=== PATIENT | female | born 1950 | race Caucasian/White ===

== ENCOUNTER 2017-02-13 08:44 | Day surgery (SDC) | payer MEDICARE, SELFPAY ==
[2017-02-13 09:03] VITALS: BP 173/92; PULSE 74; RESP 18; TEMP 36.6; O2SAT 93
[2017-02-13 09:30] VITALS: BP 148/87; PULSE 72; RESP 18
[2017-02-13 09:37] VITALS: BP 175/67; PULSE 67; RESP 18; TEMP 36.6; O2SAT 97
--- NOTE | 2017-02-13 09:37 | P.PCN_ITS ---
- Procedure Date: 02/13/17 Time: 09:32 Anesthesiologist:: Fito Vuong CRNA Complications:: None Pre-procedure Diagnosis:: Degenerative disc disease lumbar spine multilevel lumbar radiculopathy symptoms. Post-procedure Diagnosis:: Same Indications for Procedure:: This patient is a very pleasant 66-year-old white female we have been treated for quite some time for chronic low back pain secondary to degenerative disc disease lumbar spine multiple levels. Lumbar radicular symptoms. She has responded very well to lumbar epidural steroid injections at the L4-5 level. She presents to our procedure clinic today for a therapeutic lumbar epidural steroid injection Procedure Details:: Procedure: Lumbar epidural steroid injection under fluoroscopy Informed consent was obtained and the risks and benefits of the procedure were explained to the patient. The patient was taken to the procedure room and noninvasive monitors placed, including noninvasive blood pressure cuff and pulse oximeter. The back was viewed using C-arm Fluoroscopy and prepped using Betadine as a cleansing solution and the L4-L5 interspace was palpated. Skin and subcutaneous tissues were anesthetized using lidocaine 1.5% and a 25-gauge needle. After this, an 18-gauge Touhy epidural needle was placed into the L4-L5 interspace and advanced using fluoroscopic guidance and loss of resistance to air until the epidural space was encountered. After confirmation of needle placement in the epidural space, with dye, a solution containing lidocaine 1.5% , 4 mL and Depo-Medrol 80 mg were incrementally injected into the lumbar epidural space. The patient tolerated the procedure well with no complications. The patient was observed in the Pain Clinic and then discharged home neurologically intact. Plan and Disposition:: Patient was reevaluated 10 minutes post procedure. She is doing very well. She will return to see us on an as-needed basis.
== END 2017-02-13 09:40 | disposition home or self-care (01) ==
LOC: SC.PAINP 08:47
PROVIDERS: Family Provider Family Medicine Geriatric Medicine; PCP Family Medicine Geriatric Medicine; Visit Provider Nurse Anesthetist, Certified Registered
DX: M51.16 Intervertebral disc disorders with radiculopathy, lumbar region (principal)
CPT/HCPCS: 62323; 62327; J1030; Q9966

== ENCOUNTER → 2017-04-02 08:46 | Outpatient (POV) | payer MEDICARE, SELFPAY ==
[2017-04-02 09:03] VITALS: BP 149/47; PULSE 63; RESP 18; BMI 33.8
--- NOTE | 2017-04-02 09:43 | HMH.PAINSOAP ---
[facility] Pain Management SOAP Note Subjective:: Patient is a pleasant 66-year-old white female who presents today for follow-up after her lumbar epidural steroid injection last month. Patient states she had 80% relief of her pain for 6 weeks post lumbar epidural steroid injection. She states that after the injection she becomes much more functional. Patient is on anti-inflammatories and is also completed physical therapy. Patient states injection therapy is the most helpful in her functionality. Patient rates her pain a 6 out of 10 today. Patient states that in the last week her pain has begun to return after her last lumbar epidural steroid injection. ROS General: no recent weight change, no fever, no sleep disturbances Respiratory: no cough, no shortness of air, no recurring pulmonary infections Cardiovascular/Peripheral Vascular: No chest pain, No palpitations, no edema, no shortness of breath. Gastrointestinal: no incontinence, normal bowel movements reported Genitourinary: no incontinence Musculoskeletal: Lumbar back pain Psychiatric: normal mood/ affect Neurological: [denies weakness in extremities], [denies balance issues] Objective:: Physical Exam General: Alert and oriented x3, no acute distress, pleasant and cooperative, [on room air] Lungs: Resps E/U, Symmetrical chest expansion, Eyes: PERRL Musculoskeletal: Flexion and extension of lumbar spine somewhat guarded secondary to pain, deep tendon reflexes normal, strength in upper and lower extremities [5/5], normal gait noted Neurological: speech clear, hotel maintenance worker equal, no gross sensory deficits Assessment:: Degenerative disc disease of the lumbar spine with lumbar radiculopathy Plan:: We will plan on another lumbar epidural steroid injection at L4-L5. Given the efficacy of the most recent injections I believe that this will be helpful for the patient's functionality. Patient has tried and failed anti-inflammatories, medications, physical therapy. This note was dictated using voice-recognition software may contain errors or omissions
--- NOTE | 2017-04-02 09:46 | P.CONS_ITS ---
[facility] Pain Management SOAP Note Subjective:: Patient is a pleasant 66-year-old white female who presents today for follow-up after her lumbar epidural steroid injection last month. Patient states she had 80% relief of her pain for 6 weeks post lumbar epidural steroid injection. She states that after the injection she becomes much more functional. Patient is on anti-inflammatories and is also completed physical therapy. Patient states injection therapy is the most helpful in her functionality. Patient rates her pain a 6 out of 10 today. Patient states that in the last week her pain has begun to return after her last lumbar epidural steroid injection. ROS General: no recent weight change, no fever, no sleep disturbances Respiratory: no cough, no shortness of air, no recurring pulmonary infections Cardiovascular/Peripheral Vascular: No chest pain, No palpitations, no edema, no shortness of breath. Gastrointestinal: no incontinence, normal bowel movements reported Genitourinary: no incontinence Musculoskeletal: Lumbar back pain Psychiatric: normal mood/ affect Neurological: [denies weakness in extremities], [denies balance issues] Objective:: Physical Exam General: Alert and oriented x3, no acute distress, pleasant and cooperative, [ on room air] Lungs: Resps E/U, Symmetrical chest expansion, Eyes: PERRL Musculoskeletal: Flexion and extension of lumbar spine somewhat guarded secondary to pain, deep tendon reflexes normal, strength in upper and lower extremities [5/5], normal gait noted Neurological: speech clear, friend of the court equal, no gross sensory deficits Assessment:: Degenerative disc disease of the lumbar spine with lumbar radiculopathy Plan:: We will plan on another lumbar epidural steroid injection at L4-L5. Given the efficacy of the most recent injections I believe that this will be helpful for the patient's functionality. Patient has tried and failed anti-inflammatories, medications, physical therapy. This note was dictated using voice-recognition software may contain errors or omissions
== END ==
PROVIDERS: Family Provider Family Medicine Geriatric Medicine; PCP Family Medicine Geriatric Medicine; Visit Provider Clinical Nurse Specialist Family Health
DX: M54.16 Radiculopathy, lumbar region (principal)
CPT/HCPCS: 99212

== ENCOUNTER 2017-04-13 11:25 | Day surgery (SDC) | payer MEDICARE, SELFPAY ==
[2017-04-13 12:18] VITALS: BP 171/78; PULSE 64; TEMP 36.4; O2SAT 99; BMI 33.8
[2017-04-13 13:08] VITALS: BP 181/95; PULSE 84; RESP 20
--- NOTE | 2017-04-13 13:08 | HMH.PMPROC ---
- Procedure Date: 04/13/17 Time: 13:08 Anesthesiologist:: Satish Gibson MD Complications:: None Pre-procedure Diagnosis:: Degenerative disc disease of lumbar spine with lumbar radiculopathy symptoms Post-procedure Diagnosis:: Same Indications for Procedure:: This patient is a pleasant 66-year-old white female who we are treating for low back pain with lumbar radiculopathy symptoms. She got 80% relief in her pain symptoms from her last lumbar epidural steroid injections for approximately 6-8 weeks. She is currently on anti-inflammatories and also completed physical therapy. We will do a repeat lumbar epidural steroid injection for her low back pain that has returned. Procedure Details:: Lumbar epidural steroid injection under fluoroscopy Informed consent was obtained and the risk and benefits of the procedure was explained to the patient. The patient was taken to the procedure room. The patient was placed prone on the procedure table. The patient was prepped and draped in sterile fashion. C-arm fluoroscopy was used to view the lumbar spine. Skin and subcutaneous tissues were anesthetized using lidocaine. I placed an 18-gauge epidural needle and advanced into the L4-L5 interspace using fluoroscopic guidance and [id number] to air. After confirmation of needle placement in the epidural space with dye I injected 2 mL of lidocaine 1.5% with Depo-Medrol 80 mg. Patient tolerated the procedure well with no complications. Plan and Disposition:: We will follow-up with this patient in 2 weeks. We will reevaluate her symptoms at that time.
[2017-04-13 13:09] VITALS: BP 175/85; PULSE 74; RESP 18
--- NOTE | 2017-04-13 13:11 | P.PCN_ITS ---
- Procedure Date: 04/13/17 Time: 13:08 Anesthesiologist:: Satish Gibson MD Complications:: None Pre-procedure Diagnosis:: Degenerative disc disease of lumbar spine with lumbar radiculopathy symptoms Post-procedure Diagnosis:: Same Indications for Procedure:: This patient is a pleasant 66-year-old white female who we are treating for low back pain with lumbar radiculopathy symptoms. She got 80% relief in her pain symptoms from her last lumbar epidural steroid injections for approximately 6-8 weeks. She is currently on anti-inflammatories and also completed physical therapy. We will do a repeat lumbar epidural steroid injection for her low back pain that has returned. Procedure Details:: Lumbar epidural steroid injection under fluoroscopy Informed consent was obtained and the risk and benefits of the procedure was explained to the patient. The patient was taken to the procedure room. The patient was placed prone on the procedure table. The patient was prepped and draped in sterile fashion. C-arm fluoroscopy was used to view the lumbar spine. Skin and subcutaneous tissues were anesthetized using lidocaine. I placed an 18-gauge epidural needle and advanced into the L4-L5 interspace using fluoroscopic guidance and [id number] to air. After confirmation of needle placement in the epidural space with dye I injected 2 mL of lidocaine 1.5 % with Depo-Medrol 80 mg. Patient tolerated the procedure well with no complications. Plan and Disposition:: We will follow-up with this patient in 2 weeks. We will reevaluate her symptoms at that time.
[2017-04-13 14:03] VITALS: BP 149/52; PULSE 67; RESP 18; TEMP 36.4; O2SAT 96
[2017-04-13 14:28] LABS: POC Glucose,Bedside 101 mg/dL (70-110)
== END 2017-04-13 14:05 | disposition home or self-care (01) ==
LOC: SC.PAINP 11:27
PROVIDERS: Family Provider Family Medicine Geriatric Medicine; PCP Family Medicine Geriatric Medicine; Visit Provider Anesthesiology
DX: M51.16 Intervertebral disc disorders with radiculopathy, lumbar region (principal); Z79.1 Long term (current) use of non-steroidal anti-inflammatories (NSAID)
CPT/HCPCS: 62323; 82962; J1040; Q9966

== ENCOUNTER → 2017-04-30 09:08 | Outpatient (POV) | payer MEDICARE, SELFPAY ==
[2017-04-30 09:16] VITALS: BP 197/83; PULSE 71; RESP 20; TEMP 36.6; O2SAT 98; BMI 32.9
--- NOTE | 2017-04-30 09:34 | HMH.PAINSOAP ---
[facility] Pain Management SOAP Note Subjective:: This patient is a pleasant 66-year-old white female who presents today for follow-up after her most recent lumbar epidural steroid injection. Patient is doing extremely well she states she has 100% pain relief. She rates her pain a 0 out of 10 today. Patient is very happy with her injective therapies. Patient and I discussed returning to us her pain begins to increase or on an as-needed basis. ROS General: no recent weight change, no fever, no sleep disturbances Respiratory: no cough, no shortness of air, no recurring pulmonary infections Cardiovascular/Peripheral Vascular: No chest pain, No palpitations, no edema, no shortness of breath. Gastrointestinal: no incontinence, normal bowel movements reported Genitourinary: no incontinence Musculoskeletal: History of back pain Psychiatric: normal mood/ affect, [denies depression], [denies anxiety] Neurological: [denies weakness in extremities], [denies balance issues] Objective:: Physical Exam General: Alert and oriented x3, no acute distress, pleasant and cooperative, [on room air] Lungs: Resps E/U, Symmetrical chest expansion, Eyes: PERRL Musculoskeletal: Flexion and extension of lumbar spine somewhat guarded secondary to pain, deep tendon reflexes normal, strength in upper and lower extremities [5/5], normal gait noted Neurological: speech clear, dehydration unit operator equal, no gross sensory deficits Assessment:: Degenerative disc disease of the lumbar spine, lumbar radiculopathy Plan:: We will follow-up with this patient on an as-needed basis.
--- NOTE | 2017-04-30 09:38 | P.CONS_ITS ---
[facility] Pain Management SOAP Note Subjective:: This patient is a pleasant 66-year-old white female who presents today for follow-up after her most recent lumbar epidural steroid injection. Patient is doing extremely well she states she has 100% pain relief. She rates her pain a 0 out of 10 today. Patient is very happy with her injective therapies. Patient and I discussed returning to us her pain begins to increase or on an as- needed basis. ROS General: no recent weight change, no fever, no sleep disturbances Respiratory: no cough, no shortness of air, no recurring pulmonary infections Cardiovascular/Peripheral Vascular: No chest pain, No palpitations, no edema, no shortness of breath. Gastrointestinal: no incontinence, normal bowel movements reported Genitourinary: no incontinence Musculoskeletal: History of back pain Psychiatric: normal mood/ affect, [denies depression], [denies anxiety] Neurological: [denies weakness in extremities], [denies balance issues] Objective:: Physical Exam General: Alert and oriented x3, no acute distress, pleasant and cooperative, [ on room air] Lungs: Resps E/U, Symmetrical chest expansion, Eyes: PERRL Musculoskeletal: Flexion and extension of lumbar spine somewhat guarded secondary to pain, deep tendon reflexes normal, strength in upper and lower extremities [5/5], normal gait noted Neurological: speech clear, woods rider equal, no gross sensory deficits Assessment:: Degenerative disc disease of the lumbar spine, lumbar radiculopathy Plan:: We will follow-up with this patient on an as-needed basis.
== END ==
PROVIDERS: Family Provider Family Medicine Geriatric Medicine; PCP Family Medicine Geriatric Medicine; Visit Provider Clinical Nurse Specialist Family Health
DX: M54.16 Radiculopathy, lumbar region (principal)
CPT/HCPCS: 99212

== ENCOUNTER → 2017-06-11 10:55 | Outpatient (POV) | payer MEDICARE, SELFPAY ==
[2017-06-11 10:58] VITALS: BP 157/49; PULSE 59; RESP 20; TEMP 36.7; O2SAT 99; BMI 32.9
--- NOTE | 2017-06-11 11:13 | HMH.PAINSOAP ---
[facility] Pain Management SOAP Note Subjective:: Patient is a pleasant 66-year-old white female who presents today for follow-up after her most recent lumbar epidural steroid injection. Patient typically does quite well with them getting 90-100% relief however she states she did not get much relief with this injection. Patient states she has a new pain in her low back. Patient states her pain is an 8 out of 10 today. Patient states that it is in her low back around her coccyx area. Patient states that she has had sacroiliitis in the past and and this is the same kind of pain that she has had. Patient has had bilateral SI joint injections with good relief 80% up to 8 weeks. Patient is interested in bilateral SI joint injections. ROS General: no recent weight change, no fever, no sleep disturbances Respiratory: no cough, no shortness of air, no recurring pulmonary infections Cardiovascular/Peripheral Vascular: No chest pain, No palpitations, no edema, no shortness of breath. Gastrointestinal: no incontinence, normal bowel movements reported Genitourinary: no incontinence Musculoskeletal: Back pain, bilateral SI joint pain Psychiatric: normal mood/ affect Neurological: [denies weakness in extremities], [denies balance issues] Objective:: Physical Exam General: Alert and oriented x3, no acute distress, pleasant and cooperative, [on room air] Lungs: Resps E/U, Symmetrical chest expansion, Eyes: PERRL Musculoskeletal: Flexion and extension of lumbar spine somewhat guarded secondary to pain, deep tendon reflexes normal, strength in upper and lower extremities [5/5], [abnormal gait noted] a positive Chiquita's test bilaterally, extreme point tenderness over bilateral SI joints Neurological: speech clear, member of congress equal, no gross sensory deficits Assessment:: Sacroiliitis, degenerative disc disease lumbar spine with lumbar radiculopathy Plan:: Schedule bilateral SI joint injections for the patient. Patient has had these injections in the past with significant relief. Patient and I did discuss talking about more permanent options if her epidural injections are not giving her the relief that they used to in the bilateral SI joint injection does not help. Patient is not on any blood thinners. Patient has tried and failed medications, anti-inflammatories, physical therapy. I will follow-up with the patient after her SI joint injections. This note was dictated using voice recognition software and may contain errors or omissions
--- NOTE | 2017-06-11 11:16 | P.CONS_ITS ---
[facility] Pain Management SOAP Note Subjective:: Patient is a pleasant 66-year-old white female who presents today for follow-up after her most recent lumbar epidural steroid injection. Patient typically does quite well with them getting 90-100% relief however she states she did not get much relief with this injection. Patient states she has a new pain in her low back. Patient states her pain is an 8 out of 10 today. Patient states that it is in her low back around her coccyx area. Patient states that she has had sacroiliitis in the past and and this is the same kind of pain that she has had. Patient has had bilateral SI joint injections with good relief 80% up to 8 weeks. Patient is interested in bilateral SI joint injections. ROS General: no recent weight change, no fever, no sleep disturbances Respiratory: no cough, no shortness of air, no recurring pulmonary infections Cardiovascular/Peripheral Vascular: No chest pain, No palpitations, no edema, no shortness of breath. Gastrointestinal: no incontinence, normal bowel movements reported Genitourinary: no incontinence Musculoskeletal: Back pain, bilateral SI joint pain Psychiatric: normal mood/ affect Neurological: [denies weakness in extremities], [denies balance issues] Objective:: Physical Exam General: Alert and oriented x3, no acute distress, pleasant and cooperative, [ on room air] Lungs: Resps E/U, Symmetrical chest expansion, Eyes: PERRL Musculoskeletal: Flexion and extension of lumbar spine somewhat guarded secondary to pain, deep tendon reflexes normal, strength in upper and lower extremities [5/5], [abnormal gait noted] a positive Chiquita's test bilaterally, extreme point tenderness over bilateral SI joints Neurological: speech clear, fire control officer equal, no gross sensory deficits Assessment:: Sacroiliitis, degenerative disc disease lumbar spine with lumbar radiculopathy Plan:: Schedule bilateral SI joint injections for the patient. Patient has had these injections in the past with significant relief. Patient and I did discuss talking about more permanent options if her epidural injections are not giving her the relief that they used to in the bilateral SI joint injection does not help. Patient is not on any blood thinners. Patient has tried and failed medications, anti-inflammatories, physical therapy. I will follow-up with the patient after her SI joint injections. This note was dictated using voice recognition software and may contain errors or omissions
== END ==
PROVIDERS: Family Provider Family Medicine Geriatric Medicine; PCP Family Medicine Geriatric Medicine; Visit Provider Clinical Nurse Specialist Family Health
DX: M54.16 Radiculopathy, lumbar region (principal); M46.1 Sacroiliitis, not elsewhere classified
CPT/HCPCS: 99212

== ENCOUNTER → 2017-07-09 09:50 | Outpatient (POV) | payer MEDICARE, SELFPAY ==
[2017-07-09 10:00] VITALS: BP 134/54; PULSE 70; RESP 18; O2SAT 99; BMI 32.9
--- NOTE | 2017-07-09 11:12 | P.CONS_ITS ---
[facility] Pain Management SOAP Note Subjective:: Patient is a pleasant 66-year-old white female who presents today after bilateral SI joint injections. Patient states she has 0 pain today she states that she is 100% relief after these injections. Patient is doing well. Patient states she is more functional with this relief. Patient has not had epidural injections in the past and did well with these as well. ROS General: no recent weight change, no fever, no sleep disturbances Respiratory: no cough, no shortness of air, no recurring pulmonary infections Cardiovascular/Peripheral Vascular: No chest pain, No palpitations, no edema, no shortness of breath. Gastrointestinal: no incontinence, normal bowel movements reported Genitourinary: no incontinence Musculoskeletal: Intermittent back and bilateral SI joint pain Psychiatric: normal mood/ affect Neurological: [denies weakness in extremities], [denies balance issues] Objective:: Physical Exam General: Alert and oriented x3, no acute distress, pleasant and cooperative, [ on room air] Lungs: Resps E/U, Symmetrical chest expansion, Eyes: PERRL Musculoskeletal: Flexion and extension of lumbar spine somewhat guarded secondary to pain, deep tendon reflexes normal, strength in upper and lower extremities [5/5], normal gait noted Neurological: speech clear, director of strategic initiatives equal, no gross sensory deficits Assessment:: Degenerative disc disease of lumbar spine with lumbar radiculopathy, sacroiliitis Plan:: We will follow-up with this patient on an as-needed basis. Patient is done extremely well with injective therapy in the past. This note was dictated using voice recognition software and may contain errors or omissions
== END ==
PROVIDERS: Family Provider Family Medicine Geriatric Medicine; PCP Family Medicine Geriatric Medicine; Visit Provider Clinical Nurse Specialist Family Health
DX: M54.16 Radiculopathy, lumbar region (principal); M46.1 Sacroiliitis, not elsewhere classified
CPT/HCPCS: 99212

== ENCOUNTER 2017-07-31 12:45 | Day surgery (SDC) | payer MEDICARE, SELFPAY ==
[2017-07-31 13:00] VITALS: BP 187/81; PULSE 69; RESP 18; O2SAT 98; BMI 32.9
[2017-07-31 13:08] VITALS: BP 189/84; PULSE 88; RESP 20; O2SAT 98
[2017-07-31 13:09] VITALS: BP 158/101; PULSE 92; RESP 18; O2SAT 97
--- NOTE | 2017-07-31 13:16 | HMH.PMPROC ---
- Procedure Date: 07/31/17 Time: 13:10 Anesthesiologist:: Traci Nicole APRN Complications:: None Pre-procedure Diagnosis:: Sacroiliitis Post-procedure Diagnosis:: Same Indications for Procedure:: Patient is a pleasant 58-year-old white female who presents today for bilateral SI joint injections. Patient has had good relief with these injections in the past. Patient states she gets about 6-8 weeks of relief after these injections. Patient and I did briefly discuss potentially doing an RFA on her bilateral excise at some point. Patient is slightly interested in this but would like to see how this injection works at this time. Patient states she is more functional after injection she rates her pain a 6 out of 10 today. Physical Exam General: Alert and oriented x3, no acute distress, pleasant and cooperative, [on room air] Lungs: Resps E/U, Symmetrical chest expansion, Eyes: PERRL Musculoskeletal: Flexion and extension of lumbar spine somewhat guarded secondary to pain, deep tendon reflexes normal, strength in upper and lower extremities [5/5], antalgic gait noted, positive Chiquita's test bilaterally, extreme point tenderness over bilateral SI joints Neurological: speech clear, tool design checker equal, no gross sensory deficits Procedure Details:: Informed consent was obtained and the risks and benefits of the procedure were explained to the patient. Patient was taken to the procedure room. Patient was placed prone on the procedure table. The bilateral hips were prepped using ChloraPrep as a cleansing solution. The skin and subcutaneous tissues were anesthetized using lidocaine. Using fluoroscopic guidance I placed a 22-gauge spinal needle into the inferior aspect of the [right] SI joint. After this I injected 5 mL bupivacaine 0.25% and Depo-Medrol 40 mg into the right SI joint. We then moved to the left SI joint. The skin and saphenous tissue were anesthetized using lidocaine. Using fluoroscopy topic guidance I placed a 22-gauge spinal needle into the inferior aspect of the left SI joint after this I injected 5 mL's of bupivacaine 0.25% and Depo-Medrol 40 mg into the left SI joint. the patient tolerated the procedure well with no complication. Plan and Disposition:: Patient did well after the procedure. Patient was monitored for some time in the clinic. Patient's been instructed to call the office if she has any issues prior to her next appointment. I will follow-up with her in 2 weeks we will reassess her symptoms at that time. We may readdress potential RFA of the bilateral SI joints. This note was dictated using voice recognition software and may contain errors or omissions
[2017-07-31 13:19] VITALS: BP 189/71; PULSE 69; RESP 18; O2SAT 98
--- NOTE | 2017-07-31 13:19 | P.PCN_ITS ---
- Procedure Date: 07/31/17 Time: 13:10 Anesthesiologist:: Traci Nicole APRN Complications:: None Pre-procedure Diagnosis:: Sacroiliitis Post-procedure Diagnosis:: Same Indications for Procedure:: Patient is a pleasant 58-year-old white female who presents today for bilateral SI joint injections. Patient has had good relief with these injections in the past. Patient states she gets about 6-8 weeks of relief after these injections. Patient and I did briefly discuss potentially doing an RFA on her bilateral excise at some point. Patient is slightly interested in this but would like to see how this injection works at this time. Patient states she is more functional after injection she rates her pain a 6 out of 10 today. Physical Exam General: Alert and oriented x3, no acute distress, pleasant and cooperative, [ on room air] Lungs: Resps E/U, Symmetrical chest expansion, Eyes: PERRL Musculoskeletal: Flexion and extension of lumbar spine somewhat guarded secondary to pain, deep tendon reflexes normal, strength in upper and lower extremities [5/5], antalgic gait noted, positive Chiquita's test bilaterally, extreme point tenderness over bilateral SI joints Neurological: speech clear, typewriters functional tester equal, no gross sensory deficits Procedure Details:: Informed consent was obtained and the risks and benefits of the procedure were explained to the patient. Patient was taken to the procedure room. Patient was placed prone on the procedure table. The bilateral hips were prepped using ChloraPrep as a cleansing solution. The skin and subcutaneous tissues were anesthetized using lidocaine. Using fluoroscopic guidance I placed a 22-gauge spinal needle into the inferior aspect of the [right] SI joint. After this I injected 5 mL bupivacaine 0.25% and Depo-Medrol 40 mg into the right SI joint. We then moved to the left SI joint. The skin and saphenous tissue were anesthetized using lidocaine. Using fluoroscopy topic guidance I placed a 22- gauge spinal needle into the inferior aspect of the left SI joint after this I injected 5 mL's of bupivacaine 0.25% and Depo-Medrol 40 mg into the left SI joint. the patient tolerated the procedure well with no complication. Plan and Disposition:: Patient did well after the procedure. Patient was monitored for some time in the clinic. Patient's been instructed to call the office if she has any issues prior to her next appointment. I will follow-up with her in 2 weeks we will reassess her symptoms at that time. We may readdress potential RFA of the bilateral SI joints. This note was dictated using voice recognition software and may contain errors or omissions
== END 2017-07-31 13:21 | disposition home or self-care (01) ==
LOC: SC.PAINP 12:45
PROVIDERS: Family Provider Family Medicine Geriatric Medicine; PCP Family Medicine Geriatric Medicine; Visit Provider Clinical Nurse Specialist Family Health
DX: M46.1 Sacroiliitis, not elsewhere classified (principal)
CPT/HCPCS: 27096; G0260; J1030

== ENCOUNTER → 2017-08-13 12:42 | Outpatient (POV) | payer MEDICARE, SELFPAY ==
[2017-08-13 13:12] VITALS: BP 145/70; PULSE 69; RESP 18; O2SAT 98; BMI 32.9
--- NOTE | 2017-08-14 09:11 | HMH.PAINSOAP ---
[facility] Pain Management SOAP Note Subjective:: Patient is a pleasant 66-year-old white female who presents today after bilateral SI joint injections. Patient states that she has had a flare in her pain. Patient rates her pain a 9 out of 10 today. Patient states most of her pain is in her low back and across her back. ROS General: no recent weight change, no fever, no sleep disturbances Respiratory: no cough, no shortness of air, no recurring pulmonary infections Cardiovascular/Peripheral Vascular: No chest pain, No palpitations, no edema, no shortness of breath. Gastrointestinal: no incontinence, normal bowel movements reported Genitourinary: no incontinence Musculoskeletal: Bilateral SI joint pain Psychiatric: normal mood/ affect Neurological: [denies weakness in extremities], [denies balance issues] Objective:: Physical Exam General: Alert and oriented x3, no acute distress, pleasant and cooperative, [on room air] Lungs: Resps E/U, Symmetrical chest expansion, Eyes: PERRL Musculoskeletal: Flexion and extension of lumbar spine somewhat guarded secondary to pain, deep tendon reflexes normal, strength in upper and lower extremities [5/5], [abnormal gait noted] Neurological: speech clear, deputy county counsel equal, no gross sensory deficits Assessment:: Sacroiliitis, degenerative disc disease of the lumbar spine Plan:: We will call in a LBE Security Master Dosepak for the patient. I will see the patient back in 1 week. Patient's been instructed to call the office if she has any issues prior to this. This note was dictated using voice recognition software and may contain errors or omissions
--- NOTE | 2017-08-14 09:21 | P.CONS_ITS ---
[facility] Pain Management SOAP Note Subjective:: Patient is a pleasant 66-year-old white female who presents today after bilateral SI joint injections. Patient states that she has had a flare in her pain. Patient rates her pain a 9 out of 10 today. Patient states most of her pain is in her low back and across her back. ROS General: no recent weight change, no fever, no sleep disturbances Respiratory: no cough, no shortness of air, no recurring pulmonary infections Cardiovascular/Peripheral Vascular: No chest pain, No palpitations, no edema, no shortness of breath. Gastrointestinal: no incontinence, normal bowel movements reported Genitourinary: no incontinence Musculoskeletal: Bilateral SI joint pain Psychiatric: normal mood/ affect Neurological: [denies weakness in extremities], [denies balance issues] Objective:: Physical Exam General: Alert and oriented x3, no acute distress, pleasant and cooperative, [ on room air] Lungs: Resps E/U, Symmetrical chest expansion, Eyes: PERRL Musculoskeletal: Flexion and extension of lumbar spine somewhat guarded secondary to pain, deep tendon reflexes normal, strength in upper and lower extremities [5/5], [abnormal gait noted] Neurological: speech clear, cruller maker machine equal, no gross sensory deficits Assessment:: Sacroiliitis, degenerative disc disease of the lumbar spine Plan:: We will call in a pushd Dosepak for the patient. I will see the patient back in 1 week. Patient's been instructed to call the office if she has any issues prior to this. This note was dictated using voice recognition software and may contain errors or omissions
== END ==
PROVIDERS: Family Provider Family Medicine Geriatric Medicine; PCP Family Medicine Geriatric Medicine; Visit Provider Clinical Nurse Specialist Family Health
DX: M46.1 Sacroiliitis, not elsewhere classified (principal)
CPT/HCPCS: 99212

== ENCOUNTER → 2017-08-21 10:05 | Outpatient (POV) | payer MEDICARE, SELFPAY ==
[2017-08-21 10:24] VITALS: BP 149/70; PULSE 62; RESP 18; O2SAT 98; BMI 32.9
--- NOTE | 2017-08-21 11:12 | HMH.PAINSOAP ---
[facility] Pain Management SOAP Note Subjective:: She is a pleasant 67-year-old white female presents today with an exacerbation of her pain. Patient was seen last week and given a steroid Dosepak however her pain has not been relieved. She states that most of her pain is in her low back midline. She pain a 9 out of 10. Patient has not had any recent MRI imaging. Patient is having weakness in her legs at times. I believe that we need to get a new MRI to discern pathology. ROS General: no recent weight change, no fever, no sleep disturbances Respiratory: no cough, no shortness of air, no recurring pulmonary infections Cardiovascular/Peripheral Vascular: No chest pain, No palpitations, no edema, no shortness of breath. Gastrointestinal: no incontinence, normal bowel movements reported Genitourinary: no incontinence Musculoskeletal: Back pain Psychiatric: normal mood/ affect Neurological: Weakness in bilateral lower extremities at times, [denies balance issues] Objective:: Physical Exam General: Alert and oriented x3, no acute distress, pleasant and cooperative, [on room air] Lungs: Resps E/U, Symmetrical chest expansion, Eyes: PERRL Musculoskeletal: Flexion and extension of lumbar spine somewhat guarded secondary to pain, deep tendon reflexes normal, strength in upper and lower extremities [5/5], [abnormal gait noted] Neurological: speech clear, sewer line photo inspector equal, no gross sensory deficits Assessment:: Degenerative disc disease of the lumbar spine with lumbar radiculopathy Plan:: We will schedule an MRI for this patient I believe given the new symptomology would be beneficial. Patient has had injections in the past but has not had any long-term relief with it. Patient and I did briefly discuss neuromodulation however I believe we need to have a new MRI to help create a plan of care. Follow-up patient after her this. This note was dictated using voice recognition software and may contain errors or omissions
== END ==
PROVIDERS: Family Provider Family Medicine Geriatric Medicine; PCP Family Medicine Geriatric Medicine; Visit Provider Clinical Nurse Specialist Family Health
DX: M54.16 Radiculopathy, lumbar region (principal)
CPT/HCPCS: 99212

== ENCOUNTER → 2017-08-28 08:30 | Outpatient (CLI) | payer MEDICARE, SELFPAY ==
--- NOTE | 2017-08-28 08:33 | MR_ITS ---
MR lumbar spine wo con HISTORY: ITS.REASON: BACK PAIN ORDERING PHYSICIAN: Traci Nicole PATIENT AGE: 67 years Comparison: None TECHNIQUE: Standard multiplanar multiecho sequences are performed without contrast. 3-D MIP and myelographic images are also rendered and reviewed FINDINGS: There is normal curvature and alignment. All lumbar vertebrae appear intact. The marrow signal is normal in all lumbar vertebrae. There is a normal healthy high signal in the L1-2 disc, remaining disks skull show decreased signal suggesting desiccation. The spinal canal is normal in size throughout. There is mild diffuse bulging of the annulus fibrosis at the L2-3 level. There are mild hypertrophic facet changes bilaterally at the L2-3 level as well. There are moderate hypertrophic facet changes at the L3-4 level, the L4-5 and L5-S1 levels appear normal regarding the facet joints. The conus is normal. The myelogram sequence is unremarkable. IMPRESSION: Mild generalized desiccation of lumbar discs L2-L5 S1 along with minor diffuse bulging annulus fibrosis L2-3 and mild hypertrophic facet changes mid lumbar spine as described above.
== END ==
PROVIDERS: Family Provider Family Medicine Geriatric Medicine; PCP Family Medicine Geriatric Medicine; Visit Provider Clinical Nurse Specialist Family Health
DX: M54.5 Low back pain (principal)
CPT/HCPCS: 72148; 76376

== ENCOUNTER → 2017-09-03 09:34 | Outpatient (POV) | payer MEDICARE, SELFPAY ==
[2017-09-03 09:40] VITALS: BP 175/73; PULSE 69; RESP 18; O2SAT 98; BMI 32.9
--- NOTE | 2017-09-03 09:58 | HMH.PAINSOAP ---
[facility] Pain Management SOAP Note Subjective:: Patient is a pleasant 67-year-old white female who presents today for follow-up after her most recent MRI. Patient's been having increased lumbar back pain. Patient was doing well with her injection therapy however she states that they are no longer lasting for her. Patient rates the pain an 8 out of 10 mostly in her low back. Patient's MRI does show degenerative disc disease along with some facet changes. Patient and I had a long discussion about neuro stimulation and intrathecal pain pump. I believe she will be a good intrathecal pain pump candidate. I discussed the trialing and implantation process. Patient is going to take some information home and think about this. Patient is on [place] 5 mg daily from her PCP. I discussed with her that she would have to be with medication for 48 hours prior to her intrathecal trial and she understands this. Patient's tried and failed physical therapy, stretching therapy, chiropractic therapy, injective therapy, medications, anti-inflammatories. ROS General: no recent weight change, no fever, no sleep disturbances Respiratory: no cough, no shortness of air, no recurring pulmonary infections Cardiovascular/Peripheral Vascular: No chest pain, No palpitations, no edema, no shortness of breath. Gastrointestinal: no incontinence, normal bowel movements reported Genitourinary: no incontinence Musculoskeletal: Back pain Psychiatric: normal mood/ affect, [denies depression], [denies anxiety] Neurological: [denies weakness in extremities], [denies balance issues] Objective:: Physical Exam General: Alert and oriented x3, no acute distress, pleasant and cooperative, [on room air] Lungs: Resps E/U, Symmetrical chest expansion, Eyes: PERRL Musculoskeletal: Flexion and extension of lumbar spine somewhat guarded secondary to pain, deep tendon reflexes normal, strength in upper and lower extremities [5/5], [abnormal gait noted] Neurological: speech clear, international account manager equal, no gross sensory deficits Assessment:: Degenerative disc disease of the lumbar spine Plan:: Patient was given information on both intrathecal pain therapy along with neuro stimulation. Patient is going to review this and call us if she would like to move forward with these therapies. This note was dictated using voice recognition software and may contain errors or omissions
--- NOTE | 2017-09-03 10:01 | P.CONS_ITS ---
[facility] Pain Management SOAP Note Subjective:: Patient is a pleasant 67-year-old white female who presents today for follow-up after her most recent MRI. Patient's been having increased lumbar back pain. Patient was doing well with her injection therapy however she states that they are no longer lasting for her. Patient rates the pain an 8 out of 10 mostly in her low back. Patient's MRI does show degenerative disc disease along with some facet changes. Patient and I had a long discussion about neuro stimulation and intrathecal pain pump. I believe she will be a good intrathecal pain pump candidate. I discussed the trialing and implantation process. Patient is going to take some information home and think about this. Patient is on [place] 5 mg daily from her PCP. I discussed with her that she would have to be with medication for 48 hours prior to her intrathecal trial and she understands this. Patient's tried and failed physical therapy, stretching therapy, chiropractic therapy, injective therapy, medications, anti- inflammatories. ROS General: no recent weight change, no fever, no sleep disturbances Respiratory: no cough, no shortness of air, no recurring pulmonary infections Cardiovascular/Peripheral Vascular: No chest pain, No palpitations, no edema, no shortness of breath. Gastrointestinal: no incontinence, normal bowel movements reported Genitourinary: no incontinence Musculoskeletal: Back pain Psychiatric: normal mood/ affect, [denies depression], [denies anxiety] Neurological: [denies weakness in extremities], [denies balance issues] Objective:: Physical Exam General: Alert and oriented x3, no acute distress, pleasant and cooperative, [ on room air] Lungs: Resps E/U, Symmetrical chest expansion, Eyes: PERRL Musculoskeletal: Flexion and extension of lumbar spine somewhat guarded secondary to pain, deep tendon reflexes normal, strength in upper and lower extremities [5/5], [abnormal gait noted] Neurological: speech clear, modeling agent equal, no gross sensory deficits Assessment:: Degenerative disc disease of the lumbar spine Plan:: Patient was given information on both intrathecal pain therapy along with neuro stimulation. Patient is going to review this and call us if she would like to move forward with these therapies. This note was dictated using voice recognition software and may contain errors or omissions
== END ==
PROVIDERS: Family Provider Family Medicine Geriatric Medicine; PCP Family Medicine Geriatric Medicine; Visit Provider Clinical Nurse Specialist Family Health
DX: M51.36 Other intervertebral disc degeneration, lumbar region (principal)
CPT/HCPCS: 99212

== ENCOUNTER → 2017-09-18 09:57 | Outpatient (POV) | payer MEDICARE, SELFPAY ==
[2017-09-18 10:24] VITALS: BP 184/67; PULSE 61; RESP 18; O2SAT 98; BMI 32.9
--- NOTE | 2017-09-18 11:37 | HMH.PAINSOAP ---
[facility] Pain Management SOAP Note Subjective:: Patient is a pleasant 67-year-old white female who presents today to follow-up after she was provided information on intrathecal therapies. Patient has some questions that she would like to address. Patient and I had a long discussion in regards to the therapy and realistic expectations and goal setting. Patient is interested in moving forward with a psychological evaluation and a trial. Most the patient's pain is in her low back and down her legs. Patient has tried and failed physical therapy, stretching therapy, chiropractic therapy, injective therapy, medications and anti-inflammatories. Patient is not on any anticoagulation therapy. Patient understands that she has to be off of her narcotic medications 48 hours prior to her intrathecal trial. She rates her pain a 7 out of 10. ROS General: no recent weight change, no fever, no sleep disturbances Respiratory: no cough, no shortness of air, no recurring pulmonary infections Cardiovascular/Peripheral Vascular: No chest pain, No palpitations, no edema, no shortness of breath. Gastrointestinal: no incontinence, normal bowel movements reported Genitourinary: no incontinence Musculoskeletal: Back pain, leg pain Psychiatric: normal mood/ affect Neurological: [denies weakness in extremities], [denies balance issues] Objective:: Physical Exam General: Alert and oriented x3, no acute distress, pleasant and cooperative, [on room air] Lungs: Resps E/U, Symmetrical chest expansion, Eyes: PERRL Musculoskeletal: Flexion and extension of lumbar spine somewhat guarded secondary to pain, deep tendon reflexes normal, strength in upper and lower extremities [5/5], [abnormal gait noted] Neurological: speech clear, peer health promoter equal, no gross sensory deficits Assessment:: Degenerative disc disease of lumbar spine with lumbar radiculopathy Plan:: We will schedule the patient for psychological evaluation we will start the process of moving forward with an intrathecal pain pump trial. Patient's tried and failed other conservative measures. I will follow-up the patient after her trial. This note was dictated using voice recognition software and may contain errors or omissions
== END ==
PROVIDERS: Family Provider Family Medicine Geriatric Medicine; PCP Family Medicine Geriatric Medicine; Visit Provider Clinical Nurse Specialist Family Health
DX: M51.16 Intervertebral disc disorders with radiculopathy, lumbar region (principal); Z79.891 Long term (current) use of opiate analgesic
CPT/HCPCS: 99213

== ENCOUNTER → 2017-11-06 10:48 | Outpatient (POV) | payer MEDICARE, SELFPAY ==
[2017-11-06 11:14] VITALS: BP 147/53; PULSE 64; RESP 18; O2SAT 97; BMI 33.8
--- NOTE | 2017-11-06 11:19 | HMH.PMPROC ---
- Procedure Date: 11/06/17 Time: 11:15 Anesthesiologist:: Traci Nicole APRN Complications:: None Pre-procedure Diagnosis:: Degenerative disc disease lumbar spine with lumbar radiculopathy symptoms Post-procedure Diagnosis:: Same Indications for Procedure:: Patient is a pleasant 67-year-old white female who presents today for postop visit after her intrathecal pain pump was placed. Patient is currently on a morphine dose of 0.25 mg/day. Patient rates her pain a 0 out of 10. Patient states she is much more functional. Patient stitches have been removed and the site is healing well with no sign symptoms of infection. Patient denies side effects to her interthecal infusion. ROS General: no recent weight change, no fever, no sleep disturbances Respiratory: no cough, no shortness of air, no recurring pulmonary infections Cardiovascular/Peripheral Vascular: No chest pain, No palpitations, no edema, no shortness of breath. Gastrointestinal: no incontinence, normal bowel movements reported Genitourinary: no incontinence Musculoskeletal: Back pain Psychiatric: normal mood/ affect, Neurological: [denies weakness in extremities], [denies balance issues] Physical Exam General: Alert and oriented x3, no acute distress, pleasant and cooperative, [on room air] Lungs: Resps E/U, Symmetrical chest expansion, Eyes: PERRL Musculoskeletal: Flexion and extension of lumbar spine somewhat guarded secondary to pain, deep tendon reflexes normal, strength in upper and lower extremities [5/5], slightly antalgic gait noted Neurological: speech clear, organizational consultant equal, no gross sensory deficits Procedure Details:: Informed consent was obtained and the risk and benefits of the procedure were explained to the patient. The patient was taken to the procedure room where noninvasive monitoring was placed including noninvasive blood pressure cuff and pulse oximeter. Patient's pump was interrogated. The infusion rate was left at 0.25 mg of morphine and her PTC was set up at 0.025 mg every activation every 6 hours as needed. The patient tolerated the procedure well. Plan and Disposition:: We will follow-up with the patient in 3 weeks and reassess her symptoms at that time. Patient's been instructed to call the office if she has any issues prior to her next appointment. This note was dictated using voice recognition software and may contain errors or omissions
== END ==
PROVIDERS: Family Provider Family Medicine Geriatric Medicine; PCP Family Medicine; Visit Provider Clinical Nurse Specialist Family Health
DX: M51.16 Intervertebral disc disorders with radiculopathy, lumbar region (principal)
CPT/HCPCS: 62368

== ENCOUNTER → 2017-11-19 14:08 | Outpatient (POV) | payer MEDICARE, SELFPAY ==
[2017-11-19 14:37] VITALS: BP 154/71; PULSE 62; RESP 18; O2SAT 98; BMI 33.8
--- NOTE | 2017-11-19 14:48 | HMH.PMPROC ---
- Procedure Date: 11/19/17 Time: 14:40 Anesthesiologist:: Traci Nicole APRN Complications:: None Pre-procedure Diagnosis:: Degenerative disc disease lumbar spine with lumbar radiculopathy Post-procedure Diagnosis:: Same Indications for Procedure:: Patient is a pleasant 67-year-old white female who presents today for discussion in regards to her intrathecal pain pump. Patient has a morphine pump going at 0.25 mg a day. Patient states in the last 2 weeks she has had some side effects including nausea, itching, loss of appetite, mind fogginess, swelling, bloated, mood changes. Patient and I had a long discussion about this. She is also been having some increases in pain. Patient and I discussed changing her medication and her pump and she is interested in pursuing this. We will decrease her pain pump today by 20% to help alleviate some of her side effects and then we will refill her with Dilaudid 1 mg/mL and start her at 0.05 mg/day at her next visit. Physical Exam General: Alert and oriented x3, no acute distress, pleasant and cooperative, [on room air] Lungs: Resps E/U, Symmetrical chest expansion, Eyes: PERRL Musculoskeletal: Flexion and extension of lumbar spine somewhat guarded secondary to pain, deep tendon reflexes normal, strength in upper and lower extremities [5/5], [abnormal gait noted] Neurological: speech clear, public health informatician equal, no gross sensory deficits Procedure Details:: Informed consent was obtained and the risk and benefits of the procedure were explained to the patient. The patient was taken to the procedure room where noninvasive monitoring was placed including noninvasive blood pressure cuff and pulse oximeter. Patient's pump was interrogated. The infusion rate was decreased to 0.2 mg a day of morphine. The patient tolerated the procedure well. Plan and Disposition:: I will follow-up with the patient next week and we will refill her pain pump with Dilaudid instead of morphine. Patient's been instructed to call the office if she has any issues prior to her next appointment. This note was dictated using voice recognition software and may contain errors or omissions
== END ==
PROVIDERS: Family Provider Family Medicine Geriatric Medicine; PCP Family Medicine; Visit Provider Clinical Nurse Specialist Family Health
DX: M51.16 Intervertebral disc disorders with radiculopathy, lumbar region (principal)
CPT/HCPCS: 62368

== ENCOUNTER → 2017-12-10 15:39 | Outpatient (POV) | payer MEDICARE, SELFPAY ==
[2017-12-10 15:55] VITALS: BP 197/82; PULSE 66; RESP 18; O2SAT 98; BMI 33.8
--- NOTE | 2017-12-11 07:45 | HMH.PMPROC ---
- Procedure Date: 12/10/17 Time: 16:00 Anesthesiologist:: Traci Nicole APRN Complications:: None Pre-procedure Diagnosis:: Degenerative disc disease lumbar spine with lumbar radiculopathy Post-procedure Diagnosis:: Same Indications for Procedure:: Patient is a pleasant 67-year-old white female who presents today for follow-up after changed from morphine to Dilaudid in her intrathecal pump. Patient was having side effects to the morphine. We started her intrathecal infusion of Dilaudid at 0.04mg/day. Patient states the only side effect she has at this time is sleepiness. She rates her pain a 0 out of 10 however she states it does spike a little bit. Patient will be switched to periodic flow today to determine if this is beneficial for her. Physical Exam General: Alert and oriented x3, no acute distress, pleasant and cooperative, [on room air] Lungs: Resps E/U, Symmetrical chest expansion, Eyes: PERRL Musculoskeletal: Flexion and extension of lumbar spine somewhat guarded secondary to pain, deep tendon reflexes normal, strength in upper and lower extremities [5/5], [abnormal gait noted] Neurological: speech clear, food mobile driver equal, no gross sensory deficits Procedure Details:: Informed consent was obtained and the risk and benefits of the procedure were explained to the patient. The patient was taken to the procedure room where noninvasive monitoring was placed including noninvasive blood pressure cuff and pulse oximeter. Patient's pump was interrogated. The infusion rate was changed to 0.005 mg every 2 hours for total daily dose of 0.06 mg of Dilaudid. The patient tolerated the procedure well. Plan and Disposition:: We will follow-up with the patient and her next intrathecal pain pump refill and reprogram. Patient's been instructed to call the office if she has any issues prior to her next appointment. This note was dictated using voice recognition software and may contain errors or omissions
== END ==
PROVIDERS: PCP Family Medicine; Visit Provider Clinical Nurse Specialist Family Health
DX: M51.16 Intervertebral disc disorders with radiculopathy, lumbar region (principal)
CPT/HCPCS: 62368

== ENCOUNTER → 2017-12-24 12:51 | Outpatient (POV) | payer MEDICARE, SELFPAY ==
--- NOTE | 2017-12-24 13:42 | HMH.PMPROC ---
- Procedure Date: 12/24/17 Time: 13:40 Anesthesiologist:: Traci Nicole APRN Complications:: None Pre-procedure Diagnosis:: Degenerative disc disease lumbar spine with lumbar radiculopathy Post-procedure Diagnosis:: Same Indications for Procedure:: Patient is a pleasant 67-year-old white female who presents today for adjustment to her intrathecal pain pump. Patient states that she has been having some side effects including sleepiness along with mental fogginess with her Dilaudid running at 0.005 mg every 2 hours for total daily dose of 0.06. Patient does not have any pain however. We will turn her pump off today to see if these are related to her interthecal infusion. Physical Exam General: Alert and oriented x3, no acute distress, pleasant and cooperative, [on room air] Lungs: Resps E/U, Symmetrical chest expansion, Eyes: PERRL Musculoskeletal: Flexion and extension of lumbar spine somewhat guarded secondary to pain, deep tendon reflexes normal, strength in upper and lower extremities [5/5], slightly antalgic gait noted Neurological: speech clear, embossing tool setter equal, no gross sensory deficits Procedure Details:: Informed consent was obtained and the risk and benefits of the procedure were explained to the patient. The patient was taken to the procedure room where noninvasive monitoring was placed including noninvasive blood pressure cuff and pulse oximeter. Patient's pump was interrogated. The infusion rate was turned to 0 mg/day. The patient tolerated the procedure well. Plan and Disposition:: We will follow-up with her in 2 weeks and reassess her symptoms at that time. Patient has been instructed to call the office if she has any issues prior to her next appointment. This note was dictated using voice recognition software and may contain errors or omissions
[2017-12-24 14:42] VITALS: BP 158/58; PULSE 58; RESP 18; O2SAT 97; BMI 33.8
[2017-12-24 15:05] LABS: Amphetamine/Metha Screen,Urine Negative ng/mL (<1000); Barbiturates Screen,Urine Negative ng/mL (<200); Benzodiazepines Screen,Urine Negative ng/mL (<200); Cannabinoid Screen,Urine Negative ng/mL (<50); Cocaine Screen,Urine Negative ng/mL (<300); Methadone Screen,Urine Negative ng/mL (<300); Opiate Screen,Urine Negative ng/mL (<300); Phencyclidine Screen,Urine Negative ng/mL (<25)
[2018-01-01 06:08] LABS: Opiates Negative (Cutoff=100)
== END ==
PROVIDERS: PCP Family Medicine; Visit Provider Clinical Nurse Specialist Family Health
DX: M51.16 Intervertebral disc disorders with radiculopathy, lumbar region (principal); Z79.899 Other long term (current) drug therapy
CPT/HCPCS: 62368; 80305; 80361; 80365; G0480

== ENCOUNTER → 2017-12-31 15:35 | Outpatient (POV) | payer MEDICARE, SELFPAY ==
[2017-12-31 15:47] VITALS: BP 145/79; PULSE 120; RESP 18; O2SAT 98; BMI 33.3
--- NOTE | 2017-12-31 15:54 | HMH.PMPROC ---
- Procedure Date: 12/31/17 Time: 15:50 Anesthesiologist:: Traci Nicole APRN Complications:: None Pre-procedure Diagnosis:: Degenerative disc disease lumbar spine with lumbar radiculopathy Post-procedure Diagnosis:: Same Indications for Procedure:: Patient is a pleasant 67-year-old white female presents today for intrathecal pain pump adjustment. Patient stated she was having some side effects including sleepiness along with mental fogginess. Patient had her intrathecal pain pump turned off however she states that she was unaware of how much it was helping her. Patient states that the side effects did not resolve for the week that her pain pump was off. Patient would like to be restarted today. Patient rates her pain an 8 out of 10. Physical Exam General: Alert and oriented x3, no acute distress, pleasant and cooperative, [on room air] Lungs: Resps E/U, Symmetrical chest expansion, Eyes: PERRL Musculoskeletal: Flexion and extension of lumbar spine somewhat guarded secondary to pain, deep tendon reflexes normal, strength in upper and lower extremities [5/5], slightly antalgic gait noted Neurological: speech clear, sprinkler repair technician equal, no gross sensory deficits Procedure Details:: Informed consent was obtained and the risk and benefits of the procedure were explained to the patient. The patient was taken to the procedure room where noninvasive monitoring was placed including noninvasive blood pressure cuff and pulse oximeter. Patient's pump was interrogated. The infusion rate was started back at 0.005 mg every 2 hours for total daily dose of 0.06 Dilaudid. The patient tolerated the procedure well. Plan and Disposition:: We will follow-up with her at her next intrathecal pain pump refill and reprogram. Patient's been instructed to call the office if she has any issues prior to her next appointment. This note was dictated using voice recognition software and may contain errors or omissions
--- NOTE | 2017-12-31 15:57 | P.PCN_ITS ---
- Procedure Date: 12/31/17 Time: 15:50 Anesthesiologist:: Traci Nicole APRN Complications:: None Pre-procedure Diagnosis:: Degenerative disc disease lumbar spine with lumbar radiculopathy Post-procedure Diagnosis:: Same Indications for Procedure:: Patient is a pleasant 67-year-old white female presents today for intrathecal pain pump adjustment. Patient stated she was having some side effects including sleepiness along with mental fogginess. Patient had her intrathecal pain pump turned off however she states that she was unaware of how much it was helping her. Patient states that the side effects did not resolve for the week that her pain pump was off. Patient would like to be restarted today. Patient rates her pain an 8 out of 10. Physical Exam General: Alert and oriented x3, no acute distress, pleasant and cooperative, [on room air] Lungs: Resps E/U, Symmetrical chest expansion, Eyes: PERRL Musculoskeletal: Flexion and extension of lumbar spine somewhat guarded secondary to pain, deep tendon reflexes normal, strength in upper and lower extremities [5/5], slightly antalgic gait noted Neurological: speech clear, general teller equal, no gross sensory deficits Procedure Details:: Informed consent was obtained and the risk and benefits of the procedure were explained to the patient. The patient was taken to the procedure room where noninvasive monitoring was placed including noninvasive blood pressure cuff and pulse oximeter. Patient's pump was interrogated. The infusion rate was started back at 0.005 mg every 2 hours for total daily dose of 0.06 Dilaudid. The patient tolerated the procedure well. Plan and Disposition:: We will follow-up with her at her next intrathecal pain pump refill and rep rogram. Patient's been instructed to call the office if she has any issues prior to her next appointment. This note was dictated using voice recognition software and may contain errors or omissions
== END ==
PROVIDERS: PCP Family Medicine; Visit Provider Clinical Nurse Specialist Family Health
DX: M51.16 Intervertebral disc disorders with radiculopathy, lumbar region (principal)
CPT/HCPCS: 62368

== ENCOUNTER → 2018-01-07 13:32 | Outpatient (POV) | payer MEDICARE, SELFPAY ==
[2018-01-07 13:44] VITALS: BP 138/50; PULSE 69; RESP 18; O2SAT 98; BMI 43.5
--- NOTE | 2018-01-07 14:25 | P.PCN_ITS ---
- Procedure Date: 01/07/18 Time: 14:00 Anesthesiologist:: Traci Nicole APRN Complications:: None Pre-procedure Diagnosis:: Degenerative disc disease lumbar spine with lumbar radiculopathy Post-procedure Diagnosis:: Same Indications for Procedure:: Patient is a pleasant 67-year-old white female who presents today for intrathecal pain pump reprogram. Patient had her pain pump turned off however she realized her side effects were not related to her pain pump. Patient is currently on a Dilaudid dose of 0.005 mg every 2 hours. Patient is doing well with this. Patient does have issues with her pump flipping continue to monitor this. Physical Exam General: Alert and oriented x3, no acute distress, pleasant and cooperative, [on room air] Lungs: Resps E/U, Symmetrical chest expansion, Eyes: PERRL Musculoskeletal: Flexion and extension of lumbar spine somewhat guarded secondary to pain, deep tendon reflexes normal, strength in upper and lower extremities [5/5], slightly antalgic gait noted Neurological: speech clear, commercial real estate paralegal equal, no gross sensory deficits Procedure Details:: Informed consent was obtained and the risk and benefits of the procedure were explained to the patient. The patient was taken to the procedure room where noninvasive monitoring was placed including noninvasive blood pressure cuff and pulse oximeter. Patient's pump was interrogated. The infusion rate was increased to 0.0052 mg every 2 hours. The patient tolerated the procedure well. Plan and Disposition:: We will follow-up with the patient and her next intrathecal pain pump refill. Patient's been instructed to call the office if he has any issues prior to her next appointment. This note was dictated using voice recognition software and may contain errors or omissions
== END ==
PROVIDERS: PCP Family Medicine; Visit Provider Clinical Nurse Specialist Family Health
DX: M51.16 Intervertebral disc disorders with radiculopathy, lumbar region (principal)
CPT/HCPCS: 62368

== ENCOUNTER → 2018-03-06 12:43 | Outpatient (POV) | payer MEDICARE, SELFPAY ==
--- NOTE | 2018-03-06 13:06 | HMH.PMCON ---
Assessment and Plan - Assessment and plan all Dx Assessment and Plan for all problems:: Impression-intermittent flipping of her pain pump generator Plan-patient will continue cardiac workup. If this persists then flipping or increases in frequency of lifting and arrangements be made for this to be repositioned to the flank musculature and fascia HPI - Data of Consult Patient: known to practice within the last 3 years Consult date: 03/06/18 Requesting Physician: Traci Nicole APRN Primary Care Provider: Luca Ramirez - Consult Narrative Reason for consult: Flipping of pain pump generator History of present illness: Ms. Walls is a 67 year old female who had placement of a pain pump system 10/24/2017. She was unable to wear a binder. She complained of the generator flipping requiring repositioning on several occasions. It has been more stable lately. She is currently undergoing a cardiac workup CC: Traci Nicole APRN [facility] History I have reviewed the patient's past medical history: Yes Medical History: Reports:: Diabetes Mellitus Type 2, Hyperlipidemia, Hypertension Denies:: Cancer, Diabetes Mellitus Type 1, Internal Pacemaker, MRSA, Seizures Have you ever received a pneumonia vaccine?: No Have you received a flu vaccine this season?: No Other Medical History: Reports: Arthritis, Chemotherapy, Fibromyalgia. Denies: Blood Transfusion Reaction Comment:: Illnesses-left breast cancer, hypertension, hyperlipidemia, diabetes mellitus, GERD, chronic back pain Laterality Cases: Bilateral: Arthroscopy Knee, Mastectomy Other Surgeries: No: Pacemaker. Comment Only: Other (mastectomy) Amputation: No Fractures: No Comment: Operations-left mastectomy, knee arthroscopy, knee replacement, - *Social History Smoking Status: Never smoker Alcohol Intake: never Occupational Status: retired Housing: house Household Members: spouse *Family Hx:: Diabetes Review of Systems - Review of Systems Review of systems:: pertinent systems reviewed and negative unless documented below Meds Home Medications Medication Instructions Recorded Confirmed Type Duloxetine HCl [Cymbalta] 60 mg PO DAILY 04/13/17 10/24/17 History Escitalopram Oxalate [Lexapro] 10 mg PO DAILY 04/13/17 10/24/17 History Lisinopril [Lisinopril 20mg Tab] 20 mg PO DAILY 04/13/17 10/24/17 History Meloxicam 15 mg PO DAILY 04/13/17 10/24/17 History Metformin HCl [Glucophage] 500 mg PO BID 04/13/17 10/24/17 History Metoprolol Succinate 50 mg PO DAILY 04/13/17 10/24/17 History Omeprazole Magnesium [Prilosec Otc 20 mg PO DAILY 04/13/17 10/24/17 History 20mg Tab] Simvastatin [Zocor] 40 mg PO DAILY 04/13/17 10/24/17 History Tramadol HCl [Ultram] 50 mg PO DIRECTED 04/13/17 10/24/17 History Trazodone HCl 150 mg PO DAILY 04/13/17 10/24/17 History Aspirin [Aspir 81] 81 mg PO DAILY 10/24/17 10/24/17 History Allergies Allergy/AdvReac Type Severity Reaction Status Date / Time No Known Allergies Allergy Verified 10/23/17 14:16 Objective - *Routine Respiratory Exam Comments: Clear breath sounds - *Routine Cardiovascular Exam Present: RRR - *Routine Abdominal Exam Present: soft - Routine Back/Spine/Pelvis Exam Comments: Patient's right flank pump easily movable but not flipped today and not easily flipped with manual manipulation
== END ==
PROVIDERS: PCP Family Medicine; Visit Provider Clinical Nurse Specialist Family Health
DX: Z96.89 Presence of other specified functional implants; T85.898A Other specified complication of other internal prosthetic devices, implants and grafts, initial encounter
CPT/HCPCS: 99212

== ENCOUNTER → 2018-05-06 13:06 | Outpatient (POV) | payer MEDICARE, SELFPAY ==
[2018-05-06 13:22] VITALS: BP 170/54; PULSE 64; RESP 18; O2SAT 98; BMI 34.7
--- NOTE | 2018-05-06 13:39 | HMH.PMPROC ---
- Procedure Date: 05/06/18 Time: 13:39 Anesthesiologist:: Traci Nicole APRN Complications:: None Pre-procedure Diagnosis:: Degenerative disc disease lumbar spine with lumbar radiculopathy Post-procedure Diagnosis:: Same Indications for Procedure:: Patient is a pleasant 67-year-old white female who presents today to discuss her pain pump. Patient would like it removed. She states that she has constant constipation. She states that the pump is uncomfortable and moves all the time. She is frustrated with this. I discussed potentially just turning it off for some time but she is very adamant she wants it removed she rates her pain a 0 out of 10 today. She is currently at a dose of 0.072 mg. We will turn her to 0 today. Patient's not on any anticoagulation therapy. Patient states that she has had some mental fogginess with the medication. Physical Exam General: Alert and oriented x3, no acute distress, pleasant and cooperative, [on room air] Lungs: Resps E/U, Symmetrical chest expansion, Eyes: PERRL Musculoskeletal: Flexion and extension of lumbar spine somewhat guarded secondary to pain, deep tendon reflexes normal, strength in upper and lower extremities [5/5], slightly antalgic gait noted Neurological: speech clear, organ pipe finisher equal, no gross sensory deficits Procedure Details:: Informed consent was obtained and the risk and benefits of the procedure were explained to the patient. The patient was taken to the procedure room where noninvasive monitoring was placed including noninvasive blood pressure cuff and pulse oximeter. Patient's pump was interrogated and reprogrammed. The infusion rate was turned to 0 mg/day. The patient tolerated the procedure well. Plan and Disposition:: Patient is asking me today about pain medication. I discussed with her that we will explant her pump but we will not start her on any narcotic medications. Dr. Gibson has reviewed this note and agrees with this plan of care. This note was dictated using voice recognition software and may contain errors or omissions
== END ==
PROVIDERS: PCP Family Medicine; Visit Provider Clinical Nurse Specialist Family Health
DX: M51.16 Intervertebral disc disorders with radiculopathy, lumbar region (principal)
CPT/HCPCS: 99212

== ENCOUNTER → 2018-05-28 10:50 | Outpatient (POV) | payer MEDICARE, SELFPAY ==
[2018-05-28 11:05] VITALS: BP 192/73; PULSE 61; RESP 18; O2SAT 98; BMI 33.8
[2018-05-28 11:11] VITALS: BP 192/73; PULSE 61; RESP 18; O2SAT 98; BMI 33.8
--- NOTE | 2018-05-28 11:17 | HMH.PAINSOAP ---
[facility] Pain Management SOAP Note Subjective:: Patient is a pleasant 67-year-old white female who presents today for follow-up after intrathecal pain pump explant. Patient states she is doing well rating her pain a 4 out of 10. Patient site looks good with no sign symptoms of infection. Patient currently taking CBD oil. ROS General: no recent weight change, no fever, no sleep disturbances Respiratory: no cough, no shortness of air, no recurring pulmonary infections Cardiovascular/Peripheral Vascular: No chest pain, No palpitations, no edema, no shortness of breath. Gastrointestinal: no incontinence, normal bowel movements reported Genitourinary: no incontinence Musculoskeletal: Back pain Psychiatric: normal mood/ affect Neurological: [denies weakness in extremities], [denies balance issues] Objective:: Physical Exam General: Alert and oriented x3, no acute distress, pleasant and cooperative, [on room air] Lungs: Resps E/U, Symmetrical chest expansion, Eyes: PERRL Musculoskeletal: Flexion and extension of lumbar spine somewhat guarded secondary to pain, deep tendon reflexes normal, strength in upper and lower extremities [5/5], antalgic gait noted Neurological: speech clear, invertebrate paleontologist equal, no gross sensory deficits Assessment:: Degenerative disc disease lumbar spine with lumbar radiculopathy status post explant of intrathecal pain pump Plan:: We will follow-up with the patient in 2 weeks we will reassess her symptoms at that time she is been instructed to call our office if she has any issues prior to her next appointment. Dr. Gibson has reviewed this note and agrees with this plan of care. This note was dictated using voice recognition software and may contain errors or omissions
== END ==
PROVIDERS: PCP Family Medicine; Visit Provider Clinical Nurse Specialist Family Health
DX: M51.16 Intervertebral disc disorders with radiculopathy, lumbar region (principal)
CPT/HCPCS: 99212

== ENCOUNTER → 2021-08-25 14:55 | Outpatient (POV) | payer MEDICARE, SELFPAY ==
[2021-08-25 15:07] VITALS: BP 145/69; PULSE 74; RESP 20; O2SAT 95; BMI 46.6
--- NOTE | 2021-08-25 15:25 | HMH.PMCON ---
Assessment and Plan (1) Degenerative disc disease, lumbar Status: Acute Category: Medical Code(s): M51.36 - Other intervertebral disc degeneration, lumbar region (2) Lumbar radiculopathy Status: Acute Category: Medical Code(s): M54.16 - Radiculopathy, lumbar region (3) Bilateral hip pain Status: Acute Category: Medical Code(s): M25.551 - Pain in right hip; M25.552 - Pain in left hip - Assessment and plan all Dx Assessment and Plan for all problems:: Patient has significant pain in her low back and bilateral hips. She has had multiple injections in the past. Patient did have a positive point tenderness along her low back and bilateral hips in today's exam. The last lumbar MRI images I have are from 2018. I will order updated imaging at today's visit. I have discussed with the patient regarding lumbar epidural steroid injections and greater trochanteric bursa injections. Risk and benefits have been discussed with the patient. The patient would like to proceed forward with these injections. Patient does state that she remembers having significant relief from previous bursa injections. I have explained to the patient that I would like to have that updated imaging before doing the epidural. At this time we will schedule her for a bilateral greater trochanteric bursa injections. When the patient returns for follow-up we will discuss her MRI findings. Patient has been instructed to contact the clinic with any concerns before the next appointment. Dr. Gibson has reviewed this note and agrees with this plan of care. This note was dictated using voice recognition software and make contain errors or omissions. HPI - Data of Consult Patient: known to practice within the last 3 years Consult date: 08/25/21 Requesting Physician: HAIDER Padron Primary Care Provider: Bruno Rendon - Consult Narrative Reason for consult: Low back pain, bilateral hip pain History of present illness: Ms. Walls is a 71 year old female who presents today as a new patient. She is a referral from Dr. Bruno Rendon. We have seen this patient in the past with her last visit around 2019. That time we were treating the patient for degenerative disc disease of lumbar spine with lumbar radiculopathy symptoms. Today the patient rates her pain a 8 out of 10. She states her pain is in her low back and her hips. She states that sitting she has no pain but as she walks or increases her activity she has significant pain. She states this is a sharp intermittent sensation. She denies any trauma or injury to the site. She has tried [id number] medications such as Tylenol and ibuprofen with minimal relief. She is also tried topicals and physical therapy with minimal to no relief. She does currently take gabapentin 300 mg 3 times a day, this is prescribed by Dr. Reyes. She states she takes this medication for her neuropathy. She has also been prescribed tramadol 50 mg twice a day in the past by Dr. Bruno Rendon. She states these medications do help with the pain. Patient denies any side effects with these medications. States that she had previously been scheduled for a mild procedure with a physician out of [facility]. She says that on the day of the procedure, she was on the table and they had began numbing her when she actually started to fall off the operating room table. She says the physician stated they were no longer going to proceed forward with the procedure and that they would contact her in 2 to 3 weeks for an office visit but they never called. Patient is interested in injective therapy in more long-term therapy at this time. Her Palomo is [phone]. It has been reviewed and is appropriate. CC: HAIDER Padron [facility] History I have reviewed the patient's past medical history: Yes Medical History: Reports:: Depression, Gastroesophageal Reflux Disease(GERD), Hyperlipidemia, Hypertension, Lung Disease (magalys-bipap hs) Denies:: Cancer, Diabet
== END ==
PROVIDERS: Visit Provider Student in an Organized Health Care Education/Training Program
DX: M51.16 Intervertebral disc disorders with radiculopathy, lumbar region (principal); M25.551 Pain in right hip; M25.552 Pain in left hip
CPT/HCPCS: 99202; G0463

== ENCOUNTER → 2021-08-30 10:29 | Outpatient (CLI) | payer MEDICARE, SELFPAY ==
--- NOTE | 2021-08-30 10:33 | MR_ITS ---
FINAL REPORT TECHNIQUE: Multiplanar and multisequence imaging of the lumbar spine was obtained without contrast. CLINICAL HISTORY: LOW BACK PAIN. HISTORY OF BREAST CANCER IN 2013. LOW BACK PAIN FOR YEARS. NO RECENT INJURY OR TRAUMA. COMPARISON: 08/28/2017 FINDINGS: There is normal alignment of the lumbar vertebral bodies. Vertebral body height is preserved. The spinal cord ends at the level of L1. There is normal signal intensity within the substance of the distal spinal cord. Bone marrow signal intensity is normal. No acute paraspinal abnormality is identified. L1-2: There is no focal disc herniation, central canal stenosis or neuroforaminal narrowing. L2-3: A mild disc osteophyte complex is present. No central canal stenosis or neural foraminal narrowing is seen. L3-4: A mild disc osteophyte complex is present. No central canal stenosis or neural foraminal narrowing is seen. L4-5: A mild disc osteophyte complex is present. No central canal stenosis is seen. There is mild left neural foraminal narrowing which has progressed from the prior exam. L5-S1: A mild disc osteophyte complex is present. No central canal stenosis is seen. There is mild bilateral neural foraminal narrowing which is similar to the prior exam. IMPRESSION: Mild degenerative disc disease which is slightly progressed from the prior exam at L4-5. Reviewed, Interpreted and Dictated by Gita Mason MD Transcribed by Rosa Ordonez Authenticated and [facility]
== END ==
PROVIDERS: PCP Family Medicine; Visit Provider Student in an Organized Health Care Education/Training Program
DX: M54.50 Low back pain, unspecified (principal)
CPT/HCPCS: 72148; 76376; 99213; G0463

== ENCOUNTER 2021-08-30 11:31 | Emergency (ER) | payer MEDICARE, SELFPAY ==
[2021-08-30 11:46] VITALS: BP 155/59; PULSE 73; RESP 16; TEMP 36.6; O2SAT 97; BMI 46.6
--- NOTE | 2021-08-30 11:55 | HMH.EDUTC ---
[facility] [place] Clinical Impression: Sinusitis Qualifiers: Sinusitis location: unspecified location Chronicity: acute Recurrence: non-recurrent Qualified Code(s): J01.90 - Acute sinusitis, unspecified Disposition: Home, Self-Care Condition on Discharge: Good Instructions: DI for Sinusitis Additional Instructions: Drink plenty of fluids. Take tylenol or ibuprofen for pain or fever. Take the medications as directed. Follow up with your regular doctor. GO TO THE ER FOR ANY WORSENING SYMPTOMS Prescriptions: Benzonatate [Benzonatate 100mg cap] 100 mg PO TIDP PRN #30 cap PRN Reason: Cough Transmission Status: Sent to [facility] Cefdinir [Omnicef 300mg Capsule] 300 mg PO BID #20 cap Transmission Status: Sent to [facility] Referrals: Bruno Rendon [Primary Care Provider] - Time of Disposition: 12:37 Medical Decision Making - Medical Records Medical records reviewed: No: I reviewed the patient's medical records. - Palomo Inquiry Pt receiving controlled substance: No Vital Signs: 08/30/21 11:46 08/30/21 12:45 Temperature 97.9 F 97.9 F Temperature Source Oral Pulse Rate 73 Pulse Rate [Left] 73 Respiratory Rate 16 16 Blood Pressure 155/59 H Blood Pressure [Right Arm] 155/59 H Blood Pressure Mean [Right Arm] 91 02 Sat by Pulse Oximetry 97 [facility] [place] HPI - General Stated complaint: head congestion, drainage, sore throat Time Seen by Provider: 08/30/21 12:15 Description of Symptoms (Recalled from Triage Doc. by RN): patient comes in with symptoms of sinus infection. symptoms began 2 weeks ago and she states it is getting worse. HEENT Symptoms (Recalled from RN notes): Yes Resp Symptoms (Recalled from RN notes): No Skin Symptoms (Recalled from RN notes): No MS Symptoms (Recalled from RN notes): No Functional Status (Recalled from RN notes): n/a - History of Present Illness Provider Complaint: She states that for the pastj 2 weeks she has sinus congestion, sinus drainage, and sinus pressure. She believes she has a sinus infection. She denies chest tightness, chest congestion, and significant cough. - Related Data Home Medications Medication Instructions Recorded Confirmed Duloxetine HCl [Cymbalta] 90 mg PO DAILY 04/13/17 08/25/21 Meloxicam 15 mg PO DAILY 04/13/17 08/25/21 Metoprolol Succinate 50 mg PO BID 04/13/17 08/25/21 Trazodone HCl 150 mg PO DAILY 04/13/17 08/25/21 lisinopriL [Lisinopril 20mg Tab] 40 mg PO DAILY 04/13/17 08/25/21 Aspirin [Aspir 81] 81 mg PO DAILY 10/24/17 08/25/21 ARIPiprazole [Aripiprazole 5mg 5 mg PO DAILY 08/25/21 08/25/21 Tablet] Atorvastatin Calcium [Lipitor 80mg 80 mg PO HS 08/25/21 08/25/21 Tab] Atorvastatin Calcium [Lipitor 80mg 80 mg PO HS 08/25/21 08/25/21 Tablet*] Furosemide [Lasix 20mg tab] 20 mg PO DAILY 08/25/21 08/25/21 Gabapentin 300 mg PO TID 08/25/21 08/25/21 Magnesium Oxide [Mag-Ox 400mg Tab] 400 mg PO BID 08/25/21 08/25/21 Methenamine Hippurate 1 gm PO DAILY 08/25/21 08/25/21 Pantoprazole Sodium 40 mg PO DAILY 08/25/21 08/25/21 Pioglitazone HCl [Actos] 30 mg PO DAILY 08/25/21 08/25/21 Potassium Chloride 20 meq PO DAILY 08/25/21 08/25/21 glipiZIDE [Glipizide] 10 mg PO BID 08/25/21 08/25/21 hydroCHLOROthiazide 12.5 mg PO DAILY 08/25/21 08/25/21 [Hydrochlorothiazide 12.5mg Tab] Previous Rx's Medication Instructions Recorded Benzonatate [Benzonatate 100mg 100 mg PO TIDP PRN #30 cap 08/30/21 cap] Cefdinir [Omnicef 300mg Capsule] 300 mg PO BID #20 cap 08/30/21 Allergies Allergy/AdvReac Type Severity Reaction Status Date / Time No Known Allergies Allergy Verified 08/30/21 11:50 - Worker's Comp Is this a Worker's Comp case?: No H History - Hepatitis A Screen Attestation statement:: This patient has been screened for Hepatitis A risk factors. I have reviewed the patient's past medical history: Yes Medical History: Reports:: Depression, Gastroesophageal Reflux Disea
[2021-08-30 12:45] VITALS: BP 155/59; PULSE 73; RESP 16; TEMP 36.6
== END 2021-08-30 12:46 | disposition home or self-care (01) ==
PROVIDERS: Emergency Provider Nurse Practitioner Family; PCP Family Medicine
DX: J01.90 Acute sinusitis, unspecified (principal); J02.9 Acute pharyngitis, unspecified; I10 Essential (primary) hypertension; K21.9 Gastro-esophageal reflux disease without esophagitis; E78.5 Hyperlipidemia, unspecified; M54.9 Dorsalgia, unspecified; G89.29 Other chronic pain; M79.7 Fibromyalgia; J98.4 Other disorders of lung; M19.90 Unspecified osteoarthritis, unspecified site; F32.A Depression, unspecified; Z79.82 Long term (current) use of aspirin; Z79.899 Other long term (current) drug therapy; Z85.3 Personal history of malignant neoplasm of breast; Z83.3 Family history of diabetes mellitus
CPT/HCPCS: 99213; G0463

== ENCOUNTER → 2021-09-08 13:49 | Outpatient (POV) | payer MEDICARE, SELFPAY ==
[2021-09-08 13:59] VITALS: BP 136/56; PULSE 61; RESP 20; O2SAT 96; BMI 47.5
--- NOTE | 2021-09-08 14:42 | HMH.PAINSOAP ---
[facility] Pain Management SOAP Note Subjective:: Patient is a pleasant 71-year-old female that presents today for follow-up of lumbar MRI results. We are currently treating the patient for degenerative disc disease of lumbar spine with lumbar radiculopathy symptoms and bilateral hip pain. Today she rates her pain a 5 out of 10. She states is all in her low back that radiates into her hips and down her legs. She describes this as a aching, sharp sensation that is worse with activity. Patient states that she has minimal pain when sitting however with increased activity or walking she has significant pain. She has tried dcjk-tjn-bhkhsko medications such as Tylenol and ibuprofen with minimal relief. She has also tried topicals and physical therapy with minimal relief. She currently takes gabapentin 300 mg 3 times a day that is prescribed by Dr. Reyes. She states this does give significant relief with her neuropathy. Patient has used in the past tramadol 50 mg twice a day by Dr. Rendon that helped with the pain. She was previously scheduled for mild procedure with the pain doctor there at [facility]. This procedure was canceled due to her falling off the operating room table at the beginning of the procedure. Patient states she had no injuries from this, that they were able to catch her before she had completely fallen off. Patient states she is still never heard back from that office. Patient also has a history of breast cancer from 2012. Her Palomo is [id number]. It has been reviewed and appropriate. Review of Systems: General: No recent weight changes, no fever, no sleep disturbances Respiratory: No cough, no shortness of air, no recurring pulmonary infections Cardiovascular/peripheral vascular: No chest pain, no palpitations, no edema, no shortness of breath Gastrointestinal: No new onset incontinence, normal bowel movements reported Genitourinary: No new onset incontinence Musculoskeletal: Low back pain, bilateral hip pain, leg pain Psychiatric: [Normal mood/affect] Neurological: [Denies weakness in extremities], [denies balance issues] Objective:: Physical Exam: General: Alert and oriented x3, no acute distress, pleasant and cooperative Lungs: Respirations even and unlabored, symmetrical chest expansion Eyes: PERRL Musculoskeletal: Flexion and extension of lumbar [spine] somewhat guarded secondary to pain, [antalgic gait noted]. Point tenderness along lumbar spine and bilateral hips. Positive bilateral Chiquita's, Maine's, Gaenslen's, compression, distraction exam Neurological: Speech clear, no gross sensory deficit MRI LUMBAR: FINAL REPORT TECHNIQUE: Multiplanar and multisequence imaging of the lumbar spine was obtained without contrast. CLINICAL HISTORY: LOW BACK PAIN. HISTORY OF BREAST CANCER IN 2012. LOW BACK PAIN FOR YEARS. NO RECENT INJURY OR TRAUMA. COMPARISON: 08/28/2017 FINDINGS: There is normal alignment of the lumbar vertebral bodies. Vertebral body height is preserved. The spinal cord ends at the level of L1. There is normal signal intensity within the substance of the distal spinal cord. Bone marrow signal intensity is normal. No acute paraspinal abnormality is identified. L1-2: There is no focal disc herniation, central canal stenosis or neuroforaminal narrowing. L2-3: A mild disc osteophyte complex is present. No central canal stenosis or neural foraminal narrowing is seen. L3-4: A mild disc osteophyte complex is present. No central canal stenosis or neural foraminal narrowing is seen. L4-5: A mild disc osteophyte complex is present. No central canal stenosis is seen. There is mild left neural foraminal narrowing which has progressed from the prior exam. L5-S1: A mild disc osteophyte complex is present. No central canal stenosis is seen. There is mild bilateral neural foraminal narrowing which is similar to the prior exam. IMPRESSION: Mild degenerative disc disease which is slightly progressed f
== END ==
PROVIDERS: PCP Family Medicine; Visit Provider Nurse Practitioner Family
DX: M51.16 Intervertebral disc disorders with radiculopathy, lumbar region (principal); M25.551 Pain in right hip; M25.552 Pain in left hip; M46.1 Sacroiliitis, not elsewhere classified
CPT/HCPCS: 99212; G0463

== ENCOUNTER → 2021-09-16 11:13 | Day surgery (SDC) | payer MEDICARE, SELFPAY ==
[2021-09-16 11:21] VITALS: BP 146/54; PULSE 61; TEMP 36.2; O2SAT 98; BMI 47.5
--- NOTE | 2021-09-16 11:46 | P.PCN_ITS ---
- Procedure Date: 09/16/21 Time: 11:46 Anesthesiologist:: Fito Vuong CRNA Complications:: None Pre-procedure Diagnosis:: Bilateral sacroiliitis Post-procedure Diagnosis:: Same Indications for Procedure:: Patient is a very pleasant 71-year-old female who comes our clinic today for bilateral SI joint injections. However, patient is very immobile. She is in a wheelchair today. She is morbidly obese. She is unable to get onto the fluoroscopy table. I discussed in detail with the regarding the injections given without fluoroscopy. She wishes to proceed. She rates her pain 8/10 today. She has extreme point tenderness over the bilateral SI joints. Procedure Details:: Procedure: Bilateral sacroiliac joint injections under fluoroscopy Informed consent was obtained and the risks and benefits of the procedure were explained to the patient.~ The patient was taken to the procedure room and noninvasive monitors were placed including a noninvasive blood pressure cuff and pulse oximeter.~ The patient was placed prone on the procedure table. Both hips were cleansed using Betadine as a cleansing solution. C-arm fluoroscopy was used to view the right sacroiliac joint.~ The skin and subcutaneous tissues were anesthetized using lidocaine 1.5% and a 25-gauge needle.~ After this, a 22-gauge spinal needle was inserted under fluoroscopic guidance into the inferior aspect of the right sacroiliac joint.~ Omnipaque dye was injected and good spread was seen throughout the joint.~ After this, approximately 5 mL of bupivacaine, 0.25% and Depo-Medrol, 40 mg was incrementally injected into the right sacroiliac joint. We then moved to the left sacroiliac joint.~ The skin and subcutaneous tissues were anesthetized using lidocaine 1.5% and a 25-gauge needle.~ After this, a 22- gauge spinal needle was inserted under fluoroscopic guidance into the inferior aspect of the left sacroiliac joint.~ Omnipaque dye was injected and good spread was seen throughout the joint. After this, approximately 5 mL of bupivacaine, 0.25% and Depo-Medrol, 40 mg was incrementally injected into the left sacroiliac joint.~ The patient tolerated the procedure well with no complications. The patient was observed in the Pain Clinic and then was discharged home neurologically intact. Plan and Disposition:: Patient was discharged without incident.
[2021-09-16 11:47] VITALS: BP 134/44; PULSE 54; RESP 18; O2SAT 99
== END ==
PROVIDERS: PCP Family Medicine; Visit Provider Nurse Anesthetist, Certified Registered
DX: M46.1 Sacroiliitis, not elsewhere classified (principal)
CPT/HCPCS: 27096; G0260; J1040

== ENCOUNTER → 2021-10-03 13:58 | Outpatient (POV) | payer MEDICARE, SELFPAY ==
[2021-10-03 14:18] VITALS: BP 143/58; PULSE 67; RESP 20; TEMP 36.4; O2SAT 97; BMI 47.5
--- NOTE | 2021-10-03 15:34 | A.OFFVIS_ITS ---
[facility] Pain Management SOAP Note Subjective:: Patient is a pleasant 71-year-old female that presents today for follow-up of bilateral SI injection on 09/16/2021. We are currently treating the patient for degenerative disc disease of lumbar spine with lumbar radiculopathy symptoms, bilateral hip pain, bilateral sacroiliitis. Patient states that she had little to no relief from these last injections. Today she rates her pain a 7 out of 10 and states the pain is all in her low back. Patient states that at rest she has no pain however with increasing activity and standing or walking she has worsening pain. Patient has tried gagp-msg-lerqrti oral medications with minimal relief of her symptoms. We have also prescribed her a compounding cream however patient states she did not really notice significant improvement of her symptoms. She is currently managed with gabapentin 300 mg 3 times a day by Dr. Precious Reyes. Patient denies any side effects from this medication. She states this medication does work significantly for her neuropathy. Patient was previously scheduled for a mild procedure with a pain doctor in [facility] however she is started falling off the table at the beginning of the procedure and therefore canceled. Patient has never heard back from their office following this incident. Her Aplomo is [id number]. Its been reviewed and appropriate. Review of Systems: General: No recent weight changes, no fever, no sleep disturbances Respiratory: No cough, no shortness of air, no recurring pulmonary infections Cardiovascular/peripheral vascular: No chest pain, no palpitations, no edema, no shortness of breath Gastrointestinal: No new onset incontinence, normal bowel movements reported Genitourinary: No new onset incontinence Musculoskeletal: Low back pain Psychiatric: [Normal mood/affect] Neurological: [Denies weakness in extremities], [denies balance issues] Objective:: Physical Exam: General: Alert and oriented x3, no acute distress, pleasant and cooperative Lungs: Respirations even and unlabored, symmetrical chest expansion Eyes: PERRL Musculoskeletal: Flexion and extension of lumbar [spine] somewhat guarded secondary to pain, [antalgic gait noted] Neurological: Speech clear, no gross sensory deficit Assessment:: Degenerative disc disease of lumbar spine with lumbar radiculopathy symptoms, bilateral hip, bilateral sacroiliitis Plan:: Patient continues to have significant pain in her low back that is worse with increased activity. At rest patient has 0 pain. Previous MRI imaging of her lumbar spine mild degenerative disc disease. No mention was made regarding her ligamentum flavum in this report however imaging shows what appears to be hypertrophy. I have discussed with the patient regarding doing a lumbar epidural with epidurogram in the attempt to proceed forward with the MILD procedure. Educational handouts were given to the patient during today's visit. The patient would like to proceed forward with this plan of care. Patient is not currently on any blood thinners. We will schedule the patient for a lumbar epidural steroid injection at L4-L5 with epidurogram. Patient has been instructed to contact the clinic with any concerns before the next appointment. Dr. Gibson has reviewed this note and agrees with this plan of care. This note was dictated using voice recognition software and make contain errors or omissions. PFSH PFSH Social History Smoking Status: Never smoker second hand exposure: No alcohol intake: never current occupational status: other household members: spouse housing: house current occupational exposures/hazards: No caffeine: Yes
== END ==
PROVIDERS: PCP Family Medicine; Visit Provider Nurse Practitioner Family
DX: M51.16 Intervertebral disc disorders with radiculopathy, lumbar region (principal); M46.1 Sacroiliitis, not elsewhere classified
CPT/HCPCS: 99212; G0463

== ENCOUNTER 2021-10-28 12:55 | Day surgery (SDC) | payer MEDICARE, SELFPAY ==
[2021-10-28 13:03] VITALS: BP 156/70; PULSE 61; RESP 18; TEMP 36.4; O2SAT 98; BMI 47.5
[2021-10-28 13:26] VITALS: BP 138/76; PULSE 69; RESP 19; O2SAT 98
[2021-10-28 13:28] VITALS: RESP 19; O2SAT 98
[2021-10-28 13:34] VITALS: BP 148/50; PULSE 59; RESP 20; O2SAT 98
--- NOTE | 2021-10-28 13:35 | EXP.PAIN.PRO ---
Procedure Date: 10/28/21 Time: 13:35 Anesthesiologist:: Satish Gibson MD Complications:: None Pre-procedure Diagnosis:: Degenerative disc disease of lumbar spine with lumbar radiculopathy symptoms with lumbar spinal stenosis and neurogenic claudication symptoms Post-procedure Diagnosis:: Same Indications for Procedure:: The patient is a pleasant 71-year-old white female who has degenerative disease of lumbar spine with lumbar radiculopathy symptoms. She does have a intrathecal pain pump. We are currently managing this pump. She has neurogenic claudication symptoms. We will do a lumbar epidural steroid injection today with epidurogram to assess levels of stenosis and candidacy for mill invasive lumbar decompression. Procedure Details:: Informed consent was obtained and the risk and benefits of the procedure was explained to the patient. The patient was taken to the procedure room. The patient was placed prone on the procedure table. The patient was prepped and draped in sterile fashion. C-arm fluoroscopy was used to view the lumbar spine. Skin and subcutaneous tissues were anesthetized using lidocaine. I placed an 18-gauge epidural needle and advanced into the L4-L5 interspace using fluoroscopic guidance and birp-ea-trgdysjggk to air. After confirmation of needle placement in the epidural space with dye I injected 2 mL of lidocaine 1.5% with Depo-Medrol 80 mg. Patient tolerated the procedure well with no complications. Plan and Disposition:: Based on epidurogram this patient does have significant stenosis at L4-L5. We will set her up for bilateral L4-L5 minimally invasive lumbar decompression. She does have intrathecal pain pump catheter in this area so we will be very cognizant and careful not to disrupt the catheter.
== END 2021-10-28 13:35 | disposition home or self-care (01) ==
PROVIDERS: PCP Family Medicine; Visit Provider Anesthesiology
DX: M51.16 Intervertebral disc disorders with radiculopathy, lumbar region (principal); M48.062 Spinal stenosis, lumbar region with neurogenic claudication
CPT/HCPCS: 62323; J1040; Q9966

== ENCOUNTER → 2021-11-21 10:10 | Outpatient (POV) | payer MEDICARE, SELFPAY ==
--- NOTE | 2021-11-21 10:31 | EXP.PAIN.SOA ---
[facility] Pain Management SOAP Note Subjective:: Patient is a pleasant 71-year-old female who presents today for follow-up of lumbar epidural steroid injection and epidurogram at L4-L5 on 10/28/2021. We are currently treating the patient for degenerative disc disease of lumbar spine with lumbar radiculopathy symptoms, lumbar spinal stenosis with neurogenic claudication symptoms. Patient states that she had 0 relief following this injection. She states she did not notice any difference in her pain symptoms. Today she rates her pain a 10 out of 10. And states the pain is still in her low back with radicular symptoms into her lower extremities. Patient denies any new trauma or injury. Patient denies any change in location or type of pain she experiences. Patient's LESI did show significant stenosis at L4-L5. She was submitted for a bilateral L4-L5 M ILD. Patient states that she did get a phone call that it was approved by insurance and she is officially scheduled for the procedure December 02. Patient is currently prescribed gabapentin 300 mg 3 times a day by Dr. Palm's office. She is also prescribed a compounding cream from our office however she states that she did not notice significant improvement with this. Her Palomo is [id number]. It is been reviewed and appropriate. Review of Systems: General: No recent weight changes, no fever, no sleep disturbances Respiratory: No cough, no shortness of air, no recurring pulmonary infections Cardiovascular/peripheral vascular: No chest pain, no palpitations, no edema, no shortness of breath Gastrointestinal: No new onset incontinence, normal bowel movements reported Genitourinary: No new onset incontinence Musculoskeletal: Low back pain, bilateral leg pain Psychiatric: [Normal mood/affect] Neurological: [Denies weakness in extremities], [denies balance issues] Objective:: Physical Exam: General: Alert and oriented x3, no acute distress, pleasant and cooperative Lungs: Respirations even and unlabored, symmetrical chest expansion Eyes: PERRL Musculoskeletal: Flexion and extension of lumbar [spine] somewhat guarded secondary to pain, [antalgic gait noted] Neurological: Speech clear, no gross sensory deficit Assessment:: Degenerative disc disease of lumbar spine with lumbar radiculopathy symptoms, lumbar spinal stenosis with neurogenic claudication Plan:: Patient continues to have significant pain in her low back that radiates into her lower extremities. Patient had limited range of motion of her lumbar spine during today's visit. Patient has tried and failed conservative measures such as oral medications, injective therapy, topical medications, heat and ice with no significant improvement of her symptoms. Patient is already scheduled for a minimally invasive lumbar decompression of her bilateral L4 and L5 later this month. Patient will follow-up in office following this procedure for reevaluation of her symptoms. Patient has been instructed to contact the clinic with any concerns before the next appointment. Dr. Gibson has reviewed this note and agrees with this plan of care. This note was dictated using voice recognition software and make contain errors or omissions. [facility] Medical History (Updated 10/28/21 @ 13:08 by Dayan Chavez RN) Diabetes mellitus, type 2 Hyperlipidemia Hypertension Family History (Updated 10/28/21 @ 13:09 by Dayan Chavez RN) Other No significant family history Social History (Updated 10/28/21 @ 13:09 by Dayan Chavez RN) Smoking Status: Never smoker second hand exposure: No alcohol intake: never current occupational status: other Travel in the last 8 weeks: Inside the [place] household members: spouse housing: house current occupational exposures/hazards: No caffeine: Yes
[2021-11-21 10:40] VITALS: BP 129/33; PULSE 70; RESP 18; TEMP 36.3; O2SAT 98; BMI 47.5
== END ==
PROVIDERS: PCP Family Medicine; Visit Provider Nurse Practitioner Family
DX: M51.16 Intervertebral disc disorders with radiculopathy, lumbar region (principal); M48.062 Spinal stenosis, lumbar region with neurogenic claudication
CPT/HCPCS: 99212; G0463

== ENCOUNTER 2021-12-02 06:25 | Day surgery (SDC) | payer MEDICARE, SELFPAY ==
[2021-11-29 17:17] VITALS: BMI 47.5
[2021-12-02] VITALS (11 sets, daily range): BP systolic 113–168; BP diastolic 57–91; PULSE 73–96; RESP 16–18; TEMP 36.3–36.8; O2SAT 91–99
--- NOTE | 2021-12-02 08:48 | P.PN_ITS ---
PFSH PFS Medical History Diabetes mellitus, type 2 Hyperlipidemia Hypertension Surgical History History of laparoscopic cholecystectomy History of mastectomy, total History of total knee replacement Family History Other No significant family history Social History Smoking Status: Never smoker second hand exposure: No alcohol intake: never substance use type: denies use current occupational status: retired Travel in the last 8 weeks: None household members: spouse housing: house current occupational exposures/hazards: No caffeine: Yes [facility] Anesthesia Checklist Patient Identification Patient Identification: Arm Band and Verbal (Name & ) Structural Data Admitted From: Home Planned Operative Procedure/s: Lumbar decompression Consent for Planned Operative Procedure(s) Verified: Yes NPO Status Verified Time NPO: 00:00 Chart Verification Results Verified: CBC and BMP Additional verifications Anesthesia Reactions: No Hx Blood Transfusions: No Blood Transfusion Reaction: No Airway Assessment C-Spine Mobility Assessed: Yes TMJ Mobility Assessed: Yes Dentition: Good Dentition Neurological Assessment Level of Consciousness: Awake Hx Seizures: No Numbness or tingling in extremities: No Anesthesia Plan Anesthesia Risk discussed: Yes Anesthesia Plan: Verified ASA Class: III Anesthesia Type: MAC
--- NOTE | 2021-12-02 08:52 | SUR.PREOP ---
Pt was a very difficult stick. It was attempted by multiple staff members and was stuck 9+ times, pt was agreeable to each stick, only stating that she has been waiting a year for this procedure to be done and she did not want not having an IV be a reason to not have the procedure today. Multiple of the sticks were attempted w/ US guidance, w/ issue of inability to thread. Access gained w/ #22 in left foot w/ approval from Dr. Gibson. Pt is diabetic and aware of risks of being poked in her foot, but gave consent for IV to be started there. Pt currently sitting on stretcher, has been repositioned w/ pillows for comfort. at bedside, updated on plan of care
[2021-12-02 09:02] LABS: Basophils # 0.1 K/mm3 (0-0.2); Basophils % 0.8 % (0.1-2.0); Eosinophils # 0.2 K/mm3 (0.0-0.4); Eosinophils % 2.7 % (0.1-12.0); Hematocrit 32.4 % (37.0-47.0); Hemoglobin 10.5 g/dL (12.2-16.2); Lymphocytes # 1.1 K/mm3 (0.7-4.5); Lymphocytes % 16.3 % (10-50); Mean Corpuscular HGB Conc 32.3 g/dL (31.8-35.4); Mean Corpuscular Hemoglobin 30.8 pg (27.0-31.2); Mean Corpuscular Volume 95.2 fl (81-99); Mean Platelet Volume 8.1 fl (7.4-10.4); Monocytes # 0.4 K/mm3 (0.1-1.0); Monocytes % 6.5 % (1.7-9.3); Neutrophils % 73.7 % (37.0-80.0); Platelet Count 293 K/mm3 (142-424); Red Cell Distribution Width 14.2 % (11.5-17.5); White Blood Count 6.8 K/mm3 (4.8-10.8)
[2021-12-02 09:30] LABS: Chloride 102 mmol/L (98-107); Potassium 4.9 mmoL/L (3.5-5.1); Sodium 137 mmol/L (136-145)
[2021-12-02 09:33] LABS: Anion Gap 13.9 mEq/L (5-15); Blood Urea Nitrogen 16 mg/dl (7-17); Carbon Dioxide 26 mmol/L (22.0-30.0); Creatinine Clearance Estimated 40 mL/min (50-200); Estimated Glomerular Filt Rate 98 ml/min (>60); GFR (African American) 119 ML/MIN (>60)
[2021-12-02 09:34] LABS: Calcium 8.8 mg/dl (8.4-10.2); Glucose 202 mg/dl (74-100)
--- NOTE | 2021-12-02 11:01 | EXP.ANES.I ---
[facility] Anesthesia Record Part I Anesthesia Record I Intake, IV Amount: 800 Estimated blood loss (mL): 5 Urine output (mL): 0 Blood Products used (#): none Blood Pressure: 158/79 SaO2: 93 Pulse Rate: 96 Respiratory Rate: 16 Temperature: 97.4 F Patient is:: Drowsy, Nasal O2 and Stable Stable to PACU at:: 11:00
[2021-12-02 11:13] LABS: POC Glucose,Bedside 201 (70-110)
--- NOTE | 2021-12-02 13:08 | EXP.OP.NOTE ---
Date of procedure: 12/02/21 Pre-op Diagnosis:: Degenerative disc disease of lumbar spine with lumbar spinal stenosis and neurogenic claudication symptoms Post-op Diagnosis:: Same Procedure performed:: Minimally invasive lumbar decompression bilateral L4-L5 Surgeon:: Satish Gibson MD TRENCHING MACHINE OPERATOR:: Toño Bowens Anesthesia: GETA Estimated blood loss (mL): 1 Clinical Note:: This patient is a pleasant 71-year-old white female who we are treating for low back pain with lumbar radiculopathy symptoms and lumbar spinal stenosis with neurogenic claudication symptoms. She does have an intrathecal pain pump in place. She is doing well with her pump. She has had significant neurogenic claudication symptoms recently. Based on MRI and epidurogram she does have significant stenosis at L4-L5. We will plan on minimally invasive lumbar decompression bilateral L4-L5 today. Operative findings:: None Operative note:: Informed consent was obtained and the risk and benefits of the procedure was explained to the patient. The patient was taken to the operating room and placed prone on the procedure table. The patient was prepped and draped in sterile fashion. C-arm fluoroscopy was used to view the lumbar spine. The skin and subcutaneous tissues were anesthetized using lidocaine. A epidural needle was inserted and advanced into the L3-L4 interspace. After confirmation of needle placement in the epidural space, dye was injected in a contralateral oblique view. There was an epidurogram seen at L3-L4 and L4-L5. Significant stenosis was seen at L4-L5. The skin and subcutaneous tissues again were anesthetized using lidocaine. An incision was made and a access trocar was inserted and advanced to contact at the superior aspect of the L5 lamina on the left side. And a contralateral oblique view the side was viewed. Using a bone rongeur and tissue sculptor we debulked bone from the L4-L5 interspace on the left side. We then used the tissue sculptor to debulk ligament at the L4-L5 interspace on the left side. We then moved over to the right side and debulked bone and ligament from L4-L5 on the right side. There is opening of the stenosis at L4-L5 bilaterally. The access trocar was removed. A total of 3 mL's of dye was used. There is good spread of dye above and below this level as well. We injected 80 mg Depo-Medrol through the epidural needle. The epidural needle was removed and dressings were placed. This encounter for exam is for normal comparison and control in a clinical research program Patient was taken to recovery in stable condition. Patient was discharged home neurologically intact and with good relief of pain symptoms. Plan and disposition: We will follow-up with this patient in 2 weeks. Will reevaluate symptoms at that time. Condition: stable Disposition: PACU Complications:: None
--- NOTE | 2021-12-02 13:16 | EXP.ANES.II ---
[facility] Anesthesia Record Part II Anesthesia Record Part II Discharge Time: 11:30 Destination: Surgical Day Care (OP Surgery) PACU nurse assessment reviewed?: Yes Patient Condition:: Good Anesthesia Complications:: None Swallowing reflex intact?: Yes Cyanosis?: No Blood Pressure: 147/85 Pulse Rate: 93 Temperature: 97.9 F Mental Status: Alert & Oriented Pain level:: 0 Nausea and/or vomitting:: None Intake, IV Amount: 0
[2021-12-02 16:27] LABS: POC Glucose,Bedside 190 (70-110)
== END 2021-12-02 12:10 | disposition home or self-care (01) ==
PROVIDERS: PCP Family Medicine; Visit Provider Anesthesiology
DX: M48.062 Spinal stenosis, lumbar region with neurogenic claudication (principal); Z00.6 Encounter for examination for normal comparison and control in clinical research program; E11.9 Type 2 diabetes mellitus without complications; Z96.82 Presence of neurostimulator; Z79.899 Other long term (current) drug therapy; M51.36 Other intervertebral disc degeneration, lumbar region
CPT/HCPCS: 0275T; 36415; 80048; 82962; 85025; 96374; C1889; J1040; J2405

== ENCOUNTER → 2021-12-15 13:12 | Outpatient (POV) | payer MEDICARE, SELFPAY ==
[2021-12-15 13:20] VITALS: BP 139/49; PULSE 67; RESP 18; O2SAT 97; BMI 47.5
--- NOTE | 2021-12-15 16:04 | EXP.PAIN.SOA ---
[facility] Pain Management SOAP Note Subjective:: Patient is a pleasant 71-year-old female who presents today for follow-up of minimally invasive lumbar decompression at bilateral L4-L5 on 12/02/2021. We are currently treating the patient for degenerative disc disease of lumbar spine with lumbar radiculopathy symptoms, lumbar spinal stenosis with neurogenic claudication symptoms. Patient states that she has not noticed significant improvement of her pain symptoms however she did state that she can walk further and longer than she had prior to this procedure. Today she rates her pain a 8 out of 10. Patient denies any new trauma or injury. She denies any change to location or type of pain she experiences. Patient states her pain is primarily in her low back with occasional radicular symptoms into her lower extremities. Patient is currently prescribed gabapentin 300 mg 3 times a day from an outside provider. Patient denies any side effects from this medication. She states this medication does help with some of her symptoms. She is also prescribed a compounding cream from our office that she states does provide some improvement however short-term. Her Palomo is [phone]. It is been reviewed and appropriate. Review of Systems: General: No recent weight changes, no fever, no sleep disturbances Respiratory: No cough, no shortness of air, no recurring pulmonary infections Cardiovascular/peripheral vascular: No chest pain, no palpitations, no edema, no shortness of breath Gastrointestinal: No new onset incontinence, normal bowel movements reported Genitourinary: No new onset incontinence Musculoskeletal: Low back pain Psychiatric: [Normal mood/affect] Neurological: [Denies weakness in extremities], [denies balance issues] Objective:: Physical Exam: General: Alert and oriented x3, no acute distress, pleasant and cooperative Lungs: Respirations even and unlabored, symmetrical chest expansion Eyes: PERRL Musculoskeletal: Flexion and extension of lumbar [spine] somewhat guarded secondary to pain, [antalgic gait noted] Neurological: Speech clear, no gross sensory deficit Skin: Incision site clean, dry, well approximated with minimal erythema noted Assessment:: Degenerative disc disease of lumbar spine with lumbar radiculopathy symptoms, lumbar spinal stenosis with neurogenic claudication symptoms Plan:: Patient continues to experience significant pain in her low back. Patient did have limited range of motion of her lumbar spine during today's visit. I will prescribe the patient tizanidine 4 mg 3 times daily and provide a 2-week supply of this medication. I have counseled the patient that she should continue to get improvement of her symptoms over the next several months and to continue her restrictions of minimal bending, lifting, twisting and no submerging in water such as tub bathing. Patient will return to clinic in 2 weeks for reevaluation of symptoms, medication refill if indicated and follow-up. Patient has been instructed to contact the clinic with any concerns before the next appointment. Dr. Gibson has reviewed this note and agrees with this plan of care. This note was dictated using voice recognition software and make contain errors or omissions. [facility] Medical History Diabetes mellitus, type 2 Hyperlipidemia Hypertension Surgical History History of laparoscopic cholecystectomy History of mastectomy, total History of total knee replacement Family History Other No significant family history Social History (Updated 12/02/21 @ 08:49 by Jose R Frye CRNA) Smoking Status: Never smoker second hand exposure: No alcohol intake: never substance use type: denies use current occupational status: retired Travel in the last 8 weeks: None household members: spouse housing:
== END | disposition home or self-care (01) ==
PROVIDERS: PCP Family Medicine; Visit Provider Nurse Practitioner Family
DX: M51.16 Intervertebral disc disorders with radiculopathy, lumbar region (principal); M48.062 Spinal stenosis, lumbar region with neurogenic claudication; Z79.899 Other long term (current) drug therapy
CPT/HCPCS: 99212; G0463

== ENCOUNTER → 2022-02-09 13:54 | Outpatient (POV) | payer MEDICARE, SELFPAY ==
[2022-02-09 14:31] VITALS: BP 136/50; PULSE 67; RESP 18; O2SAT 98; BMI 47.0
--- NOTE | 2022-02-09 14:45 | EXP.PAIN.SOA ---
[facility] Pain Management SOAP Note Subjective:: Patient is a pleasant 71-year-old female who presents today for follow-up. We are currently treating the patient for degenerative disc disease of lumbar spine with lumbar radiculopathy symptoms, lumbar spinal stenosis with neurogenic claudication symptoms. Patient denies any additional issues following her NM LD procedure on L4-L5 from December 02, 2021. Patient does state that she has not noticed any additional improvement following this procedure. She rates her pain today an 8 out of 10. Patient states about 6 weeks ago she did have a fall when she was getting out of bed and landed on her knees. Patient denies any residual problems from this fall and states she has not had any other instances. Patient is prescribed compounding cream however she states she did not notice significant improvement. Patient also was tried on tizanidine however she did not notice any additional relief. Patient is prescribed gabapentin 300 mg 3 times a day from an outside provider. Patient denies any side effects from this medication. Patient states she did have a previous intrathecal pump approximately 4 years ago. She states this did well with her pain symptoms however due to her increased anxiety of possibly overdosing she had this removed. Her Palomo is [id number]. Its been reviewed and appropriate. Review of Systems: General: No recent weight changes, no fever, no sleep disturbances Respiratory: No cough, no shortness of air, no recurring pulmonary infections Cardiovascular/peripheral vascular: No chest pain, no palpitations, no edema, no shortness of breath Gastrointestinal: No new onset incontinence, normal bowel movements reported Genitourinary: No new onset incontinence Musculoskeletal: Low back pain Psychiatric: [Normal mood/affect] Neurological: [Denies weakness in extremities], [denies balance issues] Objective:: Physical Exam: General: Alert and oriented x3, no acute distress, pleasant and cooperative Lungs: Respirations even and unlabored, symmetrical chest expansion Eyes: PERRL Musculoskeletal: Flexion and extension of lumbar [spine] somewhat guarded secondary to pain, [antalgic gait noted] Neurological: Speech clear, no gross sensory deficit ORT score updated with minimal risk of 0 Assessment:: Degenerative disc disease of lumbar spine with lumbar radiculopathy symptoms, lumbar spinal stenosis with neurogenic claudication symptoms Plan:: Patient continues to experience significant pain in her low back with some radiating symptoms into her hips. Patient did have limited range of motion of her lumbar spine during today's visit. I have discussed with the patient that she may benefit from a intrathecal pump trial. Risk and benefits were discussed with the patient and educational handouts given during today's visit. Patient would like to proceed forward with this plan of care. I will send the patient for a psychiatric evaluation with the plan to proceed forward with the intrathecal pump trial. I have counseled the patient to stop taking the tizanidine and I will prescribe her baclofen 10 mg at bedtime with a 14-day supply. Patient did have [address] from her previous NM LD procedure that were removed with no complications. Patient has been instructed to contact the clinic with any concerns before the next appointment. Dr. Gibson has reviewed this note and agrees with this plan of care. This note was dictated using voice recognition software and make contain errors or omissions. [facility] Disclaimer: The information contained in this section may have been updated after the patient was seen, as this information can be updated by other users. Medical History Diabetes mellitus, type 2 Hyperlipidemia Hypertension Surgical History History of laparoscopic cholecystectomy History of kristina
== END | disposition home or self-care (01) ==
PROVIDERS: PCP Family Medicine; Visit Provider Nurse Practitioner Family
DX: M51.16 Intervertebral disc disorders with radiculopathy, lumbar region (principal); M48.062 Spinal stenosis, lumbar region with neurogenic claudication
CPT/HCPCS: 99212; 99213; G0463

== ENCOUNTER 2022-06-16 09:45 | Day surgery (SDC) | payer MEDICARE, SELFPAY ==
[2022-06-16] VITALS (9 sets, daily range): BP systolic 101–190; BP diastolic 44–86; PULSE 51–73; RESP 18–20; TEMP 36.6; O2SAT 95–100; BMI 44.0
--- NOTE | 2022-06-16 12:17 | EXP.PAIN.PRO ---
Procedure Date: 06/16/22 Time: 12:17 Anesthesiologist:: Satish Gibson MD Complications:: None Pre-procedure Diagnosis:: Degenerative disc disease of lumbar spine with lumbar radiculopathy symptoms and lumbar spinal stenosis Post-procedure Diagnosis:: Same Indications for Procedure:: This patient is a pleasant 71-year-old white female who we are treating for low back pain with lumbar radicular symptoms. She did have previous mild procedure done she did not get much benefit from this procedure. She is also had previously had an intrathecal pain pump which was removed approximately 4 years ago. Her pain has worsened in her back. She did get benefit previously when her pain pump was in place. She had a taken out because she was having some issues with medication. However her pain has worsened she has failed all previous conservative treatments including injections, oral medications, physical therapy and she is not a candidate for surgery. She presents for repeat intrathecal pump trial today. Procedure Details:: Pain pump trial Informed consent was obtained and the risk and benefits of the procedure was explained to the patient. The patient was taken to the procedure room and placed prone on the procedure table. Patient was prepped and draped in sterile fashion. C-arm fluoroscopy was used to view the lumbar spine. The skin and subcutaneous tissues were anesthetized using lidocaine. I placed a 18-gauge spinal needle into the L4-5 interspace and advanced until clear CSF was obtained. After this intrathecal catheter was inserted and advanced very easily to the L1 vertebral body. The needle was withdrawn. We were able to freely withdraw clear CSF through the catheter. We then injected intrathecal opioid single shot bolus of 25 mcg followed by saline and followed by the previous CSF that was withdrawn. The needle and catheter were then removed and a Band-Aid was placed. Patient tolerated the procedure well with no complications. We reevaluated the patient after 30 minutes to 1 hour. She was also reassessed by physical therapy. She had complete resolution of her pain. She was 90% better. She was much more functional. She was proceed with permanent placement. She was discharged home neurologic intact with good relief of pain symptoms. We will plan on permanent placement with intrathecal morphine 1 mg per ml to start at 0.1 mg/day. Catheter tip will be at the T8 vertebral body. Plan and Disposition:: We will follow-up with this patient to assess efficacy of this trial. We will plan on permanent placement if it is successful with intrathecal morphine 1 mg per mill. Catheter tip will be at the T8 vertebral body. We will start at 0.1 mg/day.
--- NOTE | 2022-06-16 12:36 | PC.NURSE ---
1110-pt returned to bay, accompanied by nursing staff. VSS, no c/o pain. lumbar dressing c/d/i. pt reports itching but denies need for PRN medication. no needs or concerns at this time. 1125-pt resting in chair. VSS, no c/o pain. lumbar dressing c/d/i. no needs or concerns at this time. 1140-pt resting in chair, looking at her phone. VSS, no c/o pain. lumbar dressing c/d/i. no needs or concerns at this time, 1155-pt resting in chair. VSS, no c/o pain. lumbar dressing c/d/i. no needs or concerns at this time. 1205-pt ambulated to nursing station, accompanied by nursing staff. Gait steady with use of rolling walker. no c/o pain. 1210-pt resting in chair. VSS, no c/o pain. lumbar dressing c/d/i. no needs or concerns at this time. reports feeling a little dizzy after ambulation. feet elevated and chair reclined. 1230-pt reports feeling better. pt resting in chair. VSS, no c/o pain. lumbar dressing c/d/i. no needs or concerns at this time. IV discontinued.
== END 2022-06-16 12:30 | disposition home or self-care (01) ==
PROVIDERS: PCP Family Medicine; Visit Provider Anesthesiology
DX: M51.16 Intervertebral disc disorders with radiculopathy, lumbar region (principal); M48.061 Spinal stenosis, lumbar region without neurogenic claudication
CPT/HCPCS: 62323; 96365

== ENCOUNTER → 2022-06-20 12:48 | Outpatient (POV) | payer MEDICARE, SELFPAY ==
[2022-06-20 13:01] VITALS: BP 159/84; PULSE 73; RESP 18; TEMP 36.3; O2SAT 97; BMI 44.0
--- NOTE | 2022-06-20 13:10 | EXP.PAIN.SOA ---
[facility] Pain Management SOAP Note Subjective:: This patient is a very pleasant 71-year-old female that comes our clinic today for follow-up visit after receiving intrathecal pain pump trial on 06/16/2022. Patient reports significant improvement terms of her overall low back as well as bilateral hip and leg radicular symptoms. I discussed in detail with the patient regarding pump implant. Answered her questions. She wishes to proceed. Objective:: Patient is awake alert [place] x3. In no acute distress. Flexion-extension lumbar spine very guarded secondary to pain. Deep tendon reflexes upper and lower extremities normal. Motor strength upper and lower extremities normal. There is no gross sensory deficit. Gait is antalgic due to stability issues. Patient is using a rollator for stability. Assessment:: Degenerative disc disease lumbar spine multilevels. Lumbar radiculopathy. Lumbar spinal stenosis Plan:: We will plan July 14, 2022 for intrathecal pain pump placement. [facility] Disclaimer: The information contained in this section may have been updated after the patient was seen, as this information can be updated by other users. Medical History Diabetes mellitus, type 2 Fibromyalgia GERD (gastroesophageal reflux disease) History of breast cancer Hyperlipidemia Hypertension YONNY (obstructive sleep apnea) Rheumatoid arthritis Surgical History H/O left mastectomy History of laparoscopic cholecystectomy History of mastectomy, total History of total knee replacement Family History Other No significant family history Social History Smoking Status: Never smoker second hand exposure: No alcohol intake: never substance use type: denies use current occupational status: other Travel in the last 8 weeks: None household members: spouse housing: house current occupational exposures/hazards: No caffeine: Yes
== END ==
LOC: SC.PAIN 12:49
PROVIDERS: PCP Family Medicine; Visit Provider Nurse Anesthetist, Certified Registered
DX: M51.16 Intervertebral disc disorders with radiculopathy, lumbar region (principal); M48.061 Spinal stenosis, lumbar region without neurogenic claudication
CPT/HCPCS: 99212; G0463

== ENCOUNTER → 2022-07-10 15:21 | Outpatient (CLI) | payer MEDICARE, SELFPAY ==
[2022-07-10 16:54] LABS: Hemoglobin A1C 6.7 % (4.0-6.0)
[2022-07-10 17:04] LABS: Basophils % 0.4 % (0.1-2.0); Eosinophils # 0.3 K/mm3 (0.0-0.4); Eosinophils % 3.5 % (0.1-12.0); Hematocrit 33.4 % (37.0-47.0); Hemoglobin 10.3 g/dL (12.2-16.2); Lymphocytes # 1.6 K/mm3 (0.7-4.5); Lymphocytes % 20.1 % (10-50); Mean Corpuscular Hemoglobin 27.9 pg (27.0-31.2); Mean Corpuscular Volume 90.2 fl (81-99); Mean Platelet Volume 7.6 fl (7.4-10.4); Monocytes # 0.6 K/mm3 (0.1-1.0); Monocytes % 7.3 % (1.7-9.3); Neutrophils # 5.3 K/mm3 (1.8-7.8); Neutrophils % 68.8 % (37.0-80.0); Platelet Count 330 K/mm3 (142-424); Red Cell Distribution Width 16.2 % (11.5-17.5); White Blood Count 7.7 K/mm3 (4.8-10.8)
[2022-07-10 17:10] LABS: Chloride 92 mmol/L (98-107); Potassium 4.7 mmoL/L (3.5-5.1); Sodium 130 mmol/L (136-145)
[2022-07-10 17:13] LABS: Anion Gap 18.7 mEq/L (5-15); Blood Urea Nitrogen 37 mg/dl (7-17); Calcium 9.3 mg/dl (8.4-10.2); Carbon Dioxide 24 mmol/L (22.0-30.0); Estimated Glomerular Filt Rate 34 ml/min (>60); GFR (African American) 41 ML/MIN (>60); Glucose 119 mg/dl (74-100)
[2022-07-10 17:16] LABS: Benzodiazepines Screen,Urine Negative ng/ml (<200)
[2022-07-10 17:17] LABS: Amphetamine/Metha Screen,Urine Negative ng/ml (<1000); Barbiturates Screen,Urine Negative ng/ml (<200)
[2022-07-10 17:18] LABS: Cannabinoid Screen,Urine Negative ng/ml (<50)
[2022-07-10 17:19] LABS: Cocaine Screen,Urine Negative ng/ml (<300); Methadone Screen,Urine Negative ng/ml (<300)
[2022-07-10 17:20] LABS: Opiate Screen,Urine Negative ng/ml (<300); Phencyclidine Screen,Urine Negative ng/ml (<25)
== END ==
PROVIDERS: PCP Family Medicine; Visit Provider Anesthesiology
DX: Z01.818 Encounter for other preprocedural examination (principal); E11.9 Type 2 diabetes mellitus without complications; Z79.891 Long term (current) use of opiate analgesic; M51.36 Other intervertebral disc degeneration, lumbar region
CPT/HCPCS: 36415; 80048; 80305; 83036; 85025

== ENCOUNTER 2022-07-14 06:45 | Day surgery (SDC) | payer MEDICARE, SELFPAY ==
[2022-07-11 14:29] VITALS: BMI 43.9
[2022-07-14 07:19] VITALS: BP 115/53; PULSE 50; RESP 18; TEMP 36.1; O2SAT 100
--- NOTE | 2022-07-14 07:32 | P.PN_ITS ---
[facility] Disclaimer: The information contained in this section may have been updated after the patient was seen, as this information can be updated by other users. Medical History Diabetes mellitus, type 2 Fibromyalgia GERD (gastroesophageal reflux disease) History of breast cancer Hyperlipidemia Hypertension YONNY (obstructive sleep apnea) Rheumatoid arthritis Surgical History H/O left mastectomy History of laparoscopic cholecystectomy History of mastectomy, total History of total knee replacement Family History Other Family history of diabetes mellitus type II Social History Smoking Status: Never smoker second hand exposure: No alcohol intake: never substance use type: denies use current occupational status: other Travel in the last 8 weeks: None household members: spouse housing: house marital status: education level: high school service: No current occupational exposures/hazards: No caffeine: Yes do you feel safe at home: Yes victim of physical abuse: No victim of emotional abuse: No victim of sexual abuse: No would you like helpful sources: No [facility] Anesthesia Checklist Patient Identification Patient Identification: Arm Band and Verbal (Name & ) Structural Data Admitted From: Home Planned Operative Procedure/s: IPPP Consent for Planned Operative Procedure(s) Verified: Yes NPO Status Verified Time NPO: 00:00 Additional verifications Anesthesia Reactions: No Hx Blood Transfusions: No Blood Transfusion Reaction: No Airway Assessment C-Spine Mobility Assessed: Yes TMJ Mobility Assessed: Yes Dentition: Good Dentition Neurological Assessment Level of Consciousness: Awake Hx Seizures: No Numbness or tingling in extremities: No Anesthesia Plan Anesthesia Risk discussed: Yes Anesthesia Plan: Verified ASA Class: III Anesthesia Type: MAC
--- NOTE | 2022-07-14 09:55 | XR_ITS ---
FINAL REPORT CLINICAL HISTORY: pain pump placement FINDINGS: FLUOROSCOPY IN THE OR HISTORY: pain pump placement FINDINGS: Fluoroscopy was provided by the radiology department for the clinical service. IMPRESSION: Intraoperative fluoroscopy Reviewed, Interpreted and Dictated by Ochoa Doran III, MD Transcribed by HAIDER Yanes Authenticated and [facility]
[2022-07-14 10:28] LABS: POC Glucose,Bedside 115 (70-110)
[2022-07-14 10:35] VITALS: BP 147/71; PULSE 72; RESP 15; TEMP 36.3; O2SAT 93
[2022-07-14 10:45] VITALS: BP 148/64; PULSE 70; RESP 16; O2SAT 92
[2022-07-14 10:55] VITALS: BP 148/77; PULSE 65; RESP 17; O2SAT 93
[2022-07-14 11:05] VITALS: BP 153/65; PULSE 62; RESP 16; O2SAT 95
[2022-07-14 11:35] VITALS: BP 154/70; PULSE 60; RESP 17; O2SAT 95
--- NOTE | 2022-07-14 13:52 | EXP.OP.NOTE ---
Date of procedure: 07/14/22 Pre-op Diagnosis:: Degenerative disc disease of lumbar spine with lumbar radiculopathy symptoms Post-op Diagnosis:: Same Procedure performed:: Permanent placement intrathecal pain pump with tunneled intrathecal catheter and pain pump generator Surgeon:: Satish Gibson MD INSURANCE CLAIM REPRESENTATIVE:: Jose R Frye Anesthesia: MAC Estimated blood loss (mL): 5 Clinical Note:: This patient is a pleasant 71-year-old white female who we are treating for low back pain with lumbar radicular symptoms. She has failed all previous conservative treatments including injections, oral medications, physical therapy and she is not a candidate for surgery. She has had a successful psychological evaluation. She is also had a successful intrathecal pump trial. She presents for permanent placement of her intrathecal pain pump today. Operative findings:: None Operative note:: Informed consent was obtained risk and benefits of the procedure were explained to the patient. Patient was taken the operating room placed prone on the procedure table. She was prepped and draped in sterile fashion. C-arm fluoroscopy was used to view the lumbar spine. The skin and subcutaneous tissues on the left flank correction between the 12th rib and iliac crest were anesthetized using lidocaine. I made incision and dissected out the reservoir pocket. C-arm fluoroscopy was then used to view the lumbar spine. The skin and subcutaneous tissues were anesthetized using lidocaine. I made an incision and dissected down to the lumbar paraspinous fascia. A 17-gauge spinal needle was inserted and advanced into the L4-L5 interspace until clear CSF was obtained. After this intrathecal catheter was inserted and advanced very easily to the T8 vertebral body. The stylette of the catheter and the needle withdrawn. The catheter was secured to the fascia with anchoring bias and 2-0 Prolene. I tunneled the catheter from the back to the generator pocket. I attached the catheter to the generator. Prior to this I filled the pump with 20 mils of intrathecal morphine 1 mg/mL. Placed the pump in the pocket. We were able to freely withdraw clear CSF from the sideport. Both incisions were irrigated with antibiotic solution. Both incisions were then closed with 2-0 Vicryl followed by 4-0 nylon and charlette. A wound VAC was placed over both incisions. The patient was placed in an abdominal binder taken recovery in stable condition. The pump was interrogated and started at 0.1 mg/day of intrathecal morphine. Patient was discharged home neurologic intact with good relief of pain symptoms. Plan and disposition: We will send the patient home with Bactrim DS twice a day for 5 days for postop antibiotics. We will follow-up with this patient in 1 week for wound check and then in 2 to 3 weeks for suture and staple removal. Condition: stable Disposition: PACU Complications:: None
== END 2022-07-14 11:40 | disposition home or self-care (01) ==
PROVIDERS: PCP Family Medicine; Visit Provider Anesthesiology
DX: M51.16 Intervertebral disc disorders with radiculopathy, lumbar region (principal); Z79.899 Other long term (current) drug therapy; E11.9 Type 2 diabetes mellitus without complications
CPT/HCPCS: 62350; 62362; 82962; 96374; C1755; C1772; J2704

== ENCOUNTER → 2022-07-18 13:49 | Outpatient (POV) | payer MEDICARE, SELFPAY ==
--- NOTE | 2022-07-18 14:05 | EXP.PAIN.SOA ---
[facility] Pain Management SOAP Note Subjective:: This patient is a pleasant 71-year-old female that comes our clinic today for follow-up visit after receiving intrathecal pain pump implant 07/14/2022. Patient have some increased pain in the back. It appears the abdominal binder is too tight. She is beginning to have skin breakdown in a fold of her stomach due to the binder tension. Wound VAC was removed. Incisions look clean and dry. Patient having some sleepiness since having the pump implanted. We discussed in detail it would take some time for her to get used to the intrathecal pain pump medication. Patient will return to see us on Sunday for follow-up visit. Objective:: Patient is awake alert [place] x3. In no acute distress. Flexion-extension lumbar spine somewhat guarded secondary to incisional pain. Deep tendon reflexes upper and lower extremities normal. Motor strength upper lower extremities normal. There is no gross sensory deficit. Gait is normal. Assessment:: Degenerative disc lumbar spine multilevels. Lumbar radiculopathy. Lumbar spinal stenosis. Plan:: Discussed in detail with the patient regarding the need to care for the incision sites. Keep them clean and dry. Patient will return to see us on 07/24/2022 for follow-up. [facility] Disclaimer: The information contained in this section may have been updated after the patient was seen, as this information can be updated by other users. Medical History Diabetes mellitus, type 2 Fibromyalgia GERD (gastroesophageal reflux disease) History of breast cancer Hyperlipidemia Hypertension YONNY (obstructive sleep apnea) Rheumatoid arthritis Surgical History H/O left mastectomy History of laparoscopic cholecystectomy History of mastectomy, total History of total knee replacement Family History Other Family history of diabetes mellitus type II Social History Smoking Status: Never smoker second hand exposure: No alcohol intake: never substance use type: denies use current occupational status: other Travel in the last 8 weeks: None household members: spouse housing: house marital status: education level: high school service: No current occupational exposures/hazards: No caffeine: Yes do you feel safe at home: Yes victim of physical abuse: No victim of emotional abuse: No victim of sexual abuse: No would you like helpful sources: No
[2022-07-18 14:14] VITALS: BP 103/45; PULSE 57; RESP 18; TEMP 36.6; O2SAT 98; BMI 43.9
== END ==
LOC: SC.PAIN 13:50
PROVIDERS: PCP Family Medicine; Visit Provider Nurse Anesthetist, Certified Registered
DX: Z48.89 Encounter for other specified surgical aftercare (principal); M51.16 Intervertebral disc disorders with radiculopathy, lumbar region; M48.061 Spinal stenosis, lumbar region without neurogenic claudication
CPT/HCPCS: 99212; G0463

== ENCOUNTER → 2022-07-20 14:29 | Outpatient (POV) | payer MEDICARE, SELFPAY ==
--- NOTE | 2022-07-20 15:20 | EXP.PAIN.PRO ---
Procedure Date: 07/20/22 Time: 15:03 Anesthesiologist:: Any Morris APRN Complications:: None Pre-procedure Diagnosis:: Degenerative disc disease of lumbar spine with lumbar radiculopathy symptoms, lumbar spinal stenosis with neurogenic claudication symptoms Post-procedure Diagnosis:: Same Indications for Procedure:: Patient is a pleasant 71-year-old female who presents today for follow-up from intrathecal pain pump placement on 07/14/2022. We are currently treating the patient for degenerative disc disease of lumbar spine with lumbar radiculopathy symptoms, lumbar spinal stenosis with neurogenic claudication symptoms.? Today she rates her pain a 0 out of 10. Patient did come in on Sunday this week due to her abdominal binder being too tight and having skin breakdown on the front stomach fold as well as on the back upper left incision site. Patient did have the wound VAC removed during this visit. Patient also was experiencing increased sleepiness and was unsure whether or not it was related to the intrathecal medication. She is currently managed with morphine 1 mg/mL with a daily dose of 0.0999 mg/day. Patient states she has also noticed some mild itching however she states its only seem to be at night. She does present today with family members present who do have concerns that she has had moments of confusion as well as significant drowsiness. She does state that she takes gabapentin 300 mg once a day as well as trazodone and Benadryl for allergies of 50 mg. She does deny any previous issues of confusion or drowsiness. Family member did state that they did not give her the gabapentin last night and that she did seem more with it today during our visit. She also states she has had some leg weakness. Her Palomo has been reviewed and appropriate. Physical Exam: General: Alert and oriented x3, no acute distress, pleasant and cooperative Lungs: Respirations even and unlabored, symmetrical chest expansion Eyes: PERRL Musculoskeletal: Flexion and extension of lumbar [spine] somewhat guarded secondary to pain, [antalgic gait noted] Neurological: Speech clear, no gross sensory deficit Skin: Incision sites clean, dry, well approximated, moderate edema noted at the upper left incision sites Procedure Details:: Informed consent was obtained and the risk and benefits of the procedure were explained to the patient. Patient was taken to the procedure room where noninvasive monitoring was placed including noninvasive blood pressure cuff and pulse oximeter. Patient's pump was interrogated and was reprogrammed to morphine 0.0899 mg/day. The patient tolerated the procedure well with no complications. Plan and Disposition:: I have counseled the patient to discontinue her Benadryl medication and to try a less sedating antihistamine for her allergy related needs. I have counseled the patient to add additional dressing around her areas of irritation and that she can use Neosporin or bacitracin as needed. We have discontinued her abdominal binder due to the worsening skin irritation. I have also counseled the patient to keep me posted regarding her skin itching and then if it continues to be a problem or worsens in severity we may need to change her intrathecal medication. Patient's pump was decreased by 10% during today's visit. Patient's family states they are going to discontinue her gabapentin at this time and cut her trazodone in half tonight and continue this until our visit next week. I have also counseled the patient and her family that if she starts experiencing any worsening symptoms of confusion or drowsiness to come to the ER for evaluation. Patient will return to clinic in 1 week for reevaluation of symptoms and plan of care. Patient has been instructed to contact the clinic with any concerns before the next appointment. Dr. Gibson has reviewed this note and agrees with this plan of care. This note was dictated using voice recognition software and salvador
[2022-07-20 15:23] VITALS: BP 118/33; PULSE 58; RESP 17; TEMP 37.1; O2SAT 97; BMI 44.0
== END | disposition home or self-care (01) ==
PROVIDERS: PCP Family Medicine; Visit Provider Nurse Practitioner Family
DX: M51.16 Intervertebral disc disorders with radiculopathy, lumbar region (principal); M48.062 Spinal stenosis, lumbar region with neurogenic claudication
CPT/HCPCS: 62368; 99213; G0463

== ENCOUNTER → 2022-07-27 12:55 | Outpatient (POV) | payer MEDICARE, SELFPAY ==
--- NOTE | 2022-07-27 13:11 | EXP.PAIN.SOA ---
[facility] Pain Management SOAP Note Subjective:: Patient is a pleasant 71-year-old female who presents today for 1 week follow-up.? We are currently treating the patient for degenerative disc disease of lumbar spine with lumbar radiculopathy symptoms, lumbar spinal stenosis with neurogenic claudication symptoms.? Today she rates her pain a 0 out of 10.? At our last visit she did have some areas of skin breakdown on her lower abdomen and above her intrathecal incision site. Patient states these have continued to improve. Patient does state that she has not had any additional episodes of confusion or increased drowsiness. Patient is back to getting up and moving around with decreased pain symptoms. They do state today that they have continue to cut her trazodone in half and has not given any additional gabapentin or Benadryl. Patient was started on Claritin for an antihistamine. She does state that she has been having some upset stomach and had an episode of diarrhea but thinks that she may have came into contact with a bug.?She is currently managed with morphine 1 mg/mL with a daily dose of 0. 0.0899 mg/day.? P she denies any side effects from this medication. Her Palomo is [id number]. Its been reviewed and appropriate. Review of Systems: General: No recent weight changes, no fever, no sleep disturbances Respiratory: No cough, no shortness of air, no recurring pulmonary infections Cardiovascular/peripheral vascular: No chest pain, no palpitations, no edema, no shortness of breath Gastrointestinal: No new onset incontinence, normal bowel movements reported Genitourinary: No new onset incontinence Musculoskeletal: Low back pain Psychiatric: [Normal mood/affect] Neurological: [Denies weakness in extremities], [denies balance issues] Objective:: Physical Exam: General: Alert and oriented x3, no acute distress, pleasant and cooperative Lungs: Respirations even and unlabored, symmetrical chest expansion Eyes: PERRL Musculoskeletal: Flexion and extension of lumbar [spine] somewhat guarded secondary to pain, [antalgic gait noted] Neurological: Speech clear, no gross sensory deficit Skin: Incision sites are clean, dry, well approximated with minimal erythema charlette and sutures intact; anterior abdomen skin breakdown areas do show improvement and healing; posterior back skin breakdown area has improved color and minimal drainage Assessment:: Degenerative disc disease of lumbar spine with lumbar radiculopathy symptoms, lumbar spinal stenosis with neurogenic claudication symptoms Plan:: Patient continues to do well with her intrathecal pain pump and has had significant improvement of her confusion and drowsiness with the discontinuation of gabapentin and Benadryl. We will follow-up with the patient in 1 week for reevaluation of symptoms and plan of care. I have counseled the patient that if her incision sites continue to look well that we will remove her charlette and sutures at her next visit and applied Steri-Strips and skin glue. Patient has been instructed to contact the clinic with any concerns before the next appointment. Dr. Gibson has reviewed this note and agrees with this plan of care. This note was dictated using voice recognition software and make contain errors or omissions. -- It Is medically necessary for this patient to continue to have their intrathecal pump refilled at regular intervals. This patient had an intrathecal pain pump implanted after meeting criteria of chronic intractable pain for greater than 3 months and failing conservative treatments. Patient has committed and been compliant to the treatment plan and all planned follow up care. Since implantation of the intrathecal pain pump, the patient has had decreased pain and been more functional. Oral medications have been reduced including intake of oral opioids. Patient continues to do well with intrathecal therapy with decrease in pain symptoms and increase in functional status. Stopping intrathecal medicati
[2022-07-27 13:16] VITALS: BP 110/57; PULSE 60; RESP 18; O2SAT 97; BMI 42.2
== END ==
LOC: SC.PAIN 12:57
PROVIDERS: PCP Family Medicine; Visit Provider Nurse Practitioner Family
DX: M51.16 Intervertebral disc disorders with radiculopathy, lumbar region (principal); M48.062 Spinal stenosis, lumbar region with neurogenic claudication
CPT/HCPCS: 99212; G0463

== ENCOUNTER → 2022-08-03 14:15 | Outpatient (POV) | payer MEDICARE, SELFPAY ==
[2022-08-03 15:04] VITALS: BP 109/29; PULSE 50; RESP 18; O2SAT 97; BMI 42.2
--- NOTE | 2022-08-03 15:21 | EXP.PAIN.PRO ---
Procedure Date: 08/03/22 Time: 14:40 Anesthesiologist:: Any Morris APRN Complications:: None Pre-procedure Diagnosis:: Degenerative disc disease of lumbar spine with lumbar radiculopathy symptoms, lumbar spinal stenosis with neurogenic claudication symptoms Post-procedure Diagnosis:: Same Indications for Procedure:: Patient is a pleasant 71-year-old female who presents today for intrathecal pain pump reprogramming adjustment. The patient is being treated for degenerative disc disease of lumbar spine with lumbar radiculopathy symptoms, spinal stenosis with neurogenic claudication symptoms. Patient is currently being managed with morphine 1 mg/mL with a daily dose of 0.0899 mg/day. She does state since our last visit she did start experiencing increased itching along with nausea and some drowsiness. Patient is unsure if this has anything to do with her intrathecal pump medication. She was previously on Benadryl, trazodone, gabapentin along with the morphine medication and was experiencing significant drowsiness a few weeks ago. Over the last couple of visits the patient did have significant improvement with the discontinuation of the gabapentin and Benadryl and cutting the trazodone in half. She does state that she is scheduled to go see her primary care provider tomorrow. She also states that she is scheduled to go to the beach [place] 19 and is hoping that she has some improvement before it now and then. Patient rates pain a 3 out of 10. Drug screen is appropriate. Palomo has been reviewed and is appropriate. Physical exam General: Alert and oriented x3, no acute distress, pleasant and cooperative Lungs: Respirations even and unlabored, symmetrical chest expansion Eyes: PERRL Musculoskeletal: Flexion and extension of lumbar [spine] somewhat guarded secondary to pain, [antalgic gait noted] Neurological: Speech clear, no gross sensory deficit Skin: Incision sites clean, dry, well approximated with minimal erythema noted, sutures and charlette intact; anterior and posterior skin breakdown from previous visits is clean, dry with scabbing noted Procedure Details:: Informed consent was obtained and the risk and benefits of the procedure were explained to the patient. Patient was taken to the procedure room where noninvasive monitoring was placed including noninvasive blood pressure cuff and pulse oximeter. Patient's pump was interrogated and was reprogrammed to morphine 0.0811 mg/day. The patient tolerated the procedure well with no complications. Plan and Disposition:: I have discussed with the patient that if she continues to have itching along with nausea we may have to change out her intrathecal medication. Patient's incision sites are doing well and continue to be doing well and do not show any signs of infection. [place] and sutures were all removed during today's visit. I have counseled the patient to continue her postop restrictions. I will send in a prescription of Zofran 4 mg 3 times daily as needed with 30 tablets. Patient did tolerate her intrathecal decrease with no complications. Patient will return to clinic in 1 week for reevaluation of symptoms. Patient has been instructed to contact the clinic with any concerns before the next appointment. Dr. Gibson has reviewed this note and agrees with this plan of care. This note was dictated using voice recognition software and make contain errors or omissions. -- It Is medically necessary for this patient to continue to have their intrathecal pump refilled at regular intervals. This patient had an intrathecal pain pump implanted after meeting criteria of chronic intractable pain for greater than 3 months and failing conservative treatments. Patient has committed and been compliant to the treatment plan and all planned follow up care. Since implantation of the intrathecal pain pump, the patient has had decreased pain and been more functional. Oral medications have been reduced includi
== END ==
LOC: SC.PAIN 14:17
PROVIDERS: PCP Family Medicine; Visit Provider Nurse Practitioner Family
DX: M51.16 Intervertebral disc disorders with radiculopathy, lumbar region (principal); M48.062 Spinal stenosis, lumbar region with neurogenic claudication
CPT/HCPCS: 62368; 99213; G0463

== ENCOUNTER → 2022-08-10 15:01 | Outpatient (POV) | payer MEDICARE, SELFPAY ==
--- NOTE | 2022-08-10 15:54 | EXP.PAIN.SOA ---
[facility] Pain Management SOAP Note Subjective:: Patient is a pleasant 71-year-old female who presents today for follow-up. We are currently treating the patient for degenerative disc disease of lumbar spine with lumbar radiculopathy symptoms, lumbar spinal stenosis with neurogenic claudication symptoms. Today she rates her pain a 4 out of 10. Patient denies any new trauma or injury. Patient denies any change to location or type of pain she experiences. At our last visit we did decrease her intrathecal medication to morphine 1 mg/mL with a daily dose of 0.0811 mg/day related to increased drowsiness. She does state today that the decrease made no additional change in her fatigue. She does state that she has been able to increase her activity and does present today walking with a rolling walker. Patient states that the current medication is working well with her pain symptoms and that she has been able to move around better with decreased pain. She states she will still have the fatigue and has completely discontinued the trazodone over the last week however still has not noticed any additional improvement. She does state that she is scheduled to leave for vacation on the . Her Palomo is [phone]. Its been reviewed and appropriate. Review of Systems: General: No recent weight changes, no fever, no sleep disturbances Respiratory: No cough, no shortness of air, no recurring pulmonary infections Cardiovascular/peripheral vascular: No chest pain, no palpitations, no edema, no shortness of breath Gastrointestinal: No new onset incontinence, normal bowel movements reported Genitourinary: No new onset incontinence Musculoskeletal: Low back pain Psychiatric: [Normal mood/affect] Neurological: [Denies weakness in extremities], [denies balance issues] Objective:: Physical Exam: General: Alert and oriented x3, no acute distress, pleasant and cooperative Lungs: Respirations even and unlabored, symmetrical chest expansion Eyes: PERRL Musculoskeletal: Flexion and extension of lumbar [spine] somewhat guarded secondary to pain, [antalgic gait noted] Neurological: Speech clear, no gross sensory deficit Assessment:: Degenerative disc disease of lumbar spine with lumbar radiculopathy symptoms, lumbar spinal stenosis with neurogenic claudication symptoms Plan:: Patient is currently doing well with her intrathecal dosage however I have counseled the patient that we may need to decrease it again if she continues to have worsening fatigue to rule out that the intrathecal pump medication is related to it. I have also counseled the patient that it may be beneficial to draw yearly labs such as her CBC, CMP, thyroid panel, etc to rule out any abnormalities that could be causing her additional fatigue. She does state that her primary care doctor typically orders labs every 3 to 6 months and it has just been recently that these were checked. Patient will return to clinic in 1 month for reevaluation of symptoms and plan of care. Patient has been instructed to contact the clinic with any concerns before the next appointment. Dr. Gibson has reviewed this note and agrees with this plan of care. This note was dictated using voice recognition software and make contain errors or omissions. -- It Is medically necessary for this patient to continue to have their intrathecal pump refilled at regular intervals. This patient had an intrathecal pain pump implanted after meeting criteria of chronic intractable pain for greater than 3 months and failing conservative treatments. Patient has committed and been compliant to the treatment plan and all planned follow up care. Since implantation of the intrathecal pain pump, the patient has had decreased pain and been more functional. Oral medications have been reduced including intake of oral opioids. Patient continues to do well with intrathecal therapy with decrease in pain symptoms and increase in functional status. Stopping intrathecal medications can
[2022-08-10 16:14] VITALS: BP 109/60; PULSE 60; RESP 19; O2SAT 97; BMI 42.2
== END ==
LOC: SC.PAIN 15:02
PROVIDERS: Visit Provider Nurse Practitioner Family
DX: M51.16 Intervertebral disc disorders with radiculopathy, lumbar region (principal); M48.062 Spinal stenosis, lumbar region with neurogenic claudication
CPT/HCPCS: 99212; G0463

== ENCOUNTER → 2022-09-07 14:04 | Outpatient (POV) | payer MEDICARE, SELFPAY ==
[2022-09-07 14:24] VITALS: BP 100/54; PULSE 59; RESP 20; O2SAT 95; BMI 42.6
--- NOTE | 2022-09-07 14:54 | EXP.PAIN.PRO ---
Procedure Date: 09/07/22 Time: 14:14 Anesthesiologist:: Any Morris APRN Complications:: None Pre-procedure Diagnosis:: Degenerative disc disease of lumbar spine with lumbar radiculopathy symptoms, lumbar spinal stenosis with neurogenic claudication symptoms, chronic pain Post-procedure Diagnosis:: Same Indications for Procedure:: Patient is a pleasant 72-year-old female who presents today for follow-up. We are currently treating the patient for degenerative disc disease of lumbar spine with lumbar radiculopathy symptoms, lumbar spinal stenosis with neurogenic claudication symptoms, chronic pain syndrome. Today she rates her pain a 7 out of 10. Patient denies any new trauma or injury. She states she continues to have low back pain that is worse with increased activity. She also states that she still has some fatigue that she has been experiencing. Patient is currently managed with morphine 1 mg/mL with a daily dose of 0.0811 mg/day. Patient denies any side effects from this medication. She does state that she has noticed some constipation issues and that she does take a stool softener on a regular basis. Patient did recently go to vacation and states that she did have a very nice time and was able to walk around a little bit more. She does state that the pain medication is working better than what she had been on previously and that she can walk around more at home without using her walker however she does not feel like she is able to go out and do things at this point. She is requesting an increase at today's visit. Her Palomo is [id number]. Its been reviewed and appropriate. Physical Exam: General: Alert and oriented x3, no acute distress, pleasant and cooperative Lungs: Respirations even and unlabored, symmetrical chest expansion Eyes: PERRL Musculoskeletal: Flexion and extension of lumbar [spine] somewhat guarded secondary to pain, [antalgic gait noted] Neurological: Speech clear, no gross sensory deficit Procedure Details:: Informed consent was obtained and the risk and benefits of the procedure were explained to the patient. Patient was taken to the procedure room where noninvasive monitoring was placed including noninvasive blood pressure cuff and pulse oximeter. Patient's pump was interrogated and was reprogrammed to morphine 0.0851 mg/day. The patient tolerated the procedure well with no complications. Plan and Disposition:: I have discussed with the patient that her previous lab work did show that she was anemic and I have discussed with the patient that I would recommend talking to her primary care doctor about whether or not she needs to be on iron. Patient did tolerate her intrathecal increase with no complications and was discharged neurologically intact. I have also counseled the patient to get MiraLAX and take this once a day as needed to help with any constipation issues. Patient will return to clinic in 2 weeks for reevaluation of symptoms and possible additional intrathecal adjustment. Patient has been instructed to contact the clinic with any concerns before the next appointment. Dr. iGbson has reviewed this note and agrees with this plan of care. This note was dictated using voice recognition software and make contain errors or omissions. -- It Is medically necessary for this patient to continue to have their intrathecal pump refilled at regular intervals. This patient had an intrathecal pain pump implanted after meeting criteria of chronic intractable pain for greater than 3 months and failing conservative treatments. Patient has committed and been compliant to the treatment plan and all planned follow up care. Since implantation of the intrathecal pain pump, the patient has had decreased pain and been more functional. Oral medications have been reduced including intake of oral opioids. Patient continues to do well with intrathecal therapy with decrease in pain symptoms and increase in functional status. Stopping int
== END | disposition home or self-care (01) ==
PROVIDERS: Visit Provider Nurse Practitioner Family
DX: M51.16 Intervertebral disc disorders with radiculopathy, lumbar region (principal); M48.062 Spinal stenosis, lumbar region with neurogenic claudication; G89.29 Other chronic pain
CPT/HCPCS: 62368

== ENCOUNTER → 2022-09-21 12:49 | Outpatient (POV) | payer MEDICARE, SELFPAY ==
[2022-09-21 13:15] VITALS: BP 101/46; PULSE 56; RESP 18; O2SAT 98; BMI 42.0
--- NOTE | 2022-09-21 13:34 | EXP.PAIN.PRO ---
Procedure Date: 09/21/22 Time: 13:35 Anesthesiologist:: Any Morris APRN Complications:: None Pre-procedure Diagnosis:: Degenerative disc disease of lumbar spine with lumbar radiculopathy symptoms lumbar spinal stenosis with neurogenic claudication symptoms, chronic pain, status post minimally invasive lumbar decompression Post-procedure Diagnosis:: Same Indications for Procedure:: Patient is a pleasant 72-year-old female who presents today for intrathecal pain pump reprogramming adjustment. The patient is being treated for degenerative disc disease of lumbar spine with lumbar radiculopathy symptoms, lumbar spinal stenosis with neurogenic claudication symptoms, chronic pain syndrome, status post minimally invasive lumbar decompression. Patient is currently being managed with morphine 1 mg/mL with a daily dose of 0.0851 mg/day. Patient denies any side effects from this medication. Patient rates pain a 2 out of 10. Patient does state this morning she lost her balance and fell landing on her left knee and scraped her left side of her abdomen up against a curb. Patient does not believe she did any significant damage and was not checked out following this fall. She does state from our last visit her fatigue has been much better however she states she has been experiencing worse trouble with sleeping. Patient was previously on trazodone but was taken off this medication due to significant fatigue/drowsiness/confusion. Patient does state that she frequently gets up in the middle of the night multiple times to go to the restroom. Drug screen is appropriate. [facility]anner [id number] has been reviewed and is appropriate. Physical exam General: Alert and oriented x3, no acute distress, pleasant and cooperative Lungs: Respirations even and unlabored, symmetrical chest expansion Eyes: PERRL Musculoskeletal: Flexion and extension of lumbar [spine] somewhat guarded secondary to pain, [antalgic gait noted] Neurological: Speech clear, no gross sensory deficit Procedure Details:: Informed consent was obtained and the risk and benefits of the procedure were explained to the patient. Patient was taken to the procedure room where noninvasive monitoring was placed including noninvasive blood pressure cuff and pulse oximeter. Patient's pump was interrogated and was reprogrammed to 0.0893 mg/day. The patient tolerated the procedure well with no complications. Plan and Disposition:: Patient tolerated her intrathecal increase with no complications and was discharged neurologically intact. I have discussed with the patient that if she has any increased side effects such as swelling in her lower extremities, increasing pain, itching, nausea, etc. to contact our office immediately. I have counseled the patient to continue to take her MiraLAX as needed for any constipation issues she may have. I have also discussed with the patient that it is safe to use her melatonin at night to help with sleeping. Patient does not think she had any significant injuries from her fall this morning however I have explained to the patient if at a later date she decides she wants additional imaging she can call over the phone and we can order a knee x-ray or abdominal imaging. Patient has been instructed to contact the clinic with any concerns before the next appointment. Dr. Gibson has reviewed this note and agrees with this plan of care. This note was dictated using voice recognition software and make contain errors or omissions. -- It Is medically necessary for this patient to continue to have their intrathecal pump refilled at regular intervals. This patient had an intrathecal pain pump implanted after meeting criteria of chronic intractable pain for greater than 3 months and failing conservative treatments. Patient has committed and been compliant to the treatment plan and all planned follow up care. Since implantation of the intrathecal pain pump, the patient has had decreased pain and b
== END ==
PROVIDERS: PCP Family Medicine; Visit Provider Nurse Practitioner Family
DX: M51.16 Intervertebral disc disorders with radiculopathy, lumbar region (principal); M48.062 Spinal stenosis, lumbar region with neurogenic claudication; G89.29 Other chronic pain; M96.1 Postlaminectomy syndrome, not elsewhere classified; Z97.8 Presence of other specified devices
CPT/HCPCS: 62368; 99213; G0463

== ENCOUNTER → 2022-10-05 15:05 | Outpatient (POV) | payer MEDICARE, SELFPAY ==
--- NOTE | 2022-10-05 15:24 | EXP.PAIN.PRO ---
Procedure Date: 10/05/22 Time: 15:24 Anesthesiologist:: Any Morris APRN Complications:: None Pre-procedure Diagnosis:: Degenerative disc disease of lumbar spine with lumbar radiculopathy symptoms, lumbar spinal stenosis with neurogenic claudication symptoms, chronic pain, status post minimally invasive lumbar decompression procedure. Post-procedure Diagnosis:: Same Indications for Procedure:: Patient is a pleasant 72-year-old female who presents today for intrathecal adjustment and reprogram. We are currently treating the patient for degenerative disc disease of lumbar spine with lumbar radiculopathy symptoms, lumbar spinal stenosis with neurogenic claudication symptoms, chronic pain syndrome, status post minimally invasive lumbar decompression procedure. Today she rates her pain a 8 out of 10. Patient denies any new trauma or injury. Patient does state that she cannot increase her activity without having increased pain. Patient states that even making the bed she can only do 1 side and then has to stop and take a break. Patient is requesting an intrathecal increase today. She is currently managed with morphine 1 mg/mL with a daily dose of 0.0893 mg/day. Patient denies any side effects from this medication. Patient states she has not had any additional episodes of worsening fatigue or confusion. Her Palomo is [id number]. Its been reviewed and appropriate. Physical Exam: General: Alert and oriented x3, no acute distress, pleasant and cooperative Lungs: Respirations even and unlabored, symmetrical chest expansion Eyes: PERRL Musculoskeletal: Flexion and extension of lumbar [spine] somewhat guarded secondary to pain, [antalgic gait noted] Neurological: Speech clear, no gross sensory deficit Procedure Details:: Informed consent was obtained and the risk and benefits of the procedure were explained to the patient. Patient was taken to the procedure room where noninvasive monitoring was placed including noninvasive blood pressure cuff and pulse oximeter. Patient's pump was interrogated and was reprogrammed to morphine 0.1071 mg/day. The patient tolerated the procedure well with no complications. Plan and Disposition:: Patient tolerated her intrathecal increase with no complications and was discharged neurologically intact. Patient will return to clinic in 2 weeks for reevaluation of symptoms and possible intrathecal adjustment and reprogram. Patient has been instructed to contact the clinic with any concerns before the next appointment. Dr. Gibson has reviewed this note and agrees with this plan of care. This note was dictated using voice recognition software and make contain errors or omissions. -- It Is medically necessary for this patient to continue to have their intrathecal pump refilled at regular intervals. This patient had an intrathecal pain pump implanted after meeting criteria of chronic intractable pain for greater than 3 months and failing conservative treatments. Patient has committed and been compliant to the treatment plan and all planned follow up care. Since implantation of the intrathecal pain pump, the patient has had decreased pain and been more functional. Oral medications have been reduced including intake of oral opioids. Patient continues to do well with intrathecal therapy with decrease in pain symptoms and increase in functional status. Stopping intrathecal medications can lead to life threatening withdrawal, seizures, cardiac arrest, severe pain, and possible . Pumps that are not refilled at regular intervals can be damages and cause and need for replacement. We continually titrate dose and concentration to optimize pain relief and function. We are limited in concentration for certain drugs to safely deliver medications through the pump and stay within the recommendations from the Polyanalgesic Consensus Committee Guidelines. Depending on dose and concentration these pumps may need to be refilled sooner than 3
[2022-10-06 08:18] VITALS: BP 117/71; PULSE 55; RESP 18; O2SAT 98; BMI 42.6
== END ==
PROVIDERS: PCP Family Medicine; Visit Provider Nurse Practitioner Family
DX: M51.16 Intervertebral disc disorders with radiculopathy, lumbar region (principal); M48.062 Spinal stenosis, lumbar region with neurogenic claudication; G89.29 Other chronic pain; Z98.890 Other specified postprocedural states
CPT/HCPCS: 62368

== ENCOUNTER → 2022-10-20 14:35 | Outpatient (POV) | payer MEDICARE, SELFPAY ==
--- NOTE | 2022-10-20 15:04 | EXP.PAIN.PRO ---
Procedure Date: 10/20/22 Time: 15:00 Anesthesiologist:: Fito Vuong CRNA Complications:: None Pre-procedure Diagnosis:: Degenerative disc lumbar spine multilevels. Lumbar radiculopathy. Lumbar postlaminectomy syndrome. Spinal stenosis. Chronic pain syndrome. Post-procedure Diagnosis:: Same. Indications for Procedure:: Is a very pleasant 72-year-old female that comes to our clinic today for intrathecal pain pump interrogation refill. Patient currently being managed with morphine sulfate 1 mg/mL at a rate of 0.1071 mg/day. Patient continued to have lumbar back pain she describes as constant, dull, aching. She rates the pain /10. Patient was increased by 20% on 10/05/2022. Patient states the increase only helped minimally. I recommend 20% increase today. Procedure Details:: Details of the procedure explained to the patient. Patient's pump was increased by 20%. New rate will be 0.18832 mg/day. Patient tolerated procedure without difficulty. There are no complications. Plan and Disposition:: Patient was discharged without incident.
[2022-10-20 15:45] VITALS: BP 121/53; PULSE 58; RESP 18; O2SAT 97; BMI 42.7
== END | disposition home or self-care (01) ==
PROVIDERS: PCP Family Medicine; Visit Provider Nurse Anesthetist, Certified Registered
DX: M51.16 Intervertebral disc disorders with radiculopathy, lumbar region (principal); M96.1 Postlaminectomy syndrome, not elsewhere classified; M48.061 Spinal stenosis, lumbar region without neurogenic claudication; G89.4 Chronic pain syndrome; Z97.8 Presence of other specified devices
CPT/HCPCS: 62368; 99213; G0463

== ENCOUNTER → 2022-10-30 12:55 | Outpatient (POV) | payer MEDICARE, SELFPAY ==
[2022-10-30 15:11] VITALS: BP 124/76; PULSE 57; RESP 18; O2SAT 100; BMI 43.0
--- NOTE | 2022-10-30 15:29 | EXP.PAIN.SOA ---
[facility] Pain Management SOAP Note Subjective:: Patient is a pleasant 72-year-old female who presents today for worsening pain. We are currently treating the patient for degenerative disc disease of lumbar spine with lumbar radiculopathy symptoms, lumbar spinal stenosis with neurogenic claudication symptoms, chronic pain. Today she rates her pain a 8 out of 10. Patient states from our last visit that she has had worsening pain in her low back along her bilateral hips and buttocks area. Patient does describe this is an aching, throbbing sensation with numbness and tingling that is worse with increased activity. Patient cannot tolerate prolonged sitting or standing due to the pain. Patient does use a rolling walker to help with ambulation. Patient does also state that she continues to have some fatigue and is unsure if it is related to her pump medication. Patient does state that she feels like her pump medication is not working effectively and that the last 20% increase did not make any additional difference in her pain or her fatigue level. Patient does state that she did have a fall approximately 3 weeks ago that she did not go to the ER for evaluation for. Patient states that she felt like she fell on her left hand side and that may have broke some ribs however she knew that they typically do not do anything for this type of fracture so she did not proceed forward with going to the ER. Patient does also state that she continues to have leg weakness that has been going on for approximately 2 years. She states that she will occasionally have twitching into her legs and that she does not really get up and move around a whole lot due to the fatigue and the weakness. Patient denies any recent physical therapy over the last year. Patient does also states that over the last month she has had some either very vivid dreams or hallucinations. She states that these are just random and only occur from time to time. She states that probably over the last minute she is only had 4 episodes. Patient denies any recent change of medications or any new events that could be related to this change. She is currently managed with morphine 1 mg/mL with a daily dose of 0.1285 mg/day. Patient denies any specific side effects to this medication. Her Palomo is [id number]. Its been reviewed and appropriate. Review of Systems: General: No recent weight changes, no fever, no sleep disturbances Respiratory: No cough, no shortness of air, no recurring pulmonary infections Cardiovascular/peripheral vascular: No chest pain, no palpitations, no edema, no shortness of breath Gastrointestinal: No new onset incontinence, normal bowel movements reported Genitourinary: No new onset incontinence Musculoskeletal: Low back pain, bilateral hip/buttocks pain Psychiatric: [Normal mood/affect] Neurological: [Denies weakness in extremities], [denies balance issues] Objective:: Physical Exam: General: Alert and oriented x3, no acute distress, pleasant and cooperative Lungs: Respirations even and unlabored, symmetrical chest expansion Eyes: PERRL Musculoskeletal: Flexion and extension of lumbar [spine] somewhat guarded secondary to pain, [antalgic gait noted] extreme point tenderness along bilateral SIs with positive bilateral Chiquita's, Maine's, Gaenslen's, compression and distraction exam Neurological: Speech clear, no gross sensory deficit Assessment:: Degenerative disc disease of lumbar spine with lumbar radiculopathy symptoms, lumbar spinal stenosis with neurogenic claudication symptoms, chronic pain Plan:: Patient is experiencing significant pain in her low back and bilateral hips with limited range of motion. Patient did have extreme point tenderness along her bilateral SIs with positive bilateral Chiquita's, Maine's, Gaenslen's, compression and distraction exam. I have counseled the patient that due to her new pain which seems to be related to sacroiliitis that it may be masking how well her pump medica
== END ==
PROVIDERS: PCP Family Medicine; Visit Provider Nurse Practitioner Family
DX: M51.16 Intervertebral disc disorders with radiculopathy, lumbar region (principal); M48.062 Spinal stenosis, lumbar region with neurogenic claudication; G89.29 Other chronic pain; Z97.8 Presence of other specified devices; M46.1 Sacroiliitis, not elsewhere classified
CPT/HCPCS: 99212; G0463

== ENCOUNTER → 2022-10-30 13:49 | Outpatient (CLI) | payer MEDICARE, SELFPAY ==
--- NOTE | 2022-10-30 13:55 | XR_ITS ---
FINAL REPORT CLINICAL HISTORY: .mid to low back pain FINDINGS: AP and lateral views of the thoracic spine were obtained. There is no prior exam for comparison. There is no acute fracture or malalignment. There is multilevel degenerative disc disease. Vertebral body height is preserved. Paraspinal soft tissues are within normal limits. IMPRESSION: No acute osseous abnormality of the thoracic spine. Reviewed, Interpreted and Dictated by Gita Mason MD Transcribed by Angela Licea Authenticated and [facility]
--- NOTE | 2022-10-30 13:55 | XR_ITS ---
FINAL REPORT CLINICAL HISTORY: MID BACK PAIN FINDINGS: AP, lateral, and oblique views of the lumbar spine were obtained. There is no acute fracture or acute malalignment. Vertebral body height is preserved. There is multilevel degenerative disc disease, most pronounced at L4-5 and L5-S1. A presumed medicine reservoir is seen projecting over the left lower abdomen. No acute paraspinal abnormality is identified. IMPRESSION: No acute osseous abnormalities lumbar spine. Degenerative change as above. Reviewed, Interpreted and Dictated by Gita Mason MD Transcribed by Angela Licea Authenticated and [facility]
== END ==
LOC: RAD 13:51
PROVIDERS: PCP Family Medicine; Visit Provider Anesthesiology
DX: M54.6 Pain in thoracic spine (principal); M54.50 Low back pain, unspecified
CPT/HCPCS: 72072; 72110; 99212; G0463

== ENCOUNTER 2022-11-07 10:52 | Day surgery (SDC) | payer MEDICARE, SELFPAY ==
[2022-11-07 11:07] VITALS: BP 147/53; PULSE 56; RESP 16; TEMP 36.3; O2SAT 100; BMI 43.0
[2022-11-07 11:21] VITALS: BP 119/68; PULSE 52; RESP 18; O2SAT 100
--- NOTE | 2022-11-07 12:32 | P.PCN_ITS ---
Procedure Date: 11/07/22 Time: 11:50 Anesthesiologist:: Fito Vuong CRNA Complications:: None Pre-procedure Diagnosis:: Bilateral sacroiliitis. Degenerative disc lumbar spine multilevels. Lumbar radiculopathy. Lumbar postlaminectomy syndrome. Lumbar spinal stenosis. Post-procedure Diagnosis:: Same. Indications for Procedure:: Patient is a very pleasant 72-year-old female comes our clinic today for bilateral sacroiliac joint injections. Patient has extreme point tenderness over the bilateral sacroiliac joints. She has difficulty transitioning from sitting to standing secondary to low lumbar back pain as well as bilateral posterior hip pain. Patient complaining of increased pain in the low lumbar area. More than usual. Patient had a recent intrathecal pain pump rate increase with minimal effect. She is requesting an increase today. I think this is reasonable. We will increase her by 20%. Procedure Details:: Informed consent was obtained and the risks and benefits of the procedure were explained to the patient.~ The patient was taken to the procedure room and noninvasive monitors were placed including a noninvasive blood pressure cuff and pulse oximeter.~ The patient was placed prone on the procedure table. Both hips were cleansed using Betadine as a cleansing solution. C-arm fluoroscopy was used to view the right sacroiliac joint.~ The skin and subcutaneous tissues were anesthetized using lidocaine 1.5% and a 25-gauge needle.~ After this, a 22-gauge spinal needle was inserted under fluoroscopic guidance into the inferior aspect of the right sacroiliac joint.~ Omnipaque dye was injected and good spread was seen throughout the joint.~ After this, approximately 5 mL of bupivacaine, 0.25% and Depo-Medrol, 40 mg was incrementally injected into the right sacroiliac joint. We then moved to the left sacroiliac joint.~ The skin and subcutaneous tissues were anesthetized using lidocaine 1.5% and a 25-gauge needle.~ After this, a 22- gauge spinal needle was inserted under fluoroscopic guidance into the inferior aspect of the left sacroiliac joint.~ Omnipaque dye was injected and good spread was seen throughout the joint. After this, approximately 5 mL of bupivacaine, 0.25% and Depo-Medrol, 40 mg was incrementally injected into the left sacroiliac joint.~ The patient tolerated the procedure well with no complications. Details of the procedure explained to the patient. Patient's pump was interrogated. Pump rate was increased by 20%. The patient's pump rate will now be 0.1543 mg/day. Plan and Disposition:: Patient was discharged without incident.
== END 2022-11-07 11:21 | disposition home or self-care (01) ==
LOC: SC.PAINP 10:53
PROVIDERS: PCP Family Medicine; Visit Provider Nurse Anesthetist, Certified Registered
DX: M46.1 Sacroiliitis, not elsewhere classified (principal); M51.16 Intervertebral disc disorders with radiculopathy, lumbar region; M96.1 Postlaminectomy syndrome, not elsewhere classified; M48.061 Spinal stenosis, lumbar region without neurogenic claudication
CPT/HCPCS: 27096; 62368; G0260; J1040

== ENCOUNTER 2022-12-05 12:52 | Day surgery (SDC) | payer MEDICARE, SELFPAY ==
[2022-12-05 13:07] VITALS: BP 150/53; PULSE 67; RESP 18; TEMP 36.4; O2SAT 99; BMI 43.0
[2022-12-05 13:19] VITALS: BP 101/34; PULSE 62; RESP 18; O2SAT 97
--- NOTE | 2022-12-05 13:19 | EXP.PAIN.PRO ---
Procedure Date: 12/05/22 Time: 13:20 Anesthesiologist:: Fito Vuong CRNA Complications:: None Pre-procedure Diagnosis:: Degenerative disc lumbar spine multilevels. Lumbar radiculopathy. Lumbar postlaminectomy syndrome. Lumbar spinal stenosis Post-procedure Diagnosis:: Same. Indications for Procedure:: Patient is a very pleasant 72-year-old female comes our clinic today for intrathecal pain pump interrogation refill. Currently the patient is managed with morphine sulfate 1 mg/mL with the current rate of 0.1543 mg/day. Patient requesting additional increase today due to overall low back pain as well as bilateral hip and leg radicular symptoms. Patient was turned up to 20% on 11/07/2022. She reports having some slight improvement with the previous increase. She does not report any complications or side effects. Procedure Details:: Details of procedure explained to the patient. The patient taken to procedure room placed in sitting position. The area of the pump was cleaned using chlorhexidine as a cleansing solution. The pump was interrogated. The pump was accessed with ease using a 22-gauge 2 and half inch needle. 4.5 mL of solution was withdrawn and discarded appropriate. The pump was then filled with 20 cc of solution containing morphine sulfate 1 mg/mL patient tolerated procedure without difficulty. There are no complications. Patient's pump rate will be increased by 20% today. Her new rate will be 0.1855 mg/day. Plan and Disposition:: Patient tolerated procedure without difficulty. There are no complications.
[2022-12-05 13:20] VITALS: BP 101/34; PULSE 64; RESP 18; O2SAT 97
[2022-12-05 13:32] VITALS: BP 133/49; PULSE 58; RESP 18; O2SAT 99
== END 2022-12-05 13:32 | disposition home or self-care (01) ==
PROVIDERS: PCP Family Medicine; Visit Provider Nurse Anesthetist, Certified Registered
DX: M51.16 Intervertebral disc disorders with radiculopathy, lumbar region (principal); M96.1 Postlaminectomy syndrome, not elsewhere classified; M48.061 Spinal stenosis, lumbar region without neurogenic claudication; Z97.8 Presence of other specified devices
CPT/HCPCS: 95991

== ENCOUNTER → 2023-01-01 14:43 | Outpatient (POV) | payer MEDICARE, SELFPAY ==
--- NOTE | 2023-01-01 15:22 | EXP.PAIN.PRO ---
Procedure Date: 01/01/23 Time: 15:22 Anesthesiologist:: Any Morris APRN Complications:: None Pre-procedure Diagnosis:: Degenerative disc disease of lumbar spine with lumbar radiculopathy symptoms, lumbar spinal stenosis with neurogenic claudication symptoms, chronic pain syndrome Post-procedure Diagnosis:: Same Indications for Procedure:: Patient is a pleasant 72-year-old female who presents today for intrathecal adjustment and reprogram. We are currently treating the patient for degenerative disc disease of lumbar spine with lumbar radiculopathy symptoms, lumbar spinal stenosis with neurogenic claudication symptoms, chronic pain syndrome. Today she rates her pain a 10 out of 10. Patient states she continues to have pain in and around her low back and denies any radiating symptoms into her legs. Patient does state that her pain has felt a little different since October but denies any new trauma or injury. Patient states she has not had any recent falls. Patient is currently managed with morphine 1 mg/mL with a daily dose of 0.1855 mg/day. Patient denies any side effects from this medication. Patient is requesting an increase. Her Palomo has been reviewed and is appropriate. Physical Exam: General: Alert and oriented x3, no acute distress, pleasant and cooperative Lungs: Respirations even and unlabored, symmetrical chest expansion Eyes: PERRL Musculoskeletal: Flexion and extension of lumbar [spine] somewhat guarded secondary to pain, [antalgic gait noted] Neurological: Speech clear, no gross sensory deficit Procedure Details:: Informed consent was obtained and the risk and benefits of the procedure were explained to the patient. Patient was taken to the procedure room where noninvasive monitoring was placed including noninvasive blood pressure cuff and pulse oximeter. Patient's pump was interrogated and was reprogrammed to morphine 0.2-2 8 mg/day. The patient tolerated the procedure well with no complications. Plan and Disposition:: Patient tolerated her intrathecal increase with no complications and was discharged neurologically intact. I have discussed with the patient regarding her PTM device and she is unsure if she still has this. I have recommended that she look around her house and see if she can find it so we can make adjustments to her bolus doses. Patient will return to clinic in 2 weeks for possible readjustment and reprogram. Patient has been instructed to contact the clinic with any concerns before the next appointment. Dr. Gibson has reviewed this note and agrees with this plan of care. This note was dictated using voice recognition software and make contain errors or omissions. -- It Is medically necessary for this patient to continue to have their intrathecal pump refilled at regular intervals. This patient had an intrathecal pain pump implanted after meeting criteria of chronic intractable pain for greater than 3 months and failing conservative treatments. Patient has committed and been compliant to the treatment plan and all planned follow up care. Since implantation of the intrathecal pain pump, the patient has had decreased pain and been more functional. Oral medications have been reduced including intake of oral opioids. Patient continues to do well with intrathecal therapy with decrease in pain symptoms and increase in functional status. Stopping intrathecal medications can lead to life threatening withdrawal, seizures, cardiac arrest, severe pain, and possible . Pumps that are not refilled at regular intervals can be damages and cause and need for replacement. We continually titrate dose and concentration to optimize pain relief and function. We are limited in concentration for certain drugs to safely deliver medications through the pump and stay within the recommendations from the Polyanalgesic Consensus Committee Guidelines. Depending on dose and concentration these pumps may need to be refilled sooner than 3 mo
[2023-01-01 16:34] VITALS: BP 105/35; PULSE 64; RESP 18; O2SAT 99; BMI 43.0
== END | disposition home or self-care (01) ==
PROVIDERS: PCP Family Medicine; Visit Provider Nurse Practitioner Family
DX: M51.16 Intervertebral disc disorders with radiculopathy, lumbar region (principal); M48.062 Spinal stenosis, lumbar region with neurogenic claudication; G89.4 Chronic pain syndrome; Z97.8 Presence of other specified devices
CPT/HCPCS: 62368; 99213; G0463

== ENCOUNTER → 2023-01-15 14:58 | Outpatient (POV) | payer MEDICARE, SELFPAY ==
[2023-01-15 15:20] VITALS: BP 126/59; PULSE 63; RESP 18; O2SAT 98; BMI 43.0
--- NOTE | 2023-01-15 16:09 | EXP.PAIN.PRO ---
Procedure Date: 01/15/23 Time: 16:09 Anesthesiologist:: Any Morris APRN Complications:: None Pre-procedure Diagnosis:: Degenerative disc disease of lumbar spine with lumbar radiculopathy symptoms, lumbar spinal stenosis with neurogenic claudication symptoms, chronic pain syndrome Post-procedure Diagnosis:: Same Indications for Procedure:: Patient is a pleasant 72-year-old female who presents today for intrathecal adjustment and reprogram. We are currently treating the patient for degenerative disc disease of lumbar spine with lumbar radiculopathy symptoms, lumbar spinal stenosis with neurogenic claudication symptoms, chronic pain syndrome. Today she rates her pain a 10 out of 10. Patient denies any new trauma or injury. Patient denies any change to location or type of pain she experiences. Patient states she continues to have debilitating pain in her low back that is worse with increased activity or ambulation. She states that she can only get up and walk around for approximately 10 minutes before having to sit down and take a break due to the severe pain. Patient is currently managed with morphine 1 mg/mL with a daily dose of 0.22 to 8 mg/day. Patient denies any side effects from this medication. Her Palomo has been reviewed and is appropriate. Patient is requesting a refill of Zofran. Patient states it is unrelated to her pump medication and that she will only randomly gets upset stomach and that the Zofran does help. Physical Exam: General: Alert and oriented x3, no acute distress, pleasant and cooperative Lungs: Respirations even and unlabored, symmetrical chest expansion Eyes: PERRL Musculoskeletal: Flexion and extension of lumbar [spine] somewhat guarded secondary to pain, [antalgic gait noted] Neurological: Speech clear, no gross sensory deficit Procedure Details:: Informed consent was obtained and the risk and benefits of the procedure were explained to the patient. Patient was taken to the procedure room where noninvasive monitoring was placed including noninvasive blood pressure cuff and pulse oximeter. Patient's pump was interrogated and was reprogrammed to morphine 0.2671 mg/day. The patient tolerated the procedure well with no complications. Plan and Disposition:: Patient tolerated her intrathecal increase with no complications. Patient was set up with her bolus device to allow for 4 boluses in a 24-hour. With the starting dose of 0.01 mg. Patient was discharged neurologically intact. Patient will return to clinic in 2 weeks for reevaluation of symptoms and possible intrathecal adjustment and reprogram. Patient has been instructed to contact the clinic with any concerns before the next appointment. Dr. Gibson has reviewed this note and agrees with this plan of care. This note was dictated using voice recognition software and make contain errors or omissions. -- It Is medically necessary for this patient to continue to have their intrathecal pump refilled at regular intervals. This patient had an intrathecal pain pump implanted after meeting criteria of chronic intractable pain for greater than 3 months and failing conservative treatments. Patient has committed and been compliant to the treatment plan and all planned follow up care. Since implantation of the intrathecal pain pump, the patient has had decreased pain and been more functional. Oral medications have been reduced including intake of oral opioids. Patient continues to do well with intrathecal therapy with decrease in pain symptoms and increase in functional status. Stopping intrathecal medications can lead to life threatening withdrawal, seizures, cardiac arrest, severe pain, and possible . Pumps that are not refilled at regular intervals can be damages and cause and need for replacement. We continually titrate dose and concentration to optimize pain relief and function. We are limited in concentration for certain drugs to safely deliver medications through the
== END | disposition home or self-care (01) ==
PROVIDERS: PCP Family Medicine; Visit Provider Nurse Practitioner Family
DX: M51.16 Intervertebral disc disorders with radiculopathy, lumbar region (principal); M48.062 Spinal stenosis, lumbar region with neurogenic claudication; G89.4 Chronic pain syndrome; Z97.8 Presence of other specified devices
CPT/HCPCS: 62368; 99213; G0463

== ENCOUNTER → 2023-01-30 09:50 | Outpatient (POV) | payer MEDICARE, SELFPAY ==
[2023-01-30 10:15] VITALS: BP 141/46; PULSE 68; RESP 18; O2SAT 95; BMI 43.9
--- NOTE | 2023-01-30 10:15 | EXP.PAIN.PRO ---
Procedure Date: 01/30/23 Time: 10:10 Anesthesiologist:: Fito Vuong CRNA Complications:: None Pre-procedure Diagnosis:: Degenerative disc lumbar spine multilevels. Lumbar radiculopathy. Lumbar postlaminectomy syndrome. Chronic pain syndrome. Neurogenic claudication symptoms. Post-procedure Diagnosis:: Same. Indications for Procedure:: Patient is a very pleasant 72-year-old female comes our clinic today for thecal pain pump interrogation and reprogramming. She is currently being managed with morphine sulfate 1 mg/mL at a rate of 0.2671 mg/day. Patient is requesting an increase in her overall rate secondary to some increased low back pain as well as bilateral hip and leg radicular symptoms. She does not report any side effects or complications from the intrathecal pain pump management. I think this is a reasonable request. Will increase her by 20%. Procedure Details:: Details of procedure explained to the patient. The patient taken procedure and placed in sitting position. The pump was interrogated. The pump rate was increased by 20%. The new rate will be 0.3199 mg/day. Patient tolerated procedure without difficulty. There are no complications. Plan and Disposition:: Patient was discharged without incident.
== END | disposition home or self-care (01) ==
PROVIDERS: PCP Family Medicine; Visit Provider Nurse Anesthetist, Certified Registered
DX: M51.16 Intervertebral disc disorders with radiculopathy, lumbar region (principal); M96.1 Postlaminectomy syndrome, not elsewhere classified; G89.4 Chronic pain syndrome; M48.062 Spinal stenosis, lumbar region with neurogenic claudication; Z97.8 Presence of other specified devices; Z45.1 Encounter for adjustment and management of infusion pump
CPT/HCPCS: 62368; 99213; G0463

== ENCOUNTER 2023-02-13 10:41 | Day surgery (SDC) | payer MEDICARE, SELFPAY ==
[2023-02-13 10:50] VITALS: BP 146/71; PULSE 58; RESP 18; O2SAT 94; BMI 43.9
[2023-02-13 11:05] VITALS: BP 173/62; PULSE 50; RESP 16; O2SAT 94
--- NOTE | 2023-02-13 11:08 | EXP.PAIN.PRO ---
Procedure Date: 02/13/23 Time: 10:20 Anesthesiologist:: Fito Vuong CRNA Complications:: None Pre-procedure Diagnosis:: Degenerative disc lumbar spine multilevels for lumbar radiculopathy. Lumbar postlaminectomy syndrome. Chronic pain syndrome. Neurogenic claudication syndrome. Post-procedure Diagnosis:: Same. Indications for Procedure:: Patient is a pleasant 72-year-old female comes our clinic today for intrathecal pain pump interrogation and refill. She is currently being managed with morphine sulfate 1 mg/mL at a rate of 0.3199 mg/day. Patient requesting increase in the intrathecal pain pump rate. I think this is reasonable. She reports low back pain as well as bilateral hip and leg radicular symptoms. She rates her pain 6/10. Procedure Details:: Details of the procedure explained to the patient. The patient taken to procedure room placed in the sitting position. The area over the pump is cleansed using chlorhexidine's cleansing solution. The pump was interrogated. The pump was accessed with ease using a 22-gauge inch and half needle. 3.3 mL of solution was withdrawn discarded appropriate. The pump was then filled with 20 cc of a solution containing morphine sulfate 1 mg/mL. The rate will be increased to 0.3518 mg/day. Patient tolerated procedure without difficulty. There are no complications. Plan and Disposition:: Patient was discharged without incident.
== END 2023-02-13 11:07 | disposition home or self-care (01) ==
PROVIDERS: PCP Family Medicine; Visit Provider Nurse Anesthetist, Certified Registered
DX: M51.16 Intervertebral disc disorders with radiculopathy, lumbar region (principal); M96.1 Postlaminectomy syndrome, not elsewhere classified; G89.4 Chronic pain syndrome; M48.062 Spinal stenosis, lumbar region with neurogenic claudication; Z97.8 Presence of other specified devices; Z45.1 Encounter for adjustment and management of infusion pump
CPT/HCPCS: 95991

== ENCOUNTER 2023-03-13 11:21 | Day surgery (SDC) | payer MEDICARE, SELFPAY ==
[2023-03-13 11:40] VITALS: BP 150/106; PULSE 78; RESP 16; TEMP 36.4; O2SAT 98; BMI 43.9
[2023-03-13 12:05] VITALS: BP 138/53; PULSE 52; RESP 18; O2SAT 98
--- NOTE | 2023-03-13 12:11 | EXP.PAIN.PRO ---
Procedure Date: 03/13/23 Time: 11:40 Anesthesiologist:: Fito Vuong CRNA Complications:: None Pre-procedure Diagnosis:: Degenerative disc lumbar spine multilevels. Lumbar radiculopathy. Post-procedure Diagnosis:: Same. Indications for Procedure:: Is a pleasant 72-year-old female comes our clinic today for intrathecal pain pump interrogation refill and reprogram. She is currently being managed with morphine sulfate 1 mg/mL. We will change her concentration today to 2 mg/mL. Patient also requesting increase due to low back pain as well as bilateral hip and leg radicular symptoms. Patient states prior to intrathecal pain pump she was not able to stand longer than 60 seconds. She reports today she is able to be up and around for 10 to 12 minutes. I will increase her pump 10% today. I urged the patient to return to the office in 2 weeks for additional increase if needed. Procedure Details:: Details of the procedure explained to the patient. The patient taken procedure and placed into position. The area of the pumps cleansed using chlorhexidine as a cleansing solution. The pump was interrogated. The pump was accessed with ease using a 22-gauge 2-1/2 inch needle. 9 mL of solution was withdrawn discarded appropriately. The pump was then filled with 20 cc of solution containing morphine sulfate 2 mg/mL. The rate will be increased to 0.3868 mg/day. Patient tolerated procedure without difficulty. No complications. Plan and Disposition:: Patient was discharged without incident.
== END 2023-03-13 12:05 | disposition home or self-care (01) ==
PROVIDERS: PCP Family Medicine; Visit Provider Nurse Anesthetist, Certified Registered
DX: M51.16 Intervertebral disc disorders with radiculopathy, lumbar region (principal); Z97.8 Presence of other specified devices; Z45.1 Encounter for adjustment and management of infusion pump
CPT/HCPCS: 62370

== ENCOUNTER → 2023-03-30 10:53 | Outpatient (POV) | payer MEDICARE, SELFPAY ==
[2023-03-30 11:32] VITALS: BP 114/48; PULSE 58; RESP 20; O2SAT 100; BMI 43.9
--- NOTE | 2023-03-30 11:35 | EXP.PAIN.PRO ---
Procedure Date: 03/30/23 Time: 11:36 Anesthesiologist:: Any Morris APRN Complications:: None Pre-procedure Diagnosis:: Degenerative disc disease of lumbar spine with lumbar radiculopathy symptoms, lumbar spinal stenosis with neurogenic claudication symptoms, status post minimally invasive lumbar decompression Post-procedure Diagnosis:: Same Indications for Procedure:: ProceedPatient is a pleasant 72-year-old female who presents today for intrathecal adjustment and reprogram. We are currently treating the patient for degenerative disc disease of lumbar spine with lumbar radiculopathy symptoms, lumbar spinal stenosis with neurogenic claudication symptoms, status post lumbar decompression. Today she rates her pain a 0 out of 10. Patient does state that she did have a fall yesterday unrelated to the pump medication. She states that day before she was feeling really well and was up walking and went to her hairdresser without having to use her walker. She states then when she was at home she felt like she could not get around without the walker however then she ended up losing her balance and falling hitting her head. Patient does state that she was checked out at the hospital and did have additional scans with no acute findings. Patient does also states she feels like her shoes may have been getting hung up and might have causing the stumbling. Patient is currently managed with morphine 2 mg/mL with a daily dose of 0.3868 mg/day. Patient denies any side effects from this medication. Her Palomo has been reviewed and is appropriate. Physical Exam: General: Alert and oriented x3, no acute distress, pleasant and cooperative Lungs: Respirations even and unlabored, symmetrical chest expansion Eyes: PERRL Musculoskeletal: Flexion and extension of lumbar [spine] somewhat guarded secondary to pain, [antalgic gait noted] Neurological: Speech clear, no gross sensory deficit Procedure Details:: Informed consent was obtained and the risk and benefits of the procedure were explained to the patient. Patient was taken to the procedure room where noninvasive monitoring was placed including noninvasive blood pressure cuff and pulse oximeter. Patient's pump was interrogated and was reprogrammed to morphine 0.463 Milligrams per day. The patient tolerated the procedure well with no complications. Plan and Disposition:: Patient tolerated her intrathecal increase with no complications and was discharged neurologically intact. I have discussed with the patient that I would recommend possibly trying a different type shoe with a different type tread to help minimize additional falls. I have also recommended that she still make sure to have her walker with her even on days that she feels really good as a precaution to minimize additional injury. Patient will return to clinic in 2 weeks for reevaluation of symptoms and plan of care. We will see the patient back in the clinic at the next intrathecal refill. Patient has been instructed to contact the clinic with any concerns before the next appointment. Dr. Gibson has reviewed this note and agrees with this plan of care. This note was dictated using voice recognition software and make contain errors or omissions. -- It Is medically necessary for this patient to continue to have their intrathecal pump refilled at regular intervals. This patient had an intrathecal pain pump implanted after meeting criteria of chronic intractable pain for greater than 3 months and failing conservative treatments. Patient has committed and been compliant to the treatment plan and all planned follow up care. Since implantation of the intrathecal pain pump, the patient has had decreased pain and been more functional. Oral medications have been reduced including intake of oral opioids. Patient continues to do well with intrathecal therapy with decrease in pain symptoms and increase in functional status. Stopping intrathecal medications can lead to life threatening withdrawal, seizures, cardiac arrest, severe pain, and possible . Pumps that are not refilled at regular intervals can be damages and cause and need for replacement. We continually titrate dose and concentration to optimize pain relief and function. We are limited in concentration for certain drugs to safely deliver medications through the pump and stay within the recommendations from the Polyanalges[employer] Consensus [employer] Guidelines. Depending on dose and concentration these pumps may need to be refilled sooner than 3 months as we titrate.
== END | disposition home or self-care (01) ==
PROVIDERS: PCP Family Medicine; Visit Provider Nurse Practitioner Family
DX: M51.16 Intervertebral disc disorders with radiculopathy, lumbar region (principal); M48.062 Spinal stenosis, lumbar region with neurogenic claudication; Z97.8 Presence of other specified devices; Z45.1 Encounter for adjustment and management of infusion pump
CPT/HCPCS: 62368; 99213; G0463

== ENCOUNTER 2023-04-19 09:13 | Outpatient (CLI) | payer MEDICARE, SELFPAY ==
[2023-04-19 11:18] LABS: Basophils % 0.4 % (0.1-2.0); Eosinophils # 0.2 K/mm3 (0.0-0.4); Eosinophils % 3.1 % (0.1-12.0); Hematocrit 34.6 % (37.0-47.0); Hemoglobin 10.7 g/dL (12.2-16.2); Lymphocytes # 1.2 K/mm3 (0.7-4.5); Lymphocytes % 18.9 % (10-50); Mean Corpuscular HGB Conc 31.1 g/dL (31.8-35.4); Mean Corpuscular Hemoglobin 29.5 pg (27.0-31.2); Mean Platelet Volume 6.6 fl (7.4-10.4); Monocytes # 0.3 K/mm3 (0.1-1.0); Monocytes % 4.5 % (1.7-9.3); Neutrophils # 4.7 K/mm3 (1.8-7.8); Neutrophils % 73.1 % (37.0-80.0); Platelet Count 292 K/mm3 (142-424); Red Blood Count 3.64 M/mm3 (4.20-5.40); Red Cell Distribution Width 16.1 % (11.5-17.5); White Blood Count 6.5 K/mm3 (4.8-10.8)
[2023-04-19 11:29] LABS: Chloride 105 mmol/L (98-107); Potassium 4.7 mmoL/L (3.5-5.1); Sodium 138 mmol/L (136-145)
[2023-04-19 11:31] LABS: Alanine Aminotransferase 18 U/L (12-78); Aspartate Amino Transferase 30 U/L (14-36); Blood Urea Nitrogen 32 mg/dl (7-17); Estimated Glomerular Filt Rate 44 ml/min (>60); GFR (African American) 53 ML/MIN (>60)
[2023-04-19 11:32] LABS: Albumin Level 3.7 g/dl (3.5-5.0); Albumin/Globulin Ratio 1.2 (1.1-1.8); Alkaline Phosphatase 147 U/L (38-126); Anion Gap 8.7 mEq/L (5-15); Bilirubin,Total 0.4 mg/dl (0.2-1.3); Calcium 9.4 mg/dl (8.4-10.2); Carbon Dioxide 29 mmol/L (22.0-30.0); Globulin 3.1 g/dL (1.3-3.2); Glucose 171 mg/dl (74-100); Total Protein,Serum 6.8 g/dl (6.3-8.2)
[2023-04-19 12:00] LABS: Erythrocyte Sedimentation Rate 110 mm/hr (0-30)
[2023-04-19 12:21] LABS: C-Reactive Protein 7.6 mg/L (0-4)
[2023-04-19 12:43] LABS: Thyroid Stimulating Hormone 4.22 uIU/mL (0.465-4.68)
[2023-04-19 13:19] LABS: Folate > 20.00 ng/mL; Vitamin B12 > 1000 pg/mL (239-931)
[2023-04-20 15:27] LABS: Rapid Plasma Reagin Ab Titer Non Reactive titer (NonRea<1:1)
[2023-04-23 10:14] LABS: Antinuclear Antibodies (ANA) Negative
== END 2023-04-19 23:59 ==
PROVIDERS: PCP Family Medicine; Visit Provider Nurse Practitioner Family
DX: R41.3 Other amnesia (principal); H91.8X3 Other specified hearing loss, bilateral; G47.39 Other sleep apnea; E11.69 Type 2 diabetes mellitus with other specified complication; E78.49 Other hyperlipidemia; I10 Essential (primary) hypertension; Z79.84 Long term (current) use of oral hypoglycemic drugs; Z68.41 Body mass index [BMI] 40.0-44.9, adult; Z85.3 Personal history of malignant neoplasm of breast; W19.XXXS Unspecified fall, sequela
CPT/HCPCS: 36415; 80053; 82607; 82746; 84443; 85025; 85651; 86038; 86140; 86225; 86235; 86593; 95819

== ENCOUNTER 2023-05-07 08:13 | Outpatient (CLI) | payer MEDICARE, SELFPAY ==
--- NOTE | 2023-05-07 08:13 | MR_ITS ---
FINAL REPORT CLINICAL HISTORY: Memory loss, falls, history of breast cancer. CONFUSION AND LIGHTHEADEDNESS COMPARISON: None FINDINGS: Multiplanar MR imaging of the brain was performed without and with contrast. There is moderate age-appropriate atrophy. Scattered foci of increased T2 signal are seen in the cerebral white matter that have a nonspecific appearance but likely represent moderate chronic ischemic/gliotic changes. There is a small chronic right periventricular lacunar infarct. There is no evidence of intracranial hemorrhage or mass. No abnormal ventricular dilatation is identified. There is no evidence of shift of the midline structures. No abnormal extra-axial fluid collection is seen. No area of abnormal restricted diffusion is identified. The posterior fossa and brainstem have an unremarkable appearance. No abnormal contrast enhancement is seen. Normal major vessel vascular flow voids are seen. There is opacification of the maxillary sinuses bilaterally as well as the right sphenoid sinus consistent with chronic sinusitis. IMPRESSION: Moderate atrophy and chronic ischemic/gliotic changes. No acute intracranial abnormality. Reviewed, Interpreted and Dictated by Ochoa Doran III, MD Transcribed by Marina Tian Authenticated and [facility]
--- NOTE | 2023-05-07 08:13 | XR_ITS ---
FINAL REPORT CLINICAL HISTORY: position OF pump prior to MRI COMPARISON: None FINDINGS: AP and oblique views of the abdomen were obtained. The pain pump is not 90 degrees to the Z axis. IMPRESSION: Pain pump not 90 degrees to the Z axis. Reviewed, Interpreted and Dictated by Ochoa Doran III, MD Transcribed by Geraldine Fraser Authenticated and . [facility]
[2023-05-07] MEDS: GADOTERIDOL INJ 17ML SYRINGE 22 ML IV (10:00)
[2023-05-07] MEDS: SODIUM CHLORIDE 0.9% 10ML SYR (RAD ONLY) 10 ML IV (10:00)
== END 2023-05-07 23:59 ==
LOC: RAD 08:13
PROVIDERS: PCP Family Medicine; Visit Provider Nurse Practitioner Family
DX: R41.3 Other amnesia; I10 Essential (primary) hypertension; E78.49 Other hyperlipidemia; G47.39 Other sleep apnea; E11.69 Type 2 diabetes mellitus with other specified complication; E66.9 Obesity, unspecified; Z68.44 Body mass index [BMI] 60.0-69.9, adult; Z79.84 Long term (current) use of oral hypoglycemic drugs; Z85.3 Personal history of malignant neoplasm of breast; W19.XXXS Unspecified fall, sequela
CPT/HCPCS: 70553; 74019; A9576

== ENCOUNTER 2023-05-15 12:50 | Day surgery (SDC) | payer MEDICARE, SELFPAY ==
[2023-05-15 13:04] VITALS: BP 150/70; PULSE 70; RESP 18; TEMP 36.4; O2SAT 100; BMI 44.0
--- NOTE | 2023-05-15 13:22 | EXP.PAIN.PRO ---
Procedure Date: 05/15/23 Time: 13:10 Anesthesiologist:: Fito Vuong CRNA Complications:: None Pre-procedure Diagnosis:: Degenerative disc lumbar spine multilevels. Lumbar radiculopathy. Lumbar spinal stenosis. Lumbar postlaminectomy syndrome. Post-procedure Diagnosis:: Same. Indications for Procedure:: Patient is a pleasant 72-year-old female comes our clinic today for intrathecal pain pump interrogation refill. She is currently being managed with morphine sulfate 2 mg/mL at a rate of 0.463 mg/day. Patient requesting increase due to overall low back pain. I think this is reasonable. Will increase her by 10% today. Procedure Details:: Details of the procedure explained to the patient. The patient taken procedure and placed in the sitting position. The area of the pump was cleansed using chlorhexidine's cleansing solution. The pump was interrogated. The pump was accessed with ease using a 22-gauge inch and half needle. 5 mL of solution was withdrawn discarded appropriate. The pump was then filled with 20 cc of solution containing morphine sulfate 2 mg/mL. The rate was increased by 10%. Her new rate is 0.5098 mg today. Patient tolerated procedure without difficulty. No complications. Plan and Disposition:: Patient was discharged without incident.
[2023-05-15 13:27] VITALS: BP 113/51; PULSE 59; RESP 18; O2SAT 100
== END 2023-05-15 13:27 | disposition home or self-care (01) ==
PROVIDERS: PCP Family Medicine; Visit Provider Nurse Anesthetist, Certified Registered
DX: M51.16 Intervertebral disc disorders with radiculopathy, lumbar region (principal); M48.061 Spinal stenosis, lumbar region without neurogenic claudication; M96.1 Postlaminectomy syndrome, not elsewhere classified; Z97.8 Presence of other specified devices; Z45.1 Encounter for adjustment and management of infusion pump
CPT/HCPCS: 62370; 94762

== ENCOUNTER 2023-05-30 12:57 | Outpatient (POV) | payer MEDICARE, SELFPAY ==
[2023-05-30 13:17] VITALS: BP 148/42; PULSE 65; RESP 18; O2SAT 97; BMI 44.0
--- NOTE | 2023-05-30 13:32 | P.PCN_ITS ---
Procedure Date: 05/30/23 Time: 13:32 Anesthesiologist:: Any Morris APRN Complications:: None Pre-procedure Diagnosis:: Degenerative disc disease of lumbar spine with lumbar radiculopathy symptoms, lumbar spinal stenosis with neurogenic claudication symptoms, status post minimally invasive lumbar decompression, chronic pain syndrome Post-procedure Diagnosis:: Same Indications for Procedure:: Patient is a pleasant 72-year-old female who presents today for intrathecal adjustment and reprogram. We are currently treating the patient for degenerative disc disease of lumbar spine with lumbar radiculopathy symptoms, lumbar spinal stenosis with neurogenic claudication symptoms, status post lumbar decompression. Today she rates her pain a 0 out of 10 while sitting but will go up to an 8 out of 10 with walking more than 5 minutes. Denies any new trauma or injury or recent fall. She does state since our last visit that she has been seeing a neurologist related to burning in her left hand and right foot. Patient states they have done a lot of testing and that she is scheduled for a follow-up coming up soon. Patient states the burning is only at night and then going on around 3 months. Patient does also states she has 1 small nonhealing area around her right ankle. She states that she did end up going to the ER for this and was given an antibiotic for possible cellulitis. She stated the redness did get better however it is very sensitive to touch. Patient is unsure what initially started this wound. She thinks that it has been going on for about 6 months. Patient is currently managed with morphine 2 mg/mL with a daily dose of 0.5098 mg/day. Patient denies any side effects from this medication. Her Palomo has been reviewed and is appropriate. Physical Exam: General: Alert and oriented x3, no acute distress, pleasant and cooperative Lungs: Respirations even and unlabored, symmetrical chest expansion Eyes: PERRL Musculoskeletal: Flexion and extension of lumbar [spine] somewhat guarded secondary to pain, [antalgic gait noted] Neurological: Speech clear, no gross sensory deficit Procedure Details:: Informed consent was obtained and the risk and benefits of the procedure were explained to the patient. Patient was taken to the procedure room where noninvasive monitoring was placed including noninvasive blood pressure cuff and pulse oximeter. Patient's pump was interrogated and was reprogrammed to mo rphine 0.6111 mg/day. The patient tolerated the procedure well with no complications. Plan and Disposition:: Patient tolerated her intrathecal increase with no complications and was discharged neurologically intact. Patient does already have her next intrathecal refill date on July 02. I discussed with the patient if she needs this before this visit she can call for an additional appointment. Patient agrees with this plan of care. I have counseled the patient to keep an eye on her left ankle and for any worsening redness or pain to reach out to our office or her primary care. We will see the patient back in the clinic at the next intrathecal refill. Patient has been instructed to contact the clinic with any concerns before the next appointment. Dr. Gibson has reviewed this note and agrees with this plan of care. This note was dictated using voice recognition software and make contain errors or omissions. -- It Is medically necessary for this patient to continue to have their intrathecal pump refilled at regular intervals. This patient had an intrathecal pain pump implanted after meeting criteria of chronic intractable pain for greater than 3 months and failing conservative treatments. Patient has committed and been compliant to the treatment plan and all planned follow up care. Since implantation of the intrathecal pain pump, the patient has had decreased pain and been more functional. Oral medications have been reduced including intake of oral opioids. Patient continues to do well with intrathecal therapy with decreas e in pain symptoms and increase in functional status. Stopping intrathecal medications can lead to life threatening withdrawal, seizures, cardiac arrest, severe pain, and possible . Pumps that are not refilled at regular intervals can be damages and cause and need for replacement. We continually titrate dose and concentration to optimize pain relief and function. We are limited in concentration for certain drugs to safely deliver medications through the pump and stay within the recommendations from the Polyanalgesic Consensus Committee Guidelines. Depending on dose and concentration these pumps may need to be refilled sooner than 3 months as we titrate.
== END 2023-05-30 23:59 | disposition home or self-care (01) ==
PROVIDERS: PCP Family Medicine; Visit Provider Nurse Practitioner Family
DX: M51.16 Intervertebral disc disorders with radiculopathy, lumbar region (principal); M48.062 Spinal stenosis, lumbar region with neurogenic claudication; G89.4 Chronic pain syndrome; Z97.8 Presence of other specified devices; Z45.1 Encounter for adjustment and management of infusion pump
CPT/HCPCS: 62368; 99213; G0463

== ENCOUNTER 2023-07-03 06:31 | Outpatient (CLI) | payer MEDICARE, SELFPAY | END 2023-07-03 23:59 | disposition home or self-care (01) | LOC: LAB.DROPOF 07-05 06:32 | PROVIDERS: PCP Nurse Practitioner; Visit Provider Nurse Practitioner | DX: M51.16 Intervertebral disc disorders with radiculopathy, lumbar region (principal); M96.1 Postlaminectomy syndrome, not elsewhere classified; Z97.8 Presence of other specified devices; Z45.1 Encounter for adjustment and management of infusion pump ==

== ENCOUNTER 2023-07-03 10:20 | Day surgery (SDC) | payer MEDICARE, SELFPAY ==
--- NOTE | 2023-07-03 10:28 | XR_ITS ---
FINAL REPORT CLINICAL HISTORY: Possible Gout COMPARISON: None FINDINGS: 3 images of the right foot were obtained. There is no evidence of fracture or dislocation. A moderate-sized plantar spur is present. There is advanced hypertrophic change of the first MTP, most likely osteoarthritis. No bony erosions are identified. There is no soft tissue abnormality identified. IMPRESSION: Advanced hypertrophic change of the first MTP joint, likely osteoarthritis. Moderate sized plantar calcaneal spur. Reviewed, Interpreted and Dictated by Syed Granados MD Transcribed by Marina Tian Authenticated and . [facility]
[2023-07-03 11:08] LABS: Basophils % 0.3 % (0.1-2.0); Eosinophils # 0.3 K/mm3 (0.0-0.4); Eosinophils % 3.3 % (0.1-12.0); Hematocrit 33.1 % (37.0-47.0); Hemoglobin 10.2 g/dL (12.2-16.2); Lymphocytes # 1.3 K/mm3 (0.7-4.5); Lymphocytes % 17.2 % (10-50); Mean Corpuscular HGB Conc 30.7 g/dL (31.8-35.4); Mean Corpuscular Hemoglobin 28.7 pg (27.0-31.2); Mean Corpuscular Volume 93.6 fl (81-99); Mean Platelet Volume 7.5 fl (7.4-10.4); Monocytes # 0.3 K/mm3 (0.1-1.0); Monocytes % 4.4 % (1.7-9.3); Neutrophils # 5.6 K/mm3 (1.8-7.8); Neutrophils % 74.8 % (37.0-80.0); Platelet Count 360 K/mm3 (142-424); Red Blood Count 3.54 M/mm3 (4.20-5.40); Red Cell Distribution Width 16.5 % (11.5-17.5); White Blood Count 7.5 K/mm3 (4.8-10.8)
[2023-07-03 11:34] LABS: Alanine Aminotransferase 18 U/L (12-78); Albumin Level 3.7 g/dl (3.5-5.0); Albumin/Globulin Ratio 1.1 (1.1-1.8); Alkaline Phosphatase 142 U/L (38-126); Anion Gap 13.9 mEq/L (5-15); Aspartate Amino Transferase 22 U/L (14-36); Bilirubin,Total 0.5 mg/dl (0.2-1.3); Blood Urea Nitrogen 47 mg/dl (7-17); Calcium 9.4 mg/dl (8.4-10.2); Carbon Dioxide 29 mmol/L (22.0-30.0); Chloride 105 mmol/L (98-107); Estimated Glomerular Filt Rate 37 ml/min (>60); GFR (African American) 44 ML/MIN (>60); Globulin 3.4 g/dL (1.3-3.2); Glucose 127 mg/dl (74-100); Potassium 4.9 mmoL/L (3.5-5.1); Sodium 143 mmol/L (136-145); Total Protein,Serum 7.1 g/dl (6.3-8.2); Uric Acid 5.6 mg/dl (2.5-6.2)
[2023-07-03 11:43] VITALS: BP 113/49; PULSE 59; RESP 18; TEMP 36.4; O2SAT 93; BMI 45.7
--- NOTE | 2023-07-03 12:08 | EXP.PAIN.PRO ---
Procedure Date: 07/03/23 Time: 12:00 Anesthesiologist:: Fito Vuong CRNA Complications:: None Pre-procedure Diagnosis:: Degenerative disc lumbar spine multilevels. Lumbar radiculopathy. Lumbar postlaminectomy syndrome Post-procedure Diagnosis:: Same. Indications for Procedure:: Patient is a very pleasant 72-year-old female comes our clinic today for intrathecal pain pump interrogation, medication exchange and refill. Patient currently being managed with morphine sulfate 2 mg/mL at a rate of 0.6111 mg/day. Patient reporting low back pain that increases with ambulation and/or standing. She describes low back pain as constant, dull, aching. Patient requesting increase of the intrathecal pain pump rate. We will be refilling her pump with morphine sulfate 3 mg/mL. Procedure Details:: Details of the procedure explained to the patient. The patient taken to the procedure room placed in the sitting position. The area of the pump is cleansed using chlorhexidine as a cleansing solution. The pump was interrogated. The pump was accessed with ease using a 22-gauge inch and half needle. 5 mL of solution was withdrawn discarded appropriate. The pump was then filled with 20 cc of solution containing morphine sulfate 3 mg/mL. The the new rate will be 0.6730 mg/day. Patient patient tolerated procedure without difficulty. No complications. Plan and Disposition:: Patient was discharged without incident
[2023-07-03 12:10] LABS: Erythrocyte Sedimentation Rate 100 mm/hr (0-30)
[2023-07-03 12:14] VITALS: BP 129/49; PULSE 56; RESP 18; TEMP 36.4; O2SAT 99
[2023-07-03 12:27] LABS: Amphetamine/Metha Screen,Urine Negative ng/ml (<1000); Barbiturates Screen,Urine Negative ng/ml (<200)
[2023-07-03 12:28] LABS: Benzodiazepines Screen,Urine Negative ng/ml (<200)
[2023-07-03 12:29] LABS: Cannabinoid Screen,Urine Negative ng/ml (<50)
[2023-07-03 12:30] LABS: Cocaine Screen,Urine Negative ng/ml (<300); Methadone Screen,Urine Negative ng/ml (<300)
[2023-07-03 12:31] LABS: Opiate Screen,Urine Positive ng/ml (<300); Phencyclidine Screen,Urine Negative ng/ml (<25)
[2023-07-07 03:49] LABS: Codeine Negative (Cutoff=100); Hydrocodone Negative (Cutoff=100); Hydromorphone Negative (Cutoff=100); Morphine Positive (.); Opiates Positive (.)
== END 2023-07-03 12:12 | disposition home or self-care (01) ==
PROVIDERS: Nurse Practitioner; PCP Family Medicine; Visit Provider Nurse Anesthetist, Certified Registered
DX: E11.8 Type 2 diabetes mellitus with unspecified complications (principal); M10.9 Gout, unspecified; M51.16 Intervertebral disc disorders with radiculopathy, lumbar region; M96.1 Postlaminectomy syndrome, not elsewhere classified; Z97.8 Presence of other specified devices; Z45.1 Encounter for adjustment and management of infusion pump
CPT/HCPCS: 36415; 62370; 73630; 80053; 80307; 80361; 80365; 84550; 85025; 85651; 86140; G0480

== ENCOUNTER 2023-08-08 09:29 | Outpatient (CLI) | payer MEDICARE, SELFPAY ==
--- NOTE | 2023-08-08 09:29 | CT_ITS ---
FINAL REPORT TECHNIQUE: Thin section axial CT images with coronal and sagittal reformats were performed. This study was performed with techniques to keep radiation doses as low as reasonably achievable (ALARA). Individualized dose reduction techniques using automated exposure control or adjustment of mA and/or kV according to the patient's size were employed. CLINICAL HISTORY: Pain in Right Ankle pain lateral right ankle when touched COMPARISON: None FINDINGS: There are no fractures. There are no masses or fluid collections. There are no soft tissue abnormalities. Mild degenerative change is noted in the ankle, without evidence of an osteochondral lesion. Calcaneal spurs are present. There is thickening of the distal Achilles tendon consistent with tendinitis. There is also thickening of the peroneus longus tendon, consistent with tendinosis. A small tibiotalar joint effusion is present. IMPRESSION: Thickening of the distal Achilles tendon consistent with tendinitis. There is also thickening of the peroneus longus tendon, suggestive of tendinosis. Small tibiotalar joint effusion. Reviewed, Interpreted and Dictated by Ochoa Doran III, MD Transcribed by Marina Tian Authenticated and . [facility]
== END 2023-08-08 23:59 | disposition home or self-care (01) ==
LOC: RAD 09:29
PROVIDERS: PCP Family Medicine; Visit Provider Nurse Practitioner
DX: L97.311 Non-pressure chronic ulcer of right ankle limited to breakdown of skin (principal); M25.571 Pain in right ankle and joints of right foot; G89.29 Other chronic pain; M19.071 Primary osteoarthritis, right ankle and foot; M19.072 Primary osteoarthritis, left ankle and foot
CPT/HCPCS: 73700

== ENCOUNTER 2023-09-04 13:29 | Day surgery (SDC) | payer MEDICARE, SELFPAY ==
[2023-09-04 13:54] VITALS: BP 117/51; PULSE 77; RESP 16; TEMP 36.8; O2SAT 97; BMI 44.8
--- NOTE | 2023-09-04 14:12 | EXP.PAIN.PRO ---
Procedure Date: 09/04/23 Time: 14:00 Anesthesiologist:: Fito Voung CRNA Complications:: None Pre-procedure Diagnosis:: Degenerative disc lumbar spine multilevels. Lumbar radiculopathy. Lumbar postlaminectomy syndrome. Post-procedure Diagnosis:: Same. Indications for Procedure:: Patient is a very pleasant 73-year-old female comes our clinic today for intrathecal pain pump interrogation and refill. Patient is currently being managed with morphine sulfate 2 mg/mL at a rate of 0.6730 mg/day. She is reporting increase in low back pain as well as bilateral hip and leg radicular symptoms. Typically, she reports this is with activity. She is requesting increase. She is not reporting any side effects or complications. Procedure Details:: Details of the procedure explained to the patient. The patient taken procedure and placed in sitting position. They over the pumps cleansed in clinic hexedine cleansing solution. The pump was interrogated. The pump was accessed with ease using a 22-gauge inch and half needle. 4 mL of solution was withdrawn discarded appropriate. The pump was then filled with 20 cc of solution containing morphine sulfate 3 mg/mL. The pump rate will be increased by 20%. Her new rate will be 0.8079 mg/day. Patient tolerated procedure without difficulty. There are no complications. Plan and Disposition:: Patient was discharged without incident.
[2023-09-04 14:18] VITALS: BP 115/44; PULSE 65; RESP 18; O2SAT 97
== END 2023-09-04 14:18 | disposition home or self-care (01) ==
PROVIDERS: PCP Family Medicine; Visit Provider Nurse Anesthetist, Certified Registered
DX: G89.29 Other chronic pain (principal); M51.36 Other intervertebral disc degeneration, lumbar region; M96.1 Postlaminectomy syndrome, not elsewhere classified; M54.16 Radiculopathy, lumbar region
CPT/HCPCS: 62370

== ENCOUNTER 2023-09-20 10:12 | Outpatient (POV) | payer MEDICARE, SELFPAY ==
--- NOTE | 2023-09-20 10:30 | P.PCN_ITS ---
Procedure Date: 09/20/23 Time: 10:30 Anesthesiologist:: Any Morris APRN Complications:: None Pre-procedure Diagnosis:: Degenerative disc disease of lumbar spine with lumbar radiculopathy symptoms, lumbar postlaminectomy syndrome Post-procedure Diagnosis:: Same Indications for Procedure:: Patient is a pleasant 73-year-old female who presents today for intrathecal adjustment and reprogram. Today she rates her pain a 10 out of 10. Patient denies any new trauma or injury. She does state that her last increase did help her still nowhere where it needs to be for pain improvement. She is requesting an increase today. Patient does also state that she has been having more issues with trigger finger syndrome bilaterally and that she has had injections in the past however they were very painful. Patient does state that in the future she may be interested in these injections. She states that she is currently using frankincense and myrrh oil and it does not seem to be helping. Patient is currently managed with morphine 3 mg/mL with a daily dose of 0.8079 mg/day. She denies any side effects from this medication. Her Palomo has been reviewed and is appropriate. Physical Exam: General: Alert and oriented x3, no acute distress, pleasant and cooperative Lungs: Respirations even and unlabored, symmetrical chest expansion Eyes: PERRL Musculoskeletal: Flexion and extension of lumbar [spine] somewhat guarded secondary to pain, [antalgic gait noted] Neurological: Speech clear, no gross sensory deficit Procedure Details:: Informed consent was obtained and the risk and benefits of the procedure were explained to the patient. Patient was taken to the procedure room where noninvasive monitoring was placed including noninvasive blood pressure cuff and pulse oximeter. Patient's pump was interrogated and was reprogrammed to morphine 1.0515 mg/day. The patient tolerated the procedure well with no complications. Plan and Disposition:: Patient tolerated her intrathecal increase and reprogram with no complications and was discharged neurologically intact. I have discussed with the patient in future that we can definitely do the trigger point injections however I would a lso recommend her to try her compounded cream on these areas as well. We will follow-up with this at future visits. Patient will return to clinic in 2 weeks for possible readjustment and reprogram of her intrathecal pump. Patient has been instructed to contact the clinic with any concerns before the next appointment. Dr. Gibson has reviewed this note and agrees with this plan of care. This note was dictated using voice recognition software and make contain errors or omissions. -- It Is medically necessary for this patient to continue to have their intrathecal pump refilled at regular intervals. This patient had an intrathecal pain pump implanted after meeting criteria of chronic intractable pain for greater than 3 months and failing conservative treatments. Patient has committed and been compliant to the treatment plan and all planned follow up care. Since implantation of the intrathecal pain pump, the patient has had decreased pain and been more functional. Oral medications have been reduced including intake of oral opioids. Patient continues to do well with intrathecal therapy with decrease in pain symptoms and increase in functional status. Stopping intrathecal medications can lead to life threatening withdrawal, seizures, cardiac arrest, severe pain, and possible . Pumps that are not refilled at regular intervals can be damages and cause and need for replacement. We continually titrate dose and concentration to optimize pain relief and function. We are limited in concentration for certain drugs to safely deliver medications through the pump and stay within the recommendations from the Polyanalges[employer] Consensus Committee Guidelines. Depending on dose and concentration these pumps may need to be refilled sooner than 3 months as we titrate.
[2023-09-20 10:32] VITALS: BP 122/43; PULSE 70; RESP 18; O2SAT 95; BMI 44.8
== END 2023-09-20 23:59 | disposition home or self-care (01) ==
PROVIDERS: PCP Family Medicine; Visit Provider Nurse Practitioner Family
DX: M96.1 Postlaminectomy syndrome, not elsewhere classified; M51.36 Other intervertebral disc degeneration, lumbar region
CPT/HCPCS: 62368; 99213; G0463

== ENCOUNTER 2023-10-02 14:19 | Outpatient (POV) | payer MEDICARE, SELFPAY ==
[2023-10-02 14:27] VITALS: BP 131/92; PULSE 67; RESP 16; TEMP 36.7; O2SAT 96; BMI 45.7
--- NOTE | 2023-10-02 14:53 | P.PCN_ITS ---
Procedure Date: 10/02/23 Time: 14:42 Anesthesiologist:: Fito Vuong CRNA Complications:: None Pre-procedure Diagnosis:: Degenerative disc lumbar spine multilevels. Lumbar radiculopathy. Lumbar postlaminectomy syndrome. Bilateral sacroiliitis. Chronic pain syndrome. Post-procedure Diagnosis:: Same. Indications for Procedure:: Patient is a very pleasant 73-year-old female comes our clinic today for intrathecal pain pump interrogation and reprogram. Patient having pain across the low lumbar area that she describes as constant, dull, aching. She rates the pain 08/14. Patient had 30% increase in her intrathecal rate on 09/20/2023. She is requesting additional increase. I think this is reasonable. I will increase her to 30% today. She is currently being managed with morphine sulfate 3 mg/mL at 1.0515 mg/day. Her new rate will be 1.3685 mg/day. Patient is awake alert [place] x 3. In no acute distress. Flexion-extension lumbar spine guarded secondary to pain. Deep tendon reflexes upper lower extremities normal. Motor strength upper lower EXTR normal. There is no gross sensory deficit. Gait is antalgic. Patient requires a rollator for assistance while ambulating. Procedure Details:: Details of the procedure explained to the patient. The patient taken procedure room placed in sitting position. The pump was interrogated. The pump was increased by 30%. The new rate will be 1.3685 mg/day. Patient tolerated p rocedure without difficulty. No complications. Plan and Disposition:: Patient was discharged without incident.
== END 2023-10-02 23:59 | disposition home or self-care (01) ==
PROVIDERS: PCP Family Medicine; Visit Provider Nurse Anesthetist, Certified Registered
DX: M51.36 Other intervertebral disc degeneration, lumbar region (principal); M96.1 Postlaminectomy syndrome, not elsewhere classified; M46.1 Sacroiliitis, not elsewhere classified; G89.4 Chronic pain syndrome
CPT/HCPCS: 62368; 99213; G0463

== ENCOUNTER 2023-11-06 12:52 | Day surgery (SDC) | payer MEDICARE, SELFPAY ==
[2023-11-06 13:12] VITALS: BP 141/56; PULSE 74; RESP 16; TEMP 36.3; O2SAT 95; BMI 45.7
--- NOTE | 2023-11-06 13:28 | EXP.PAIN.PRO ---
Procedure Date: 11/06/23 Time: 13:20 Anesthesiologist:: Fito Vuong CRNA Complications:: None Pre-procedure Diagnosis:: Degenerative disc lumbar spine multilevels. Lumbar radiculopathy. Lumbar postlaminectomy syndrome. Bilateral sacroiliitis. Post-procedure Diagnosis:: Same. Indications for Procedure:: Patient is a very pleasant 73-year-old female comes our clinic today for intrathecal pain pump interrogation and refill. Patient currently being managed with morphine sulfate 3 mg/mL. That we will change to 4 mg/mL today. Also, patient requesting increase in intrathecal pain pump rate. She is reporting low back pain with difficulty standing for any length of time due to pain in both lower lumbar spine as well as bilateral leg radicular symptoms. I had a lengthy discussion with the patient regarding the use of the bolus. She has not been using it. Only sparingly. I instructed the patient we would increase her rate by 20% today. Also, instructed the patient in detail regarding using the bolus every 6 hours. She understands. Patient is awake alert [place] x 3. In no acute distress. Flexion-extension lumbar spine somewhat guarded secondary to pain. Deep tendon reflexes upper and lower extremities normal. Motor strength upper and lower extremities normal. There is no gross sensory deficit. Gait is antalgic. Patient requires a rollator for support. Procedure Details:: Details of the procedure explained to the patient. The patient was placed in the sitting position. The area of the pump was cleansed using chlorhexidine as a cleansing solution. The pump was interrogated. The pump was accessed with ease using a 22-gauge inch and half needle. 8 mL of solution was withdrawn discarded appropriate. The pump was then filled with 20 cc of solution containing morphine sulfate 4 mg/mL. The pump rate will increase to 1.8074 mg/day. Patient tolerated procedure without difficulty. There are no complications. Plan and Disposition:: Patient was discharged without incident.
[2023-11-06 13:34] VITALS: BP 141/51; PULSE 68; RESP 20; O2SAT 96
== END 2023-11-06 13:34 | disposition home or self-care (01) ==
PROVIDERS: PCP Family Medicine; Visit Provider Nurse Anesthetist, Certified Registered
DX: M51.16 Intervertebral disc disorders with radiculopathy, lumbar region (principal); M96.1 Postlaminectomy syndrome, not elsewhere classified; M46.1 Sacroiliitis, not elsewhere classified
CPT/HCPCS: 95991

== ENCOUNTER 2023-11-22 14:22 | Outpatient (POV) | payer MEDICARE, SELFPAY ==
[2023-11-22 14:57] VITALS: BP 102/42; PULSE 61; RESP 16; O2SAT 100; BMI 46.6
--- NOTE | 2023-11-22 15:05 | P.PCN_ITS ---
Procedure Date: 11/22/23 Time: 15:06 Anesthesiologist:: Any Morris APRN Complications:: None Pre-procedure Diagnosis:: Degenerative disc disease of lumbar spine with lumbar radiculopathy symptoms, lumbar postlaminectomy syndrome, bilateral sacroiliitis Post-procedure Diagnosis:: Same Indications for Procedure:: Patient is a pleasant 73-year-old female who presents today for worsening pain and intrathecal adjustment and reprogram. She does rate her pain a 6 out of 10. Patient states she has been experiencing more pain along her low back more prominent on the right hip but also states some pain in the left. She describes it as an aching, throbbing sensation that is worse with increased activity and does interfere with her ability perform activities of daily living. Patient does also state that she would like an increase on her pump. Patient is currently managed with morphine 4 mg/mL with a daily dose of 1.8074 mg/day. She denies any side effects from this medication. Her Palomo has been reviewed and is appropriate. Physical Exam: General: Alert and oriented x3, no acute distress, pleasant and cooperative Lungs: Respirations even and unlabored, symmetrical chest expansion Eyes: PERRL Musculoskeletal: Flexion and extension of lumbar [spine] somewhat guarded second pretty to pain, [antalgic gait noted] point tenderness along bilateral SIs with positive bilateral Chiquita's, [place]'s, [place]'s, compression and distraction exam Neurological: Speech clear, no gross sensory deficit Procedure Details:: Informed consent was obtained and the risk and benefits of the procedure were explained to the patient. Patient was taken to the procedure room where noninvasive monitoring was placed including noninvasive blood pressure cuff and pulse oximeter. Patient's pump was interrogated and was reprogrammed to morphine 2.1668 mg/day. The patient tolerated the procedure well with no complications. Plan and Disposition:: Patient tolerated her intrathecal increase with no complications and was discharged neurologically intact. I did discuss with patient due to the point tenderness along her bilateral SIs positive Chiquita's, [place]'s, [place]'s, compression and distraction exam that she may benefit from bilateral SI injections. Patient did also have point tenderness along her bilateral bursa's. Patient is stating that her low back pain is worse than the tenderness to touch along her hips. I did discuss with the patient that we may look at doing the bursa injections at a later date. Risk and benefits of ROXANE injections were explained to the patient and she would like to proceed forward with this plan of care. Patient has tried and failed conservative therapy including continued at home stretching exercise for longer than 12 weeks. Patient will be scheduled for bilateral SI injections under fluoroscopy. We will see the patient back in the clinic at the next intrathecal refill. Patient has been instructed to contact the clinic with any concerns before the next appointment. Dr. Gibson has reviewed this note and agrees with this plan of care. This note was dictated using voice recognition software and make contain errors or omissions. -- It Is medically necessary for this patient to continue to have their intrathecal pump refilled at regular intervals. This patient had an intrathecal pain pump implanted after meeting criteria of chronic intractable pain for greater than 3 months and failing conservative treatments. Patient has committed and been compliant to the treatment plan and all planned follow up care. Since implantation of the intrathecal pain pump, the patient has had decreased pain and been more functional. Oral medications have been reduced including intake of oral opioids. Patient continues to do well with intrathecal therapy with decrease in pain symptoms and increase in functional status. Stopping intrathecal medications can lead to life threatening withdrawal, seizures, cardiac arrest, severe pain, and possible . Pumps that are not refilled at regular intervals can be damages and cause and need for replacement. We continually titrate dose and concentration to optimize pain relief and function. We are limited in concentration for certain drugs to safely deliver medications through the pump and stay within the recommendations from the Polyanalges[employer] Consensus Committee Guidelines. Depending on dose and concentration these pumps may need to be refilled sooner than 3 months as we titrate.
== END 2023-11-22 23:59 | disposition home or self-care (01) ==
PROVIDERS: PCP Family Medicine; Visit Provider Nurse Practitioner Family
DX: M51.16 Intervertebral disc disorders with radiculopathy, lumbar region (principal); M46.1 Sacroiliitis, not elsewhere classified; M96.1 Postlaminectomy syndrome, not elsewhere classified; Z73.89 Other problems related to life management difficulty
CPT/HCPCS: 62368; 99212; 99213; G0463

== ENCOUNTER 2023-12-07 11:31 | Day surgery (SDC) | payer MEDICARE, SELFPAY ==
[2023-12-07 11:57] VITALS: BP 117/45; PULSE 63; RESP 18; O2SAT 96
[2023-12-07 11:59] VITALS: BP 145/73; PULSE 72; RESP 16; TEMP 36.7; O2SAT 100; BMI 46.6
[2023-12-07 12:14] VITALS: BP 129/61; PULSE 59; RESP 16; O2SAT 93
--- NOTE | 2023-12-07 12:30 | EXP.PAIN.PRO ---
Procedure Date: 12/07/23 Time: 11:40 Anesthesiologist:: Fito Vuong CRNA Complications:: None Pre-procedure Diagnosis:: Degenerative disc lumbar spine multilevels. Lumbar radiculopathy. Lumbar postlaminectomy syndrome. Bilateral sacroiliitis. Post-procedure Diagnosis:: Same. Indications for Procedure:: Patient is a very pleasant 73-year-old female who comes our clinic today for intrathecal pain pump interrogation and refill. Patient currently being managed with morphine sulfate 4 mg/mL. We will be changing her medication to morphine sulfate 5 mg/mL today. Patient requesting increase in rate due to increased low back pain with activity. I think this is reasonable. I will give her a 10% increase in her pump rate. Her current pump rate is 2.1668 mg/day. The new rate will be 2.3834 mg/day. Patient is awake alert [place] x 3. In no acute distress. Flexion-extension lumbar spine guarded secondary to pain. Deep tendon reflexes upper lower extremities normal. Motor strength upper lower extremities normal. There is no gross sensory deficit. Gait is normal. Procedure Details:: Details of the procedure explained to the patient. The patient taken procedure and placed in the sitting position. The over the pump was cleansed using chlorhexidine as a cleansing solution. The pump was interrogated. The pump was accessed with ease using a 22-gauge inch and a half needle. 3 mL of solution was withdrawn and discarded appropriately. The pump was then filled with 20 cc of solution containing morphine sulfate 5 mg/mL. Pump rate will increase to 2.3834 mg/day. Patient tolerated procedure without difficulty. There are no complications. Plan and Disposition:: Patient was discharged without incident.
== END 2023-12-07 12:14 | disposition home or self-care (01) ==
PROVIDERS: PCP Family Medicine; Visit Provider Nurse Anesthetist, Certified Registered
DX: M51.16 Intervertebral disc disorders with radiculopathy, lumbar region (principal); M96.1 Postlaminectomy syndrome, not elsewhere classified; M46.1 Sacroiliitis, not elsewhere classified
CPT/HCPCS: 62370

== ENCOUNTER 2023-12-11 07:54 | Day surgery (SDC) | payer MEDICARE, SELFPAY ==
[2023-12-11 08:29] VITALS: BP 137/72; PULSE 80; RESP 16; TEMP 36.7; O2SAT 99; BMI 46.6
[2023-12-11 08:56] VITALS: BP 132/61; PULSE 65; RESP 16; O2SAT 99
--- NOTE | 2023-12-11 08:58 | P.PCN_ITS ---
Procedure Date: 12/11/23 Time: 08:30 Anesthesiologist:: Fito Vuong CRNA Complications:: None Pre-procedure Diagnosis:: Bilateral sacroiliitis. Degenerative disc lumbar spine multilevels. Lumbar radiculopathy. Lumbar spondylosis. Multilevel lumbar facet arthropathy. Lumbar postlaminectomy syndrome. Post-procedure Diagnosis:: Same. Indications for Procedure:: Patient is a pleasant 73-year-old female who comes our clinic today for bilateral sacroiliac joint injections of cortisone and local anesthetic. Patient describes low lumbar back pain off the midline bilaterally as constant, dull, sharp, stabbing. She describes having difficulty transitioning from sitting to standing. Difficulty with ambulation. Difficulty with sitting. We are currently managing the patient with intrathecal pain pump morphine sulfate 4 mg/mL at 2.1668 mg/day pump is doing well. Procedure Details:: Procedure: Bilateral sacroiliac joint injections under fluoroscopy Informed consent was obtained and the risks and benefits of the procedure were e xplained to the patient.~ The patient was taken to the procedure room and noninvasive monitors were placed including a noninvasive blood pressure cuff and pulse oximeter.~ The patient was placed prone on the procedure table. Both hips were cleansed using Betadine as a cleansing solution. C-arm fluoroscopy was used to view the right sacroiliac joint.~ The skin and subcutaneous tissues were anesthetized using lidocaine 1.5% and a 25-gauge needle.~ After this, a 22-gauge spinal needle was inserted under fluoroscopic guidance into the inferior aspect of the right sacroiliac joint.~ Omnipaque dye was injected and good spread was seen throughout the joint.~ After this, approximately 5 mL of bupivacaine, 0.25% and Depo-Medrol, 40 mg was incrementally injected into the right sacroiliac joint. We then moved to the left sacroiliac joint.~ The skin and subcutaneous tissues were anesthetized using lidocaine 1.5% and a 25-gauge needle.~ After this, a 22- gauge spinal needle was inserted under fluoroscopic guidance into the inferior aspect of the left sacroiliac joint.~ Omnipaque dye was injected and good spread was seen throughout the joint. After this, approximately 5 mL of bupivacaine, 0.25% and Depo-Medrol, 40 mg was incrementally injected into the left sacroiliac joint.~ The patient tolerated the procedure well with no complications. The patient was observed in the Pain Clinic and then was discharged home neurologically intact. Plan and Disposition:: Patient was discharged without incident.
[2023-12-11] MEDS: LIDOCAINE 1% 5ML PF VIAL 5 ML (11:20)
[2023-12-11] MEDS: methylPREDNISolone ACETATE 80MG/ML VIAL 80 MG (11:20)
[2023-12-11] MEDS: BUPIVACAINE 0.25% 10ML INJ 25 MG IJ (11:20)
== END 2023-12-11 08:56 | disposition home or self-care (01) ==
LOC: SC.PAINP 07:55
PROVIDERS: PCP Family Medicine; Visit Provider Nurse Anesthetist, Certified Registered
DX: M46.1 Sacroiliitis, not elsewhere classified (principal); M51.16 Intervertebral disc disorders with radiculopathy, lumbar region; M47.26 Other spondylosis with radiculopathy, lumbar region; M96.1 Postlaminectomy syndrome, not elsewhere classified
CPT/HCPCS: 27096; G0260; J1010

== ENCOUNTER 2023-12-26 09:35 | Outpatient (POV) | payer MEDICARE, SELFPAY ==
[2023-12-26 10:04] VITALS: BP 143/62; PULSE 71; RESP 14; O2SAT 97; BMI 44.9
--- NOTE | 2023-12-26 10:10 | EXP.PAIN.PRO ---
Procedure Date: 12/26/23 Time: 10:10 Anesthesiologist:: Any Morris APRN Complications:: None Pre-procedure Diagnosis:: Degenerative disc disease of lumbar spine with lumbar radiculopathy symptoms, lumbar postlaminectomy syndrome, sacroiliitis Post-procedure Diagnosis:: Same Indications for Procedure:: Patient is a pleasant 73-year-old female who presents today for follow-up of bilateral SI injections on 12/11/2023 and intrathecal adjustment. Today she rates her pain a 4 out of 10. Patient states that it is very hard to gauge how much improvement these did do. Patient states that she still has her chronic issues where she gets up and walks for no more than even 10 minutes and she has to stop and take a break due to the worsening pain. Patient is currently managed with morphine 4 mg/mL with a daily dose of 2.1668 mg/day. She denies any side effects from this medication. She does think it needs additional adjustment. Patient denies any new falls or injuries. Her Palomo has been reviewed and is appropriate. Physical Exam: General: Alert and oriented x3, no acute distress, pleasant and cooperative Lungs: Respirations even and unlabored, symmetrical chest expansion Eyes: PERRL Musculoskeletal: Flexion and extension of lumbar [spine] somewhat guarded secondary to pain, [antalgic gait noted] Neurological: Speech clear, no gross sensory deficit Procedure Details:: Informed consent was obtained and the risk and benefits of the procedure were explained to the patient. Patient was taken to the procedure room where noninvasive monitoring was placed including noninvasive blood pressure cuff and pulse oximeter. Patient's pump was interrogated and was reprogrammed to morphine 2.863mg/day. The patient tolerated the procedure well with no complications. Plan and Disposition:: Patient tolerated her intrathecal adjustment and reprogram with no complications and was discharged neurologically intact. Patient does already have her next intrathecal refill and reprogram on January 07. Patient will follow-up at this visit. She agrees with this plan of care. Patient has been instructed to contact the clinic with any concerns before the next appointment. Dr. Gibson has reviewed this note and agrees with this plan of care. This note was dictated using voice recognition software and make contain errors or omissions. All injections are used with Lidocaine or Bupivacaine and Depo Medrol.
== END 2023-12-26 23:59 | disposition home or self-care (01) ==
PROVIDERS: PCP Family Medicine; Visit Provider Nurse Practitioner Family
DX: M51.16 Intervertebral disc disorders with radiculopathy, lumbar region (principal); M96.1 Postlaminectomy syndrome, not elsewhere classified; M46.1 Sacroiliitis, not elsewhere classified
CPT/HCPCS: 62368; 99212; 99213; G0463

== ENCOUNTER 2024-01-01 15:45 | Outpatient (CLI) | payer MEDICARE, SELFPAY | END 2024-01-01 23:59 | disposition home or self-care (01) | LOC: LAB.DROPOF 01-02 07:12 | PROVIDERS: PCP Nurse Practitioner; Visit Provider Nurse Practitioner | DX: L97.311 Non-pressure chronic ulcer of right ankle limited to breakdown of skin (principal) | CPT/HCPCS: 87070; 87077; 87186; 87205 ==

== ENCOUNTER 2024-01-08 14:28 | Day surgery (SDC) | payer MEDICARE, SELFPAY ==
[2024-01-08 14:31] VITALS: BP 131/86; PULSE 67; RESP 16; TEMP 36.9; O2SAT 99; BMI 45.7
--- NOTE | 2024-01-08 14:38 | P.PCN_ITS ---
Procedure Date: 01/08/24 Time: 14:30 Anesthesiologist:: Fito Vuong CRNA Complications:: None Pre-procedure Diagnosis:: Degenerative disc lumbar spine multilevels. Lumbar radiculopathy. Lumbar postlaminectomy syndrome. Post-procedure Diagnosis:: Same. Indications for Procedure:: Patient is a pleasant 73-year-old female who comes our clinic today for intrathecal pain pump interrogation and refill. Patient currently being managed with morphine 5 mg/mL at a rate of 2.863mg/day. Will be changing the patient medication concentration today to morphine sulfate 7.5 mg/mL. Patient doing very well with her current settings. She is requesting an increase in her intrathecal pain pump rate. She is reporting increased low back pain with activity. Also, she reports her PCP has taken her off her NSAID. This is contributing to her overall low back pain. I will increase her intrathecal pain pump rate by 20%. Her new intrathecal pump rate will be 3.4377 mg/day. She is not reporting side effects or complications. Patient is awake alert [place] x 3. No acute distress. Flexion-extension lumbar spine somewhat guarded secondary to pain. Deep tendon reflexes upper and lower extremities normal. Motor strength upper lower extremities normal. There is no gross sensory deficit. Gait requires walker for stability. Procedure Details:: Details of the procedure explained to the patient. The patient taken procedure room placed in the sitting position. They over the pumps cleansed using chlorhexidine as a cleansing solution. The pump was interrogated. The pump was accessed with ease using a 22-gauge needle. 3 mL of solution was withdrawn discarded appropriate. The pump was then filled with 20 cc of solution containing morphine sulfate 7.5 mg/mL. Her new pump rate will be 3.4377 mg/day. Patient tolerated procedure without difficulty. No complications. Plan and Disposition:: Patient was discharged without incident.
[2024-01-08 15:01] VITALS: BP 145/54; PULSE 63; RESP 16; O2SAT 98
== END 2024-01-08 15:01 | disposition home or self-care (01) ==
PROVIDERS: PCP Family Medicine; Visit Provider Nurse Anesthetist, Certified Registered
DX: M51.16 Intervertebral disc disorders with radiculopathy, lumbar region (principal); M96.1 Postlaminectomy syndrome, not elsewhere classified
CPT/HCPCS: 62370

== ENCOUNTER 2024-02-08 10:18 | Day surgery (SDC) | payer MEDICARE, SELFPAY ==
--- NOTE | 2024-02-08 10:27 | P.PCN_ITS ---
Procedure Date: 02/08/24 Time: 10:55 Anesthesiologist:: Any Morris APRN Complications:: None Pre-procedure Diagnosis:: Degenerative disc disease of lumbar spine with lumbar radiculopathy symptoms Post-procedure Diagnosis:: Same Indications for Procedure:: Patient is a pleasant 73-year-old female who presents today for intrathecal refill and reprogram. She rates her pain a 0 out of 10 currently however does state the pain will go to an 8 with increased activity or ambulation. She st ates all of her pain is just when she is up walking. She denies any new trauma or injury. Patient is currently managed with morphine 7.5 mg/mL with a daily dose of 3.4377 mg/day. She denies any side effects from this medication.Her Palomo has been reviewed and is appropriate. Physical Exam: General: Alert and oriented x3, no acute distress, pleasant and cooperative Lungs: Respirations even and unlabored, symmetrical chest expansion Eyes: PERRL Musculoskeletal: Flexion and extension of lumbar [spine] somewhat guarded secondary to pain, [antalgic gait noted] Neurological: Speech clear, no gross sensory deficit Procedure Details:: Informed consent was obtained and the risk and benefits of the procedure were explained to the patient. The patient had noninvasive monitoring placed including noninvasive blood pressure cuff and pulse oximeter. Patient's pump was interrogated. The area over the pump was cleansed with chlorhexidine as a cleansing solution. In sterile fashion the pump was accessed with a 22-gauge needle. Approximately 5 mls of the pump solution was removed and discarded appropriately. The pump was then refilled with 20 mL's of morphine 10 mg/mL. The needle was withdrawn and a bandage was placed over the puncture site. The infusion rate was reprogrammed and increased by 10%. The patient tolerated well with no complication. Plan and Disposition:: Patient tolerated her intrathecal refill and reprogram with no complications and was discharged neurologically intact. Patient was counseled while her device is doing a bridge bolus to the new concentration level she will been able to use her bolus device. Patient acknowledges understanding agrees with this plan of care. Patient will return to clinic on her next intrathecal refill date. We will see the patient back in the clinic at the next intrathecal refill. Patient has been instructed to contact the clinic with any concerns before the next appointment. Dr. Gibson has reviewed this note and agrees with this plan of care. This note was dictated using voice recognition software and make contain errors or omissions. -- It Is medically necessary for this patient to continue to have their intrathecal pump refilled at regular intervals. This patient had an intrathecal pain pump implanted after meeting criteria of chronic intractable pain for greater than 3 months and failing conservative treatments. Patient has committed and been compliant to the treatment plan and all planned follow up care. Since implantation of the intrathecal pain pump, the patient has had decreased pain and been more functional. Oral medications have been reduced including intake of oral opioids. Patient continues to do well with intrathecal therapy with decrease in pain symptoms and increase in functional status. Stopping intrathecal medications can lead to life threatening withdrawal, seizures, cardiac arrest, severe pain, and possible . Pumps that are not refilled at regular intervals can be damages and cause and need for replacement. We continually titrate dose and concentration to optimize pain relief and function. We are limited in concentration for certain drugs to safely deliver medications through the pump and stay within the recommendations from the Polyan[employer] Consensus Committee Guidelines. Depending on dose and concentration these pumps may need to be refilled sooner than 3 months as we titrate. A UDS is needed to verify patient's compliance with our office pain contract. This is ordered based off specific treatments related to chronic pain with the potential to abuse certain medications.
[2024-02-08 10:35] VITALS: BP 166/90; PULSE 87; RESP 16; TEMP 36.6; O2SAT 97; BMI 45.7
[2024-02-08 10:47] VITALS: BP 119/52; PULSE 78; RESP 18; O2SAT 98
[2024-02-08 10:52] VITALS: BP 119/52; PULSE 78; RESP 18; O2SAT 98
[2024-02-08 11:09] VITALS: BP 121/61; PULSE 76; RESP 16; O2SAT 99
== END 2024-02-08 11:09 | disposition home or self-care (01) ==
PROVIDERS: PCP Family Medicine; Visit Provider Nurse Practitioner Family
DX: M51.16 Intervertebral disc disorders with radiculopathy, lumbar region (principal)
CPT/HCPCS: 62370

== ENCOUNTER 2024-03-14 10:04 | Day surgery (SDC) | payer MEDICARE, SELFPAY ==
--- NOTE | 2024-03-14 10:15 | P.PCN_ITS ---
Procedure Date: 03/14/24 Time: 10:39 Anesthesiologist:: Any Morris APRN Complications:: None Pre-procedure Diagnosis:: Degenerative disc disease of lumbar spine with lumbar radiculopathy symptoms Post-procedure Diagnosis:: Same Indications for Procedure:: Patient is a pleasant 73-year-old female who presents today for intrathecal refill and reprogram. Today she rates her pain at a 0 out of 10 while she is seated. Patient states the pain is all still when she gets up walking and mov ing. Patient is currently managed with morphine 10 mg/mL with a daily dose of 3.813 mg/day. She denies any side effects from this medication. She is requesting an increase. Her Palomo has been reviewed and is appropriate. Physical Exam: General: Alert and oriented x3, no acute distress, pleasant and cooperative Lungs: Respirations even and unlabored, symmetrical chest expansion Eyes: PERRL Musculoskeletal: Flexion and extension of lumbar [spine] somewhat guarded secondary to pain, [antalgic gait noted] Neurological: Speech clear, no gross sensory deficit Procedure Details:: Informed consent was obtained and the risk and benefits of the procedure were explained to the patient. The patient had noninvasive monitoring placed including noninvasive blood pressure cuff and pulse oximeter. Patient's pump was interrogated. The area over the pump was cleansed with chlorhexidine as a cleansing solution. In sterile fashion the pump was accessed with a 22-gauge needle. Approximately 6.3 mls of the pump solution was removed and discarded appropriately. The pump was then refilled with 20 mL's of morphine 10 mg/mL. The needle was withdrawn and a bandage was placed over the puncture site. The infusion rate was reprogrammed and increased 20%. The patient tolerated well with no complication. Plan and Disposition:: Patient tolerated the procedure well with no complications and was discharged neurologically intact. Patient will return to clinic on or before their next intrathecal refill date. We will see the patient back in the clinic at the next intrathecal refill. Patient has been instructed to contact the clinic with any concerns before the next appointment. Dr. Gibson has reviewed this note and agrees with this plan of care. This note was dictated using voice recognition software and make contain errors or omissions. -- It Is medically necessary for this patient to continue to have their intrathecal pump refilled at regular intervals. This patient had an intrathecal pain pump implanted after meeting criteria of chronic intractable pain for greater than 3 months and failing conservative treatments. Patient has committed and been compliant to the treatment plan and all planned follow up care. Since implantation of the intrathecal pain pump, the patient has had decreased pain and been more functional. Oral medications have been reduced including intake of oral opioids. Patient continues to do well with intrathecal therapy with decrease in pain symptoms and increase in functional status. Stopping intrathecal medications can lead to life threatening withdrawal, seizures, cardiac arrest, severe pain, and possible . Pumps that are not refilled at regular intervals can be damages and cause and need for replacement. We continually titrate dose and concentration to optimize pain relief and function. We are limited in concentration for certain drugs to safely deliver medications through the pump and stay within the recommendations from the Polyanalgesic Consensus Committee Guidelines. Depending on dose and concentration these pumps may need to be refilled sooner than 3 months as we titrate. A UDS is needed to verify patient's compliance with our office pain contract. This is ordered based off specific treatments related to chronic pain with the potential to abuse certain medications.
[2024-03-14 10:18] VITALS: BP 188/93; PULSE 79; RESP 16; O2SAT 94; BMI 26.5
[2024-03-14 10:33] VITALS: BP 125/40; PULSE 67; RESP 18; O2SAT 96
[2024-03-14 10:34] VITALS: BP 125/40; PULSE 67; RESP 18; O2SAT 96
[2024-03-14 10:46] VITALS: BP 114/67; PULSE 67; RESP 16; O2SAT 93
== END 2024-03-14 10:46 | disposition home or self-care (01) ==
PROVIDERS: PCP Family Medicine; Visit Provider Nurse Practitioner Family
DX: M51.16 Intervertebral disc disorders with radiculopathy, lumbar region (principal)
CPT/HCPCS: 62370

== ENCOUNTER 2024-04-11 10:21 | Day surgery (SDC) | payer MEDICARE, SELFPAY ==
[2024-04-11 10:33] VITALS: BP 119/75; PULSE 69; RESP 16; TEMP 36.8; O2SAT 100; BMI 44.2
--- NOTE | 2024-04-11 10:44 | EXP.PAIN.PRO ---
Procedure Date: 04/11/24 Time: 10:44 Anesthesiologist:: Any Morris APRN Complications:: None Pre-procedure Diagnosis:: Degenerative disc disease of lumbar spine with lumbar radiculopathy symptoms, spinal stenosis with neurogenic claudication symptoms Post-procedure Diagnosis:: Same Indications for Procedure:: Patient is a pleasant 73-year-old female who presents today for intrathecal refill and reprogram. Today she rates her pain a 0 out of 10 while seated however does state that her pain still goes up to a 7 or more with ambulation and walking. She denies any new injuries or falls. Patient is currently managed with morphine 10 mg/mL with a daily dose of 4.54 mg/day. Patient would like an increase today. Her Palomo has been reviewed and is appropriate. Physical Exam: General: Alert and oriented x3, no acute distress, pleasant and cooperative Lungs: Respirations even and unlabored, symmetrical chest expansion Eyes: PERRL Musculoskeletal: Flexion and extension of lumbar [spine] somewhat guarded secondary to pain, [antalgic gait noted] Neurological: Speech clear, no gross sensory deficit Procedure Details:: Informed consent was obtained and the risk and benefits of the procedure were explained to the patient. The patient had noninvasive monitoring placed including noninvasive blood pressure cuff and pulse oximeter. Patient's pump was interrogated. The area over the pump was cleansed with chlorhexidine as a cleansing solution. In sterile fashion the pump was accessed with a 22-gauge needle. Approximately 7.1 mls of the pump solution was removed and discarded appropriately. The pump was then refilled with 20 mL's of morphine 10 mg/mL. The needle was withdrawn and a bandage was placed over the puncture site. The infusion rate was reprogrammed and increased 20% to morphine 5.448 mg/day. The patient tolerated well with no complication. Plan and Disposition:: Patient tolerated the procedure well with no complications and was discharged neurologically intact. I did discuss with the patient that I would like to add bupivacaine into her intrathecal pump medication for her next refill. She is agreeable to this option. We will plan on adding bupivacaine 5 mg/mL with a starting dose of 0.5 mg/day. Patient will return to clinic on or before their next intrathecal refill date. We will see the patient back in the clinic at the next intrathecal refill. Patient has been instructed to contact the clinic with any concerns before the next appointment. Dr. Gibson has reviewed this note and agrees with this plan of care. This note was dictated using voice recognition software and make contain errors or omissions. -- It Is medically necessary for this patient to continue to have their intrathecal pump refilled at regular intervals. This patient had an intrathecal pain pump implanted after meeting criteria of chronic intractable pain for greater than 3 months and failing conservative treatments. Patient has committed and been compliant to the treatment plan and all planned follow up care. Since implantation of the intrathecal pain pump, the patient has had decreased pain and been more functional. Oral medications have been reduced including intake of oral opioids. Patient continues to do well with intrathecal therapy with decrease in pain symptoms and increase in functional status. Stopping intrathecal medications can lead to life threatening withdrawal, seizures, cardiac arrest, severe pain, and possible . Pumps that are not refilled at regular intervals can be damages and cause and need for replacement. We continually titrate dose and concentration to optimize pain relief and function. We are limited in concentration for certain drugs to safely deliver medications through the pump and stay within the recommendations from the Polyanalgesic Consensus Committee Guidelines. Depending on dose and concentration these pumps may need to be refilled sooner than 3 months as we titrate. A UDS is needed to verify patient's compliance with our office pain contract. This is ordered based off specific treatments related to chronic pain with the potential to abuse certain medications.
[2024-04-11 10:49] VITALS: BP 140/47; PULSE 69; RESP 18; O2SAT 95
[2024-04-11 10:51] VITALS: BP 140/47; PULSE 69; RESP 18; O2SAT 95
[2024-04-11 11:13] VITALS: BP 104/67; PULSE 65; RESP 16; O2SAT 92
== END 2024-04-11 11:13 | disposition home or self-care (01) ==
PROVIDERS: PCP Family Medicine; Visit Provider Nurse Practitioner Family
DX: M51.16 Intervertebral disc disorders with radiculopathy, lumbar region (principal); M48.062 Spinal stenosis, lumbar region with neurogenic claudication
CPT/HCPCS: 62370

== ENCOUNTER 2024-05-09 10:17 | Day surgery (SDC) | payer MEDICARE, SELFPAY ==
--- NOTE | 2024-05-09 10:19 | P.PCN_ITS ---
Procedure Date: 05/09/24 Time: 10:40 Anesthesiologist:: Any Morris APRN Complications:: None Pre-procedure Diagnosis:: Degenerative disc disease of lumbar spine with lumbar radiculopathy symptoms, spinal stenosis with neurogenic claudication symptoms, chronic pain syndrome Post-procedure Diagnosis:: Same Indications for Procedure:: Patient is a pleasant 68-year-old female who presents today for intrathecal refill and reprogram. Today she rates her pain 0 out of 10 while seated. Pat ient denies any new trauma or injury. Patient is currently managed with morphine 10 mg/mL with a daily dose of 5.448 mg/day. She denies any side effects. Her Palomo has been reviewed and is appropriate. Physical Exam: General: Alert and oriented x3, no acute distress, pleasant and cooperative Lungs: Respirations even and unlabored, symmetrical chest expansion Eyes: PERRL Musculoskeletal: Flexion and extension of lumbar [spine] somewhat guarded secondary to pain, [antalgic gait noted] Neurological: Speech clear, no gross sensory deficit Procedure Details:: Informed consent was obtained and the risk and benefits of the procedure were explained to the patient. The patient had noninvasive monitoring placed including noninvasive blood pressure cuff and pulse oximeter. Patient's pump was interrogated. The area over the pump was cleansed with chlorhexidine as a cleansing solution. In sterile fashion the pump was accessed with a 22-gauge needle. Approximately 4.8 mls of the pump solution was removed and discarded appropriately. The pump was then refilled with 20 mL's of morphine 10 mg/mL and bupivacaine 5 mg/mL. The needle was withdrawn and a bandage was placed over the puncture site. The infusion rate was reprogrammed and changed to morphine 5.448 mg/day and bupivacaine 2.7239 mg/day. The patient tolerated well with no comp lication. Plan and Disposition:: Patient tolerated the procedure well with no complications and was discharged neurologically intact. Patient will return to clinic on or before their next intrathecal refill date. We will see the patient back in the clinic at the next intrathecal refill. Patient has been instructed to contact the clinic with any concerns before the next appointment. Dr. Gibson has reviewed this note and agrees with this plan of care. This note was dictated using voice recognition software and make contain errors or omissions. -- It Is medically necessary for this patient to continue to have their intrathecal pump refilled at regular intervals. This patient had an intrathecal pain pump implanted after meeting criteria of chronic intractable pain for greater than 3 months and failing conservative treatments. Patient has committed and been compliant to the treatment plan and all planned follow up care. Since implantation of the intrathecal pain pump, the patient has had decreased pain and been more functional. Oral medications have been reduced including intake of oral opioids. Patient continues to do well with intrathecal therapy with decrease in pain symptoms and increase in functional status. Stopping intrathecal medications can lead to life threatening withdrawal, seizures, cardiac arrest, severe pain, and possible . Pumps that are not refilled at regular intervals can be damages and cause and need for replacement. We continually titrate dose and concentration to optimize pain relief and function. We are limited in concentration for certain drugs to safely deliver medications through the pump and stay within the recommendations from the Polyanalgesic Consensus Committee Guidelines. Depending on dose and concentration these pumps may need to be refilled sooner than 3 months as we titrate. A UDS is needed to verify patient's compliance with our office pain contract. This is ordered based off specific treatments related to chronic pain with the potential to abuse certain medications.
[2024-05-09 10:35] VITALS: BP 138/72; PULSE 73; RESP 16; TEMP 36.9; O2SAT 99; BMI 43.9
[2024-05-09 10:38] VITALS: BP 114/48; PULSE 69; RESP 18; O2SAT 97
[2024-05-09 10:39] VITALS: BP 114/48; PULSE 69; RESP 18; O2SAT 97
[2024-05-09 10:51] VITALS: BP 126/68; PULSE 80; RESP 16; O2SAT 99
== END 2024-05-09 10:51 | disposition home or self-care (01) ==
PROVIDERS: PCP Family Medicine; Visit Provider Nurse Practitioner Family
DX: M51.16 Intervertebral disc disorders with radiculopathy, lumbar region (principal); M48.062 Spinal stenosis, lumbar region with neurogenic claudication; G89.4 Chronic pain syndrome
CPT/HCPCS: 62370

== ENCOUNTER 2024-06-06 11:17 | Day surgery (SDC) | payer MEDICARE, SELFPAY ==
[2024-06-06 11:35] VITALS: BP 110/38; PULSE 65; RESP 18; O2SAT 96; BMI 43.9
--- NOTE | 2024-06-06 11:46 | P.HP_ITS ---
History of Present Illness *Admission Date: 06/06/24 *Reason for visit:: Intrathecal refill; DDD *History of present illness: Degenerative disc disease [facility] Disclaimer: The information contained in this section may have been updated after the patient was seen, as this information can be updated by other users. Medical History History of breast cancer Seen by H&O 04/2023 GERD (gastroesophageal reflux disease) YONNY (obstructive sleep apnea) Fibromyalgia Rheumatoid arthritis Hypertension Hyperlipidemia Diabetes mellitus, type 2 Surgical History H/O left mastectomy History of laparoscopic cholecystectomy History of total knee replacement History of mastectomy, total Family History Other Family history of diabetes mellitus type II Social History Smoking Status: Never smoker second hand exposure: No alcohol intake: never substance use type: denies use current occupational status: other Travel in the last 8 weeks?: None household members: spouse housing: house marital status: education level: high school service: No current occupational exposures/hazards: No caffeine: Yes do you feel safe at home: Yes victim of physical abuse: No victim of emotional abuse: No victim of sexual abuse: No would you like helpful sources: No Have you lived/traveled outside [place] in past 30 days?: No Contact w/someone who lives/traveled outside [place] past 30 days?: No Exposure to someone with infectious disease in past 14 days?: No Do you have a fever (greater than 100.4 F or 38 C)?: No Have you tested positive for COVID-19?: No Exposed to someone with COVID-19 in past 14 days?: No Do you have a sore throat?: No Do you have a cough?: No Do you have any weakness?: No Do you have any diarrhea?: No Are you experiencing any unusual bleeding?: No Do you have any muscle aches/pain?: No Do you have any abdominal pain?: No Are you experiencing loss of taste or smell?: No Other Medical History Have you received the Flu Vaccine for this season: No Have you received the Pneumonia Vaccine: No Review of Systems Review of Systems Review of systems:: pertinent systems reviewed and negative unless documented below Review of systems (narrative): Review of Systems: General: No recent weight changes, no fever, no sleep disturbances Respiratory: No cough, no shortness of air, no recurring pulmonary infections Cardiovascular/peripheral vascular: No chest pain, no palpitations, no edema, no shortness of breath Gastrointestinal: No new onset incontinence, normal bowel movements reported Genitourinary: No new onset incontinence Musculoskeletal: Chronic back pain Psychiatric: [Normal mood/affect] Neurological: [Denies weakness in extremities], [denies balance issues] Meds Home Medications and Allergies Home Medications ?Medication ?Instructions ?Recorded ?Confirmed ?Type duloxetine 60 mg capsule,delayed 90 mg PO DAILY Depression 04/13/17 06/06/24 History release (Cymbalta) lisinopril 20 mg tablet 40 mg PO DAILY blood pressure 04/13/17 06/06/24 History meloxicam 15 mg tablet 15 mg PO DAILY Pain 04/13/17 06/06/24 History metoprolol succinate 50 mg 100 mg PO BID blood pressure 04/13/17 06/06/24 History tablet,extended release 24 hr aspirin 81 mg tablet,delayed 81 mg PO DAILY Heart disease 10/24/17 06/06/24 History release (Aspir-) atorvastatin 80 mg tablet 80 mg PO HS Cholesterol 08/25/21 06/06/24 History glipizide 10 mg tablet 10 mg PO BID Diabetes 08/25/21 06/06/24 History hydrochlorothiazide 12.5 mg tablet 12.5 mg PO DAILY fluid 08/25/21 06/06/24 History magnesium oxide 400 mg (241.3 mg 400 mg PO BID Supplement 08/25/21 06/06/24 History magnesium) tablet pantoprazole 40 mg tablet,delayed 40 mg PO DAILY GERD 08/25/21 06/06/24 History release pioglitazone 30 mg tablet 30 mg PO DAILY Diabetes 08/25/21 06/06/24 History potassium chloride 20 mEq 20 meq PO WEEKLY Supplement 08/25/21 06/06/24 History tablet,extended release buspirone 15 mg tablet 15 mg PO DAILY Anxiety 07/14/22 06/06/24 History dapagliflozin propanediol 10 mg 10 mg PO DAILY Diabetes 07/14/22 06/06/24 History tablet (Farxiga) melatonin 10 mg tablet 10 mg PO HS PRN Sleep 07/14/22 06/06/24 History cetirizine 10 mg tablet (Zyrtec) 10 mg PO DAILY PRN . 04/02/23 06/06/24 History duloxetine 30 mg capsule,delayed 30 mg PO DAILY 04/02/23 06/06/24 History release lactobacillus combination no.9 4 4,000 mmu cells PO DAILY 04/02/23 06/06/24 History billion cell capsule (Adult 50 Plus Probiotic) polyethylene glycol 3350 17 17 g PO DAILY 04/02/23 06/06/24 History gram/dose oral powder (Miralax) furosemide 20 mg tablet 40 mg PO .COMPLEX fluid retention 04/12/23 06/06/24 History mupirocin 2 % topical ointment 1 applic topical BID infection 14 01/01/24 06/06/24 Rx days #15 grams doxycycline hyclate 100 mg capsule 100 mg PO BID infection 10 days 01/13/24 06/06/24 Rx #20 caps ondansetron 4 mg disintegrating 4 mg PO Q8H PRN nausea and 01/25/24 06/06/24 Rx tablet vomiting #30 tabs hydrocortisone 1 % topical cream 1 applic topical BID PRN rash 04/02/24 06/06/24 Rx (Cortizone-10) #28.4 grams New Prescriptions to Start Prescriptions: Allergies Allergy/AdvReac Type Severity Reaction Status Date / Time clindamycin Allergy Severe Chest Pain Verified 04/02/24 13:12 Exam Data for Last 24 hours Vital signs and Labs for Last 24 Hours: Pulse Resp BP Pulse Ox O2 Del Method 65 18 110/38 L 96 Room Air 06/06/24 11:35 06/06/24 11:35 06/06/24 11:35 06/06/24 11:35 06/06/24 11:35 I & O for Last 24 hours: Intake & Output 06/03/24 06/04/24 06/05/24 06/06/24 23:59 23:59 23:59 23:59 Weight 240 lb Constitutional Constitutional: no acute distress *Routine HEENT Exam Head: Present normocephalic and atraumatic Eye: Present PERRL ENT: Present mucous membranes moist *Routine Neck Exam Neck: Present supple *Routine Respiratory Exam Respiratory: Present CTA bilaterally *Routine Cardiovascular Exam Cardiovascular: Present RRR *Routine Abdominal Exam Abdominal: Present soft *Routine Rectal Exam Rectal:: deferred *Routine Genitalia Exam Genitalia:: normal female Routine Back/Spine/Pelvis Exam Back/Spine: Present pain with flexion *Routine Skin Exam Skin: Present intact, dry and warm *Routine Neurological Exam Neurological: Present alert and oriented X3 Routine Psychiatric Exam Psychiatric: Present normal affect and normal thought process Assessment and Plan *Assessment and plan (1) Degenerative disc disease, lumbar: Status: Acute Qualifiers: Disc-related pain type: unspecified whether pain present Qualified Code(s): M51.369 - Other intervertebral disc degeneration, lumbar region without mention of lumbar back pain or lower extremity pain Category: Medical Code(s): M51.369 - Other intervertebral disc degeneration, lumbar region without mention of lumbar back pain or lower extremity pain (2) Lumbar radiculopathy: Status: Acute Category: Medical Code(s): M54.16 - Radiculopathy, lumbar region Plan Patient has been instructed to contact the clinic with any concerns before the next appointment. Dr. Gibson has reviewed this note and agrees with this plan of care. This note was dictated using voice recognition software and make contain errors or omissions. All injections are used with Lidocaine, Bupivacaine and dexamethasone. Occasionally urine drug screen is needed to verify patient's compliance with our office pain contract. This is ordered based off specific treatments related to chronic pain with the potential to abuse certain medications.
--- NOTE | 2024-06-06 11:47 | P.PCN_ITS ---
Procedure Date: 06/06/24 Time: 11:57 Anesthesiologist:: Any Morris APRN Complications:: None Pre-procedure Diagnosis:: Degenerative disc disease of lumbar spine with lumbar radiculopathy symptoms, spinal stenosis with neurogenic claudication symptoms Post-procedure Diagnosis:: Same Indications for Procedure:: Patient is a pleasant 73-year-old female who presents today for intrathecal refill and reprogram. Today she rates her pain a 0 while seated and goes to an 8 out of 10 when she is up walking. She denies any new falls or injuries.Patient is currently managed with morphine 2 mg/mL with a daily dose of 5.448 mg/day and bupivacaine 5 mg/mL with a daily dose of 2.7239 mg/day. She denies any side effects. She is requesting an increase. Her Palomo has been reviewed and is appropriate. Physical Exam: General: Alert and oriented x3, no acute distress, pleasant and cooperative Lungs: Respirations even and unlabored, symmetrical chest expansion Eyes: PERRL Musculoskeletal: Flexion and extension of lumbar [spine] somewhat guarded secondary to pain, [antalgic gait noted] Neurological: Speech clear, no gross sensory deficit Procedure Details:: Informed consent was obtained and the risk and benefits of the procedure were ex plained to the patient. The patient had noninvasive monitoring placed including noninvasive blood pressure cuff and pulse oximeter. Patient's pump was interrogated. The area over the pump was cleansed with chlorhexidine as a cleansing solution. In sterile fashion the pump was accessed with a 22-gauge needle. Approximately 5.1 mls of the pump solution was removed and discarded appropriately. The pump was then refilled with 20 mL's of morphine 10 mg/mL and bupivacaine 5 mg/mL. The needle was withdrawn and a bandage was placed over the puncture site. The infusion rate was reprogrammed and increased 20 percent to morphine 6.53 mg/day and bupivacaine 3.265 mg/day. The patient tolerated well with no complication. Plan and Disposition:: Patient tolerated the procedure well with no complications and was discharged neurologically intact. Patient will return to clinic on or before their next intrathecal refill date. We will see the patient back in the clinic at the next intrathecal refill. Patient has been instructed to contact the clinic with any concerns before the next appointment. Dr. Gibson has reviewed this note and agrees with this plan of care. This note was dictated using voice recognition software and make contain errors or omissions. -- It Is medically necessary for this patient to continue to have their intrathecal pump refilled at regular intervals. This patient had an intrathecal pain pump implanted after meeting criteria of chronic intractable pain for greater than 3 months and failing conservative treatments. Patient has committed and been compliant to the treatment plan and all planned follow up care. Since implantation of the intrathecal pain pump, the patient has had decreased pain and been more functional. Oral medications have been reduced including intake of oral opioids. Patient continues to do well with intrathecal therapy with decrease in pain symptoms and increase in functional status. Stopping intrathecal medications can lead to life threatening withdrawal, seizures, cardiac arrest, severe pain, and possible . Pumps that are not refilled at regular intervals can be damages and cause and need for replacement. We continually titrate dose and concentration to optimize pain relief and function. We are limited in concentration for certain drugs to safely deliver medications through the pump and stay within the recommendations from the Polyanalgesic Consensus Committee Guidelines. Depending on dose and concentration these pumps may need to be refilled sooner than 3 months as we titrate. A UDS is needed to verify patient's compliance with our office pain contract. This is ordered based off specific treatments related to chronic pain with the potential to abuse certain medications.
[2024-06-06 11:53] VITALS: BP 139/68; PULSE 70; RESP 18; O2SAT 96
[2024-06-06 12:10] VITALS: BP 110/67; PULSE 60; RESP 16; O2SAT 97
== END 2024-06-06 12:10 | disposition home or self-care (01) ==
PROVIDERS: PCP Family Medicine; Visit Provider Nurse Practitioner Family
DX: M51.16 Intervertebral disc disorders with radiculopathy, lumbar region (principal); M48.062 Spinal stenosis, lumbar region with neurogenic claudication
CPT/HCPCS: 62370; 99221

== ENCOUNTER 2024-06-25 09:34 | Outpatient (POV) | payer MEDICARE, SELFPAY ==
--- OUTSIDE RECORDS SUMMARY | 2024-06-25 09:38 | XMS_ITS | Data Portability ---
Author Organization [facility] JOHN Ann [place] Address [address] [place] [address] Care Team Providers Care Production Assistant Name Role Phone MARY GOVEA Primary Care Provider GIULIANA AMES Gl Accountant Assessment No assessment recorded. Plan of Treatment Reminders Order Date Submit Date Provider Last Modified By Organization Details Last Modified Time Details Appointments None recorded. Lab None recorded. Referral physical therapy back referral 2018 019 [email or web address] [facility], [address], [place], [address], 9 11:08:50 Procedures None recorded. Surgeries None recorded. Imaging None recorded. Medication Orders celecoxib 200 mg capsule 2018 019 [email or web address] [id number], [address] , [place], [place], [id number], 9 16:00:11 Patient TargetsNo targets recorded. Patient InstructionsNo instructions recorded. Reason for Referral Referring Physician: Emile soto, Rheumatology, Encounter Date: 07/05/2018 Procedures Surgical History Date Name Laterality Status Provider Name and Address Organization Details Recorded Time total knee replacement completed Mazin Lloyd [facility] 07/05/2018 08:52:02 Imaging Results None recorded. Procedure Notes None recorded. Medical Equipment None Reported. Allergies No known drug allergies Medications Name Sig Start Date Stop Date Status Note LastModified by Organization Details LastModified Time celecoxib 200 mg capsule 08/15 completed denied needs to try Sulindac first Not Available Not Available Not Available cyclobenz aprine 10 mg tablet 07/05 completed Not Available Not Available Not Available fluconazo le 150 mg tablet active Not Available Not Available Not Available metoprolo l succinate ER 50 mg tablet,ex tended release 24 hr active Not Available Not Available Not Available hydrocodo ne 5 mg-acetam inophen 325 mg tablet active Not Available Not Available Not Available meloxicam 15 mg tablet active Not Available Not Available Not Available sulindac 150 mg tablet take 1 tablet by mouth twice a day 2018 active Not Available Not Available Not Avai lable sulfameth oxazole 800 mg-trimet hoprim 160 mg tablet active Not Available Not Available Not Available tramadol 50 mg tablet 07/05 completed Not Available Not Available Not Available simvastat in 40 mg tablet Take 1 tablet every day by oral route. active Not Available Not Available No t Available trazodone 100 mg tablet active Not Available Not Available Not Available promethaz ine 25 mg tablet 07/05 completed Not Available Not Available Not Available omeprazol e 20 mg capsule,d elayed release active Not Available Not Available Not Available methylpre dnisolone 4 mg tablets in a dose pack 07/05 completed Not Available Not Available Not Available lisinopri l 40 mg tablet active Not Available Not Available Not Available fluticaso ne propionat e 50 mcg/actua tion nasal spray,mery pension 07/05 completed Not Available Not Available Not Available metformin ER 500 mg tablet,ex tended release 24 hr active Not Available Not Available Not Available ipratropi um bromide 21 mcg (0.03 %) nasal spray active Not Available Not Available Not Available amoxicill in 875 mg-potass ium clavulana te 125 mg tablet active Not Available Not Available Not Available escitalop clyde 10 mg tablet 07/05 completed Not Available Not Available Not Available nitrofura ntoin monohydra te/macroc rystals 100 mg capsule active Not Available Not Available Not Available duloxetin e 60 mg capsule,d elayed release Take 1 capsule every day by oral route. active Not Available Not Available No t Available Vaqta (PF) 50 unit/mL intramusc ular syringe active Not Available Not Available Not Available Vaqta (PF) 50 unit/mL intramusc ular suspensio n 07/05 completed Not Available Not Available Not Available Vitals Date Recorded Heart rate Body weight Systolic blood pressure Diastolic blood pressure Provider Name and Address Organization Details Last Updated DateTime 07/05/2018 74 /min 53199.92 g 166 mm[Hg] 74 mm[Hg] Mazin Lloyd [facility] 07/05/2018 08:48:35 Social History Question Answer Notes LastModified by Organizat ion Details LastModified Time Tobacco Smoking Status Never Smoker Mazin Lloyd [facility] 07/05/2018 08:51:29 What Was The Date Of Your Most Recent Tobacco Screening? 07/05/2018 Information n ot available 03/25/2019 Sex: Unknown Functional Status None recorded. Mental Status None recorded. Family History Relationship Description Onset Age of this Age Resolved Age Notes LastModified by Organization Details LastModified Time Unspecified Relation Arthritis [email or web address] Not available 08:51:10 Unspecified Relation Fibromyalgia [email or web address] Not available 07/05/2018 08:51:20 Medical History Condition Response Diabetes Y Bleeding Disorder N Arthritis Y Emphysema N Heart Disease N Acid Reflux (GERD) Y Rheumatoid Arthritis N Hypertension Y COPD N Asthma N Gynecological HistoryNo gynecological history recorded. Obstetrics History GPAL:G 0 P 0 0 0 0 Past Encounters Encounter ID Performer Location Encounter Start Date Encounter Closed Date Diagnosis/Indication Diagnosis SNOMED-CT Code Diagnosis ICD10 Code Diagnosis Note [id number] EMILE AMES MD [facility] [address] [place] [address] 07/05/2018 08:36:42 07/08/2018 11:14:36 Chronic low back pain 383151138 M54.5 67-year-ol d female with chronic lower back pain. Historical ly, was followed by pain management clinic at [facility]. She has tried and failed several epidural injections in the spine. Similarly she has tried different pain management modalities including opioids medication s without any help. Most recently she was placed on a pain pump with Dilaudid which made her extremely uncomforta ble along with feeling of to extreme fogginess. I had a long discussion with the patient about chronic nature of her mechanical lower back pain. I emphasized on lifestyle modificati on including weight loss and physical therapy. I gave her a prescripti on for physical therapy. However she is a bit reluctant to do physical therapy due to the cost. I suggested her to perform some exercises at home. Further I gave her prescripti on for celecoxib 200 mg capsule one to 2 a day as needed for pain management . I do not see indication s with the use of any type of opioid pain medication s. Health Concerns Section Related Observation LastModified by Organization Detai ls LastModified Time None Recorded Concern Status LastModified by Organization Details LastModified Time None Recorded Advance Directives Directive None Recorded Payers Insurance Date Sequence Insurance Name Policy Number Policy Nova Covered Member ID Nova Member ID Guarantor Name 12/31/2019 1 [email or web address] (MEDICARE) Soraya Muhammad Kavita [id number] Soraya Kavita Notes Date Note Type Note Provider Name and Address Organization Details Recorded Time 07/05/2018 text/html seen as a new patient. Back pains x 20 years. Followed by pain management [facility]. She has had multiple steroid injections in the past. she had a pain pump last year which made her very foggy , lost interest and had to take the pain pump out! further, she is a history of diabetes mellitus along with peripheral neuropathic symptoms. She has poor sleep for which she takes trazodone at bedtime. She denies any recent injuries or falls. She denies any nocturnal pain symptoms. EMILE AMES MD [address], [place], [address], [facility] 07/07/2018 16:49:32 OBGyn Episode No OBEpisode recorded.
--- NOTE | 2024-06-25 10:22 | EXP.PAIN.PRO ---
Procedure Date: 06/25/24 Time: 10:12 Anesthesiologist:: Any Morris APRN Complications:: None Pre-procedure Diagnosis:: Degenerative disc disease of lumbar spine with lumbar radiculopathy symptoms, spinal stenosis with neurogenic claudication symptoms Post-procedure Diagnosis:: Same Indications for Procedure:: Patient is a pleasant 73-year-old female who presents today for worsening low back and leg pain. Patient is requesting an adjustment on her intrathecal pump. Patient does feel like since adding the bupivacaine it has seemed to aggravate some of her overall symptoms. Patient is currently managed with morphine 10 mg/mL with a daily dose of 6.53 mg/day and bupivacaine 5 mg/mL with a daily dose of 3.265 mg/day. Patient is asking about additional options that we may be able to do. Her Palomo has been reviewed and is appropriate. Physical Exam: General: Alert and oriented x3, no acute distress, pleasant and cooperative Lungs: Respirations even and unlabored, symmetrical chest expansion Eyes: PERRL Musculoskeletal: Flexion and extension of lumbar [spine] somewhat guarded secondary to pain, [antalgic gait noted] Neurological: Speech clear, no gross sensory deficit Procedure Details:: Informed consent was obtained and the risk and benefits of the procedure were explained to the patient. Patient did have noninvasive monitoring was placed including noninvasive blood pressure cuff and pulse oximeter. Patient's pump was interrogated and was reprogrammed to morphine 7.831 mg/day and bupivacaine 3.9153 mg/day. The patient tolerated the procedure well with no complications. Plan and Disposition:: Patient tolerated the procedure well with no complications and was discharged neurologically intact. I did discuss with the patient multiple options that in future we can definitely take back out the bupivacaine if she feels like that is more bothersome. Patient denied any heart or kidney issues today and does state in the past she was on Mobic for years. I did discuss that we can add diclofenac 50 mg twice daily and that in future there is always the option as well to change from morphine to Dilaudid. We will continue to follow-up on this. Patient will return to clinic on or before their next intrathecal refill date. We will see the patient back in the clinic at the next intrathecal refill. Patient has been instructed to contact the clinic with any concerns before the next appointment. Dr. Gibson has reviewed this note and agrees with this plan of care. This note was dictated using voice recognition software and make contain errors or omissions. -- It Is medically necessary for this patient to continue to have their intrathecal pump refilled at regular intervals. This patient had an intrathecal pain pump implanted after meeting criteria of chronic intractable pain for greater than 3 months and failing conservative treatments. Patient has committed and been compliant to the treatment plan and all planned follow up care. Since implantation of the intrathecal pain pump, the patient has had decreased pain and been more functional. Oral medications have been reduced including intake of oral opioids. Patient continues to do well with intrathecal therapy with decrease in pain symptoms and increase in functional status. Stopping intrathecal medications can lead to life threatening withdrawal, seizures, cardiac arrest, severe pain, and possible . Pumps that are not refilled at regular intervals can be damages and cause and need for replacement. We continually titrate dose and concentration to optimize pain relief and function. We are limited in concentration for certain drugs to safely deliver medications through the pump and stay within the recommendations from the Polyanalgesic Consensus Committee Guidelines. Depending on dose and concentration these pumps may need to be refilled sooner than 3 months as we titrate. A UDS is needed to verify patient's compliance with our office pain contract. This is ordered based off specific treatments related to chronic pain with the potential to abuse certain medications.
[2024-06-25 11:15] VITALS: BP 135/81; PULSE 78; RESP 14; O2SAT 99; BMI 43.9
== END 2024-06-25 23:59 | disposition home or self-care (01) ==
PROVIDERS: PCP Family Medicine; Visit Provider Nurse Practitioner Family
DX: M51.16 Intervertebral disc disorders with radiculopathy, lumbar region (principal); M48.062 Spinal stenosis, lumbar region with neurogenic claudication
CPT/HCPCS: 62368; 99212; 99213; G0463

== ENCOUNTER 2024-06-26 08:41 | Day surgery (SDC) | payer MEDICARE, SELFPAY ==
--- NOTE | 2024-06-26 08:43 | EXP.HP ---
History of Present Illness *Admission Date: 06/26/24 *Reason for visit:: Intrathecal refill; DDD *History of present illness: Same [facility] Disclaimer: The information contained in this section may have been updated after the patient was seen, as this information can be updated by other users. Medical History History of breast cancer Seen by H&O 04/2023 GERD (gastroesophageal reflux disease) YONNY (obstructive sleep apnea) Fibromyalgia Rheumatoid arthritis Hypertension Hyperlipidemia Diabetes mellitus, type 2 Surgical History H/O left mastectomy History of laparoscopic cholecystectomy History of total knee replacement History of mastectomy, total Family History Other Family history of diabetes mellitus type II Social History Smoking Status: Never smoker second hand exposure: No alcohol intake: never substance use type: denies use current occupational status: other Travel in the last 8 weeks?: None household members: spouse housing: house marital status: education level: high school service: No current occupational exposures/hazards: No caffeine: Yes do you feel safe at home: Yes victim of physical abuse: No victim of emotional abuse: No victim of sexual abuse: No would you like helpful sources: No Have you lived/traveled outside [place] in past 30 days?: No Contact w/someone who lives/traveled outside US past 30 days?: No Exposure to someone with infectious disease in past 14 days?: No Do you have a fever (greater than 100.4 F or 38 C)?: No Have you tested positive for COVID-19?: No Exposed to someone with COVID-19 in past 14 days?: No Do you have a sore throat?: No Do you have a cough?: No Do you have any weakness?: No Do you have any diarrhea?: No Are you experiencing any unusual bleeding?: No Do you have any muscle aches/pain?: No Do you have any abdominal pain?: No Are you experiencing loss of taste or smell?: No Other Medical History Have you received the Flu Vaccine for this season: Yes Have you received the Pneumonia Vaccine: Yes Review of Systems Review of Systems Review of systems:: pertinent systems reviewed and negative unless documented below Review of systems (narrative): Review of Systems: General: No recent weight changes, no fever, no sleep disturbances Respiratory: No cough, no shortness of air, no recurring pulmonary infections Cardiovascular/peripheral vascular: No chest pain, no palpitations, no edema, no shortness of breath Gastrointestinal: No new onset incontinence, normal bowel movements reported Genitourinary: No new onset incontinence Musculoskeletal: Chronic back pain Psychiatric: [Normal mood/affect] Neurological: [Denies weakness in extremities], [denies balance issues] Meds Home Medications and Allergies Home Medications ?Medication ?Instructions ?Recorded ?Confirmed ?Type duloxetine 60 mg capsule,delayed 90 mg PO DAILY Depression 04/13/17 06/25/24 History release (Cymbalta) lisinopril 20 mg tablet 40 mg PO DAILY blood pressure 04/13/17 06/25/24 History meloxicam 15 mg tablet 15 mg PO DAILY Pain 04/13/17 06/25/24 History metoprolol succinate 50 mg 100 mg PO BID blood pressure 04/13/17 06/25/24 History tablet,extended release 24 hr aspirin 81 mg tablet,delayed 81 mg PO DAILY Heart disease 10/24/17 06/25/24 History release (Aspir-) atorvastatin 80 mg tablet 80 mg PO HS Cholesterol 08/25/21 06/25/24 History glipizide 10 mg tablet 10 mg PO BID Diabetes 08/25/21 06/25/24 History hydrochlorothiazide 12.5 mg tablet 12.5 mg PO DAILY fluid 08/25/21 06/25/24 History magnesium oxide 400 mg (241.3 mg 400 mg PO BID Supplement 08/25/21 06/25/24 History magnesium) tablet pantoprazole 40 mg tablet,delayed 40 mg PO DAILY GERD 08/25/21 06/25/24 History release pioglitazone 30 mg tablet 30 mg PO DAILY Diabetes 08/25/21 06/25/24 History potassium chloride 20 mEq 20 meq PO WEEKLY Supplement 08/25/21 06/25/24 History tablet,extended release buspirone 15 mg tablet 15 mg PO DAILY Anxiety 07/14/22 06/25/24 History dapagliflozin propanediol 10 mg 10 mg PO DAILY Diabetes 07/14/22 06/25/24 History tablet (Farxiga) melatonin 10 mg tablet 10 mg PO HS PRN Sleep 07/14/22 06/25/24 History cetirizine 10 mg tablet (Zyrtec) 10 mg PO DAILY PRN . 04/02/23 06/25/24 History duloxetine 30 mg capsule,delayed 30 mg PO DAILY 04/02/23 06/25/24 History release lactobacillus combination no.9 4 4,000 mmu cells PO DAILY 04/02/23 06/25/24 History billion cell capsule (Adult 50 Plus Probiotic) polyethylene glycol 3350 17 17 g PO DAILY 04/02/23 06/25/24 History gram/dose oral powder (Miralax) furosemide 20 mg tablet 40 mg PO .COMPLEX fluid retention 04/12/23 06/25/24 History mupirocin 2 % topical ointment 1 applic topical BID infection 14 01/01/24 06/25/24 Rx days #15 grams doxycycline hyclate 100 mg capsule 100 mg PO BID infection 10 days 01/13/24 06/25/24 Rx #20 caps ondansetron 4 mg disintegrating 4 mg PO Q8H PRN nausea and 01/25/24 06/25/24 Rx tablet vomiting #30 tabs hydrocortisone 1 % topical cream 1 applic topical BID PRN rash 04/02/24 06/25/24 Rx (Cortizone-10) #28.4 grams diclofenac potassium 50 mg tablet 50 mg PO BID #28 tabs 06/25/24 Rx New Prescriptions to Start Prescriptions: Allergies Allergy/AdvReac Type Severity Reaction Status Date / Time clindamycin Allergy Severe Chest Pain Verified 04/02/24 13:12 Exam Constitutional Constitutional: no acute distress and cooperative *Routine HEENT Exam Head: Present normocephalic and atraumatic Eye: Present PERRL ENT: Present mucous membranes moist *Routine Neck Exam Neck: Present supple *Routine Respiratory Exam Respiratory: Present CTA bilaterally *Routine Cardiovascular Exam Cardiovascular: Present RRR *Routine Abdominal Exam Abdominal: Present soft *Routine Rectal Exam Rectal:: deferred *Routine Genitalia Exam Genitalia:: normal female Routine Back/Spine/Pelvis Exam Back/Spine: Present pain with flexion *Routine Skin Exam Skin: Present intact, dry and warm *Routine Neurological Exam Neurological: Present alert and oriented X3 Routine Psychiatric Exam Psychiatric: Present normal affect and normal thought process Assessment and Plan *Assessment and plan (1) Degenerative disc disease, lumbar: Status: Acute Qualifiers: Disc-related pain type: unspecified whether pain present Qualified Code(s): M51.369 - Other intervertebral disc degeneration, lumbar region without mention of lumbar back pain or lower extremity pain Category: Medical Code(s): M51.369 - Other intervertebral disc degeneration, lumbar region without mention of lumbar back pain or lower extremity pain (2) Lumbar radiculopathy: Status: Acute Category: Medical Code(s): M54.16 - Radiculopathy, lumbar region Plan Patient has been instructed to contact the clinic with any concerns before the next appointment. Dr. Gibson has reviewed this note and agrees with this plan of care. This note was dictated using voice recognition software and make contain errors or omissions. All injections are used with Lidocaine, Bupivacaine and dexamethasone. Occasionally urine drug screen is needed to verify patient's compliance with our office pain contract. This is ordered based off specific treatments related to chronic pain with the potential to abuse certain medications.
--- NOTE | 2024-06-26 08:46 | P.PCN_ITS ---
Procedure Date: 06/26/24 Time: 09:16 Anesthesiologist:: Any Morris APRN Complications:: None Pre-procedure Diagnosis:: Degenerative disc disease of lumbar spine with lumbar radiculopathy symptoms, chronic pain syndrome, spinal stenosis with neurogenic claudication Post-procedure Diagnosis:: Same Indications for Procedure:: Patient is a pleasant 73-year-old female who presents today for intrathecal refill and reprogram. Today she rates her pain 3 out of 10. She denies any new trauma or injury. She does state that today is better today than yesterday. Patient denies any side effects from the increase at yesterday's visit. She is currently managed with morphine 10 mg/mL with a daily dose of 7.831 mg/day and bupivacaine 5 mg/mL with a daily dose of 3.9153 mg/day. Her Palomo has been reviewed and is appropriate. Physical Exam: General: Alert and oriented x3, no acute distress, pleasant and cooperative Lungs: Respirations even and unlabored, symmetrical chest expansion Eyes: PERRL Musculoskeletal: Flexion and extension of lumbar [spine] somewhat guarded secondary to pain, [antalgic gait noted] Neurological: Speech clear, no gross sensory deficit Procedure Details:: Informed consent was obtained and the risk and benefits of the procedure were explained to the patient. The patient had noninvasive monitoring placed including noninvasive blood pressure cuff and pulse oximeter. Patient's pump was interrogated. The area over the pump was cleansed with chlorhexidine as a cleansing solution. In sterile fashion the pump was accessed with a 22-gauge needle. Approximately 6.2 mls of the pump solution was removed and discarded appropriately. The pump was then refilled with 20 mL's of morphine 15 mg/mL. The needle was withdrawn and a bandage was placed over the puncture site. The infusion rate was reprogrammed and continued at its current dosage. The patient tolerated well with no complication. Plan and Disposition:: Patient tolerated the procedure well with no complications and was discharged neurologically intact.we did discuss yesterday where she had previously been on Mobic and then was taken off from her provider. Patient did deny any heart or kidney issues. She was unsure why she was actually taken off this medication we had sent in a temporary dose of diclofenac 50 mg twice daily however after reviewing her chart I have counseled her that her GFR is altered and that she is not to have any NSAIDs due to this fact. I did put in a order to discontinue the temporary dose. Patient does acknowledge understanding. She does state that the pharmacy ended up not having this medication and she was going to go get it picked up today however now she will not. Patient was also counseled that we did do a concentration change today and that there will be a bridge bolus timeframe that she would not be able to do any additional boluses. Did change her medications to morphine 7.836 mg/day and bupivacaine 2.612 mg/day. We did also discuss yesterday that we will plan on taking out the bupivacaine at her upcoming pump fill. I did still discussed that we can change her pump medication to Dilaudid if she chooses. We will continue to follow-up with this in future. Patient acknowledges understanding agrees with this plan of care. Patient will return to clinic on or before their next intrathecal refill date. We will see the patient back in the clinic at the next intrathecal refill. Patient has been instructed to contact the clinic with any concerns before the next appointment. Dr. Gibson has reviewed this note and agrees with this plan of care. This note was dictated using voice recognition software and make contain errors or omissions. -- It Is medically necessary for this patient to continue to have their intrathecal pump refilled at regular intervals. This patient had an intrathecal pain pump implanted after meeting criteria of chronic intractable pain for greater than 3 months and failing conservative treatments. Patient has committed and been compliant to the treatment plan and all planned follow up care. Since implantation of the intrathecal pain pump, the patient has had decreased pain and been more functional. Oral medications have been reduced including intake of oral opioids. Patient continues to do well with intrathecal therapy with decrease in pain symptoms and increase in functional status. Stopping int rathecal medications can lead to life threatening withdrawal, seizures, cardiac arrest, severe pain, and possible . Pumps that are not refilled at regular intervals can be damages and cause and need for replacement. We continually titrate dose and concentration to optimize pain relief and function. We are limited in concentration for certain drugs to safely deliver medications through the pump and stay within the recommendations from the Polyanalgesic Consensus Committee Guidelines. Depending on dose and concentration these pumps may need to be refilled sooner than 3 months as we titrate. A UDS is needed to verify patient's compliance with our office pain contract. This is ordered based off specific treatments related to chronic pain with the potential to abuse certain medications.
[2024-06-26 09:05] VITALS: BP 115/51; PULSE 64; RESP 18; O2SAT 98; BMI 43.9
[2024-06-26 09:10] VITALS: BP 116/59; PULSE 71; RESP 18; O2SAT 97
[2024-06-26 09:23] VITALS: BP 107/75; PULSE 74; RESP 18; O2SAT 98
== END 2024-06-26 09:23 | disposition home or self-care (01) ==
PROVIDERS: PCP Family Medicine; Visit Provider Nurse Practitioner Family
DX: M51.16 Intervertebral disc disorders with radiculopathy, lumbar region (principal); G89.4 Chronic pain syndrome; M48.062 Spinal stenosis, lumbar region with neurogenic claudication
CPT/HCPCS: 62370

== ENCOUNTER 2024-07-25 10:04 | Day surgery (SDC) | payer MEDICARE, SELFPAY ==
[2024-07-25 10:10] VITALS: BP 130/68; PULSE 72; RESP 18; TEMP 36.4; O2SAT 97; BMI 45.3
--- NOTE | 2024-07-25 10:13 | EXP.PM.HP ---
History of Present Illness *Admission Date: 07/25/24 *Reason for visit:: Intrathecal refill; DDD *History of present illness: Same [facility] Disclaimer: The information contained in this section may have been updated after the patient was seen, as this information can be updated by other users. Medical History History of breast cancer Seen by H&O 04/2023 GERD (gastroesophageal reflux disease) YONNY (obstructive sleep apnea) Fibromyalgia Rheumatoid arthritis Hypertension Hyperlipidemia Diabetes mellitus, type 2 Surgical History H/O left mastectomy History of laparoscopic cholecystectomy History of total knee replacement History of mastectomy, total Family History Other Family history of diabetes mellitus type II Social History Smoking Status: Never smoker second hand exposure: No alcohol intake: never substance use type: denies use current occupational status: other Travel in the last 8 weeks?: None household members: spouse housing: house marital status: education level: high school service: No current occupational exposures/hazards: No caffeine: Yes do you feel safe at home: Yes victim of physical abuse: No victim of emotional abuse: No victim of sexual abuse: No would you like helpful sources: No Have you lived/traveled outside [place] in past 30 days?: No Contact w/someone who lives/traveled outside [place] past 30 days?: No Exposure to someone with infectious disease in past 14 days?: No Do you have a fever (greater than 100.4 F or 38 C)?: No Have you tested positive for COVID-19?: No Exposed to someone with COVID-19 in past 14 days?: No Do you have a sore throat?: No Do you have a cough?: No Do you have any weakness?: No Are you experiencing any nausea/vomitting?: No Do you have any diarrhea?: No Are you experiencing any unusual bleeding?: No Do you have any muscle aches/pain?: No Do you have any abdominal pain?: No Are you experiencing loss of taste or smell?: No Other Medical History Have you received the Flu Vaccine for this season: No Have you received the Pneumonia Vaccine: No Review of Systems Review of Systems Review of systems:: pertinent systems reviewed and negative unless documented below Review of systems (narrative): Review of Systems: General: No recent weight changes, no fever, no sleep disturbances Respiratory: No cough, no shortness of air, no recurring pulmonary infections Cardiovascular/peripheral vascular: No chest pain, no palpitations, no edema, no shortness of breath Gastrointestinal: No new onset incontinence, normal bowel movements reported Genitourinary: No new onset incontinence Musculoskeletal: Chronic back pain Psychiatric: [Normal mood/affect] Neurological: [Denies weakness in extremities], [denies balance issues] Meds Home Medications and Allergies Home Medications ?Medication ?Instructions ?Recorded ?Confirmed ?Type duloxetine 60 mg capsule,delayed 90 mg PO DAILY Depression 04/13/17 07/25/24 History release (Cymbalta) lisinopril 20 mg tablet 40 mg PO DAILY blood pressure 04/13/17 07/25/24 History meloxicam 15 mg tablet 15 mg PO DAILY Pain 04/13/17 07/25/24 History metoprolol succinate 50 mg 100 mg PO BID blood pressure 04/13/17 07/25/24 History tablet,extended release 24 hr aspirin 81 mg tablet,delayed 81 mg PO DAILY Heart disease 10/24/17 07/25/24 History release (Aspir-) atorvastatin 80 mg tablet 80 mg PO HS Cholesterol 08/25/21 07/25/24 History glipizide 10 mg tablet 10 mg PO BID Diabetes 08/25/21 07/25/24 History hydrochlorothiazide 12.5 mg tablet 12.5 mg PO DAILY fluid 08/25/21 07/25/24 History magnesium oxide 400 mg (241.3 mg 400 mg PO BID Supplement 08/25/21 07/25/24 History magnesium) tablet pantoprazole 40 mg tablet,delayed 40 mg PO DAILY GERD 08/25/21 07/25/24 History release pioglitazone 30 mg tablet 30 mg PO DAILY Diabetes 08/25/21 07/25/24 History potassium chloride 20 mEq 20 meq PO WEEKLY Supplement 08/25/21 07/25/24 History tablet,extended release buspirone 15 mg tablet 15 mg PO DAILY Anxiety 07/14/22 07/25/24 History dapagliflozin propanediol 10 mg 10 mg PO DAILY Diabetes 07/14/22 07/25/24 History tablet (Farxiga) melatonin 10 mg tablet 10 mg PO HS PRN Sleep 07/14/22 07/25/24 History cetirizine 10 mg tablet (Zyrtec) 10 mg PO DAILY PRN . 04/02/23 07/25/24 History duloxetine 30 mg capsule,delayed 30 mg PO DAILY 04/02/23 07/25/24 History release lactobacillus combination no.9 4 4,000 mmu cells PO DAILY 04/02/23 07/25/24 History billion cell capsule (Adult 50 Plus Probiotic) polyethylene glycol 3350 17 17 g PO DAILY 04/02/23 07/25/24 History gram/dose oral powder (Miralax) furosemide 20 mg tablet 40 mg PO .COMPLEX fluid retention 04/12/23 07/25/24 History mupirocin 2 % topical ointment 1 applic topical BID infection 14 01/01/24 07/25/24 Rx days #15 grams doxycycline hyclate 100 mg capsule 100 mg PO BID infection 10 days 01/13/24 07/25/24 Rx #20 caps ondansetron 4 mg disintegrating 4 mg PO Q8H PRN nausea and 01/25/24 07/25/24 Rx tablet vomiting #30 tabs hydrocortisone 1 % topical cream 1 applic topical BID PRN rash 04/02/24 07/25/24 Rx (Cortizone-10) #28.4 grams diclofenac potassium 50 mg tablet 50 mg PO BID #28 tabs 06/26/24 07/25/24 Rx New Prescriptions to Start Prescriptions: Allergies Allergy/AdvReac Type Severity Reaction Status Date / Time clindamycin Allergy Severe Chest Pain Verified 07/03/24 09:35 Exam Data for Last 24 hours Vital signs and Labs for Last 24 Hours: Temp Pulse Resp BP Pulse Ox O2 Del Method 97.5 F L 72 18 130/68 97 Room Air 07/25/24 10:10 07/25/24 10:10 07/25/24 10:10 07/25/24 10:10 07/25/24 10:10 07/25/24 10:10 I & O for Last 24 hours: Intake & Output 07/22/24 07/23/24 07/24/24 07/25/24 23:59 23:59 23:59 23:59 Weight 248 lb Constitutional Constitutional: no acute distress *Routine HEENT Exam Head: Present normocephalic and atraumatic Eye: Present PERRL ENT: Present mucous membranes moist *Routine Neck Exam Neck: Present supple *Routine Respiratory Exam Respiratory: Present CTA bilaterally *Routine Cardiovascular Exam Cardiovascular: Present RRR *Routine Abdominal Exam Abdominal: Present soft *Routine Rectal Exam Rectal:: deferred *Routine Genitalia Exam Genitalia:: deferred Routine Back/Spine/Pelvis Exam Back/Spine: Present pain with flexion *Routine Skin Exam Skin: Present intact and warm *Routine Neurological Exam Neurological: Present alert and oriented X3 Routine Psychiatric Exam Psychiatric: Present normal affect and normal thought process Assessment and Plan *Assessment and plan (1) Degenerative disc disease, lumbar: Status: Acute Qualifiers: Disc-related pain type: unspecified whether pain present Qualified Code(s): M51.369 - Other intervertebral disc degeneration, lumbar region without mention of lumbar back pain or lower extremity pain Category: Medical Code(s): M51.369 - Other intervertebral disc degeneration, lumbar region without mention of lumbar back pain or lower extremity pain (2) Lumbar radiculopathy: Status: Acute Category: Medical Code(s): M54.16 - Radiculopathy, lumbar region Plan Patient has been instructed to contact the clinic with any concerns before the next appointment. Dr. Gibson has reviewed this note and agrees with this plan of care. This note was dictated using voice recognition software and make contain errors or omissions. All injections are used with Lidocaine, Bupivacaine and dexamethasone. Occasionally urine drug screen is needed to verify patient's compliance with our office pain contract. This is ordered based off specific treatments related to chronic pain with the potential to abuse certain medications.
--- NOTE | 2024-07-25 10:15 | P.PCN_ITS ---
Procedure Date: 07/25/24 Time: 10:29 Anesthesiologist:: Any Morris APRN Complications:: None Pre-procedure Diagnosis:: Degenerative disc disease of the lumbar spine with lumbar radiculopathy symptoms, spinal stenosis, chronic pain syndrome Post-procedure Diagnosis:: Same Indications for Procedure:: Patient is a pleasant 73-year-old female who presents today for intrathecal refill and reprogram. She rates her pain today the same as it has been as 0 when she is seated but it does go to a 10 out of 10 with increased activity or walking. Patient is currently managed with morphine 15 mg/mL with a daily dose of 7.836 mg/day. Patient is having a medication change at today's visit. P lyric does states she wants to proceed forward with this option. Her Palomo has been reviewed and is appropriate. Physical Exam: General: Alert and oriented x3, no acute distress, pleasant and cooperative Lungs: Respirations even and unlabored, symmetrical chest expansion Eyes: PERRL Musculoskeletal: Flexion and extension of lumbar [spine] somewhat guarded secondary to pain, [antalgic gait noted] Neurological: Speech clear, no gross sensory deficit Procedure Details:: Informed consent was obtained and the risk and benefits of the procedure were explained to the patient. The patient had noninvasive monitoring placed including noninvasive blood pressure cuff and pulse oximeter. Patient's pump was interrogated. The area over the pump was cleansed with chlorhexidine as a cleansing solution. In sterile fashion the pump was accessed with a 22-gauge needle. Approximately 4.6 mls of the pump solution was removed and discarded appropriately. The pump was then refilled with 20 mL's of Dilaudid 5 mg/mL. The needle was withdrawn and a bandage was placed over the puncture site. The infusion rate was reprogrammed and started at Dilaudid 3 mg/day. The patient tolerated well with no complication. Plan and Disposition:: Patient tolerated the procedure well with no complications and was discharged neurologically intact. I did discuss with the patient that she will have a bridge bolus from the time it takes the old medication to be completely out of her catheter and the new medication in place. Patient was counseled that she would not be able to use her bolus device during this timeframe however once it is over she will be able to use it as needed. Patient acknowledges underst anding agrees with plan of care. Patient will return to clinic on or before their next intrathecal refill date. We will see the patient back in the clinic at the next intrathecal refill. Patient has been instructed to contact the clinic with any concerns before the next appointment. Dr. Gibson has reviewed this note and agrees with this plan of care. This note was dictated using voice recognition software and make contain errors or omissions. -- It Is medically necessary for this patient to continue to have their intrathecal pump refilled at regular intervals. This patient had an intrathecal pain pump implanted after meeting criteria of chronic intractable pain for greater than 3 months and failing conservative treatments. Patient has committed and been compliant to the treatment plan and all planned follow up care. Since implantation of the intrathecal pain pump, the patient has had decreased pain and been more functional. Oral medications have been reduced including intake of oral opioids. Patient continues to do well with intrathecal therapy with decrease in pain symptoms and increase in functional status. Stopping intrathecal medications can lead to life threatening withdrawal, seizures, cardiac arrest, severe pain, and possible . Pumps that are not refilled at regular intervals can be damages and cause and need for replacement. We continually titrate dose and concentration to optimize pain relief and function. We are limited in concentration for certain drugs to safely deliver medications through the pump and stay within the recommendations from the Polyanalgesic Consensus Committee Guidelines. Depending on dose and concentration these pumps may need to be refilled sooner than 3 months as we titrate. A UDS is needed to verify patient's compliance with our office pain contract. This is ordered based off specific treatments related to chronic pain with the potential to abuse certain medications.
[2024-07-25 10:23] VITALS: BP 102/49; PULSE 78; RESP 18; O2SAT 94
== END 2024-07-25 10:45 | disposition home or self-care (01) ==
PROVIDERS: PCP Family Medicine; Visit Provider Nurse Practitioner Family
DX: M51.16 Intervertebral disc disorders with radiculopathy, lumbar region (principal); M48.061 Spinal stenosis, lumbar region without neurogenic claudication; G89.4 Chronic pain syndrome; E11.9 Type 2 diabetes mellitus without complications; M79.7 Fibromyalgia; K21.9 Gastro-esophageal reflux disease without esophagitis; Z85.3 Personal history of malignant neoplasm of breast; I10 Essential (primary) hypertension; G47.33 Obstructive sleep apnea (adult) (pediatric); M06.9 Rheumatoid arthritis, unspecified; Z88.1 Allergy status to other antibiotic agents; Z79.82 Long term (current) use of aspirin; Z79.84 Long term (current) use of oral hypoglycemic drugs; Z79.899 Other long term (current) drug therapy
CPT/HCPCS: 62370

== ENCOUNTER 2024-08-15 13:18 | Day surgery (SDC) | payer MEDICARE, SELFPAY ==
[2024-08-15 13:26] VITALS: BP 101/53; PULSE 70; RESP 18; O2SAT 95; BMI 45.3
[2024-08-15 13:28] VITALS: BP 106/48; PULSE 78; RESP 18; O2SAT 93
--- NOTE | 2024-08-15 13:45 | EXP.PM.HP ---
History of Present Illness *Admission Date: 08/15/24 *Reason for visit:: Intrathecal refill; DDD *History of present illness: Same [facility] Disclaimer: The information contained in this section may have been updated after the patient was seen, as this information can be updated by other users. Medical History History of breast cancer Seen by H&O 04/2023 GERD (gastroesophageal reflux disease) YONNY (obstructive sleep apnea) Fibromyalgia Rheumatoid arthritis Hypertension Hyperlipidemia Diabetes mellitus, type 2 Surgical History H/O left mastectomy History of laparoscopic cholecystectomy History of total knee replacement History of mastectomy, total Family History Other Family history of diabetes mellitus type II Social History Smoking Status: Never smoker second hand exposure: No alcohol intake: never substance use type: denies use current occupational status: other Travel in the last 8 weeks?: None household members: spouse housing: house marital status: education level: high school service: No current occupational exposures/hazards: No caffeine: Yes do you feel safe at home: Yes victim of physical abuse: No victim of emotional abuse: No victim of sexual abuse: No would you like helpful sources: No Have you lived/traveled outside [place] in past 30 days?: No Contact w/someone who lives/traveled outside US past 30 days?: No Exposure to someone with infectious disease in past 14 days?: No Do you have a fever (greater than 100.4 F or 38 C)?: No Have you tested positive for COVID-19?: No Exposed to someone with COVID-19 in past 14 days?: No Do you have a sore throat?: No Do you have a cough?: No Do you have any weakness?: No Do you have any diarrhea?: No Are you experiencing any unusual bleeding?: No Do you have any muscle aches/pain?: No Do you have any abdominal pain?: No Are you experiencing loss of taste or smell?: No Other Medical History Have you received the Flu Vaccine for this season: No Have you received the Pneumonia Vaccine: No Review of Systems Review of Systems Review of systems:: pertinent systems reviewed and negative unless documented below Review of systems (narrative): Review of Systems: General: No recent weight changes, no fever, no sleep disturbances Respiratory: No cough, no shortness of air, no recurring pulmonary infections Cardiovascular/peripheral vascular: No chest pain, no palpitations, no edema, no shortness of breath Gastrointestinal: No new onset incontinence, normal bowel movements reported Genitourinary: No new onset incontinence Musculoskeletal: Chronic back pain Psychiatric: [Normal mood/affect] Neurological: [Denies weakness in extremities], [denies balance issues] Meds Home Medications and Allergies Home Medications ?Medication ?Instructions ?Recorded ?Confirmed ?Type duloxetine 60 mg capsule,delayed 90 mg PO DAILY Depression 04/13/17 08/15/24 History release (Cymbalta) lisinopril 20 mg tablet 40 mg PO DAILY blood pressure 04/13/17 08/15/24 History meloxicam 15 mg tablet 15 mg PO DAILY Pain 04/13/17 08/15/24 History metoprolol succinate 50 mg 100 mg PO BID blood pressure 04/13/17 08/15/24 History tablet,extended release 24 hr aspirin 81 mg tablet,delayed 81 mg PO DAILY Heart disease 10/24/17 08/15/24 History release (Aspir-) atorvastatin 80 mg tablet 80 mg PO HS Cholesterol 08/25/21 08/15/24 History glipizide 10 mg tablet 10 mg PO BID Diabetes 08/25/21 08/15/24 History hydrochlorothiazide 12.5 mg tablet 12.5 mg PO DAILY fluid 08/25/21 08/15/24 History magnesium oxide 400 mg (241.3 mg 400 mg PO BID Supplement 08/25/21 08/15/24 History magnesium) tablet pantoprazole 40 mg tablet,delayed 40 mg PO DAILY GERD 08/25/21 08/15/24 History release pioglitazone 30 mg tablet 30 mg PO DAILY Diabetes 08/25/21 08/15/24 History potassium chloride 20 mEq 20 meq PO WEEKLY Supplement 08/25/21 08/15/24 History tablet,extended release buspirone 15 mg tablet 15 mg PO DAILY Anxiety 07/14/22 08/15/24 History dapagliflozin propanediol 10 mg 10 mg PO DAILY Diabetes 07/14/22 08/15/24 History tablet (Farxiga) melatonin 10 mg tablet 10 mg PO HS PRN Sleep 07/14/22 08/15/24 History cetirizine 10 mg tablet (Zyrtec) 10 mg PO DAILY PRN . 04/02/23 08/15/24 History duloxetine 30 mg capsule,delayed 30 mg PO DAILY 04/02/23 08/15/24 History release lactobacillus combination no.9 4 4,000 mmu cells PO DAILY 04/02/23 08/15/24 History billion cell capsule (Adult 50 Plus Probiotic) polyethylene glycol 3350 17 17 g PO DAILY 04/02/23 08/15/24 History gram/dose oral powder (Miralax) furosemide 20 mg tablet 40 mg PO .COMPLEX fluid retention 04/12/23 08/15/24 History mupirocin 2 % topical ointment 1 applic topical BID infection 14 01/01/24 08/15/24 Rx days #15 grams doxycycline hyclate 100 mg capsule 100 mg PO BID infection 10 days 01/13/24 08/15/24 Rx #20 caps ondansetron 4 mg disintegrating 4 mg PO Q8H PRN nausea and 01/25/24 08/15/24 Rx tablet vomiting #30 tabs hydrocortisone 1 % topical cream 1 applic topical BID PRN rash 04/02/24 08/15/24 Rx (Cortizone-10) #28.4 grams diclofenac potassium 50 mg tablet 50 mg PO BID #28 tabs 06/26/24 08/15/24 Rx New Prescriptions to Start Prescriptions: Allergies Allergy/AdvReac Type Severity Reaction Status Date / Time clindamycin Allergy Severe Chest Pain Verified 07/03/24 09:35 Exam Data for Last 24 hours Vital signs and Labs for Last 24 Hours: Pulse Resp BP Pulse Ox O2 Del Method 78 18 106/48 L 93 L Room Air 08/15/24 13:28 08/15/24 13:28 08/15/24 13:28 08/15/24 13:28 08/15/24 13:28 I & O for Last 24 hours: Intake & Output 08/12/24 08/13/24 08/14/24 08/15/24 23:59 23:59 23:59 23:59 Weight 248 lb Constitutional Constitutional: no acute distress *Routine HEENT Exam Head: Present normocephalic and atraumatic Eye: Present PERRL ENT: Present mucous membranes moist *Routine Neck Exam Neck: Present supple *Routine Respiratory Exam Respiratory: Present CTA bilaterally *Routine Cardiovascular Exam Cardiovascular: Present RRR *Routine Abdominal Exam Abdominal: Present soft *Routine Rectal Exam Rectal:: deferred *Routine Genitalia Exam Genitalia:: deferred Routine Back/Spine/Pelvis Exam Back/Spine: Present pain with flexion *Routine Skin Exam Skin: Present intact *Routine Neurological Exam Neurological: Present alert and oriented X3 Routine Psychiatric Exam Psychiatric: Present normal affect and normal thought process Assessment and Plan *Assessment and plan (1) Degenerative disc disease, lumbar: Status: Acute Qualifiers: Disc-related pain type: unspecified whether pain present Qualified Code(s): M51.369 - Other intervertebral disc degeneration, lumbar region without mention of lumbar back pain or lower extremity pain Category: Medical Code(s): M51.369 - Other intervertebral disc degeneration, lumbar region without mention of lumbar back pain or lower extremity pain (2) Lumbar radiculopathy: Status: Acute Category: Medical Code(s): M54.16 - Radiculopathy, lumbar region Plan Patient has been instructed to contact the clinic with any concerns before the next appointment. Dr. Gibson has reviewed this note and agrees with this plan of care. This note was dictated using voice recognition software and make contain errors or omissions. All injections are used with Lidocaine, Bupivacaine and dexamethasone. Occasionally urine drug screen is needed to verify patient's compliance with our office pain contract. This is ordered based off specific treatments related to chronic pain with the potential to abuse certain medications.
--- NOTE | 2024-08-15 13:47 | EXP.PAIN.PRO ---
Procedure Date: 08/15/24 Time: 13:47 Anesthesiologist:: Any Morris APRN Complications:: None Pre-procedure Diagnosis:: Degenerative disc disease of lumbar spine with lumbar radiculopathy symptoms Post-procedure Diagnosis:: Same Indications for Procedure:: Patient is a pleasant 73-year-old female who presents today for intrathecal refill and reprogram. She rates her pain today is 0 out of 10. She denies any new trauma or injury. Patient does state that she did notice a big difference with changing her pump medication to the Dilaudid 5 mg/mL with a daily dose of 3 mg/day. She does state that she is already noticed that she has been able to do more activity including just making her bed and things around the house without having to immediately stop and take a break. Patient denies any side effects. She would like an additional increase today. Her Palomo has been reviewed and is appropriate. Physical Exam: General: Alert and oriented x3, no acute distress, pleasant and cooperative Lungs: Respirations even and unlabored, symmetrical chest expansion Eyes: PERRL Musculoskeletal: Flexion and extension of lumbar [spine] somewhat guarded secondary to pain, [antalgic gait noted] Neurological: Speech clear, no gross sensory deficit Procedure Details:: Informed consent was obtained and the risk and benefits of the procedure were explained to the patient. The patient had noninvasive monitoring placed including noninvasive blood pressure cuff and pulse oximeter. Patient's pump was interrogated. The area over the pump was cleansed with chlorhexidine as a cleansing solution. In sterile fashion the pump was accessed with a 22-gauge needle. Approximately 5.3 mls of the pump solution was removed and discarded appropriately. The pump was then refilled with 20 mL's of Dilaudid 5 mg/mL. The needle was withdrawn and a bandage was placed over the puncture site. The infusion rate was reprogrammed and increased to Dilaudid 3.1465 mg/day. The patient tolerated well with no complication. Plan and Disposition:: Patient tolerated the procedure well with no complications and was discharged neurologically intact. Patient did have a little bit low blood pressure during today's visit. We did review over and she is scheduled to see her primary care coming up this next week. Patient was counseled that she may need to make some adjustments on her current blood pressure medication as this is the second time that we have seen her with her pressure a little bit lower. Patient was counseled to continue to monitor this at home. Patient agrees with this plan of care. Patient will return to clinic on or before their next intrathecal refill date. We will see the patient back in the clinic at the next intrathecal refill. Patient has been instructed to contact the clinic with any concerns before the next appointment. Dr. Gibson has reviewed this note and agrees with this plan of care. This note was dictated using voice recognition software and make contain errors or omissions. -- It Is medically necessary for this patient to continue to have their intrathecal pump refilled at regular intervals. This patient had an intrathecal pain pump implanted after meeting criteria of chronic intractable pain for greater than 3 months and failing conservative treatments. Patient has committed and been compliant to the treatment plan and all planned follow up care. Since implantation of the intrathecal pain pump, the patient has had decreased pain and been more functional. Oral medications have been reduced including intake of oral opioids. Patient continues to do well with intrathecal therapy with decrease in pain symptoms and increase in functional status. Stopping intrathecal medications can lead to life threatening withdrawal, seizures, cardiac arrest, severe pain, and possible . Pumps that are not refilled at regular intervals can be damages and cause and need for replacement. We continually titrate dose and concentration to optimize pain relief and function. We are limited in concentration for certain drugs to safely deliver medications through the pump and stay within the recommendations from the [employer] Consensus Committee Guidelines. Depending on dose and concentration these pumps may need to be refilled sooner than 3 months as we titrate. A UDS is needed to verify patient's compliance with our office pain contract. This is ordered based off specific treatments related to chronic pain with the potential to abuse certain medications.
[2024-08-15 13:52] VITALS: BP 107/72; PULSE 77; RESP 18; O2SAT 99
== END 2024-08-15 13:52 | disposition home or self-care (01) ==
PROVIDERS: PCP Family Medicine; Visit Provider Nurse Practitioner Family
DX: Z45.1 Encounter for adjustment and management of infusion pump (principal); M51.16 Intervertebral disc disorders with radiculopathy, lumbar region; E11.9 Type 2 diabetes mellitus without complications; M79.7 Fibromyalgia; K21.9 Gastro-esophageal reflux disease without esophagitis; Z85.3 Personal history of malignant neoplasm of breast; E78.5 Hyperlipidemia, unspecified; I10 Essential (primary) hypertension; G47.33 Obstructive sleep apnea (adult) (pediatric); M06.9 Rheumatoid arthritis, unspecified; Z88.1 Allergy status to other antibiotic agents; Z79.84 Long term (current) use of oral hypoglycemic drugs; Z79.82 Long term (current) use of aspirin; Z79.899 Other long term (current) drug therapy
CPT/HCPCS: 95991

== ENCOUNTER 2024-08-29 10:09 | Day surgery (SDC) | payer MEDICARE, SELFPAY ==
[2024-08-29 10:27] VITALS: BP 122/58; PULSE 74; RESP 18; O2SAT 97; BMI 43.9
--- NOTE | 2024-08-29 11:02 | EXP.PM.HP ---
History of Present Illness *Admission Date: 08/29/24 *Reason for visit:: Intrathecal refill; DDD *History of present illness: Same [facility] Disclaimer: The information contained in this section may have been updated after the patient was seen, as this information can be updated by other users. Medical History History of breast cancer Seen by H&O 04/2023 GERD (gastroesophageal reflux disease) YONNY (obstructive sleep apnea) Fibromyalgia Rheumatoid arthritis Hypertension Hyperlipidemia Diabetes mellitus, type 2 Surgical History H/O left mastectomy History of laparoscopic cholecystectomy History of total knee replacement History of mastectomy, total Family History Other Family history of diabetes mellitus type II Social History Smoking Status: Never smoker second hand exposure: No alcohol intake: never substance use type: denies use current occupational status: other Travel in the last 8 weeks?: None household members: spouse housing: house marital status: education level: high school service: No current occupational exposures/hazards: No caffeine: Yes do you feel safe at home: Yes victim of physical abuse: No victim of emotional abuse: No victim of sexual abuse: No would you like helpful sources: No Have you lived/traveled outside [place] in past 30 days?: No Contact w/someone who lives/traveled outside US past 30 days?: No Exposure to someone with infectious disease in past 14 days?: No Do you have a fever (greater than 100.4 F or 38 C)?: No Have you tested positive for COVID-19?: No Exposed to someone with COVID-19 in past 14 days?: No Do you have a sore throat?: No Do you have a cough?: No Do you have any weakness?: No Do you have any diarrhea?: No Are you experiencing any unusual bleeding?: No Do you have any muscle aches/pain?: No Do you have any abdominal pain?: No Are you experiencing loss of taste or smell?: No Other Medical History Have you received the Flu Vaccine for this season: No Have you received the Pneumonia Vaccine: No Review of Systems Review of Systems Review of systems:: pertinent systems reviewed and negative unless documented below Review of systems (narrative): Review of Systems: General: No recent weight changes, no fever, no sleep disturbances Respiratory: No cough, no shortness of air, no recurring pulmonary infections Cardiovascular/peripheral vascular: No chest pain, no palpitations, no edema, no shortness of breath Gastrointestinal: No new onset incontinence, normal bowel movements reported Genitourinary: No new onset incontinence Musculoskeletal: Chronic back pain Psychiatric: [Normal mood/affect] Neurological: [Denies weakness in extremities], [denies balance issues] Meds Home Medications and Allergies Home Medications ?Medication ?Instructions ?Recorded ?Confirmed ?Type duloxetine 60 mg capsule,delayed 90 mg PO DAILY Depression 04/13/17 08/29/24 History release (Cymbalta) lisinopril 20 mg tablet 40 mg PO DAILY blood pressure 04/13/17 08/29/24 History meloxicam 15 mg tablet 15 mg PO DAILY Pain 04/13/17 08/29/24 History metoprolol succinate 50 mg 100 mg PO BID blood pressure 04/13/17 08/29/24 History tablet,extended release 24 hr aspirin 81 mg tablet,delayed 81 mg PO DAILY Heart disease 10/24/17 08/29/24 History release (Aspir-) atorvastatin 80 mg tablet 80 mg PO HS Cholesterol 08/25/21 08/29/24 History glipizide 10 mg tablet 10 mg PO BID Diabetes 08/25/21 08/29/24 History hydrochlorothiazide 12.5 mg tablet 12.5 mg PO DAILY fluid 08/25/21 08/29/24 History magnesium oxide 400 mg (241.3 mg 400 mg PO BID Supplement 08/25/21 08/29/24 History magnesium) tablet pantoprazole 40 mg tablet,delayed 40 mg PO DAILY GERD 08/25/21 08/29/24 History release pioglitazone 30 mg tablet 30 mg PO DAILY Diabetes 08/25/21 08/29/24 History potassium chloride 20 mEq 20 meq PO WEEKLY Supplement 08/25/21 08/29/24 History tablet,extended release buspirone 15 mg tablet 15 mg PO DAILY Anxiety 07/14/22 08/29/24 History dapagliflozin propanediol 10 mg 10 mg PO DAILY Diabetes 07/14/22 08/29/24 History tablet (Farxiga) melatonin 10 mg tablet 10 mg PO HS PRN Sleep 07/14/22 08/29/24 History cetirizine 10 mg tablet (Zyrtec) 10 mg PO DAILY PRN . 04/02/23 08/29/24 History duloxetine 30 mg capsule,delayed 30 mg PO DAILY 04/02/23 08/29/24 History release lactobacillus combination no.9 4 4,000 mmu cells PO DAILY 04/02/23 08/29/24 History billion cell capsule (Adult 50 Plus Probiotic) polyethylene glycol 3350 17 17 g PO DAILY 04/02/23 08/29/24 History gram/dose oral powder (Miralax) furosemide 20 mg tablet 40 mg PO .COMPLEX fluid retention 04/12/23 08/29/24 History mupirocin 2 % topical ointment 1 applic topical BID infection 14 01/01/24 08/29/24 Rx days #15 grams doxycycline hyclate 100 mg capsule 100 mg PO BID infection 10 days 01/13/24 08/29/24 Rx #20 caps ondansetron 4 mg disintegrating 4 mg PO Q8H PRN nausea and 01/25/24 08/29/24 Rx tablet vomiting #30 tabs hydrocortisone 1 % topical cream 1 applic topical BID PRN rash 04/02/24 08/29/24 Rx (Cortizone-10) #28.4 grams diclofenac potassium 50 mg tablet 50 mg PO BID #28 tabs 06/26/24 08/29/24 Rx New Prescriptions to Start Prescriptions: Allergies Allergy/AdvReac Type Severity Reaction Status Date / Time clindamycin Allergy Severe Chest Pain Verified 07/03/24 09:35 Exam Data for Last 24 hours Vital signs and Labs for Last 24 Hours: Pulse Resp BP Pulse Ox O2 Del Method 74 18 122/58 L 97 Room Air 08/29/24 10:27 08/29/24 10:27 08/29/24 10:27 08/29/24 10:27 08/29/24 10:27 I & O for Last 24 hours: Intake & Output 08/26/24 08/27/24 08/28/24 08/29/24 23:59 23:59 23:59 23:59 Weight 240 lb Constitutional Constitutional: no acute distress *Routine HEENT Exam Head: Present normocephalic and atraumatic Eye: Present PERRL ENT: Present mucous membranes moist *Routine Neck Exam Neck: Present supple *Routine Respiratory Exam Respiratory: Present CTA bilaterally *Routine Cardiovascular Exam Cardiovascular: Present RRR *Routine Abdominal Exam Abdominal: Present soft *Routine Rectal Exam Rectal:: deferred *Routine Genitalia Exam Genitalia:: deferred Routine Back/Spine/Pelvis Exam Back/Spine: Present pain with flexion *Routine Skin Exam Skin: Present intact, dry and warm *Routine Neurological Exam Neurological: Present alert and oriented X3 Routine Psychiatric Exam Psychiatric: Present normal affect and normal thought process Assessment and Plan *Assessment and plan (1) Degenerative disc disease, lumbar: Status: Acute Qualifiers: Disc-related pain type: unspecified whether pain present Qualified Code(s): M51.369 - Other intervertebral disc degeneration, lumbar region without mention of lumbar back pain or lower extremity pain Category: Medical Code(s): M51.369 - Other intervertebral disc degeneration, lumbar region without mention of lumbar back pain or lower extremity pain (2) Lumbar radiculopathy: Status: Acute Category: Medical Code(s): M54.16 - Radiculopathy, lumbar region Plan Patient has been instructed to contact the clinic with any concerns before the next appointment. Dr. Gibson has reviewed this note and agrees with this plan of care. This note was dictated using voice recognition software and make contain errors or omissions. All injections are used with Lidocaine, Bupivacaine and dexamethasone. Occasionally urine drug screen is needed to verify patient's compliance with our office pain contract. This is ordered based off specific treatments related to chronic pain with the potential to abuse certain medications.
--- NOTE | 2024-08-29 11:09 | P.PCN_ITS ---
Procedure Date: 08/29/24 Time: 11:09 Anesthesiologist:: Any Morris APRN Complications:: None Pre-procedure Diagnosis:: Degenerative disc disease of lumbar spine with lumbar radiculopathy symptoms, spinal stenosis with neurogenic claudication symptoms Post-procedure Diagnosis:: Same; right shoulder pain Indications for Procedure:: Patient is a pleasant 74-year-old female who presents today for intrathecal refill and reprogram. Today she still rates her pain a 0 out of 10 while she is seated and states the pain does get worse with increased activity or ambulation. She does state that she did not notice as much improvement this last time with her increase. She is requesting increase today. patient is currently managed with Dilaudid 5 mg/mL with a daily dose of 3.1465 mg/day. She does also make mention today that she is still having continued right shoulder pain that is interfering with her ability perform activities of daily living such as cooking and cleaning. Patient would like to see if we could possibly do some injections for this. Patient has tried conservative therapy with no additional improvement and has seen her primary care regarding this. Her Palomo has been reviewed and is appropriate Physical Exam: General: Alert and oriented x3, no acute distress, pleasant and cooperative Lungs: Respirations even and unlabored, symmetrical chest expansion Eyes: PERRL Musculoskeletal: Flexion and extension of right shoulder somewhat guarded secondary to pain, [antalgic gait noted] Neurological: Speech clear, no gross sensory deficit Procedure Details:: Informed consent was obtained and the risk and benefits of the procedure were explained to the patient. The patient had noninvasive monitoring placed including noninvasive blood pressure cuff and pulse oximeter. Patient's pump was interrogated. The area over the pump was cleansed with chlorhexidine as a cleansing solution. In sterile fashion the pump was accessed with a 22-gauge needle. Approximately 9.3 mls of the pump solution was removed and discarded appropriately. The pump was then refilled with 20 mL's of Dilaudid 5 mg/mL. The needle was withdrawn and a bandage was placed over the puncture site. The infusion rate was reprogrammed and increased 10% to 3.4668 mg/day. The patient tolerated well with no complication. Plan and Disposition:: Patient tolerated the procedure well with no complications and was discharged neurologically intact. Patient is still only getting a limited time between her refills. We will go ahead and proceed forward with ordering a change in concentration to 7.5 mg per mL. Patient acknowledges understanding. Patient will return to clinic on or before their next intrathecal refill date. Patient did have limited range of motion of her right shoulder during today's visit. I did review over with her risk and benefits of shoulder intra-articular injection. Patient has never had surgery or injections for this joint in the past however has had issues that have progressively worsened in the last month. Patient will be scheduled for a right shoulder intra-articular injection without fluoroscopic or ultrasound guidance. We will see the patient back in the clinic at the next intrathecal refill. Patient has been instructed to contact the clinic with any concerns before the next appointment. Dr. Gibson has reviewed this note and agrees with this plan of care. This note was dictated using voice recognition software and make contain errors or omissions. -- It Is medically necessary for this patient to continue to have their intrathecal pump refilled at regular intervals. This patient had an intrathecal pain pump implanted after meeting criteria of chronic intractable pain for greater than 3 months and failing conservative treatments. Patient has committed and been compliant to the treatment plan and all planned follow up care. Since implantation of the intrathecal pain pump, the patient has had decreased pain and been more functional. Oral medications have been reduced including intake of oral opioids. Patient continues to do well with intrathecal therapy with decrease in pain symptoms and increase in functional status. Stopping int rathecal medications can lead to life threatening withdrawal, seizures, cardiac arrest, severe pain, and possible . Pumps that are not refilled at regular intervals can be damages and cause and need for replacement. We continually titrate dose and concentration to optimize pain relief and function. We are limited in concentration for certain drugs to safely deliver medications through the pump and stay within the recommendations from the [employer] Consensus [employer] Guidelines. Depending on dose and concentration these pumps may need to be refilled sooner than 3 months as we titrate. A UDS is needed to verify patient's compliance with our office pain contract. This is ordered based off specific treatments related to chronic pain with the potential to abuse certain medications.
[2024-08-29 11:11] VITALS: BP 122/58; PULSE 74; RESP 18; O2SAT 97
[2024-08-29 11:27] VITALS: BP 104/54; PULSE 60; RESP 18; O2SAT 97
== END 2024-08-29 11:27 | disposition home or self-care (01) ==
PROVIDERS: PCP Family Medicine; Visit Provider Nurse Practitioner Family
DX: Z45.1 Encounter for adjustment and management of infusion pump (principal); M50.10 Cervical disc disorder with radiculopathy, unspecified cervical region; M48.02 Spinal stenosis, cervical region; E11.9 Type 2 diabetes mellitus without complications; M79.7 Fibromyalgia; K21.9 Gastro-esophageal reflux disease without esophagitis; E78.5 Hyperlipidemia, unspecified; I10 Essential (primary) hypertension; G47.33 Obstructive sleep apnea (adult) (pediatric); M06.9 Rheumatoid arthritis, unspecified; Z88.1 Allergy status to other antibiotic agents; Z79.82 Long term (current) use of aspirin; Z79.899 Other long term (current) drug therapy
CPT/HCPCS: 62370

== ENCOUNTER 2024-09-10 14:42 | Outpatient (CLI) | payer MEDICARE, SELFPAY ==
--- OUTSIDE RECORDS SUMMARY | 2024-09-02 09:45 | XMS_ITS | Encounter Summary ---
[facility] [address] [place] [address] Care Team Providers Care Cut Out Operator Name Role Phone Bruno Rendon MD Primary Care Provider [phone] Reason for Visit * Reason Comments Diabetes Type II Diabetes Encounter Details Date Type Department Care Team (Late st Contact Info) Description 09/02/2024 9:45 AM EDT Office Visit [facility] END[facility]INOLOGY [address] [facility] [address] [place] [address] Nisa Larson PA [address] [facility] [address] [place], [place] [id number] Type 2 diabetes mellitus with hyperglycemia, without long-term current use of insulin (Primary Dx) Social History Tobacco Use Types Packs/Day Years Used Date Smoking Tobacco: Never Passive Smoke Exposure: Never Smokeless Tobacco: Never Alcohol Use Standard Drinks/Week Comments No 0 (1 standard drink = 0.6 oz pur e alcohol) Comments No Sex and Gender Information Value Date Recorded Sex Assigned at Female 08/27/2024 8:29 PM EDT Legal Sex Female 1:41 PM EDT Gender Identity Not on file Sexual Orientation Not on file documented as of this encounter Last Filed Vital Signs Vital Sign Reading Time Taken Comments Blood Pressure 116/72 09/02/2024 9:44 AM EDT Pulse 80 09/02/2024 9:44 AM EDT Temperature - - Respiratory Rate - - Oxygen Saturation 99% 09/02/2024 9:44 AM EDT Inhaled Oxygen Concentration - - Weight 111 kg (243 lb 12.8 oz) 09/02/2024 9:44 A M EDT Height 152.4 cm (5') 09/02/2024 9:44 AM EDT Body Mass Index 47.61 09/02/2024 9:44 AM EDT documented in this encounter Progress Notes * Nisa Larson PA - 09/02/2024 10:39 AM EDTAssociated Problem(s): Diabetes mellitus Diabetes is worsening. Continue current treatment regimen. Recommended an ADA diet. Regular aerobic exercise. Discussed foot care. Patient's A1c has drifted up a little bit since it was last checked in January 2024. She has a history of hypoglycemia and at her age, an A1c in the sevens is appropriate.. Patient has identified some areas she can make some improvements in her diet and plans to do this. Will not make any changes in her medications for now. Continue Actos 45 mg daily, glipizide 10 mg daily and Farxiga 10 mg daily. Gave patient paperwork for Farxiga patient assistance. She will discuss with her PCP about whether this can be completed through their office. If so she will switch her diabetes management to PCP. Edmond she will continue to follow-up here every 6 months. Eye exam up-to-date foot exam done today, patient is due for fasting labs and has planned to do these with her PCP; urine microalbumin creatinine ratio done today. Diabetes will be reassessed in 6 months * Nisa Larson PA - 09/02/2024 9:45 AM EDT Images from the original note were not included. Office Note Date: 09/02/2024 Patient Name: Soraya Walls : 1950 Chief Complaint Patient presents with Diabetes Type II Diabetes History of Present Illness: Soraya Walls is a 74 y.o. female who presents for Diabetes type 2. Diagnosed: Current RX: Actos 45 mg daily Glipizide 10 mg QD AC Farxiga 10 mg daily - pt assistance Bg checks are done: every morning 110-140 Hypoglycemia :none recently Past medications: metformin (GI side effects), weekly injection (nausea), Tradjenta (was not effective) Was having some hypoglycemia and glipizide was reduced to 5 mg in the past. Glucose levels went up so she went back up to 10 mg. Levels have been stable since then. Admits to some dietary indiscretion, has been eating more ice cream recently. She is taking medications as directed and tolerating without problem. Patient needs to fill out paperwork to renew [employer] patient assistance. She has been considering switching to having her diabetes managed by PCP but is not sure if they are willing to complete [employer] paperwork. Last A1c: Hemoglobin A1C Date Value Ref Range Status 09/02/2024 7.7 (A) 4.5 - 5.7 % Final Changes in health since last visit: None. DM Health Maintenance: Ophtho: goes regularly, may have gone 05/2024 Monofilament / Foot exam: 09/02/24 Lipids/Statin: taking a statin with last FLP showing LDL pending with PCP per patient JULIETTE: 09/02/24 TSH: Due Aspirin: taking SEAN/ARB: Lisinopril Diabetic Complications: Eyes: No Kidneys: No Feet: Yes, describe: Peripheral neuropathy Heart: Yes, describe: CAD Subjective Review of Systems: Review of Systems Constitutional: Negative for activity change, appetite change and fatigue. Respiratory: Negative for chest tightness and shortness of breath. Gastrointestinal: Negative for abdominal pain. Musculoskeletal: Negative for myalgias. Neurological: Negative for numbness. Psychiatric/Behavioral: The patient is not nervous/anxious. The following portions of the patient's history were reviewed and updated as appropriate: allergies, current medications, past family history, past medical history, past social history, past surgicalhistory, and problem list. Objective Visit Vitals BP 116/72 (BP Location: Right arm, Patient Position: Sitting) Pulse 80 Ht 152.4 cm (60 ) Wt 111 kg (243 lb 12.8 oz) LMP (LMP Unknown) SpO2 99% BMI 47.61 kg/m?? Physical Exam: Physical Exam Cardiovascular: Pulses: Dorsalis pedis pulses are 1+ on the right side and 1+ on the left side. Posterior tibial pulses are 1+ on the right side and 1+ on the left side. Feet: Right foot: Protective Sensation: 10 sites tested. 10 sites sensed. Skin integrity: Dry skin present. Toenail Condition: Right toenails are normal. Left foot: Protective Sensation: 10 sites tested. 10 sites sensed. Skin integrity: Dry skin present. Toenail Condition: Left toenails are normal. Comments: Diabetic Foot Exam Performed and Monofilament Test Performed Decreased sensation in bilateral great toes Assessment / Plan Assessment & Plan: Diagnoses and all orders for this visit: 1. Type 2 diabetes mellitus with hyperglycemia, without long-term current use of insulin (Primary) Assessment & Plan: Diabetes is worsening. Continue current treatment regimen. Recommended an ADA diet. Regular aerobic exercise. Discussed foot care. Patient's A1c has drifted up a little bit since it was last checked in January 2024. She has a history of hypoglycemia and at her age, an A1c in the sevens is appropriate.. Patient has identified some areas she can make some improvements in her diet and plans to do this. Will not make any changes in her medications for now. Continue Actos 45 mg daily, glipizide 10 mg daily and Farxiga 10 mg daily. Gave patient paperwork for Ben[employer] patient assistance. She will discuss with her PCP about whether this can be completed through their office. If so she will switch her diabetes management to PCP. Edmond she will continue to follow-up here every 6 months. Eye exam up-to-date foot exam done today, patient is due for fasting labs and has planned to do these with her PCP; urine microalbumin creatinine ratio done today. Diabetes will be reassessed in 6 months Orders: - POC Glucose, Blood - POC Glycosylated Hemoglobin (Hb A1C) - Microalbumin / Creatinine Urine Ratio - Urine, Clean Catch; Future - pioglitazone (ACTOS) 45 MG tablet; Take 1 tablet by mouth Daily. Dispense: 180 tablet; Refill: 1 - glipizide (GLUCOTROL) 10 MG tablet; Take 1 tablet by mouth Daily. Take before a meal, dose decrease Dispense: 90 tablet; Refill: 1 - Microalbumin / Creatinine Urine Ratio - Urine, Clean Catch Return in about 6 months (around 03/05/2025) for Follow up. Portions of this note were completed with voice recognition program. Electronically signed by Nisa Larson PA-C [facility] Endocrinology [place] 09/02/2024 documented in this encounter Plan of Treatment Upcoming Encounters Date Type Department Care Team (Late st Contact Info) Description 11/04/2024 3:00 PM EDT Office Visit [facility] CARDIOLOGY [address] [place] [address] Jeannette Broderick APRN [address] [place] [address] 03/05/2025 11:15 AM EST Office Visit [facility] ENDOCRINOLOGY [address] [facility] [address] [place] [address] Nisa Larson PA [address] [address] documented as of this encounter Procedures Procedure Name Priority Date/Time Associated Diagnosis Comments MICROALBUMIN / CREATININE URINE RATIO Routine 09/02/2024 10:34 AM EDT Type 2 diabetes mellitus with hyperglycemia, without long-term current use of insulin POCT GLYCOSYLATED HEMOGLOBIN (HGB A1C) Routine 09/02/2024 10:01 AM EDT Type 2 diabetes mellitus with hyperglycemia, without long-term current use of insulin POCT GLUCOSE, BLD (NON STRIP) Routine 09/02/2024 10:00 AM EDT Type 2 diabetes mellitus with hyperglycemia, without long-term current use of insulin documented in this encounter Results * Microalbumin / Creatinine Urine Ratio - Urine, Clean Catch (09/02/2024 10:34 AM EDT) Microalbumin/C reatinine Ratio 09/02/2024 3:00 PM EDT [facility] Comment:Unable to calculate Creatinine, Urine 91.2 mg/dL 09/02/2024 3:00 PM EDT [facility] Microalbumin, Urine <1.2 mg/dL 09/02/2024 3:00 PM EDT [facility] Urine Urine specimen obtained by clean catch procedure / Unknown Collection / Unknown 09/02/2024 10:34 AM EDT 09/02/2024 10:34 AM EDT Nisa MALONEY URINE ORDERABLES Final Result [facility]
[address] [place] [address], [place] [phone] * (ABNORMAL) POC Glycosylated Hemoglobin (Hb A1C) (09/02/2024 10:01 AM EDT) Hemoglobin A1C 7.7(A) 4.5 - 5.7 % [facility] Lot Number [id number] [facility] Expiration Date 05/14/2026 [facility] Blood 09/02/2024 10:0 1 AM EDT Nisa MALONEY POINT OF CARE TEST ORDERABLES F inal Result Performing Organization Address City/[facility]/ZIP Co de Phone Number [facility]
[address] [place] [address], [place] [phone] * (ABNORMAL) POC Glucose, Blood (09/02/2024 10:00 AM EDT) Glucose 176(A) 70 - 130 mg/dL Lot Number [id number] Expiration Date 03/10/2025 Blood 09/02/2024 10:0 0 AM EDT Nisa MALONEY POINT OF CARE TEST ORDERABLES F inal Result documented in this encounter Visit Diagnoses Diagnosis Type 2 diabetes mellitus with hyperglycemia, without long-term current use of insulin- Primary documented in this encounter Care Teams Cut Out Operator Relationship Specialty Start Date End Date Bruno Rendon MD [facility] [place] [address] PCP - General Family Medicine 02/17/22 documented as of this encounter
--- OUTSIDE RECORDS SUMMARY | 2024-09-10 14:45 | XMS_ITS | Clinical Summary ---
Author Organization [facility] Address [address] [place], [place] [id number] Care Team Providers Care Business Development Representative Name Role Phone Bruno Rendon MD Primary Care Provider [phone] Immunizations Immunization Administration Dates Next Due Pneumococcal Polysaccharide PPV23 05/28/2012 Family History Medical History Relation Name Comments Breast cancer Cousin Family history of malignant neoplasm of breast Breast cancer Other Family history of malignant neoplasm of breast Relation Name Status Comments Cousin Other Social History Tobacco Use Types Packs/Day Years Used Date Smoking Tobacco: Never Assessed Comments Unknown Sex and Gender Information Value Date Recorded Sex Assigned at Not on file Legal Sex Female 6:07 PM EDT Gender Identity Not on file Sexual Orientation Not on file Plan of Treatment Health Maintenance Due Date Last Done Comments [facility]-Bone Density Scan 1948 [facility]-Depression Screening 1948 [facility]-Infant/Child/Adol SDOH Screenings 1948 [facility]- SDOH Screenings 1966 [facility]-Adult SDOH Screenings 1966 [facility]-DTaP,Tdap,and Td Vaccines (1 - Tdap) 08/22/1967 [facility]-Zoster Vaccines (1 of 2) 1998 [facility]-RSV Vaccine: 60+ Years or (1 - 1-dose 75+ series) 08/22/2023 OIL-VWJSO-30 Vaccine (5 - 2023- season) 2023 01/03/2022, 12/21/2020, 04/27/2020, Additional history exists [facility]-Influenza Vaccine (#1) 2024 11/01/2019 [facility]-Pneumococcal Vaccine: 50+ Years Completed 04/25/2023, 01/03/2022, 11/17/2019, Additional history exists HPV Vaccines Aged Out No longer eligi ble based on patient's age to complete this topic [facility]-HIB Vaccines Aged Out No longer e ligible based on patient's age to complete this topic [facility]-Hepatitis A Vaccines Aged Out No longer eligible based on patient's age to complete this topic UKY-IPV Vaccines Aged Out No longer e ligible based on patient's age to complete this topic [facility]-Rotavirus Vaccines Aged Out No lo nger eligible based on patient's age to complete this topic Care Teams Business Development Representative Relationship Specialty Start Date End Date Bruno Rendon MD [address] [place] [address] PCP - General 06/18/20
--- OUTSIDE RECORDS SUMMARY | 2024-09-10 14:45 | XMS_ITS | Encounter Summary ---
Author Organization [facility] Address [address] [place] [id number] Care Team Providers Care Shift Supervisor Film Processing Name Role Phone Bruno Rendon MD Primary Care Provider [phone] Encounter Details Date Type Department Care Team (Late st Contact Info) Description 09/03/2024 Results Follow-Up [facility] [address] [phone] Nisa Larson [place] 3084 [facility] [address] [place], [place] [id number] Social History Tobacco Use Types Packs/Day Years [...] on file documented as of this encounter Plan of Treatment Upcoming Encounters Date Type Department Care Team (Late st Contact Info) Description 11/04/2024 3:00 PM EDT Office Visit [facility] [address] [place] [phone] Jeannette Broderick APRN [address] [place] [address] 03/05/2025 11:15 AM EST Office Visit [facility] [address] [phone] Nisa Larson [place] [address] [address] documented as of this encounter Visit Diagnoses Not on filedocumented in this encounter Care Teams Shift Supervisor Film Processing Relationship Specialty Start Date End Date Bruno Rendon MD [address] [place] [id number] PCP - General Family Medicine 02/17/22 documented as of this encounter
--- OUTSIDE RECORDS SUMMARY | 2024-09-10 14:45 | XMS_ITS | Referral Summary ---
Author Organization [employer] ([place], [place], [place], [place]) Address [address] [place] [address] Care Team Providers Care Bank Appraiser Name Role Phone Unavailable Primary Care Provider Unavailabl e Social History Tobacco Use Types Packs/Day Years Used Date Smoking Tobacco: Never Assessed Comments Unknown Sex and Gender Information Value Date Recorded Sex Assigned at Not on file Legal Sex Female 4:14 PM CDT Gender Identity Not on file Sexual Orientation Not on file Plan of Treatment Not on file
--- OUTSIDE RECORDS SUMMARY | 2024-09-10 14:45 | XMS_ITS | Clinical Summary ---
Author Organization [employer] ([place], [place], [place], [place]) Address [address] [place] [address] Care Team Providers Care Document Preparer Microfilming Name Role Phone Unavailable Primary Care Provider [...]
--- OUTSIDE RECORDS SUMMARY | 2024-09-10 14:45 | XMS_ITS | Encounter Summary ---
Author Organization [employer] ([place], [place], [place], [place]) Address [address] [place] [address] Care Team Providers Care Oiler And Greaser Name Role Phone Unavailable Primary Care Provider Unavailabl e Encounter Details Date Type Department Care Team (Late st Contact Info) Description 12/15/2020 Transcribed Document [facility] Family Medicine [facility] [place] [address] ProviderFrancis MD [address] [place] [address] Social History Tobacco Use Types Packs/Day Years Used Date Smoking Tobacco: Never Assessed Comments Unknown Sex and Gender Information Value Date Recorded Sex Assigned at Not on file Legal Sex Female 4:14 PM CDT Gender Identity Not on file Sexual Orientation Not on file documented as of this encounter Miscellaneous Notes * [employer]ner Conversion Note - Francis Krishnamurthy MD - 12/15/2020 1:08 PM SENIOR ACCOUNTING ANALYST Patient Education Materials Follows: Radial Site Care This sheet gives you information about how to care for yourself after your procedure. Your health care provider may also give you more specific instructions. If you have problems or questions, contact your health care provider. What can I expect after the procedure? After the procedure, it is common to have: ??? Bruising and tenderness at the catheter insertion area. Follow these instructions at home: Medicines ??? Take ophv-yqr-olrwwek and prescription medicines only as told by your health care provider. Insertion site care ??? Follow instructions from your health care provider about how to take care of your insertion site. Make sure you: ? Wash your hands with soap and water before you change your bandage (dressing). If soap and water are not available, use hand book or script editor. ? Change your dressing as told by your health care provider. ? Leave stitches (sutures), skin glue, or adhesive strips in place. These skin closures may need to stay in place for 2 weeks or longer. If adhesive strip edges start to loosen and curl up, you may trim the loose edges. Do not remove adhesive strips completely unless your health care provider tells you to do that. ??? Check your insertion site every day for signs of infection. Check for: ? Redness, swelling, or pain. ? Fluid or blood. ? Pus or a bad smell. ? Warmth. ??? Do not take baths, swim, or use a hot tub until your health care provider approves. ??? You may shower 24?48 hours after the procedure, or as directed by your health care provider. ? Remove the dressing and gently wash the site with plain soap and water. ? Pat the area dry with a clean towel. ? Do not rub the site. That could cause bleeding. ??? Do not apply powder or lotion to the site. Activity ??? For 24 hours after the procedure, or as directed by your health care provider: ? Do not flex or bend the affected arm. ? Do not push or pull heavy objects with the affected arm. ? Do not drive yourself home from the hospital or clinic. You may drive 24 hours after the procedure unless your health care provider tells you not to. ? Do not operate machinery or power tools. ??? Do not lift anything that is heavier than 10 lb (4.5 kg), or the limit that you are told, until your health care provider says that it is safe. ??? Ask your health care provider when it is okay to: ? Return to work or school. ? Resume usual physical activities or sports. ? Resume sexual activity. General instructions ??? If the catheter site starts to bleed, raise your arm and put firm pressure on the site. If the bleeding does not stop, get help right away. This is a medical emergency. ??? If you went home on the same day as your procedure, a responsible adult should be with you for the first 24 hours after you arrive home. ??? Keep all follow-up visits as told by your health care provider. This is important. Contact a health care provider if: ??? You have a fever. ??? You have redness, swelling, or yellow drainage around your insertion site. Get help right away if: ??? You have unusual pain at the radial site. ??? The catheter insertion area swells very fast. ??? The insertion area is bleeding, and the bleeding does not stop when you hold steady pressure on the area. ??? Your arm or hand becomes pale, cool, tingly, or numb. These symptoms may represent a serious problem that is an emergency. Do not wait to see if the symptoms will go away. Get medical help right away. Call your local emergency services (911 in the [place] Do not drive yourself to the hospital. Summary ??? After the procedure, it is common to have bruising and tenderness at the site. ??? Follow instructions from your health care provider about how to take care of your radial site wound. Check the wound every day for signs of infection. ??? Do not lift anything that is heavier than 10 lb (4.5 kg), or the limit that you are told, until your health care provider says that it is safe. This information is not intended to replace advice given to you by your health care provider. Make sure you discuss any questions you have with your health care provider. Document Revised: 02/27/2018 Document Reviewed: 02/27/2018 [employer] Patient Education ? 2020 [employer]. Pharmacology Moderate Conscious Sedation, Adult, Care After This sheet gives you information about how to care for yourself after your procedure. Your health care provider may also give you more specific instructions. If you have problems or questions, contact your health care provider. What can I expect after the procedure? After the procedure, it is common to have: ??? Sleepiness for several hours. ??? Impaired judgment for several hours. ??? Difficulty with balance. ??? Vomiting if you eat too soon. Follow these instructions at home: For at least 24 hours after the procedure: ??? Rest. ??? Do not: ? Participate in activities where you could fall or become injured. ? Drive. ? Use machinery. ? Drink alcohol. ? Take sleeping pills or medicines that cause drowsiness. ? Make important decisions or sign legal documents. ? Take care of children on your own. Eating and drinking ??? Follow the diet recommended by your health care provider. ??? Drink enough fluid to keep your urine pale yellow. ??? If you vomit: ? Drink water, juice, or soup when you can drink without vomiting. ? Make sure you have little or no nausea before eating solid foods. General instructions ??? Have a responsible adult stay with you until you are awake and alert. ??? Take qcmn-clx-qdhbowp and prescription medicines only as told by your health care provider. ??? Do not smoke. ??? Keep all follow-up visits as told by your health care provider. This is important. Contact a health care provider if: ??? You are still sleepy or having trouble with balance after 24 hours. ??? You feel light-headed. ??? You keep feeling nauseous or you keep vomiting. ??? You develop a rash. ??? You have a fever. ??? You have redness or swelling around the IV site. Get help right away if: ??? You have trouble breathing. ??? You have new-onset confusion at home. Summary ??? After the procedure, it is common to feel sleepy, have impaired judgment, or feel nauseous if you eat too soon. ??? Rest after you get home. Know the things you should not do for at least 24 hours after the procedure. ??? Follow the diet recommended by your health care provider and drink enough fluid to keep your urine pale yellow. ??? Get help right away if you have trouble breathing or new-onset confusion at home. This information is not intended to replace advice given to you by your health care provider. Make sure you discuss any questions you have with your health care provider. Document Revised: 12/18/2019 Document Reviewed: 12/18/2019 5th Finger Patient Education ? 2020 [employer]. Radiology Coronary Angiogram, Care After This sheet gives you information about how to care for yourself after your procedure. Your health care provider may also give you more specific instructions. If you have problems or questions, contact your health care provider. What can I expect after the procedure? After the procedure, it is common to have: ??? Bruising and tenderness at the catheter insertion area. ??? A collection of blood (hematoma) at the insertion area. This may feel like a small lump under the skin. Follow these instructions at home: Insertion site care ??? Follow instructions from your health care provider about how to take care of your insertion site. Make sure you: ? Wash your hands with soap and water before and after you change your bandage (dressing). If soap and water are not available, use hand book or script editor. ? Change your dressing as told by your health care provider. ??? Do not take baths, swim, or use a hot tub until your health care provider approves. ??? You may shower 24?48 hours after the procedure, or as told by your health care provider. To clean the insertion site: ? Gently wash the area with plain soap and water. ? Pat the area dry with a clean towel. ? Do not rub the site. This may cause bleeding. ??? Keep the site clean and dry. Do not apply powder or lotion. ??? Check your insertion site every day for signs of infection. Check for: ? Redness, swelling, or pain. ? Fluid or blood. ? Warmth. ? Pus or a bad smell. Activity ??? Do not drive for 24 hours if you were given a sedative during your procedure. ??? Rest as told by your health care provider. You may be asked to rest for 1?2 days. ??? Do not lift anything that is heavier than 10 lb (4.5 kg), or the limit that you are told, until your health care provider says that it is safe. ??? If your insertion site was in your leg, try to avoid stairs for a few days. ??? Return to your normal activities as told by your health care provider, usually in about a week. Ask your health care provider what activities are safe for you. General instructions ??? If your insertion site starts bleeding, lie flat and put pressure on the site. If the bleeding does not stop, get help right away. This is a medical emergency. ??? Take jszs-scy-cqoxylj and prescription medicines only as told by your health care provider. ??? Drink enough fluid to keep your urine pale yellow. This helps to flush the contrast dye from your body. ??? Keep all follow-up visits as told by your health care provider. This is important. Contact a health care provider if: ??? You have a fever or chills. ??? You have redness, swelling, or pain around your insertion site. ??? You have fluid or blood coming from your insertion site. ??? Your insertion site feels warm to the touch. ??? You have pus or a bad smell coming from your insertion site. ??? You have more bruising around the insertion site. Get help right away if: ??? You have problems in the insertion site: ? You have severe pain, rapid swelling, or bleeding that does not stop when pressure is applied. ? The insertion site becomes pale, cool, tingly, or numb. ??? You have chest pain. ??? You have trouble breathing. ??? You have a rash. ??? Any symptoms of a stroke. BE FAST is an easy way to remember the main warning signs: ? B - Balance. Signs are dizziness, sudden trouble walking, or loss of balance. ? E - Eyes. Signs are trouble seeing or a sudden change in how you see. ? F - Face. Signs are sudden weakness or loss of feeling in the face, or the face or eyelid drooping on one side. ? A - Arms. Signs are weakness or loss of feeling in an arm. This happens suddenly and usually on one side of the body. ? S - Speech. Signs are sudden trouble speaking, slurred speech, or trouble understanding what people say. ? T - Time. Time to call emergency services. Write down what time symptoms started. ??? You have other signs of a stroke, such as: ? A sudden, severe headache with no known cause. ? Nausea or vomiting. ? Seizure. These symptoms may represent a serious problem that is an emergency. Do not wait to see if the symptoms will go away. Get medical help right away. Call your local emergency services (911 in the [place] Do not drive yourself to the hospital. Summary ??? It is common to have bruising and tenderness at the catheter insertion area. ??? Do not take baths, swim, or use a hot tub until your health care provider approves. You may shower 24?48 hours after the procedure or as told. ??? It is important to rest and drink plenty of fluids. ??? If the insertion site bleeds, lie flat and put pressure on the site. If the bleeding continues, get help right away. This is a medical emergency. This information is not intended to replace advice given to you by your health care provider. Make sure you discuss any questions you have with your health care provider. Document Revised: 11/26/2019 Document Reviewed: 11/26/2019 [employer] Patient Education ? 2020 GetFresh. Electronically signed by Basilio Stallings Conversion Disaster Recovery Coordinator Cerner at 05/26/2022 5:57 PM CDT documented in this encounter Plan of Treatment Not on file documented as of this encounter Visit Diagnoses Not on filedocumented in this encounter
--- OUTSIDE RECORDS SUMMARY | 2024-09-10 14:45 | XMS_ITS | Encounter Summary ---
[facility] Organization [facility] Address [address] [place] [address] Care Team Providers Care Sales Operations Manager Name Role Phone Bruno Rendon MD Primary Care Provider [phone] Reason for Visit * Reason Comments Med Refill Encounter Details Date Type Department Care Team (Late st Contact Info) Description 07/29/2024 Refill [facility] [address] [place] [phone] Jeannette Broderick APRN 24 [facility] [place] [address] Med Refill Social History Tobacco Use Types Packs/Day Years [...] as of this encounter Miscellaneous Notes * Telephone Encounter - Katie Cunningham MA - 07/29/2024 4:01 PM EDT Pt notified. She states she is taking Metoprolol succ XL 50 mg qd. * Telephone Encounter - Katie Cunningham MA - 07/29/2024 2:24 PM EDT The directions in her last visit says she takes 1 tab daily. Please advise. documented in this encounter Plan of Treatment Upcoming Encounters Date Type Department Care Team (Late st Contact Info) Description 11/04/2024 3:00 PM EDT Office Visit [facility] [address] [place] [phone] Jeannette Broderick APRN [address] [place] [address] 03/05/2025 11:15 AM EST Office Visit [facility] [address] [phone] Nisa Larson, [place] [address] [address] documented as of this encounter Visit Diagnoses Not on filedocumented in this encounter Care Teams Sales Operations Manager Relationship Specialty Start Date End Date Bruno Rendon MD [facility] [place] [address] PCP - General Family Medicine 02/17/22 documented as of this encounter
--- OUTSIDE RECORDS SUMMARY | 2024-09-10 14:45 | XMS_ITS | Encounter Summary ---
Author Organization [facility] Address [address] [place] [address] Care Team Providers Care Windows Consultant Name Role Phone Bruno Rendon MD Primary Care Provider [phone] Encounter Details Date Type Department Care Team (Latest Contact Info) Description 09/02/2024 Travel Social History Tobacco Use Types Packs/Day Years [...] [place] [phone] Jeannette Broderick APRN [address] [place] [address] 03/05/2025 11:15 AM EST Office Visit [facility] [address] [address] Nisa Larson [place] [address] [facility] [address] [place] [address] documented as of this encounter Visit Diagnoses Not on filedocumented in this encounter Care Teams Windows Consultant Relationship Specialty Start Date End Date Bruno Rendon MD [address] [place] [id number] PCP - General Family Medicine 02/17/22 documented as of this encounter
--- OUTSIDE RECORDS SUMMARY | 2024-09-10 14:45 | XMS_ITS | Encounter Summary ---
Author Organization [employer] ([place], [place], [place], [place]) Address [address] [place] [address] Care Team Providers Care Green Chain Worker Name Role Phone Unavailable Primary Care Provider Unavailabl e Encounter Details Date Type Department Care Team (Late st Contact Info) Description 12/15/2020 Transcribed Document [facility] Family Medicine [facility] [place] [address] ProviderFrancis MD [address] [place] [address] Social History Tobacco Use Types Packs/Day Years Used Date Smoking Tobacco: Never Assessed Comments Unknown Sex and Gender Information Value Date Recorded Sex Assigned at Not on file Legal Sex Female 4:14 PM CDT Gender Identity Not on file Sexual Orientation Not on file documented as of this encounter Miscellaneous Notes * Cerner Conversion Note - Francis Krishnamurthy MD - 12/15/2020 8:08 AM 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 Rendon Primary Mounted Police: Dr. 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 GERD, Fibromyalgia, YONNY, Carotid Stenosis, and LBBB , remote h/o L. sided breast CA. The patient reports increased SOA that is now interfering with her activities of daily living. Lexiscan on 11/25/[address] Casanova has referred the patient for further cardiac evaluation given persistent symptoms of SOB with concerns for angina equivalent. . Review of Systems Constitutional: Negative except as documented in history of present illness. Eye: Negative except as documented in history of present illness. Ear/Nose/Mouth/Throat: Negative except as documented in history of present illness. Respiratory: Negative except as documented in history of present illness. Cardiovascular: Negative except as documented in history of present illness. Gastrointestinal: Negative except as documented in history of present illness. Genitourinary: Negative except as documented in history of present illness. Hematology/Lymphatics: Negative except as documented in history of present illness. Endocrine: Negative except as documented in history of present illness. Immunologic: Negative except as documented in history of present illness. Musculoskeletal: Negative except as documented in history of present illness. Integumentary: Negative except as documented in history of present illness. Neurologic: Negative except as documented in history of present illness. Psychiatric: Negative except as documented in history of present illness. Health Status Allergies (1) Active Reaction No Known Medication Allergies None Documented Home Medications (12) Active Aspirin Low Strength 81 mg, Oral, Daily Bystolic 5 mg oral tablet 5 mg = 1 Tab, Oral, Daily Citracal Plus with Magnesium DULoxetine 60 mg, Oral, Daily fluticasone 0.05 mg/inh nasal spray 1 [place], Nasal, BID metformin 500 mg oral tablet 1,000 mg = 2 Tab, Oral, BID One A Day Women 50 Plus 1 Tab, Daily Osteo Bi-Flex See Instructions, BID Prilosec OTC 20 mg oral enteric coated tablet , BID simvastatin 20 mg oral tablet 20 mg = 1 Tab, Oral, At Bedtime trazodone 200 mg, At Bedtime Ultram , Oral, Q4H Allergies: Allergic Reactions (Selected) No Known Medication Allergies, Allergies (1) Active Reaction No Known Medication Allergies None Documented Current medications: (Selected) Inpatient Medications Ordered Normal Saline Flush: 10 mL, IV Push, Q12H Normal Saline Flush: 10 mL, IV Push, See Comment, PRN: IV Use Sodium Chloride 0.9% intravenous solution: 500 mL, 0 mL/Hr, IntraVENous, 1-Time aspirin: 81 mg, Chew, 1-Time atorvastatin: 80 mg, Oral, PREOP Documented Medications Documented Aspirin Low Strength: 81 mg, Oral, Daily, 4 tabs on `11/11/2014, 0 Refill(s) Bystolic 5 mg oral tablet: 1 Tab, Oral, Daily, 0 Refill(s) Citracal Plus with Magnesium: 0 Refill(s) DULoxetine: 60 mg, Oral, Daily, 0 Refill(s) One A Day Women 50 Plus: 1 Tab, Daily, 0 Refill(s) Osteo Bi-Flex: See Instructions, BID, 0 Refill(s) Prilosec OTC 20 mg oral enteric coated tablet: BID, 0 Refill(s) Ultram: Oral, Q4H, as needed for pain, 0 Refill(s) fluticasone 0.05 mg/inh nasal spray: 1 [place], Nasal, BID, 16 Gram, 0 Refill(s) metformin 500 mg oral tablet: 2 Tab, Oral, BID, 180 Tab, 0 Refill(s) simvastatin 20 mg oral tablet: 1 Tab, Oral, At Bedtime, 90 Tab, 0 Refill(s) trazodone: 200 mg, At Bedtime, 0 Refill(s), Medications (5) Active Scheduled: (4) #NaCl 0.9% *FLUSH* inj 10 mL 10 mL, IV Push, Q12H aspirin 81 mg chew tab 81 mg 1 Tab, Chew, 1-Time atorvastatin 40 mg tab 80 mg 2 Tab, Oral, PREOP NaCl 0.9% 500 mL, IntraVENous, 1-Time Continuous: (0) PRN: (1) #NaCl 0.9% *FLUSH* inj 10 mL 10 mL, IV Push, See Comment Problem list: All Problems Hyperlipemia / ICD-9-CM 272.4 / Confirmed Diabetes mellitus / SNOMED CT 882894493 / Confirmed Arthritis / SNOMED CT 5283875 / Confirmed Depression / ICD-9-CM 311 / Confirmed Breast cancer / SNOMED CT 470559594 / Confirmed Hyperlipidemia / SNOMED CT 92725329 / Confirmed Arthritis / SNOMED CT 9422281 / Confirmed Breast cancer / SNOMED CT 543411160 / Confirmed s/p chemo Anxiety / SNOMED CT 73406915 / Confirmed Depression / SNOMED CT 781554323 / Confirmed DM - Diabetes mellitus / SNOMED CT 723409865 / Confirmed Hard of hearing / SNOMED CT 180747415 / Confirmed Sinusitis / SNOMED CT 49971591 / Confirmed Back pain / SNOMED CT 009225796 / Confirmed, Active Problems (14) Anxiety Arthritis Arthritis Back pain Breast cancer Breast cancer Depression Depression Diabetes mellitus DM - Diabetes mellitus Hard of hearing Hyperlipemia Hyperlipidemia Sinusitis Histories No education data available. Social & Psychosocial Habits Alcohol 11/11/2014 Alcohol Use History, Social Habits No Alcohol Use in Last Twelve Months No Nutrition/Health 10/15/2012 Caffeine intake amount: 1 Substance Abuse 11/11/2014 Recreational Drug Use History No Recreational Drug Use Last 12 Months No Tobacco 10/15/2012 Smoking Status Never smoker Past Medical History: Active Hyperlipidemia (14393865) Arthritis (7465194) Breast cancer (745238485) Comments: 10/15/2012 EDT 11:00 EDT - MARISEL ROBERTSON, APR s/p chemo Anxiety (81558605) Depression (851419023) DM - Diabetes mellitus (925741076) Family History: No family history items have been selected or recorded., Non-Contributory Procedure history: bilateral knee replacement. bilateral knee replacements. bilateral mastectomy. bilateral mastectomy. Cholecystectomy; (92003). Cholecystectomy; (20396). Social History Social & Psychosocial Habits Alcohol 11/11/2014 Alcohol Use History, Social Habits No Alcohol Use in Last Twelve Months No Nutrition/Health 10/15/2012 Caffeine intake amount: 1 Substance Abuse 11/11/2014 Recreational Drug Use History No Recreational Drug Use Last 12 Months No Tobacco 10/15/2012 Smoking Status Never smoker . Physical Examination VS/Measurements No qualifying data available General: Alert and oriented, No acute distress. Eye: Pupils are equal, round and reactive to light, Normal conjunctiva. HENT: Normocephalic. Neck: Supple, No jugular venous distention. Respiratory: Lungs are clear to auscultation, Respirations are non-labored, Symmetrical chest wall expansion. Cardiovascular: Normal rate, Regular rhythm, No murmur, Good pulses equal in all extremities. Gastrointestinal: Soft, Non-distended, Normal bowel sounds. Musculoskeletal: Normal range of motion, Normal strength. Integumentary: Warm, Dry, [place]. Neurologic: Alert, Oriented. Psychiatric: Cooperative, Appropriate mood & affect. Review / Management Results review: No qualifying data available. Impression and Plan IMPRESSION: * KAUFMAN/Anginal Equivalent Lexiscan 11/25/20 suggest inferior ischemia - Normal LVEF 55% * Known anomalous LCx origin from RC cusp ( cardiac cath 2014) * HLD * GERD * PVD * LBBB * YONNY PLAN; [facility] with possible percutaneous coronary intervention. Risk and benefits discussed with patient and her at bedside. Patient wishes to proceed. documented in this encounter Plan of Treatment Not on file documented as of this encounter Visit Diagnoses Not on filedocumented in this encounter
--- OUTSIDE RECORDS SUMMARY | 2024-09-10 14:45 | XMS_ITS | Encounter Summary ---
Author Organization [email or web address] ([place], [place], [place], [place]) Address [address] [place] [address] Care Team Providers Care Surgical Scrub Technician Name Role Phone Unavailable Primary Care Provider Unavailabl e Encounter Details Date Type Department Care Team (Late st Contact Info) Description 12/15/2020 Transcribed Document [facility] [address] [place] [address] ProviderFrancis MD [address] [place] [address] Social History Tobacco Use Types Packs/Day Years Used Date Smoking Tobacco: Never Assessed Comments Unknown Sex and Gender Information Value Date Recorded Sex Assigned at Not on file Legal Sex Female 4:14 PM CDT Gender Identity Not on file Sexual Orientation Not on file documented as of this encounter Miscellaneous Notes * Cerner Conversion Note - Francis Krishnamurthy MD - 12/15/2020 1:09 PM [employer] [facility] [place] [address] [address] P :1950 Visit Time:12/15/2020 Your Visit Summary Your Care Team Admitting Physician - KAT WORKMAN MD Attending Physician - KAT WORKMAN MD Primary Care Physician - MARY GOVEA (REF)WILFREDO Referring Physician - MARY GOVEA (REF), WILFREDO Your Diagnosis Atherosclerotic heart disease of havasupai coronary artery without angina pectoris Other forms of angina pectoris, Other forms of angina pectoris These Are Your Goals No qualifying data available. Discharge Vitals Temperature 36.4 ??C Heart Rate (Monitored) 60 Respiratory Rate 18 Blood Pressure 170/72 What to do next Instructions From Your Care Team Diet after Discharge: Resume usual diet as tolerated Activity after Discharge: Rest and relax today, No strenuous activity, No lifting more than 1 pound with affected hand for 48 hours. , Driving Restrictions: No driving for 24 hours. Showering/Bathing: You may remove the dressing in 24 hours and shower. , No tub bathing, soaking or swimming for 3-5 days until site is healed. Medications: No changes to your current home medications., _, _ Dressing Instructions: You can remove the dressing in 24 hours., Follow-Up Appointments Follow Up with ASHLY TURK When 01/04/2021 10:45 AM EST Comments Appointment has been made Where: [address] [place] [address]- [phone] [employer] (1) Medications What How Much When Instructions Next Dose DULoxetine (Cymbalta 60 mg oral delayed release capsule) 1 Capsule(s) Oral Every Day (do not crush or chew) multivitamin with minerals (Citracal Plus with Magnesium) 1 Tablet(s) Oral Every Day simvastatin (Zocor 40 mg oral tablet) 1 Tablet(s) Oral At Bedtime ARIPiprazole (ARIPiprazole 20 mg oral tablet with sensor) 1 Tablet(s) Oral Every Day aspirin (Aspirin Low Strength) 81 Milligram(s) Oral Every Day chondroitin-glucosamine (Osteo Bi-Flex) See instructions daily cranberry (Cranberry) See instructions glipiZIDE (glipiZIDE 10 mg oral tablet) 1 Tablet(s) Oral Two Times A Day hydroCHLOROthiazide (hydroCHLOROthiazide 12.5 mg oral tablet) 1 Tablet(s) Oral Every Day lisinopril (lisinopril 20 mg oral tablet) 1 Tablet(s) Oral Every Day meloxicam (Mobic 15 mg oral tablet) 1 Tablet(s) Oral Every Day methenamine (methenamine hippurate 1 g oral tablet) 0.5 Tablet(s) Oral Two Times A Day Duration: 5 Day(s) methocarbamol (methocarbamol 750 mg oral tablet) 1 Tablet(s) Oral Four Times A Day metoprolol (Metoprolol Tartrate 50 mg oral tablet) 1 Tablet(s) Oral Three Times A Day nebivolol (Bystolic 5 mg oral tablet) 1 Tablet(s) Oral Every Day pantoprazole (pantoprazole 40 mg oral delayed release tablet) 1 Tablet(s) Oral Two Times A Day pioglitazone (pioglitazone 30 mg oral tablet) 1 Tablet(s) Oral Every Day traMADol (Ultram) 100 Milligram(s) Oral Every 4 Hours as needed for pain traZODone (trazodone) 200 Milligram(s) Oral At Bedtime Take your medications faithfully. Do NOT skip medication. Do NOT stop taking medications without the direction of a physician. Carry a list of your medications with you at all times, and take this medication list with you to your first follow up visit. Report any side effects. Avoid herbal remedies unless discussed with your physician. As part of your treatment plan, your physician may have prescribed a limited course of a controlled substance. This medication may be given to help people with moderate or severe pain or for other medical conditions, but there are risks involved with treatment. Common side effects may include nausea, constipation, drowsiness, sweating, itching, dry mouth, and rash. More serious side effects may include cognitive and motor impairment, like problems with thinking, concentrating, alertness, and movement (e.g. slowed reflexes), and driving and operating heavy machinery can be dangerous. It is important for you to talk to your physician if you have these side effects or questions. These controlled substances can produce physical dependence and be habit-forming if taken for an extended period of time, which means that the body has gotten used to them and may experience withdrawal symptoms if they are abruptly stopped. Withdrawal symptoms can include runny nose, sweating, goose bumps, diarrhea, abdominal cramping, rapid heartbeat, difficulty sleeping, and nervousness. Please dispose of unused and medications per your retail pharmacy guidance. Allergies No Known Medication Allergies Immunizations This Visit No Immunizations Found Education Materials Coronary Angiogram, Care After This sheet gives [...] and water are not available, use hand pig farmer. ? Change your dressing as told by your health care provider. ??? Do not take baths, swim, or use a hot tub until your health care provider approves. ??? You may shower 24???48 hours after the procedure, or as told [...] You may be asked to rest for 1???2 days. ??? Do not lift anything that [...] This is a medical emergency. ??? Take iqgd-onj-bcbrypo and prescription medicines only as told by [...] health care provider approves. You may shower 24???48 hours after the procedure or as told. [...] provider. Document Revised: 11/26/2019 Document Reviewed: 11/26/2019 [employer] Patient Education ?? 2020 [employer] Moderate Conscious Sedation, Adult, Care After This [...] you are awake and alert. ??? Take scjn-ozl-exvdyxn and prescription medicines only as told by [...] provider. Document Revised: 12/18/2019 Document Reviewed: 12/18/2019 [employer] Patient Education ?? 2020 [employer]. Radial Site Care This sheet gives you [...] these instructions at home: Medicines ??? Take pjuz-jcd-xyukyaf and prescription medicines only as told by your health care provider. Insertion site care ??? Follow instructions from your health care provider about how to take care of your insertion site. Make sure you: ? Wash your hands with soap and water before you change your bandage (dressing). If soap and water are not available, use hand pig farmer. ? Change your dressing as told by [...] care provider approves. ??? You may shower 24???48 hours after the procedure, or as directed [...] provider. Document Revised: 02/27/2018 Document Reviewed: 02/27/2018 [employer] Patient Education ?? 2020 [employer]. Emergency Awareness and Preventative Care STROKE is an EMERGENCY Every Minute Counts Act FAST and Check for these signs: FACE Does the face look uneven? ARM Does one arm drift down? SPEECH Does their speech sound strange? TIME Call at any sign of stroke Stroke Risk Factors Atrial Fibrillation (irregular heartbeat) Diabetes Family history of stroke Heart Disease Heavy alcohol use High Blood Pressure High Cholesterol Physical inactivity and obesity Smoking Cigarette Smoking The facts are clear, cigarette smoking will shorten your life. Smoking can cause many illnesses along the way. As a healthcare provider, we recommend that you stop smoking. Assistance with quitting is available by contacting 6-343-JPGY-NOW. This is a free resource providing counseling, support, and referral. Or you may contact your personal physician. National Suicide Prevention Lifeline: The National Suicide Prevention Lifeline is a national network of local crisis centers that provides free and confidential emotional support to people in suicidal crisis or emotional distress 24 hours a day, 7 days a week. Don't Wait! Stop a Heart Attack Before it Starts What is a heart attack? A heart attack is damage or to a part of the heart from severely decreased or lack of blood flow to the heart. Over time, arteries can become narrow from the buildup of fat and cholesterol, which is called plaque. The plaque can rupture causing a blood clot to form. When the blood clot forms, the artery can become severely narrowed or completely blocked, causing a heart attack. Heart attack is the leading cause of in the [place]. 85% of muscle damage occurs within the first 2 hours. Delay in the recognition of heart attack symptoms increases the chances of . Know the early symptoms of a heart attack: Nausea Feeling of fullness in chest Jaw Pain Pain that travels down one or both arms Fatigue/being tired Anxiety Back Pain Chest pressure, squeezing, or discomfort Shortness of breath Sweating, or a cold sweat Feeling of impending doom There are unusual signs of a heart attack, too! Women, the elderly, and diabetics may present with atypical symptoms: Fainting/dizziness Weakness Confusion Risk Factors for a Heart Attack Some heart disease risk factors, such as age and family history, cannot be changed. Others, like smoking and lack of exercise, can be changed. Smoking High Cholesterol High Blood Pressure Family History Obesity Age Gender (Males are at higher risk) Lack of Exercise Diabetes Diet Stress Excessive Alcohol Intake If you or someone you know is experiencing the signs and symptoms of a heart attack, DON???T DELAY. Call immediately and seek help. If someone collapses, perform CPR! Do not attempt to drive if you are having symptoms of heart attack. Hands-Only CPR Why Hands-Only CPR? Hands-Only CPR has been shown to be as effective as conventional CPR for cardiac arrests that occur outside of a hospital. Survival depends on immediately receiving CPR from someone nearby. How do you perform Hands-Only CPR? There are two easy steps: Call if you see a teen or adult collapse Push hard and fast in the center of the chest at a beat of 100 beats per minute. Save a life! 4 WAYS TO GET AHEAD OF SEPSIS SEPSIS is a MEDICAL EMERGENCY. Time matters! Infections put you and your family at risk for a life-threatening condition called sepsis. Sepsis is the body's extreme response to an infection. It is life-threatening, and without timely treatment, sepsis can rapidly lead to tissue damage, organ failure, and . Sepsis happens when an infection you already have-in your skin, lungs, urinary tract or somewhere else-triggers a chain reaction throughout your body. 1 PREVENT INFECTIONS Take good care of chronic conditions. Talk to your doctor about getting the recommended vaccines. 2 PRACTICE GOOD HYGIENE Wash your hands frequently. Keep cuts or open sores clean and covered until they are healed. 3 KNOW THE SYMPTOMS Confusion or disorientation Shortness of breath High heart rate Fever, shivering, or feeling very cold Extreme pain or discomfort Clammy or sweaty skin 4 ACT FAST Get medical care IMMEDIATELY if you suspect sepsis or if you have an infection that is not getting better or is getting worse. To learn more about sepsis and how to prevent infections, visit www.cdc.gov/sepsis. Test Results Laboratory or Other Results This Visit (last charted value for your 12/15/2020 visit) Hematology 12/15/2020 8:12 AM WBC: 8.4 K/uL -- Normal range between ( 4.5 and 10.5 ) RBC: 4.15 Million/uL -- Normal range between ( 3.93 and 5.22 ) Hct: 39.8 % -- Normal range between ( 34.1 and 44.9 ) Hgb: 13.1 g/dL -- Normal range between ( 11.2 and 15.7 ) Platelet Count: 268 K/uL -- Normal range between ( 163 and 369 ) MCH: 31.6 pg -- Normal range between ( 25.6 and 32.2 ) MCHC: 32.9 Gram/dL -- Normal range between ( 32.2 and 36.5 ) MCV: 95.9 fL -- Normal range between ( 79.0 and 94.8 ) Slide Review: No Eos %: 0.8 % -- Normal range between ( 0.0 and 7.0 ) Hubbard #: 0.48 K/uL -- Normal range between ( 0.16 and 1.00 ) Eos #: 0.07 x10(3)/uL -- Normal range between ( 0.00 and 0.80 ) [place] %: 5.7 % -- Normal range between ( 3.0 and 9.0 ) Baso %: 0.4 % -- Normal range between ( 0.0 and 1.5 ) Baso #: 0.03 x10(3)/uL -- Normal range between ( 0.00 and 0.20 ) RDW: 12.6 % -- Normal range between ( 11.7 and 14.9 ) Neut %: 71.7 % -- Normal range between ( 34.0 and 71.0 ) Neut #: 6.01 K/uL -- Normal range between ( 1.56 and 6.13 ) Lymph %: 20.9 % -- Normal range between ( 19.3 and 53.1 ) Lymph #: 1.75 x10(3)/uL -- Normal range between ( 1.00 and 3.90 ) MPV: 9.1 fL -- Normal range between ( 9.4 and 12.4 ) IG#: 0.04 x10(3)/uL -- Normal range between ( 0.00 and 0.05 ) IG%: 0.50 % -- Normal range between ( 0.00 and 0.60 ) General Chemistry 12/15/2020 8:12 AM Creatinine Level: 0.90 mg/dL -- Normal range between ( 0.55 and 1.02 ) Sodium Level: 132 mmol/L -- Normal range between ( 136 and 146 ) Potassium Level: 4.2 mmol/L -- Normal range between ( 3.5 and 5.1 ) Chloride Level: 102 mmol/L -- Normal range between ( 102 and 112 ) Carbon Dioxide Level: 25 mmol/L -- Normal range between ( 21 and 32 ) Anion Gap: 9 -- Normal range between ( 9 and 20 ) Bilirubin Total: 0.4 mg/dL -- Normal range between ( 0.2 and 1.2 ) A/G Ratio: 0.7 -- Normal range between ( 1.1 and 2.5 ) ALT: 20 Units/Liter -- Normal range between ( 13 and 56 ) AST: 16 Units/Liter -- Normal range between ( 5 and 37 ) Globulin: 4.6 Gram/dL -- Normal range between ( 1.5 and 4.5 ) Alk Phos: 82 Units/Liter -- Normal range between ( 27 and 136 ) Bun/Creatinine: 24.4 -- Normal range between ( 8.0 and 20.0 ) Calcium Level: 8.9 mg/dL -- Normal range between ( 8.4 and 10.1 ) eGFR : >60 mL/min/1.73m2 eGFR NonAfrican: >60 mL/min/1.73m2 Glucose Level: 134 mg/dL -- Normal range between ( 74 and 106 ) Blood Urea Nitrogen: 22 mg/dL -- Normal range between ( 7 and 22 ) Protein Total: 7.9 Gram/dL -- Normal range between ( 6.4 and 8.2 ) Albumin Level: 3.3 Gram/dL -- Normal range between ( 3.4 and 5.0 ) Patient Name:SORAYA LEVINE Melvin I have received and understand this information and was given the opportunity to ask questions. Patient/Folder Seamer Name: Patient/Folder Seamer Signature: Relationship to Patient: Clinician/Hospital Folder Seamer Signature: Date: documented in this encounter Plan of Treatment Not on file documented as of this encounter Visit Diagnoses Not on filedocumented in this encounter
--- OUTSIDE RECORDS SUMMARY | 2024-09-10 14:45 | XMS_ITS | Encounter Summary ---
[facility] Organization [facility] Address [address] [place] [address] Care Team Providers Care Buckle Sewer Name Role Phone Bruno Rendon MD Primary Care Provider [phone] Reason for Visit * Reason Onset Date Comments Med Refill 08/12/2024 Encounter Details Date Type Department Care Team (Late st Contact Info) Description 08/12/2024 Refill [facility] [address] [facility] [address] [place] [address] Nisa Larson PA [address] [facility] [address] [place] [address] Social History Tobacco Use Types Packs/Day Years [...] Miscellaneous Notes * Telephone Encounter - Katie Rodriguez - 08/12/2024 10:34 AM EDT Received paperwork from [employer] for [employer]. Pt. Has not been seen since last provider left office. Pt. Needs appt. Paperwork faxed back stating pt. Needs to contact office for appt. BHUMIKA documented in this encounter Plan of Treatment Upcoming Encounters Date Type Department Care Team (Late st Contact Info) Description 11/04/2024 3:00 PM EDT Office Visit [facility] C[facility] [address] [place] [id number] Jeannette Broderick APRN [address] [place] [address] 03/05/2025 11:15 AM EST Office Visit [facility] [address] [address] Nisa Larson PA [address] [address] documented as of this encounter Visit Diagnoses Not on filedocumented in this encounter Care Teams Buckle Sewer Relationship Specialty Start Date End Date Bruno Rendon MD [facility] [place] [address] PCP - General Family Medicine 02/17/22 documented as of this encounter
--- OUTSIDE RECORDS SUMMARY | 2024-09-10 14:45 | XMS_ITS | Encounter Summary ---
Author Organization [facility] ([place], [place], [place]) Address [address] [place] [address] Care Team Providers Care Billet Driller Name Role Phone Unavailable Primary Care Provider Unavailabl e Encounter Details Date Type Department Care Team (Late st Contact Info) Description 12/15/2020 Transcribed Document [facility] Family Medicine [facility] [place] [place] [address] ProviderFrancis MD [facility] [place] [address] Social History Tobacco Use Types Packs/Day Years Used Date Smoking Tobacco: Never Assessed Comments Unknown Sex and Gender Information Value Date Recorded Sex Assigned at Not on file Legal Sex Female 4:14 PM CDT Gender Identity Not on file Sexual Orientation Not on file documented as of this encounter Miscellaneous Notes * Cerner Conversion Note - Francis ProviderMD - 12/15/2020 8:30 AM 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 Pre Procedure Adult Entered On: 12/15/2020 8:38 EST Performed On: 12/15/2020 8:30 EST by Vivian Macario RN Height and Weight, Clinical Dosing Height Source : Stated Height Entry Format : [place] Height, Feet : 5 ft(Converted to: 152 cm, 60 Inch) Height, Inches : 2 Inch(Converted to: 0 ft 2 Inch, 5.08 cm) Clinical Height : 157.48 cm Weight Source : Standing scale Weight Entry Format : [place] Clinical Dosing Weight : 105.91 kg Weight, Pounds : 233 lb Body Surface Area (BSA) : 2.04 m2 Body Mass Index : 42.7 kg/m2 (>HHI) [place] Body Weight : 50 kg Vivian Macario RN - 12/15/2020 8:30 EST Health Histories Smoking Status : Never (less than 100 in lifetime; none in last 30 days) Smokeless Tobacco Status : Never Vivian Macario RN - 12/15/2020 8:30 EST Social History (As Of: 12/15/2020 08:38:43 EST) Tobacco: Smoking Status Never smoker. (Last Updated: 10/15/2012 10:57:00 EDT by URSZULA ROSE RN) Alcohol: Alcohol Use History No. Use in Last 12 Months: No. (Last Updated: 11/11/2014 09:58:40 EDT by CHOLO NEGRON RN) Substance Abuse: Drug Use Hx: No. Use in Last 12 Months: No. (Last Updated: 11/11/2014 09:58:44 EDT by CHOLO NEGRON RN) Nutrition/Health: Caffeine intake amount: 1. (Last Updated: 10/15/2012 10:56:55 EDT by URSZULA ROSE RN) Infectious Disease History Does patient have symptoms of COVID-19? : No Has the Patient Been Tested for COVID-19 in the last 14 days? : Yes, Patient stated results Negative Does the Patient state known exposure to a COVID-19 positive case in the last 14 days? : No Patient Vaccinated for COVID-19 : Fully vaccinated Vivian Macario RN - 12/15/2020 8:30 EST Infectious Disease Risk Screening Grid Cough < 2 wks of unknown origin : NO Cough > 2 weeks : NO Blood in Sputum : NO Fever or self-reported Fever : NO Rash of unknown origin : NO Headache : NO Stiff neck : NO Night Sweats : NO Unexplained Weight Loss : NO Diarrhea (3 episode per day) : NO Vivian Macario RN - 12/15/2020 8:30 EST Patient Masked? : Yes Physical contact outside [place] in the last 30 days : No Hospitalized in Foreign Country : No Infectious Disease History : Measles, Mumps Active Surveillance Screen Assessment : Patient does not meet any of above criteria Active Surveillance Screen Negative : Yes INF Disease TB Screening Calc : 0 INF Disease Recent Travel Calc : 0 Vivian Macario RN - 12/15/2020 8:30 EST COVID19 PreProcedure Screening Is this an Emergent or Add on Procedure? : No Date PreProcedure COVID-19 test known? : Yes Date of PreProcedure COVID-19 : 12/13/2020 EST Has patient been isolated since the test : Yes Exposed to COVID19 symptoms since test? : No Vivian Macario RN - 12/15/2020 8:30 EST Anesthesia/Transfusion History Family History of Anesthesia Reaction : No prior transfusion(s) Blood Transfusion Acceptable to Patient : Yes Transfusion History : Prior anesthesia without reaction Family History of Anesthesia Reaction : None Vivian Macario RN - 12/15/2020 8:30 EST Functional Assessment Living Situation : Home Patient Lives With : Adult Child/Children, Spouse Persons Assisting Patient at Home : Spouse Current Daily Living Assistance : None Sensory Deficits : None Mobility Assistance Prior to Admission : Independent ORTA Hx Falls Immediate/Within 3 Months : Yes Current Home Treatments : BiPAP, Blood glucose monitoring Vivian Macario RN - 12/15/2020 8:30 EST [place] Suicide Severity Rating Scale (C-SSRS) CSSRS Past Month Wish to be : No CSSRS Past Month Suicidal Thoughts : No CSSRS Lifetime Suicide Behavior : No Suicide Severity Rating Score : 0 Suicide Severity Rating : No Additional Care Required at this time Vivian Macario RN - 12/15/2020 8:30 EST Psychosocial History Does Someone Depend on You for Care? : No Do You Have a History of the Following? : Anxiety, Depression Currently in Unsafe Situation : No Vivian Macario RN - 12/15/2020 8:30 EST Advance Directive Patient has Advance Directive *Q : No, patient refuses Advance Directive information Vivian Macario RN - 12/15/2020 8:30 EST Teaching/Learning Assessment Barriers To Learning : None evident Individuals Taught : Patient, Spouse Readiness to Learn : Cooperative Readiness to Learn : Explanation Learning Style Preferences Patient : Verbal explanation Learning Style Preferences Family : Verbal explanation Vivian Macario RN - 12/15/2020 8:30 EST Education Topics, Periop Preadmission Perioperative Education Grid Arrival Time/Place : Verbalizes understanding CAUTI : Verbalizes understanding Central Lines : Verbalizes understanding CHG Preoperative Bathing/Cloths : Verbalizes understanding Falls : Verbalizes understanding Incentive Spirometry : Verbalizes understanding Infection Control : Verbalizes understanding IV's : Verbalizes understanding NPO Status/Directions : Verbalizes understanding Pain Management : Verbalizes understanding Postoperative Care Preparations : Verbalizes understanding Preprocedure Preparations : Verbalizes understanding Preprocedure Tests/Labs : Verbalizes understanding Remove Body Piercings : Verbalizes understanding Responsible Adult : Verbalizes understanding SNE's : Verbalizes understanding Take/Hold Medications Pre-Procedure : Verbalizes understanding Other : Verbalizes understanding Vivian Macario RN - 12/15/2020 8:30 EST General Info Arrived From : Home Mode of Arrival on Unit : Ambulatory Legal Guardian : Spouse Support Person/Patient Photographer Apprentice Lithographic : Yes Support Person/Pt Rep Name : vadim Support Person/Pt Rep Contact Information : [id number] Want Family/Rep/Phys Notified of Admit : No Emergency Contact #1 : Vadim Walls Emergency Contact #1 Emergency Contact #1 Relationship : Spouse Emergency Contact #2 : . Emergency Contact #2 Phone Number : . Emergency Contact #2 Relationship : . Information Obtained From : Patient Primary Language : Croatian Preferred Communication Mode : Verbal Communication Barrier : None Multi Media Specialist Needed : No Vivian Macario RN - 12/15/2020 8:30 EST Vital Measurements Temperature Source : Temporal artery scanning Temperature Mode : Fahrenheit Temperature, Fahrenheit : 97.6 Deg F Clinical Temperature, C : 36.4 Deg C Peripheral Pulse Rate : 61 bpm Respiratory Rate : 18 Breaths/Min Systolic Blood Pressure : 146 mmHg (HI) Diastolic Blood Pressure : 83 mmHg Oxygen Saturation : 98 % Oxygen Therapy Mode : Room air Vivian Macario RN - 12/15/2020 8:30 EST Sleep Apnea Risk Assmt BiPAP/CPAP Ordered for Home Use : Yes Hx of Obstructive Sleep Apnea Diagnosis : Yes BiPAP/CPAP Used at Home : Yes Age over 50 Years Old : Yes Gender Male : No Vivian Macario RN - 12/15/2020 8:30 EST Janes Scale Janes Sensory Perception : No impairment Janes Moisture : Rarely moist Janes Activity : Walks frequently Janes Mobility : No limitation Janes Nutrition : Excellent Janes Friction and Shear : No apparent problem Janes Score : 23 Vivian Macario RN - 12/15/2020 8:30 EST Pain Assessment Pain Assessment : Initial assessment Pain Scale Used : 0-10 Scale Vivian Macario RN - 12/15/2020 8:30 EST Fall Risk Scales ABCs Fall Injury Risk Identification : None ORTA Hx Falls Immediate/Within 3 Months : Yes Orta Secondary Diagnosis : No ORAT Use of Ambulatory Aid : None ORTA IV Therapy or IV Access : Yes Orta Gait/Transferring : Normal, bedrest, immobile Orta Mental Status : Oriented to own ability Orta Fall Risk Score : 45 ORTA Fall Scale Risk Level : 0-24 Low Risk [place] Fall Interventions : Adequate lighting, Assistive devices within reach, Bed in low position, Call device within reach, Fall prevention handout/education per facility policy, Frequent orientation to call device, Frequent orientation to surroundings, Hourly comfort/safety rounds, Non-slip footwear, Personal items within reach, Reinforced to call for assistance before getting out of bed, Room free of clutter/spills, Upper side-rails up, Wheels locked, Wires/Cords secured Vivian Macario RN - 12/15/2020 8:30 EST Valuables and Belongings Valuables and Belongings : Clothing, Personal devices, Personal items, No comfort items, No jewelry, No assistive devices, No respiratory devices, No medications Clothing : Common streetwear Clothing Disposition : Bedside, Declines to send to security/safe Personal Device Disposition : Bedside, With patient, Declines to send to security/safe Personal Devices : Glasses Personal Items : Cell phone, Purse Personal Items Disposition : Bedside, With family, Declines to send to security/safe Vivian Mcaario RN - 12/15/2020 8:30 EST Pain Scale Intensity : 0 Vivian Macario RN - 12/15/2020 8:30 EST Image 4 - Images currently included in the form version of this document have not been included in the text rendition version of the form. documented in this encounter Plan of Treatment Not on file documented as of this encounter Visit Diagnoses Not on filedocumented in this encounter
--- OUTSIDE RECORDS SUMMARY | 2024-09-10 14:45 | XMS_ITS | Encounter Summary ---
Author Organization [facility] Address [address] [place] [address] Care Team Providers Care Field Administrative Assistant Name Role Phone Bruno Rendon MD Primary Care Provider [phone] Reason for Visit * Reason Comments Med Refill Encounter Details Date Type Department Care Team (Late st Contact Info) Description 08/26/2024 Refill [facility] [address] [place] [phone] Bailey Lua DRY WALL INSTALLATIONS MECHANIC [address] [place] [id number] Med Refill Social History Tobacco Use Types [...] Description 11/04/2024 3:00 PM EDT Office Visit [facility] [address] [place] [phone] Jeannette Broderick APRN [address] [facility] [place] [address] 03/05/2025 11:15 AM EST Office Visit [facility] [address] [address] Nisa Larson PA [address] [address] documented as of this encounter Visit Diagnoses Not on filedocumented in this encounter Care Teams Field Administrative Assistant Relationship Specialty Start Date End Date Bruno Rendon MD [address] [place] [id number] PCP - General Family Medicine 02/17/22 documented as of this encounter
--- OUTSIDE RECORDS SUMMARY | 2024-09-10 14:45 | XMS_ITS | Encounter Summary ---
[facility] Address [address] [place] [address] Care Team Providers Care Corporate Counsel Name Role Phone Bruno Rendon MD Primary Care Provider [phone] Reason for Visit * Reason Comments Med Refill Encounter Details Date Type Department Care Team (Late st Contact Info) Description 08/06/2024 Refill [facility] [address] [place] [phone] Angelica Rodriguez MD [address] [place] [address] Med Refill Social History Tobacco Use [...] Description 11/04/2024 3:00 PM EDT Office Visit [facility] [address] [place] [address] Jeannette Broderick APRN [address] [place] [address] 03/05/2025 11:15 AM EST Office Visit [facility] END[facility] [address] [address] Nisa Larson PA [address] [address] documented as of this encounter Visit Diagnoses Not on filedocumented in this encounter Care Teams Corporate Counsel Relationship Specialty Start Date End Date Bruno Rendon MD [address] [place] [id number] PCP - General Family Medicine 02/17/22 documented as of this encounter
--- OUTSIDE RECORDS SUMMARY | 2024-09-10 14:45 | XMS_ITS | Encounter Summary ---
Author Organization [facility] ([place], [place], [place], [place]) Address [address] [place] [address] Care Team Providers Care Virtual Recruiter Name Role Phone Unavailable Primary Care Provider Unavailabl e Encounter Details Date Type Department Care Team (Late st Contact Info) Description 12/15/2020 Transcribed Document [facility] [place] Family Medicine [facility] [place] [address] ProviderFrancis MD [facility] [place] [address] Social History Tobacco Use Types Packs/Day Years Used Date Smoking Tobacco: Never Assessed Comments Unknown Sex and Gender Information Value Date Recorded Sex Assigned at Not on file Legal Sex Female 4:14 PM CDT Gender Identity Not on file Sexual Orientation Not on file documented as of this encounter Miscellaneous Notes * Cerner Conversion Note - Francis ProviderMD - 12/15/2020 1:08 PM EMERGENCY PLANNER Nursing Discharge Summary Entered On: 12/15/2020 13:09 EST Performed On: 12/15/2020 13:08 EST by Vivian Macario, veterinary x ray operator Documentation Discharge Date/Time : 12/15/2020 14:55 EST Vivian Macario RN - 12/15/2020 15:02 EST Patient Disposition, General : Discharge Discharge To : Home with ambulatory/outpatient follow-up Mode Of Departure, General Discharge : Private vehicle Accompanied By, Discharge : Spouse IV Discontinued : Yes Personal Belongings With Patient : Yes Pt's Own Supply of Medications Returned : No patient supply of medications to return Discharge Instructions Reviewed With, Opportunity For Questions Given : Patient, Spouse Patient Education Completed : Yes Teaching Method : Explanation, Printed materials Teaching Evaluation : Returns demonstration, Verbalizes understanding Vivian Macario RN - 12/15/2020 13:08 EST Electronically signed by Haylie [facility] Conversion Medical Device Sales Consultant Cerner at 05/26/2022 5:57 PM CDT documented in this encounter Plan of Treatment Not on file documented as of this encounter Visit Diagnoses Not on filedocumented in this encounter
--- OUTSIDE RECORDS SUMMARY | 2024-09-10 14:45 | XMS_ITS | Clinical Summary ---
Author Organization [facility] Address [address] [place] [address] Care Team Providers Care Screen Operator Name Role Phone Bruno Rendon MD Primary Care Provider [phone] Allergies Active Allergy Reactions Criticality Noted Date Comments Clindamycin/Lincomyc in Other (See Comments) Medium 01/16/2024 Severe chest pain. Medications DULoxetine (CYMBALTA) 60 MG capsule Take 2 capsules by mouth Daily. Active busPIRone (BUSPAR) 15 MG tablet Take 1 tablet by mouth Daily. Active DULoxetine (CYMBALTA) 30 MG capsule Take 1 capsule by mouth Daily. Active aspirin 81 MG EC tablet Take 1 tablet by mouth Daily. Active ondansetron ODT (ZOFRAN-ODT) [address] 1 tablet on the tongue Every 8 (Eight) Hours As Needed. Active Melatonin 10 MG tablet Take 1 tablet by mouth As Needed. Active hepatitis A vaccine (Vaqta) 50 UNIT/ML injection Active furosemide (LASIX) 40 MG tablet TAKE 1 TABLET BY MOUTH ON MONDAYS AND SUNDAY 30 tablet 5 Active lisinopril (PRINIVIL,ZESTRIL ) 40 MG tablet TAKE 1 TABLET BY MOUTH ONCE DAILY 90 tablet 3 Active atorvastatin (LIPITOR) 80 MG tablet TAKE 1 TABLET BY MOUTH ONCE DAILY 90 tablet 3 Active dapagliflozin Propanediol (Farxiga) 10 MG tabletIndications :Type 2 diabetes mellitus with peripheral neuropathy Take 10 mg by mouth Daily. 90 tablet 3 11/11/2 024 Active mupirocin (BACTROBAN) 2 % ointment Apply 1 Application topically to the appropriate area as directed. Active hydroCHLOROthiazi de 12.5 MG tablet Take 1 tablet by mouth Daily. 90 tablet Active metoprolol succinate XL (TOPROL-XL) 50 MG 24 hr tablet Take 1 tablet by mouth 2 (Two) Times a Day. 90 tablet 3 025 Active pantoprazole (PROTONIX) 40 MG EC tablet TAKE 1 TABLET BY MOUTH EVERY 12 HOURS 180 tablet 025 Active potassium chloride 10 MEQ CR tablet TAKE 1 TABLET BY MOUTH 3 (THREE) TIMES A WEEK. SUNDAY, SUNDAY AND SUNDAY 36 tablet 025 Active pioglitazone (ACTOS) 45 MG tabletIndications :Type 2 diabetes mellitus with hyperglycemia, without long-term current use of insulin Take 1 tablet by mouth Daily. 180 tablet 1 025 Active glipizide (GLUCOTROL) 10 MG tabletIndications :Type 2 diabetes mellitus with hyperglycemia, without long-term current use of insulin Take 1 tablet by mouth Daily. Take before a meal, dose decrease 90 tablet 1 025 Active glipizide (GLUCOTROL) 5 MG tabletIndications :Type 2 diabetes mellitus with peripheral neuropathy Take before a meal, dose decrease 90 tablet 1 024 2024 Discontinued(R eorder) pioglitazone (ACTOS) 45 MG tabletIndications :Type 2 diabetes mellitus with peripheral neuropathy Take 1 tablet by mouth Daily. 180 tablet 1 024 2024 Discontinued(R eorder) potassium chloride 10 MEQ CR tablet Take 1 tablet by mouth 3 (Three) Times a Week. 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 10/10 Polyneuropathy due to type 2 diabetes mellitus 0 10/11/2023 Chronic gastritis 10/11/2023 Constipation 10/11/2023 Diabetic neuropathy 10/11/2023 Gastro-esophageal reflux disease with esophagiti s 10/11/2023 High risk medication use 10/11/2023 History of diabetes mellitus 10/11/2023 Insomnia 10/11/2023 Kidney stone 10/11/2023 Lumbosacral spondylosis without myelopathy 10/10 Morbid obesity 10/11/2023 Nasal congestion 10/11/2023 Nasal obstruction 10/11/2023 Nocturia 10/11/2023 Precordial pain 10/11/2023 Spinal enthesopathy 10/11/2023 Fibromyalgia 07/06/2023 Assessment & Plan (07/06/2023 2:43 PM EDT): Medications/treatments/interventions tried include: Tylenol, she has a pain pump, duloxetine, meloxicam, physical therapy, she has seen orthopaedic surgeons, she had knee replacement surgery, She has seen pain management specialists (Dr. Gibson), She had back injections, she has seen podiatry, gabapentin 1. H & P consistent with this diagnosis. 2. Encourage aerobic activity and sleep hygiene. 3. She has a history of sleep apnea. Treating sleep apnea can improve fatigue and myofascial pain. 4. Tylenol PRN is ok as directed 5. She has done some physical therapy 6. She has taken NSAIDS like meloxicam 7. She has seen pain management specialists 8. She had a pain pump installed. 9. She has taken duloxetine 10. She has tried taking gabapentin in the past 11. She has had back injections. Primary osteoarthritis involving multiple joints 07/06/2023 Assessment & Plan (07/06/2023 2:43 PM EDT): Medications/treatments/interventions tried include: Tylenol, she has a pain pump, duloxetine, meloxicam, physical therapy, she has seen orthopaedic surgeons, she had knee replacement surgery, She has seen pain management specialists (Dr. Gibson), She had back injections, she has seen podiatry, gabapentin Tylenol PRN is ok as directed She has done some physical therapy She has taken NSAIDS like meloxicam She has seen pain management specialists She had a pain pump installed. 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 Coexisting left bundle branch block and PVCs.She denies any chest pain, shortness of air, edema, palpitations, or syncope. On medical therapy, including ASA. EKG is up-to-date LBBB (left bundle branch block) 10/03/2022 Hypertension 10/03/2022 Assessment & Plan (10/11/2023 11:37 AM EDT): Goal less than 140/90. At goal today. Continue plan of care. EKG is up-to-date Hyperlipidemia 10/03/2022 Assessment & Plan (10/11/2023 11:37 AM EDT): On high dose statin. Reviewed November 2022 lipids from PCP lifelong statin due to coexisting Diabetes. Carotid stenosis 10/03/2022 Overview (10/03/2022): 04/05/2020 bilateral carotid duplex less than 50% PVC's (premature ventricular contractions) 10/03 Unspecified diastolic (congestive) heart failure 10/03/2022 Bilateral sacroiliitis 10/03/2022 Central sleep apnea in conditions classified els ewhere 10/03/2022 Chronic pain syndrome 10/03/2022 Depressive disorder 10/03/2022 Diabetes mellitus 10/03/2022 Assessment & Plan (09/02/2024 10:39 AM EDT): Diabetes is worsening. Continue current treatment regimen. [...] will switch her diabetes management to PCP. If not she will continue to follow-up here every 6 months. Eye exam up-to-date foot exam done today, patient is due for fasting labs and has planned to do these with her PCP; urine microalbumin creatinine ratio done today. Diabetes will be reassessed in 6 months Gastroesophageal reflux disease without esophagi tis 10/03/2022 YONNY (obstructive sleep apnea) 04/04/2022 Assessment & Plan (04/30/2024 6:29 PM EDT): Benefiting from PAP therapy but AHI is elevated and patient is reaching IPAP and EPAP max. Assessment & Plan (10/11/2023 11:36 AM EDT): Benefiting from PAP therapy but AHI is elevated and patient is reaching IPAP and EPAP max. Will send prescription into increase both and recheck. Assessment & Plan (04/04/2022 12:35 PM EST): Baseline AHI of 44 on February 26, 2017. Last titration was March 03, 2018. Currently on a DreamStation BiPAP S/T with an IPAP pressure of 19 EPAP pressure 13 breath rate 12 timed inspiration 1 rise time setting 1. Mask, machine, airflow are comfortable. Patient is benefiting from PAP therapy. Plan to continue. Nonrheumatic mitral (valve) insufficiency 2022 Assessment & Plan (04/30/2024 6:29 PM EDT): Updated echo today. Results are pending. Assessment & Plan (10/11/2023 11:37 AM EDT): 04/05/2023 echo-preliminary results. EF 56 to 60%, left ventricular wall with borderline concentric hypertrophy, grade 1 diastolic dysfunction, mild to moderate MR. 06/07/2021 echo-EF 55 to 60%, mild to moderate MR, abnormal diastolic function, mild TR, mild pulmonary hypertension. We will update her echo for her mitral valve regurgitation next visit. Assessment & Plan (04/04/2022 12:43 PM EST): Mild to moderate with normal EF June 07, 2021 echo. History of renal calculi 11/28/2021 Recurrent urinary tract infection 11/28/2021 Abnormal EKG Acute on chronic diastolic (congestive) heart fa ilure Arthritis Resolved Problems Problem Noted Date Diagnosed Date Resolved Date Personal history of malignan t neoplasm of breast 10/03/2022 10/03/2022 Encounters Date Type Department Care Team Description 09/03/2024 Results Follow-Up [facility] [address] [place] [address] Nisa Larson PA 09/02/2024 9:45 AM EDT Office Visit [facility] [address] [place] [address] Nisa Larson PA Type 2 diabetes mellitus with hyperglycemia, without long-term current use of insulin (Primary Dx) 09/02/2024 Travel 08/26/2024 Refill [facility] [address] [place] [address] Bailey Lua APRN Med Refill 08/12/2024 Refill [facility] [address] [place] [address] Nisa Larson PA 08/06/2024 Refill [facility] [address] [place] [address] Angelica Rodriguez MD Med Refill 07/29/2024 Refill [facility] [address] [place] [address] Jeannette Broderick, DATA MANAGEMENT MANAGER Med Refill from Last 3 Months Immunizations Immunization Administration Dates Next Due Fluzone >6mos 11/29/2016,11/02/2014 Fluzone High-Dose 65+yrs 11/01/2019 Hepatitis A 08/05/2018 Pneumococcal Conjugate 13-Valent (PCV13) 020,12/02/2013 Pneumococcal Conjugate 20-Valent (PCV20) 024,01/03/2022 Pneumococcal Polysaccharide (PPSV23) 11/02/2014, 05/28/2012 Zostavax 12/17/2014 Family History Medical History Relation Name Comments Dementia Mother Catina Diabetes Mother Catina Relation Name Status Comments Father Mother Catina (Age 83) Sister 2 Alive 2 SISTERS 68&55 Social History Tobacco Use Types Packs/Day Years Used Date Smoking Tobacco: Never Passive Smoke Exposure: Never Smokeless Tobacco: Never Tobacco Cessation:Counseling Given: Not Answered Alcohol Use Standard Drinks/Week Comments No 0 (1 standard drink = 0.6 oz pur e alcohol) Comments No Sex and Gender Information Value Date Recorded Sex Assigned at Female 08/27/2024 8:29 PM EDT Legal Sex Female 1:41 PM EDT Gender Identity Not on file Sexual Orientation Not on file Last Filed Vital Signs Vital Sign Reading Time Taken Comments Blood Pressure 116/72 09/02/2024 9:44 AM EDT Pulse 80 09/02/2024 9:44 AM EDT Temperature 36.5 C (97.7 F) 07/06/2023 2:16 PM EDT Respiratory Rate 20 04/09/2019 9:36 AM EST Oxygen Saturation 99% 09/02/2024 9:44 AM EDT Inhaled Oxygen Concentration - - Weight 111 kg (243 lb 12.8 oz) 09/02/2024 9:44 A M EDT Height 152.4 cm (5') 09/02/2024 9:44 AM EDT Body Mass Index 47.61 09/02/2024 9:44 AM EDT Plan of Treatment Upcoming Encounters Date Type Department Care Team (Late st Contact Info) Description 11/04/2024 3:00 PM EDT Office Visit [facility] [address] [place] [address] Jeannette Broderick APRN [address] [place] [address] 03/05/2025 11:15 AM EST Office Visit [facility] [address] [facility] [address] [place] [id number] Nisa Larson PA [address] [facility] [address] [place], [place] [id number] Health Maintenance Due Date Last Done Comments DXA SCAN 1950 LIPID PANEL 1950 DIABETIC EYE EXAM 1958 TDAP/TD VACCINES (1 - Tdap) 08/22/1967 COLOGUARD 1993 COLON CANCER SCREENING 5 YEA R SIGMOIDOSCOPY 1993 CT COLONOGRAPHY 1993 FECAL OCCULT BLOOD TEST 1993 FIT Testing (1 year) 1993 ZOSTER VACCINE (2 of 3) 02/11/2015 12/17/2014 ANNUAL WELLNESS VISIT 07/27/2016 HEPATITIS C SCREENING 07/27/2016 RSV Vaccine - Adults (1 - 1- dose 75+ series) 08/22/2023 COVID-19 Vaccine (5 - 2023-2 5 season) 2023 01/03/2022, 12/21/2020, 04/27/2020, Additional history exists INFLUENZA VACCINE 11/05/2024 11/01/2019, , 11/02/2014 HEMOGLOBIN A1C 03/05/2025 09/02/2024, 01/05, 10/15/2023, Additional history exists DIABETIC FOOT EXAM 09/02/2025 09/02/2024, 0 09/02/2024, 09/02/2024, Additional history exists URINE MICROALBUMIN-CREATININ E RATIO (uACR) 09/02/2025 09/02/2024 COLONOSCOPY 03/22/2027 03/22/2017 COLORECTAL CANCER SCREENING 03/22/2027 Pneumococcal Vaccine 50+ Completed 024, 01/03/2022, 11/17/2019, Additional history exists Procedures Procedure Name Priority Date/Time Associated Diagnosis [...] hyperglycemia, without long-term current use of insulin COLONOSCOPY Routine 03/22/2017 from Last 3 Months or Most Recently Relevant to Health Maintenance Results * Microalbumin / Creatinine Urine Ratio - Urine, Clean Catch (09/02/2024 10:34 AM EDT) Microalbumin/C reatinine Ratio 09/02/2024 3:00 PM EDT [facility] Comment:Unable to calculate Creatinine, Urine 91.2 mg/dL 09/02/2024 3:00 PM EDT [facility] Microalbumin, Urine <1.2 mg/dL 09/02/2024 3:00 PM EDT [facility] Urine Urine specimen obtained by clean catch procedure / Unknown Collection / Unknown 09/02/2024 10:34 AM EDT 09/02/2024 10:34 AM EDT us Nisa MALONEY URINE ORDERABLES Final Result [facility]
[address] [place] [address], * (ABNORMAL) POC Glycosylated Hemoglobin (Hb A1C) (09/02/2024 10:01 AM EDT) Hemoglobin A1C 7.7(A) 4.5 - 5.7 % [facility] Lot Number [id number] [facility] Expiration Date 05/14/2026 [facility] Blood 09/02/2024 10:0 1 AM EDT us Nisa MALONEY POINT OF CARE TEST ORDERABLES F inal Result [facility]
[address] [place] [address], [place] [phone] * (ABNORMAL) POC Glucose, Blood (09/02/2024 10:00 AM EDT) Glucose 176(A) 70 - 130 mg/dL Lot Number [id number] Expiration Date 03/10/2025 Blood 09/02/2024 10:0 0 AM EDT us Nisa MALONEY POINT OF CARE TEST ORDERABLES F inal Result * Colonoscopy (03/22/2017) Nikolas Shaw MD SURGICAL HISTORY PROCEDURE S Final Result from Last 3 Months or Most Recently Relevant to Health Maintenance Insurance [facility] [address] [place] [address] MEDICARE A & B Care Teams Screen Operator Relationship Specialty Start Date End Date Bruno Rendon MD [address] [place] [address] PCP - General Family Medicine 02/17/22
--- NOTE | 2024-09-10 14:46 | XR_ITS ---
FINAL REPORT CLINICAL HISTORY: Right ankle pain and redness COMPARISON: None FINDINGS: RIGHT ANKLE 3 views of the right ankle were obtained. There is no acute fracture or dislocation. The mortise is intact. Visualized joint spaces are normally aligned. There is mild soft tissue edema about the ankle. A large plantar spur is noted. No evidence of bony erosion. IMPRESSION: Mild soft tissue edema without acute bony abnormality. Reviewed, Interpreted and Dictated by Syed Granados MD Transcribed by Geraldine Fraser Authenticated and [facility]
== END 2024-09-10 23:59 | disposition home or self-care (01) ==
PROVIDERS: PCP Family Medicine; Visit Provider Nurse Practitioner
DX: L03.115 Cellulitis of right lower limb (principal); S91.001A Unspecified open wound, right ankle, initial encounter; X58.XXXA Exposure to other specified factors, initial encounter; M77.31 Calcaneal spur, right foot
CPT/HCPCS: 73610; 87070; 87205

== ENCOUNTER 2024-09-12 08:33 | Day surgery (SDC) | payer MEDICARE, SELFPAY ==
[2024-09-12 08:44] VITALS: BP 135/77; PULSE 73; RESP 18; O2SAT 98; BMI 43.9
--- NOTE | 2024-09-12 08:48 | P.PCN_ITS ---
Procedure Date: 09/12/24 Time: 08:56 Anesthesiologist:: Any Morris APRN Complications:: None Pre-procedure Diagnosis:: Degenerative disc disease of lumbar spine with lumbar radiculopathy symptoms, chronic pain syndrome Post-procedure Diagnosis:: Same Indications for Procedure:: Patient is a pleasant 74-year-old female who presents today for intrathecal refill and reprogram. She denies any new injuries from her last appointment. She does state that she is still having pain shoulder pain but did get an injection date coming up with our office for it. Patient is currently managed with Dilaudid 5 mg/mL with a daily dose of 3.466 mg/day she denies any side effects. She would like an increase. Her Palomo has been reviewed and is appropriate. Physical Exam: General: Alert and oriented x3, no acute distress, pleasant and cooperative Lungs: Respirations even and unlabored, symmetrical chest expansion Eyes: PERRL Musculoskeletal: Flexion and extension of lumbar [spine] somewhat guarded secondary to pain, [antalgic gait noted] Neurological: Speech clear, no gross sensory deficit Procedure Details:: Informed consent was obtained and the risk and benefits of the procedure were explained to the patient. The patient had noninvasive monitoring placed including noninvasive blood pressure cuff and pulse oximeter. Patient's pump was interrogated. The area over the pump was cleansed with chlorhexidine as a cleansing solution. In sterile fashion the pump was accessed with a 22-gauge needle. Approximately 8.9 mls of the pump solution was removed and discarded appropriately. The pump was then refilled with 20 mL's of Dilaudid 7.5 mg/mL. The needle was withdrawn and a bandage was placed over the puncture site. The infusion rate was reprogrammed and Dilaudid 3.8135 mg/day. The patient tolerated well with no complication. Plan and Disposition:: Patient tolerated the procedure well with no complications and was discharged neurologically intact. Patient did have a concentration change today to 7.5 mg/mL. Patient will return to clinic on or before their next intrathecal refill date. We will see the patient back in the clinic at the next intrathecal refill. Jemima ent has been instructed to contact the clinic with any concerns before the next appointment. Dr. Gibson has reviewed this note and agrees with this plan of care. This note was dictated using voice recognition software and make contain errors or omissions. -- It Is medically necessary for this patient to continue to have their intrathecal pump refilled at regular intervals. This patient had an intrathecal pain pump implanted after meeting criteria of chronic intractable pain for greater than 3 months and failing conservative treatments. Patient has committed and been compliant to the treatment plan and all planned follow up care. Since implantation of the intrathecal pain pump, the patient has had decreased pain and been more functional. Oral medications have been reduced including intake of oral opioids. Patient continues to do well with intrathecal therapy with decrease in pain symptoms and increase in functional status. Stopping intrathecal medications can lead to life threatening withdrawal, seizures, cardiac arrest, severe pain, and possible . Pumps that are not refilled at regular intervals can be damages and cause and need for replacement. We continually titrate dose and concentration to optimize pain relief and function. We are limited in concentration for certain drugs to safely deliver medications through the pump and stay within the recommendations from the Polyanalgesic Consensus Committee Guidelines. Depending on dose and concentration these pumps may need to be refilled sooner than 3 months as we titrate. A UDS is needed to verify patient's compliance with our office pain contract. This is ordered based off specific treatments related to chronic pain with the potential to abuse certain medications.
[2024-09-12 08:51] VITALS: BP 138/53; PULSE 71; RESP 18; O2SAT 96
[2024-09-12 09:05] VITALS: BP 130/68; PULSE 74; RESP 16; O2SAT 99
== END 2024-09-12 09:07 | disposition home or self-care (01) ==
PROVIDERS: PCP Family Medicine; Visit Provider Nurse Practitioner Family
DX: Z45.1 Encounter for adjustment and management of infusion pump (principal); M51.16 Intervertebral disc disorders with radiculopathy, lumbar region; G89.4 Chronic pain syndrome; E11.9 Type 2 diabetes mellitus without complications; M79.7 Fibromyalgia; K21.9 Gastro-esophageal reflux disease without esophagitis; E78.5 Hyperlipidemia, unspecified; I10 Essential (primary) hypertension; G47.33 Obstructive sleep apnea (adult) (pediatric); M06.9 Rheumatoid arthritis, unspecified; Z85.3 Personal history of malignant neoplasm of breast; Z88.1 Allergy status to other antibiotic agents
CPT/HCPCS: 62370

== ENCOUNTER 2024-09-22 09:21 | Outpatient (CLI) | payer MEDICARE, SELFPAY ==
--- OUTSIDE RECORDS SUMMARY | 2024-09-02 09:45 | XMS_ITS | Encounter Summary ---
[facility] Address [address] [place] [address] Care Team Providers Care C Winforms Developer Name Role Phone Bruno Rendon MD Primary Care Provider [phone] Reason for Visit * Reason Comments Diabetes Type II Diabetes Encounter Details Date Type Department Care Team (Late st Contact Info) Description 09/02/2024 9:45 AM EDT Office Visit [facility] ENDOCRINOLOGY [address] [facility] [address] [place] [address] Nisa Larson PA [address] [facility] [address] [place], [place] [id number] Type 2 diabetes mellitus with hyperglycemia, without [...] needs to fill out paperwork to renew [employer] patient assistance. She has been considering switching to having her diabetes managed by PCP but is not sure if they are willing to complete [employer] paperwork. Last A1c: Hemoglobin A1C Date Value [...] program. Electronically signed by Nisa Larson PA-C [facility] Endocrinology [place] 09/02/2024 documented in this encounter Plan of Treatment Upcoming Encounters Date Type Department Care Team (Late st Contact Info) Description 11/04/2024 3:00 PM EDT Office Visit [facility] CARDIOLOGY [address] [place] [address] Jeannette Broderick APRN [address] [place] [address] 03/05/2025 11:15 AM EST Office Visit [facility] ENDOCRINOLOGY [address] [facility] [address] [place] [address] Nisa Larson PA [address] [address] documented as of this encounter [...] Microalbumin/C reatinine Ratio 09/02/2024 3:00 PM EDT [facility] Comment:Unable to calculate Creatinine, Urine 91.2 mg/dL 09/02/2024 3:00 PM EDT [facility] Microalbumin, Urine <1.2 mg/dL 09/02/2024 3:00 PM EDT [facility] Urine Urine specimen obtained by clean catch procedure / Unknown Collection / Unknown 09/02/2024 10:34 AM EDT 09/02/2024 10:34 AM EDT Nisa MALONEY URINE ORDERABLES Final Result [facility]
[address] [place] [address], [place] [phone] * (ABNORMAL) POC Glycosylated Hemoglobin (Hb A1C) (09/02/2024 10:01 AM EDT) Hemoglobin A1C 7.7(A) 4.5 - 5.7 % [facility] Lot Number [id number] [facility] Expiration Date 05/14/2026 [facility] Blood 09/02/2024 10:0 1 AM EDT Nisa MALONEY POINT OF CARE TEST ORDERABLES F inal Result Performing Organization Address City/[facility]/ZIP Co de Phone Number [facility]
[address] [place] [address], [place] [phone] * (ABNORMAL) POC Glucose, Blood (09/02/2024 10:00 AM EDT) Glucose 176(A) 70 - 130 mg/dL Lot Number [id number] Expiration Date 03/10/2025 Blood 09/02/2024 10:0 0 AM EDT Nisa MALONEY POINT OF CARE TEST ORDERABLES F inal Result documented in this encounter Visit Diagnoses Diagnosis Type 2 diabetes mellitus with hyperglycemia, without long-term current use of insulin- Primary documented in this encounter Care Teams C Winforms Developer Relationship Specialty Start Date End Date Bruno Rendon MD [facility] [place] [address] PCP - General Family Medicine 02/17/22 documented as of this encounter
--- OUTSIDE RECORDS SUMMARY | 2024-09-22 09:25 | XMS_ITS | Encounter Summary ---
Author Organization [facility] ([place], [place], [place], [place]) Address [address] [place] [address] Care Team Providers Care Aquatic Life Laborer Name Role Phone Unavailable Primary Care Provider Unavailabl e Encounter Details Date Type Department Care Team (Late st Contact Info) Description 12/15/2020 Transcribed Document [facility] [place] [address] [place] [address] ProviderFrancis MD [address] [place] [address] Social History Tobacco Use Types [...] Francis Krishnamurthy MD - 12/15/2020 1:09 PM WREATH MAKER [facility] [place] [address] [address] P :1950 Visit Time:12/15/2020 Your Visit Summary Your Care Team Admitting Physician - KAT WORKMAN MD Attending Physician - KAT WORKMAN MD Primary Care Physician - AMRY GOVEA (REF)WILFREDO Referring Physician - MARY GOVEA (REF), WILFREDO Your Diagnosis Atherosclerotic heart disease of ione coronary artery without angina pectoris Other forms [...] has been made Where: [address] [place] [address]- [phone] [employer] (1) Medications What How Much When Instructions [...] and water are not available, use hand thermostat maker. ? Change your dressing as told by [...] This is a medical emergency. ??? Take hxir-npy-odmbxzm and prescription medicines only as told by [...] provider. Document Revised: 11/26/2019 Document Reviewed: 11/26/2019 [employer] Patient Education ?? 2020 [employer] Moderate Conscious Sedation, Adult, Care After [...] you are awake and alert. ??? Take allv-atj-srmwltk and prescription medicines only as told by [...] provider. Document Revised: 12/18/2019 Document Reviewed: 12/18/2019 [employer] Patient Education ?? 2020 [employer]. Radial Site Care This sheet gives you [...] these instructions at home: Medicines ??? Take qnlv-vys-kkvbtnx and prescription medicines only as told by your health care provider. Insertion site care ??? Follow instructions from your health care provider about how to take care of your insertion site. Make sure you: ? Wash your hands with soap and water before you change your bandage (dressing). If soap and water are not available, use hand thermostat maker. ? Change your dressing as told by [...] provider. Document Revised: 02/27/2018 Document Reviewed: 02/27/2018 [employer] Patient Education ?? 2020 [employer]. Emergency Awareness and Preventative Care STROKE is [...] Assistance with quitting is available by contacting 3-886-WJAE-NOW. This is a free resource providing counseling, [...] range between ( 0.0 and 7.0 ) [place] #: 0.48 K/uL -- Normal range between ( 0.16 and 1.00 ) Eos #: 0.07 x10(3)/uL -- Normal range between ( 0.00 and 0.80 ) [place] %: 5.7 % -- Normal range between [...] was given the opportunity to ask questions. Patient/Dance Teacher Name: Patient/Dance Teacher Signature: Relationship to Patient: Clinician/Hospital Dance Teacher Signature: Date: documented in this encounter Plan of Treatment Not on file documented as of this encounter Visit Diagnoses Not on filedocumented in this encounter
--- OUTSIDE RECORDS SUMMARY | 2024-09-22 09:25 | XMS_ITS | Encounter Summary ---
Author Organization [facility] Address [address] [place] [address] Care Team Providers Care Exit Booth Agent Name Role Phone Bruno Rendon MD Primary Care Provider [phone] Encounter Details Date Type Department Care Team (Late Contact Info) Description 09/16/2024 Telephone [facility] [address] [place] [address] Jeannette Broderick APRN [address] [facility] [place] [id number] Social History Tobacco Use Types Packs/Day Years [...] encounter Miscellaneous Notes * Telephone Encounter - Sneha Hernandez RegSched Rep - 09/16/2024 11:37 AM EDT Last labs from Dr Rendon were in 01/2024. Patient is scheduled to go back to PCP on 12/24/[address] Rendon will do fasting labs at that appointment. documented in this encounter Plan of Treatment Upcoming Encounters Date Type Department Care Team (Late st Contact Info) Description 11/04/2024 3:00 PM EDT Office Visit [facility] [address] [place] [phone] Jeannette Broderick APRN [address] [place] [address] 03/05/2025 11:15 AM EST Office Visit [facility] END[facility] [address] [address] Nisa Larson PA [address] [address] documented as of this encounter Visit Diagnoses Not on filedocumented in this encounter Care Teams Exit Booth Agent Relationship Specialty Start Date End Date Bruno Rendon MD [address] [place] [address] PCP - General Family Medicine 02/17/22 documented as of this encounter
--- OUTSIDE RECORDS SUMMARY | 2024-09-22 09:25 | XMS_ITS | Referral Summary ---
Author Organization [email or web address] ([place], [place], [place], [place]) Address [address] [place] [address] Care Team Providers Care Cyber Systems Administrator Name Role Phone Unavailable Primary Care Provider [...]
--- OUTSIDE RECORDS SUMMARY | 2024-09-22 09:25 | XMS_ITS | Encounter Summary ---
Author Organization [email or web address] ([place], [place], [place], [place]) Address [address] [place] [address] Care Team Providers Care Application Chemist Name Role Phone Unavailable Primary Care Provider Unavailabl e Encounter Details Date Type Department Care Team (Late st Contact Info) Description 12/15/2020 Transcribed Document [facility] [place] Family Medicine [facility] [place] [address] ProviderFrancis MD [facility] [place] [address] Social History Tobacco Use Types [...] - Francis ProviderMD - 12/15/2020 1:08 PM HEAD NECK SURGEON Nursing Discharge Summary Entered On: 12/15/2020 13:09 EST Performed On: 12/15/2020 13:08 EST by Vivian Macario, campus director Documentation Discharge Date/Time : 12/15/2020 14:55 EST [...] 12/15/2020 13:08 EST Electronically signed by Haylie [facility] Conversion Chemistry Lab Instructor Cerner at 05/26/2022 5:57 PM CDT documented in this encounter Plan of Treatment Not on file documented as of this encounter Visit Diagnoses Not on filedocumented in this encounter
--- OUTSIDE RECORDS SUMMARY | 2024-09-22 09:25 | XMS_ITS | Encounter Summary ---
Author Organization [employer] ([place], [place], [place], [place]) Address [address] [place] [address] Care Team Providers Care Resident Program Specialist Name Role Phone Unavailable Primary Care Provider Unavailabl e Encounter Details Date Type Department Care Team (Late st Contact Info) Description 12/15/2020 Transcribed Document [facility] [place] Family [place] [address] ProviderFrancis [place] [address] Social History Tobacco Use Types [...] - Francis ProviderMD - 12/15/2020 8:30 AM MARKETING COMPLIANCE MANAGER Pre Procedure Adult Entered On: 12/15/2020 8:38 EST Performed On: 12/15/2020 8:30 EST by Vivian Macario RN Height and Weight, Clinical Dosing Height Source : Stated Height Entry Format : [place] Height, Feet : 5 ft(Converted to: 152 cm, 60 Inch) Height, Inches : 2 Inch(Converted to: 0 ft 2 Inch, 5.08 cm) Clinical Height : 157.48 cm Weight Source : Standing scale Weight Entry Format : [place] Clinical Dosing Weight : 105.91 kg Weight, Pounds : 233 lb Body Surface Area (BSA) : 2.04 m2 Body Mass Index : 42.7 kg/m2 (>HHI) [place] Body Weight : 50 kg Vivian Macario [...] Vivian Macario RN - 12/15/2020 8:30 EST [place] Suicide Severity Rating Scale (C-SSRS) CSSRS Past [...] Ambulatory Legal Guardian : Spouse Support Person/Patient Lining Vamper : Yes Support Person/Pt Rep Name : vadim Support Person/Pt Rep Contact Information : [id number] Want Family/Rep/Phys Notified of Admit : No Emergency Contact #1 : Vadim Walls Emergency Contact #1 Emergency Contact #1 Relationship : Spouse Emergency Contact #2 : . Emergency Contact #2 Phone Number : . Emergency Contact #2 Relationship : . Information Obtained From : Patient Primary Language : Swedish Preferred Communication Mode : Verbal Communication Barrier : None Dinkey Motor Operator Needed : No Vivian Macario RN - [...] : Yes Orta Secondary Diagnosis : No ORTA Use of Ambulatory Aid : None ORTA IV Therapy or IV Access : Yes Orta Gait/Transferring : Normal, bedrest, immobile Orta Mental Status : Oriented to own ability [place] Fall Risk Score : 45 ORTA Fall Scale Risk Level : 0-24 Low Risk [place] Fall Interventions : Adequate lighting, Assistive devices [...] family, Declines to send to security/safe Vivian Macario RN - 12/15/2020 8:30 EST Pain Scale Intensity : 0 Vivian Macario RN - 12/15/2020 8:30 EST Image 4 - Images currently included in the form version of this document have not been included in the text rendition version of the form. Electronically signed by Basilio Stallings Conversion Physician Office Assistant Cerner at 05/26/2022 5:57 PM CDT documented in this encounter Plan of Treatment Not on file documented as of this encounter Visit Diagnoses Not on filedocumented in this encounter
--- OUTSIDE RECORDS SUMMARY | 2024-09-22 09:25 | XMS_ITS | Encounter Summary ---
[facility] Organization [facility] Address [address] [place] [address] Care Team Providers Care Customer Insight Analyst Name Role Phone Bruno Rendon MD Primary Care Provider [phone] Reason for Visit * Reason Onset Date Comments Med Refill 08/12/2024 Encounter Details Date Type Department Care Team (Late st Contact Info) Description 08/12/2024 Refill [facility] ENDOCRINOLOGY [address] [facility] 100 [place] [address] Nisa Larson PA 3084 [facility] 100 [place] [address] Social History Tobacco Use Types [...] Description 11/04/2024 3:00 PM EDT Office Visit [facility] CARDIOLOGY [address] [place] [phone] Jeannette Broderick APRN [address] [place] [address] 03/05/2025 11:15 AM EST Office Visit [facility] ENDOCRINOLOGY [address] [address] Nisa Larson PA [address] [address] documented as of this encounter Visit Diagnoses Not on filedocumented in this encounter Care Teams Customer Insight Analyst Relationship Specialty Start Date End Date Bruno Rendon MD [facility] [place] [address] PCP - General Family Medicine 02/17/22 documented as of this encounter
--- OUTSIDE RECORDS SUMMARY | 2024-09-22 09:25 | XMS_ITS | Encounter Summary ---
Author Organization [facility] Address [address] [place] [address] Care Team Providers Care Employment Counselor Name Role Phone Bruno Rendon MD Primary Care Provider Encounter Details Date Type Department Care Team [...] Description 11/04/2024 3:00 PM EDT Office Visit [facility] C[facility]IOLOG[facility] [address] [place] [address] Jeannette Broderick APRN 24 [place] [address] 03/05/2025 11:15 AM EST Office Visit [facility] ENDOCRINOLOGY [address] [address] Nisa Larson PA [address] [place] [address] [place] [address] documented as of this encounter Visit Diagnoses Not on filedocumented in this encounter Care Teams Employment Counselor Relationship Specialty Start Date End Date Bruno Rendon MD [address] [place] [id number] PCP - General Family Medicine 02/17/22 documented as of this encounter
--- OUTSIDE RECORDS SUMMARY | 2024-09-22 09:25 | XMS_ITS | Encounter Summary ---
Author Organization [facility] Address [address] [place] [address] Care Team Providers Care Car Inspection And Repair Manager Name Role Phone Bruno Rendon MD Primary Care Provider [phone] Reason for Visit * Reason Comments Med Refill Encounter Details Date Type Department Care Team (Late st Contact Info) Description 08/26/2024 Refill [facility] CARDIOLOGY [address] [place] [address] Bailey Lua AUTO LOCATOR [address] [place] [id number] Med Refill Social History Tobacco Use Types [...] 3:00 PM EDT Office Visit [facility] CARDIOLOG[facility] [address] [place] [address] Jeannette Broderick APRN [address] [facility] [place] [address] 03/05/2025 11:15 AM EST Office Visit [facility] ENDOCRINOLOGY [address] [address] Nisa Larson PA [address] [address] documented as of this encounter Visit Diagnoses Not on filedocumented in this encounter Care Teams Car Inspection And Repair Manager Relationship Specialty Start Date End Date Bruno Rendon MD [address] [place] [id number] PCP - General Family Medicine 02/17/22 documented as of this encounter
--- OUTSIDE RECORDS SUMMARY | 2024-09-22 09:25 | XMS_ITS | Encounter Summary ---
Author Organization [facility] Address [address] [place] [address] Care Team Providers Care Consulting Senior Practice Director Name Role Phone Bruno Rendon MD Primary Care Provider [phone] Reason for Visit * Reason Comments Med Refill Encounter Details Date Type Department Care Team (Late st Contact Info) Description 09/15/2024 Refill [facility] CARDIOLOGY [address] [place] [address] Angelica Rodriguez MD [address] [place] [address] Med Refill Social History Tobacco Use Types [...] encounter Miscellaneous Notes * Telephone Encounter - Anuja Stokes MA - 09/16/2024 10:03 AM EDT Requested labs from PCP. documented in this encounter Plan of Treatment Upcoming Encounters Date Type Department Care Team (Late st Contact Info) Description 11/04/2024 3:00 PM EDT Office Visit [facility] CARDIOLOGY [address] [place] [address] Jeannette Broderick APRN [address] [place] [address] 03/05/2025 11:15 AM EST Office Visit [facility] ENDOCRINOLOGY [address] [address] Nisa Larson PA [address] [phone] documented as of this encounter Visit Diagnoses Not on filedocumented in this encounter Care Teams Consulting Senior Practice Director Relationship Specialty Start Date End Date Bruno Rendon MD [address] [place] [address] PCP - General Family Medicine 02/17/22 documented as of this encounter
--- OUTSIDE RECORDS SUMMARY | 2024-09-22 09:25 | XMS_ITS | Encounter Summary ---
Author Organization [employer] ([place], [place], [place], [place]) Address [address] [place] [address] Care Team Providers Care Development Intern Name Role Phone Unavailable Primary Care Provider Unavailabl e Encounter Details Date Type Department Care Team (Late st Contact Info) Description 12/15/2020 Transcribed Document [facility] [place] [facility] [address] ProviderFrancis MD [address] [place] [address] Social History Tobacco Use Types [...] Francis Krishnamurthy MD - 12/15/2020 1:08 PM CLAMMER Patient Education Materials Follows: Radial Site Care [...] these instructions at home: Medicines ??? Take eyyd-ivf-irvduwy and prescription medicines only as told by your health care provider. Insertion site care ??? Follow instructions from your health care provider about how to take care of your insertion site. Make sure you: ? Wash your hands with soap and water before you change your bandage (dressing). If soap and water are not available, use hand trimming cutter machine. ? Change your dressing as told by [...] provider. Document Revised: 02/27/2018 Document Reviewed: 02/27/2018 [email or web address] Patient Education ? 2020 [employer]. Pharmacology Moderate Conscious Sedation, Adult, Care After [...] you are awake and alert. ??? Take sxlp-dji-xgrhfob and prescription medicines only as told by [...] provider. Document Revised: 12/18/2019 Document Reviewed: 12/18/2019 [email or web address] Patient Education ? 2020 [employer]. Radiology Coronary Angiogram, Care After This sheet [...] and water are not available, use hand trimming cutter machine. ? Change your dressing as told by [...] This is a medical emergency. ??? Take msld-dvo-wsvdygn and prescription medicines only as told by [...] provider. Document Revised: 11/26/2019 Document Reviewed: 11/26/2019 [employer] Patient Education ? 2020 [employer]. Electronically signed by Basilio Stallings Conversion Director Of Laboratory Operations Cerner at 05/26/2022 5:57 PM CDT documented in this encounter Plan of Treatment Not on file documented as of this encounter Visit Diagnoses Not on filedocumented in this encounter
--- OUTSIDE RECORDS SUMMARY | 2024-09-22 09:25 | XMS_ITS | Encounter Summary ---
Author Organization [facility] Address [address] [place] [id number] Care Team Providers Care Staff Nuclear Medicine Technologist Name Role Phone Bruno Rendon MD Primary Care Provider [phone] Encounter Details Date Type Department Care Team (Late st Contact Info) Description 09/03/2024 Results Follow-Up [facility] ENDOCRINOLOGY [address] [phone] Nisa Larson [place] 3084 [facility] [address] [place], [place] [phone] Social History Tobacco Use Types Packs/Day Years [...] Description 11/04/2024 3:00 PM EDT Office Visit [facility] CARDIOLOGY [address] [place] [address] Jeannette Broderick APRN [address] [place] [address] 03/05/2025 11:15 AM EST Office Visit [facility] ENDOCRINOLOGY [address] [address] Nisa Larson PA [address] [address] documented as of this encounter Visit Diagnoses Not on filedocumented in this encounter Care Teams Staff Nuclear Medicine Technologist Relationship Specialty Start Date End Date Bruno Rendon MD [address] [place] [address] PCP - General Family Medicine 02/17/22 documented as of this encounter
--- OUTSIDE RECORDS SUMMARY | 2024-09-22 09:25 | XMS_ITS | Clinical Summary ---
Author Organization [facility] Address [address] [place] [address] Care Team Providers Care Gas Pumping Station Operator Name Role Phone Bruno Rendon MD Primary Care Provider [phone] Allergies Active Allergy Reactions Criticality Noted Date Comments Clindamycin/Lincomyc in Other (See Comments) Medium 01/16/2024 Severe chest pain. Medications DULoxetine (CYMBALTA) 60 MG capsule Take 2 capsules by mouth Daily. Active busPIRone (BUSPAR) 15 MG tablet Take 1 tablet by mouth Daily. 023 Active DULoxetine (CYMBALTA) 30 MG capsule Take 1 capsule by mouth Daily. 023 Active aspirin 81 MG EC tablet Take 1 tablet by mouth Daily. Active ondansetron ODT (ZOFRAN-ODT) [address] 1 tablet on the tongue Every 8 (Eight) Hours As Needed. 023 Active Melatonin 10 MG tablet Take 1 tablet by mouth As Needed. Active hepatitis A vaccine (Vaqta) 50 UNIT/ML injection Active lisinopril (PRINIVIL,ZESTRIL ) 40 MG tablet TAKE 1 TABLET BY MOUTH ONCE DAILY 90 tablet 3 Active atorvastatin (LIPITOR) 80 MG tablet TAKE 1 TABLET BY MOUTH ONCE DAILY 90 tablet 3 024 Active dapagliflozin Propanediol (Farxiga) 10 MG tabletIndications :Type 2 diabetes mellitus with peripheral neuropathy Take 10 mg by mouth Daily. 90 tablet 3 024 Active mupirocin (BACTROBAN) 2 % ointment Apply 1 Application topically to the appropriate area as directed. 024 Active hydroCHLOROthiazi de 12.5 MG tablet Take 1 tablet by mouth Daily. 90 tablet 025 Active metoprolol succinate XL (TOPROL-XL) 50 MG [...] dose decrease 90 tablet 1 025 Active furosemide (LASIX) 40 MG tablet TAKE 1 TABLET BY MOUTH ON MONDAYS AND SUNDAY 30 tablet 1 025 Active furosemide (LASIX) 40 MG tablet TAKE 1 TABLET BY MOUTH ON MONDAYS AND SUNDAY 30 tablet 5 024 2024 Discontinued glipizide (GLUCOTROL) 5 MG tabletIndications :Type 2 [...] Encounters Date Type Department Care Team Description 09/16/2024 Telephone [facility] CARDIOLOGY [address] [place] [address] Jeannette Broderick APRN 09/15/2024 Refill [facility] CARDIOLOGY [address] [place] [address] Angelica Rodriguez MD Med Refill 09/03/2024 Results Follow-Up [facility] ENDOCRINOLOGY [address] [place] [address] Nisa Larson PA 09/02/2024 9:45 AM EDT Office Visit [facility] ENDOCRINOLOGY [address] [place] [address] Nisa Larson PA Type 2 diabetes mellitus with hyperglycemia, without long-term current use of insulin (Primary Dx) 09/02/2024 Travel 08/26/2024 Refill [facility] CARDIOLOGY [address] [place] [address] Bailey Lua APRN Med Refill 08/12/2024 Refill [facility] ENDOCRINOLOGY [address] [place] [address] Nisa Larson PA 08/06/2024 Refill [facility] CARDIOLOGY [address] [place] [address] Angelica Rodriguez MD Med Refill 07/29/2024 Refill [facility] CARDIOLOGY [address] [place] [address] Jeannette Broderick APRN Med Refill from Last 3 Months Immunizations [...] Description 11/04/2024 3:00 PM EDT Office Visit [facility] CARDIOLOGY [address] [place] [address] Jeannette Broderick APRN [address] [place] [address] 03/05/2025 11:15 AM EST Office Visit [facility] ENDOCRINOLOGY [address] [facility] [address] [place] [address] Nisa Larson PA [address] [place] [address] [place] [address] Health Maintenance Due Date Last Done Comments [...] 11/01/2019, , 11/02/2014 HEMOGLOBIN A1C 03/05/2025 09/02/2024, 1202/2023, 10/15/2023, Additional history exists DIABETIC FOOT EXAM [...] Microalbumin/C reatinine Ratio 09/02/2024 3:00 PM EDT [facility] Comment:Unable to calculate Creatinine, Urine 91.2 mg/dL 09/02/2024 3:00 PM EDT [facility] Microalbumin, Urine <1.2 mg/dL 09/02/2024 3:00 PM EDT [facility] Urine Urine specimen obtained by clean catch procedure / Unknown Collection / Unknown 09/02/2024 10:34 AM EDT 09/02/2024 10:34 AM EDT us Nisa MALONEY URINE ORDERABLES Final Result [facility]
[address] [place] [address], * (ABNORMAL) POC Glycosylated Hemoglobin (Hb A1C) (09/02/2024 10:01 AM EDT) Hemoglobin A1C 7.7(A) 4.5 - 5.7 % [facility] Lot Number [id number] [facility] Expiration Date 05/14/2026 [facility] Blood 09/02/2024 10:0 1 AM EDT Nisa MALONEY POINT OF CARE TEST ORDERABLES F inal Result [facility]
[address] [place] [address], * (ABNORMAL) POC Glucose, Blood (09/02/2024 10:00 AM EDT) Glucose 176(A) 70 - 130 mg/dL Lot Number [id number] Expiration Date 03/10/2025 Blood 09/02/2024 10:0 0 AM EDT Nisa MALONEY POINT OF CARE TEST ORDERABLES F inal Result * Colonoscopy (03/22/2017) Nikolas Shaw MD SURGICAL HISTORY PROCEDURE S Final Result from Last 3 Months or Most Recently Relevant to Health [place] [id number] MEDICARE A & B Care Teams Gas Pumping Station Operator Relationship Specialty Start Date End Date Bruno Rendon MD [address] [id number] PCP - General Family Medicine 02/17/22
--- OUTSIDE RECORDS SUMMARY | 2024-09-22 09:25 | XMS_ITS | Clinical Summary ---
Author Organization [employer] ([place], [place], [place], [place]) Address [address] [place] [address] Care Team Providers Care Side Stitcher Name Role Phone Unavailable Primary Care Provider [...]
--- OUTSIDE RECORDS SUMMARY | 2024-09-22 09:25 | XMS_ITS | Encounter Summary ---
Author Organization [employer] ([place], [place], [place], [place]) Address [address] [place] [address] Care Team Providers Care Wire Mesh Knitter Name Role Phone Unavailable Primary Care Provider Unavailabl e Encounter Details Date Type Department Care Team (Late st Contact Info) Description 12/15/2020 Transcribed Document [facility] [place] [facility] [place] [address] ProviderFrancis MD [address] [place] [address] Social History Tobacco Use Types [...] Francis Krishnamurthy MD - 12/15/2020 8:08 AM MAINTENANCE GROUNDSKEEPER Patient: SORAYA LEVINE Age: 70 years Sex: Female : 1950 Associated Diagnoses: None Author: KAT WORKMAN MD Basic Information PCP: Dr. Rendon Primary Director Of Undergraduate Admissions: Dr. Casanova Chief Complaint Dyspnea, Abnormal Stress [...] Daily fluticasone 0.05 mg/inh nasal spray 1 [place], Nasal, BID metformin 500 mg oral tablet [...] Refill(s) fluticasone 0.05 mg/inh nasal spray: 1 [place], Nasal, BID, 16 Gram, 0 Refill(s) metformin [...] / Confirmed Diabetes mellitus / SNOMED CT 496145157 / Confirmed Arthritis / SNOMED CT 4019840 / Confirmed Depression / ICD-9-CM 311 / Confirmed Breast cancer / SNOMED CT 274848209 / Confirmed Hyperlipidemia / SNOMED CT 45066721 / Confirmed Arthritis / SNOMED CT 3716207 / Confirmed Breast cancer / SNOMED CT 004776404 / Confirmed s/p chemo Anxiety / SNOMED CT 90247013 / Confirmed Depression / SNOMED CT 318182389 / Confirmed DM - Diabetes mellitus / SNOMED CT 307506496 / Confirmed Hard of hearing / SNOMED CT 096801624 / Confirmed Sinusitis / SNOMED CT 13728838 / Confirmed Back pain / SNOMED CT 232782845 / Confirmed, Active Problems (14) Anxiety Arthritis [...] Never smoker Past Medical History: Active Hyperlipidemia (53015189) Arthritis (0139569) Breast cancer (355941675) Comments: 10/15/2012 EDT 11:00 EDT - MARISEL ROBERTSON, APR s/p chemo Anxiety (87767589) Depression (740656906) DM - Diabetes mellitus (558428307) Family History: No family history items have been selected or recorded., Non-Contributory Procedure history: bilateral knee replacement. bilateral knee replacements. bilateral mastectomy. bilateral mastectomy. Cholecystectomy; (70935). Cholecystectomy; (50030). Social History Social & Psychosocial Habits Alcohol [...] of motion, Normal strength. Integumentary: Warm, Dry, [place]. Neurologic: Alert, Oriented. Psychiatric: Cooperative, Appropriate mood & affect. Review / Management Results review: No qualifying data available. 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 Risk and benefits discussed with patient and her at bedside. Patient wishes to proceed. documented in this encounter Plan of Treatment Not on file documented as of this encounter Visit Diagnoses Not on filedocumented in this encounter
--- OUTSIDE RECORDS SUMMARY | 2024-09-22 09:26 | XMS_ITS | Encounter Summary ---
Author Organization [facility] Address [address] [place] [address] Care Team Providers Care Coder Operator Name Role Phone Bruno Rendon MD Primary Care Provider [phone] Reason for Visit * Reason Comments Med Refill Encounter Details Date Type Department Care Team (Late st Contact Info) Description 07/29/2024 Refill [facility] CARDIOLOGY [address] [place] [address] Jeannette Broderick APRN [address] [facility] [address] Med Refill Social History Tobacco [...] Description 11/04/2024 3:00 PM EDT Office Visit [facility] CARDIOLOGY [address] [place] [phone] Jeannette Broderick APRN [address] [place] [address] 03/05/2025 11:15 AM EST Office Visit [facility] ENDOCRINOLOGY [address] [address] Nisa Larson, [place] [address] [address] documented as of this encounter Visit Diagnoses Not on filedocumented in this encounter Care Teams Coder Operator Relationship Specialty Start Date End Date Bruno Rendon MD [place] [address] PCP - General Family Medicine 02/17/22 documented as of this encounter
--- OUTSIDE RECORDS SUMMARY | 2024-09-22 09:26 | XMS_ITS | Clinical Summary ---
Author Organization Healthcare Address [address] [place] [id number] Care Team Providers Care Regional Sales Manager Name Role Phone Bruno Rendon MD Primary Care Provider [phone] Immunizations Immunization Administration Dates Next Due Pneumococcal [...] [facility]-Bone Density Scan 1948 [facility]-Depression Screening 1948 [facility]-/Child/Adol SDOH Screenings 1948 [facility]- SDOH Screenings 1966 [facility]-Adult SDOH Screenings 1966 [facility]-DTaP,Tdap,and Td Vaccines (1 - Tdap) 08/22/1967 [facility]-Zoster Vaccines (2 of 3) 02/11/2015 12/17/2014 [facility]-RSV Vaccine: 60+ Years or (1 - 1-dose 75+ series) 08/22/2023 [id number] Vaccine ( - 2023- season) 2023 01/03/2022, 12/21/2020, 04/27/2020, Additional history exists [facility]-Influenza Vaccine (#1) 10/06/202410/31, 11/29/2016, 11/02/2014 [facility]-Hepatitis A Vaccines Aged Out 08/05/2018 No longer eligible based on patient's age to complete this topic [facility]-Pneumococcal Vaccine: 50+ Years Completed 04/25/2023, 01/03/2022, [...] age to complete this topic Care Teams Regional Sales Manager Relationship Specialty Start Date End Date Bruno Rendon MD [address] [place] [address] PCP - General 06/18/20
--- OUTSIDE RECORDS SUMMARY | 2024-09-22 09:26 | XMS_ITS | Encounter Summary ---
Author Organization [facility] Address [address] [place] [address] Care Team Providers Care Cell Biologist Name Role Phone Bruno Rendon MD Primary Care Provider [phone] Reason for Visit * Reason Comments Med Refill Encounter Details Date Type Department Care Team (Late st Contact Info) Description 08/06/2024 Refill [facility] [address] [phone] Angelica Rodriguez MD [address] [place] [address] Med Refill Social History Tobacco Use [...] 11/04/2024 3:00 PM EDT Office Visit [facility] [address] [phone] Jeannette Broderick APRN [address] [place] [address] 03/05/2025 11:15 AM EST Office Visit [facility] [address] [id number] Nisa Larson PA [address] [address] documented as of this encounter Visit Diagnoses Not on filedocumented in this encounter Care Teams Cell Biologist Relationship Specialty Start Date End Date Bruno Rendon MD [address] [place] [id number] PCP - General Family Medicine 02/17/22 documented as of this encounter
[2024-09-22 16:06] LABS: Uric Acid 7.0 mg/dl (2.5-6.2)
[2024-09-22 16:12] LABS: C-Reactive Protein 5.2 mg/L (0-4)
== END 2024-09-22 23:59 | disposition home or self-care (01) ==
LOC: LAB 09:22
PROVIDERS: PCP Family Medicine; Visit Provider Nurse Practitioner
DX: L03.115 Cellulitis of right lower limb (principal); L97.319 Non-pressure chronic ulcer of right ankle with unspecified severity; M25.571 Pain in right ankle and joints of right foot; Z13.89 Encounter for screening for other disorder
CPT/HCPCS: 36415; 84550; 85651; 86140

== ENCOUNTER 2024-09-26 14:27 | Day surgery (SDC) | payer MEDICARE, SELFPAY ==
--- NOTE | 2024-09-26 14:52 | EXP.PM.HP ---
History of Present Illness *Admission Date: 09/26/24 *Reason for visit:: Intrathecal refill; DDD *History of present illness: Same [facility] Disclaimer: The information contained in this section may have been updated after the patient was seen, as this information can be updated by other users. Medical History Screening for gout Cellulitis of right ankle Right ankle pain History of breast cancer GERD (gastroesophageal reflux disease) YONNY (obstructive sleep apnea) Fibromyalgia Rheumatoid arthritis Hypertension Hyperlipidemia Diabetes mellitus, type 2 Surgical History H/O left mastectomy History of laparoscopic cholecystectomy History of total knee replacement History of mastectomy, total Family History Other Family history of diabetes mellitus type II Social History (Updated 09/12/24 @ 08:44 by Ariadne Saini RN) Smoking Status: Never smoker second hand exposure: No alcohol intake: never substance use type: denies use current occupational status: other Travel in the last 8 weeks?: None household members: spouse housing: house marital status: education level: high school service: No current occupational exposures/hazards: No caffeine: Yes do you feel safe at home: Yes victim of physical abuse: No victim of emotional abuse: No victim of sexual abuse: No would you like helpful sources: No Have you lived/traveled outside [place] in past 30 days?: No Contact w/someone who lives/traveled outside US past 30 days?: No Exposure to someone with infectious disease in past 14 days?: No Do you have a fever (greater than 100.4 F or 38 C)?: No Have you tested positive for COVID-19?: No Exposed to someone with COVID-19 in past 14 days?: No Do you have a sore throat?: No Do you have a cough?: No Do you have any weakness?: No Do you have any diarrhea?: No Are you experiencing any unusual bleeding?: No Do you have any muscle aches/pain?: No Do you have any abdominal pain?: No Are you experiencing loss of taste or smell?: No Other Medical History Have you received the Flu Vaccine for this season: Yes Have you received the Pneumonia Vaccine: Yes Meds Home Medications and Allergies Home Medications ?Medication ?Instructions ?Recorded ?Confirmed ?Type lisinopril 20 mg tablet 40 mg PO DAILY blood pressure 04/13/17 09/26/24 History metoprolol succinate 50 mg 100 mg PO BID blood pressure 04/13/17 09/26/24 History tablet,extended release 24 hr aspirin 81 mg tablet,delayed 81 mg PO DAILY Heart disease 10/24/17 09/26/24 History release (Aspir-) atorvastatin 80 mg tablet 80 mg PO HS Cholesterol 08/25/21 09/26/24 History glipizide 10 mg tablet 10 mg PO BID Diabetes 08/25/21 09/26/24 History hydrochlorothiazide 12.5 mg tablet 12.5 mg PO DAILY fluid 08/25/21 09/26/24 History pantoprazole 40 mg tablet,delayed 40 mg PO DAILY GERD 08/25/21 09/26/24 History release pioglitazone 30 mg tablet 30 mg PO DAILY Diabetes 08/25/21 09/26/24 History potassium chloride 20 mEq 20 meq PO WEEKLY Supplement 08/25/21 09/26/24 History tablet,extended release buspirone 15 mg tablet 15 mg PO DAILY Anxiety 07/14/22 09/26/24 History dapagliflozin propanediol 10 mg 10 mg PO DAILY Diabetes 07/14/22 09/26/24 History tablet (Farxiga) melatonin 10 mg tablet 10 mg PO HS PRN Sleep 07/14/22 09/26/24 History cetirizine 10 mg tablet (Zyrtec) 10 mg PO DAILY PRN . 04/02/23 09/26/24 History lactobacillus combination no.9 4 4,000 mmu cells PO DAILY 04/02/23 09/26/24 History billion cell capsule (Adult 50 Plus Probiotic) furosemide 20 mg tablet 40 mg PO .COMPLEX fluid retention 04/12/23 09/26/24 History ondansetron 4 mg disintegrating 4 mg PO Q8H PRN nausea and 01/25/24 09/26/24 Rx tablet vomiting #30 tabs doxycycline hyclate 100 mg capsule 100 mg PO BID infection 14 days 09/10/24 09/26/24 Rx #28 caps duloxetine 60 mg capsule,delayed 120 mg PO DAILY Depression 09/10/24 09/26/24 History release (Cymbalta) lidocaine 5 % topical patch 1 patch topical .Q12 pain 14 days 09/11/24 09/26/24 Rx #30 ea colchicine 0.6 mg capsule See Rx Instructions PO .COMPLEX 30 09/24/24 09/26/24 Rx days #30 caps indomethacin 50 mg capsule 50 mg PO TID pain 5 days #15 caps 09/24/24 09/26/24 Rx New Prescriptions to Start Prescriptions: Allergies Allergy/AdvReac Type Severity Reaction Status Date / Time clindamycin Allergy Severe Chest Pain Verified 09/10/24 16:09 Exam *Routine HEENT Exam Head: Present normocephalic and atraumatic Eye: Present PERRL ENT: Present mucous membranes moist *Routine Neck Exam Neck: Present supple *Routine Respiratory Exam Respiratory: Present CTA bilaterally *Routine Cardiovascular Exam Cardiovascular: Present RRR *Routine Abdominal Exam Abdominal: Present soft *Routine Rectal Exam Rectal:: deferred *Routine Genitalia Exam Genitalia:: deferred Routine Back/Spine/Pelvis Exam Back/Spine: Present pain with flexion *Routine Skin Exam Skin: Present intact and warm *Routine Neurological Exam Neurological: Present alert and oriented X3 Routine Psychiatric Exam Psychiatric: Present normal affect and normal thought process
[2024-09-26 14:53] VITALS: BP 111/50; PULSE 83; RESP 18; O2SAT 95; BMI 43.9
--- NOTE | 2024-09-26 14:53 | EXP.PAIN.PRO ---
Procedure Date: 09/26/24 Time: 15:33 Anesthesiologist:: Any Morris APRN Complications:: None Pre-procedure Diagnosis:: Degenerative disc disease of lumbar spine with lumbar radiculopathy symptoms, spinal stenosis with neurogenic claudication symptoms Post-procedure Diagnosis:: Same Indications for Procedure:: Patient is a pleasant 74-year-old female who presents today for intrathecal refill and reprogram. She rates her pain today still a 0 out of 10 when she is seated but any type of activity or walking really aggravates her symptoms where it will go much higher whether 10 out of 10. Patient is currently managed with Dilaudid 7.5 mg/mL with a daily dose of 3.8135 mg/day. She denies any side effects. She does state that she notices a little bit where she gets more fatigued and whether or not if that is related to the pump medication. Her Palomo has been reviewed and is appropriate. Physical Exam: General: Alert and oriented x3, no acute distress, pleasant and cooperative Lungs: Respirations even and unlabored, symmetrical chest expansion Eyes: PERRL Musculoskeletal: Flexion and extension of lumbar [spine] somewhat guarded secondary to pain, [antalgic gait noted] Neurological: Speech clear, no gross sensory deficit Procedure Details:: Informed consent was obtained and the risk and benefits of the procedure were explained to the patient. The patient had noninvasive monitoring placed including noninvasive blood pressure cuff and pulse oximeter. Patient's pump was interrogated. The area over the pump was cleansed with chlorhexidine as a cleansing solution. In sterile fashion the pump was accessed with a 22-gauge needle. Approximately 11.1 mls of the pump solution was removed and discarded appropriately. The pump was then refilled with 20 mL's of Dilaudid 7.5 mg/mL. The needle was withdrawn and a bandage was placed over the puncture site. The infusion rate was reprogrammed and increased 10% to 4.0058 mg/day. The patient tolerated well with no complication. Plan and Disposition:: Patient tolerated the procedure well with no complications and was discharged neurologically intact. I did discuss with the patient that we will increase her pump medication to 15 mg/mL at her next visit. I will also send in 30 tablets of Zofran 4 mg 3 times daily as needed. Patient will return to clinic on or before their next intrathecal refill date. We will see the patient back in the clinic at the next intrathecal refill. Patient has been instructed to contact the clinic with any concerns before the next appointment. Dr. Gibson has reviewed this note and agrees with this plan of care. This note was dictated using voice recognition software and make contain errors or omissions. -- It Is medically necessary for this patient to continue to have their intrathecal pump refilled at regular intervals. This patient had an intrathecal pain pump implanted after meeting criteria of chronic intractable pain for greater than 3 months and failing conservative treatments. Patient has committed and been compliant to the treatment plan and all planned follow up care. Since implantation of the intrathecal pain pump, the patient has had decreased pain and been more functional. Oral medications have been reduced including intake of oral opioids. Patient continues to do well with intrathecal therapy with decrease in pain symptoms and increase in functional status. Stopping intrathecal medications can lead to life threatening withdrawal, seizures, cardiac arrest, severe pain, and possible . Pumps that are not refilled at regular intervals can be damages and cause and need for replacement. We continually titrate dose and concentration to optimize pain relief and function. We are limited in concentration for certain drugs to safely deliver medications through the pump and stay within the recommendations from the Polyanalges[employer] Consensus Committee Guidelines. Depending on dose and concentration these pumps may need to be refilled sooner than 3 months as we titrate. A UDS is needed to verify patient's compliance with our office pain contract. This is ordered based off specific treatments related to chronic pain with the potential to abuse certain medications.
[2024-09-26 15:14] VITALS: BP 130/60; PULSE 67; RESP 18; O2SAT 97
[2024-09-26 15:38] VITALS: BP 130/85; PULSE 65; RESP 16; O2SAT 95
== END 2024-09-26 15:38 | disposition home or self-care (01) ==
PROVIDERS: PCP Family Medicine; Visit Provider Nurse Practitioner Family
DX: M51.16 Intervertebral disc disorders with radiculopathy, lumbar region (principal); Z45.1 Encounter for adjustment and management of infusion pump; M48.062 Spinal stenosis, lumbar region with neurogenic claudication; K21.9 Gastro-esophageal reflux disease without esophagitis; I10 Essential (primary) hypertension; E78.5 Hyperlipidemia, unspecified; E11.9 Type 2 diabetes mellitus without complications; M06.9 Rheumatoid arthritis, unspecified; Z85.3 Personal history of malignant neoplasm of breast; Z88.1 Allergy status to other antibiotic agents; Z79.899 Other long term (current) drug therapy; Z79.84 Long term (current) use of oral hypoglycemic drugs
CPT/HCPCS: 62370

== ENCOUNTER 2024-09-30 11:39 | Day surgery (SDC) | payer MEDICARE, SELFPAY ==
[2024-09-30 11:50] VITALS: BP 125/71; PULSE 63; RESP 18; O2SAT 99; BMI 45.7
[2024-09-30] MEDS: BUPIVACAINE 0.25% 10ML INJ 25 MG IJ (12:09)
--- NOTE | 2024-09-30 12:09 | EXP.PAIN.PRO ---
Procedure Date: 09/30/24 Time: 11:55 Anesthesiologist:: Nando Vuong CRNA Complications:: None Pre-procedure Diagnosis:: DJD right shoulder. Chronic right shoulder pain. Post-procedure Diagnosis:: Same. Indications for Procedure:: Patient is a pleasant 74-year-old female who comes our clinic today for a right intra-articular shoulder injection of cortisone and local anesthetic. Patient describes her right shoulder pain as constant, dull, aching. She has 5/5 strength in the right arm. However, limited range of motion secondary to right shoulder pain. She rates her pain 6/10. Procedure Details:: Procedure Details: Right shoulder intra-articular injection Informed consent was obtained risk and benefits of the procedure were explained to the patient. Patient was taken to the procedure room. The right shoulder was prepped using ChloraPrep. A 25-gauge needle was used posteriorly to inject 10 mL bupivacaine 0.25% and 10 mg of dexamethasone. Patient tolerated procedure well with no complications. Plan and Disposition:: Patient was discharged without incident.
[2024-09-30] MEDS: LIDOCAINE 1% 5ML PF VIAL 5 ML (12:10)
[2024-09-30] MEDS: DEXAMETHASONE 10MG/ML 1ML VIAL 10 MG (12:10)
[2024-09-30 12:11] VITALS: BP 125/71; PULSE 63; RESP 18; O2SAT 99
[2024-09-30 12:13] VITALS: BP 111/50; PULSE 68; RESP 18; O2SAT 99
[2024-09-30 12:21] VITALS: BP 125/71; PULSE 63; RESP 18; O2SAT 99
== END 2024-09-30 12:13 | disposition home or self-care (01) ==
PROVIDERS: PCP Family Medicine; Visit Provider Nurse Anesthetist, Certified Registered
DX: M19.011 Primary osteoarthritis, right shoulder (principal); G89.29 Other chronic pain; E11.9 Type 2 diabetes mellitus without complications; K21.9 Gastro-esophageal reflux disease without esophagitis; E78.5 Hyperlipidemia, unspecified; I10 Essential (primary) hypertension; M06.9 Rheumatoid arthritis, unspecified; Z88.1 Allergy status to other antibiotic agents; Z85.3 Personal history of malignant neoplasm of breast; Z79.1 Long term (current) use of non-steroidal anti-inflammatories (NSAID); Z79.84 Long term (current) use of oral hypoglycemic drugs; Z79.899 Other long term (current) drug therapy
CPT/HCPCS: 20610; J0665; J1100; J2003

== ENCOUNTER 2024-10-15 08:54 | Emergency (ER) | payer MEDICARE, SELFPAY ==
--- OUTSIDE RECORDS SUMMARY | 2024-09-02 09:45 | XMS_ITS | Encounter Summary ---
[facility] Address [address] [place] [address] Care Team Providers Care Family Resource Specialist Name Role Phone Bruno Rendon MD Primary Care Provider [phone] Reason for Visit * Reason Comments Diabetes Type II Diabetes Encounter Details Date Type Department Care Team (Late st Contact Info) Description 09/02/2024 9:45 AM EDT Office Visit [facility]CRINOLOGY [address] [facility] [address] [place] [address] Nisa Larson PA [address] [facility] [address] [place], [place] [id number] Type 2 diabetes mellitus with hyperglycemia, without [...] needs to fill out paperwork to renew [employer] patient assistance. She has been considering switching to having her diabetes managed by PCP but is not sure if they are willing to complete [employer] paperwork. Last A1c: Hemoglobin A1C Date Value [...] program. Electronically signed by Nisa Larson PA-C [facility] [place] 09/02/2024 documented in this encounter Plan of Treatment Upcoming Encounters Date Type Department Care Team (Late st Contact Info) Description 11/04/2024 3:00 PM EDT Office Visit [facility] CARDIOLOGY [address] [place] [address] Jeannette Broderick APRN [address] [place] [address] 03/05/2025 11:15 AM EST Office Visit [facility] ENDOCRINOLOGY [address] [facility] [address] [place] [phone] Nisa Larson PA [address] [address] documented as of this encounter [...] Microalbumin/C reatinine Ratio 09/02/2024 3:00 PM EDT [facility] Comment:Unable to calculate Creatinine, Urine 91.2 mg/dL 09/02/2024 3:00 PM EDT [facility] Microalbumin, Urine <1.2 mg/dL 09/02/2024 3:00 PM EDT [facility] Urine Urine specimen obtained by clean catch procedure / Unknown Collection / Unknown 09/02/2024 10:34 AM EDT 09/02/2024 10:34 AM EDT Nisa MALONEY URINE ORDERABLES Final Result [facility]
[address] [place] [address], [place] [phone] * (ABNORMAL) POC Glycosylated Hemoglobin (Hb A1C) (09/02/2024 10:01 AM EDT) Hemoglobin A1C 7.7(A) 4.5 - 5.7 % [facility] Lot Number [id number] [facility] Expiration Date 05/14/2026 [facility] Blood 09/02/2024 10:0 1 AM EDT Nisa MALONEY POINT OF CARE TEST ORDERABLES F inal Result Performing Organization Address City/[facility]/ZIP Co de Phone Number [facility]
[address] [place] [address], [place] [phone] * (ABNORMAL) POC Glucose, Blood (09/02/2024 10:00 AM EDT) Glucose 176(A) 70 - 130 mg/dL Lot Number [id number] Expiration Date 03/10/2025 Blood 09/02/2024 10:0 0 AM EDT Nisa MALONEY POINT OF CARE TEST ORDERABLES F inal Result documented in this encounter Visit Diagnoses Diagnosis Type 2 diabetes mellitus with hyperglycemia, without long-term current use of insulin- Primary documented in this encounter Care Teams Family Resource Specialist Relationship Specialty Start Date End Date Bruno Rendon [place] [address] PCP - General Family Medicine 02/17/22 documented as of this encounter
[2024-10-15] VITALS (11 sets, daily range): BP systolic 130–133; BP diastolic 62–70; PULSE 68–96; RESP 16–19; TEMP 36.8; O2SAT 94–99; BMI 43.3
--- NOTE | 2024-10-15 09:12 | PC.NURSE ---
ER at for pt bryon; family at BS
--- NOTE | 2024-10-15 09:15 | CT_ITS ---
FINAL REPORT TECHNIQUE: Thin section axial images were obtained through the lumbar spine without contrast. Sagittal and coronal reconstruction images were obtained from the axial data. Exam was performed using dose reduction techniques. CLINICAL HISTORY: Mid lumbar tenderness, pain down right leg FINDINGS: There is no acute fracture or acute malalignment of the lumbar spine. There is mild multilevel degenerative disc disease. Soft tissue evaluation is limited as the soft tissue windows were not submitted. Exam quality is also limited by patient's body habitus. At L2-3, there is at least moderate and possibly severe central stenosis related to an annular disc bulge. There is mild to moderate central stenosis at L3-4. Multilevel neuroforaminal narrowing is also difficult to evaluate. Spinal stimulator is identified. IMPRESSION: Multilevel degenerative disc disease. This is difficult to further evaluate due to exam limitations. Reviewed, Interpreted and Dictated by Gita Mason MD Transcribed by Estelle Arredondo Authenticated and [facility]
--- NOTE | 2024-10-15 09:21 | HMH.ITSTN ---
patient is receiving pain medication, patient to go to CT in approx 15 min.
--- NOTE | 2024-10-15 09:23 | HMH.EDGENADL ---
Discharge Plan Disposition Patient Disposition: Home, Self-Care Prescriptions Prescriptions: New meloxicam 15 mg tablet 15 mg PO DAILY Qty: 3 0RF No Action cetirizine [Zyrtec] 10 mg tablet 10 mg PO DAILY PRN (Reason: .) Adult 50 Plus Probiotic 4 billion cell capsule 4,000 mmu cells PO DAILY Rx Instructions: administer with a meal doxycycline hyclate 100 mg capsule 100 mg PO BID 14 Days Qty: 28 0RF lidocaine 5 % adhesive patch,medicated 1 patch topical .Q12 14 Days Qty: 30 1RF Rx Instructions: leave on most painful area for up to 12 hrs colchicine 0.6 mg capsule See Rx Instructions PO .COMPLEX 30 Days Qty: 30 1RF Rx Instructions: 1.2mg at first sign of flare, then 0.6mg 1 hr later, not to exceed 1.8mg in 1-hr perior. orally; Prophylaxis: Indicated for prophylaxis of gout flares 0.6 mg PO q12hr; not to exceed 1.2 mg/day; after gout flare, wait 12 hr to continue prophylaxis indomethacin 50 mg capsule 50 mg PO TID 5 Days Qty: 15 1RF Rx Instructions: Administer with food or milk. Reduce once pain is under control. aspirin [Aspir-81] 81 MG tablet,delayed release (DR/EC) 81 mg PO DAILY metoprolol succinate 50 MG tablet extended release 24 hr 100 mg PO BID lisinopril 20 MG tablet 40 mg PO DAILY duloxetine [Cymbalta] 60 mg capsule,delayed release(DR/EC) 120 mg PO DAILY atorvastatin 80 MG tablet 80 mg PO HS glipizide 10 MG tablet 10 mg PO BID pantoprazole 40 MG tablet,delayed release (DR/EC) 40 mg PO DAILY pioglitazone 30 MG tablet 30 mg PO DAILY hydrochlorothiazide 12.5 MG tablet 12.5 mg PO DAILY potassium chloride 20 MEQ tablet extended release 20 meq PO WEEKLY Rx Instructions: 3 times weekly furosemide 20 mg tablet 40 mg PO .COMPLEX Rx Instructions: 40 mg orally 2x week; buspirone 15 mg tablet 15 mg PO DAILY melatonin 10 mg Tablet 10 mg PO HS PRN (Reason: Sleep) dapagliflozin propanediol [Farxiga] 10 mg tablet 10 mg PO DAILY ondansetron 4 mg tablet,disintegrating 4 mg PO Q8H PRN (Reason: nausea and vomiting) Qty: 30 0RF Referrals Follow up/Referrals: Bruno Rendon [Primary Care Provider, Medical] - See instructions Activity Restrictions/Add. Instructions Additional Instructions/Restrictions: Prescribed meloxicam, medication for pain. Start taking this tonight before bed and continue it once daily for the next 2 days. I do encourage you to follow-up with pain management on Sunday as scheduled. If you develop any new or worsening symptoms, or if pain is uncontrolled at home, return to the emergency department for evaluation. Clinical Impressions Clinical Impression: Sciatica Instructions Patient Instructions: DI for Low Back Pain Print Language Print Language: Belarusian Discharge ED Provider: Hill Gunderson General Adult HPI General Chief complaint: Back Pain/Injury Stated complaint: Lower back pain, unable to walk Time Seen by Provider: 10/15/24 09:02 Mode of Arrival: Wheelchair Source of Information: Patient Description of Symptoms (Recalled from ER Triage Doc. by RN): Patient presents to ED from home with c/o low back pain that radiates down the right leg x3 days. Patient notes hx of chronic back pain, reports she has a pain pump in place and has been unable to take any additional pain medication. History of Present Illness HPI narrative: Soraya Walls is a 74y female With lower back pain status post fall treatment, diabetes mellitus who presents to the emergency department for complaints of lower right-sided back pain that radiates down her right leg x 3 days. Patient states that she developed pain in her back that feels different than her chronic pain 3 days ago has had difficulty walking ever since due to significant pain. She states that the pain radiates down the back of her right leg to her knee area. She states that it is worse with certain movements. She denies any fevers. She denies any urinary retention or incontinence. She denies any numbness or tingling in her genital area. She denies any fecal incontinence or constipation. She denies any numbness or tingling down the legs. She denies any weakness of her extremities. She denies any recent trauma or falls. She states that she believes that she has had injections in the past from sciatica type pain but is not sure. She states that she was told by her pain management team that she does not think any additional pain medications at home as this may over sedate her so she is not taking anything additional. Related Data Home Medications ?Medication ?Instructions ?Recorded ?Confirmed lisinopril 20 mg tablet 40 mg PO DAILY blood pressure 04/13/17 09/30/24 metoprolol succinate 50 mg 100 mg PO BID blood pressure 04/13/17 09/30/24 tablet,extended release 24 hr aspirin 81 mg tablet,delayed 81 mg PO DAILY Heart disease 10/24/17 09/30/24 release (Aspir-) atorvastatin 80 mg tablet 80 mg PO HS Cholesterol 08/25/21 09/30/24 glipizide 10 mg tablet 10 mg PO BID Diabetes 08/25/21 09/30/24 hydrochlorothiazide 12.5 mg tablet 12.5 mg PO DAILY fluid 08/25/21 09/30/24 pantoprazole 40 mg tablet,delayed 40 mg PO DAILY GERD 08/25/21 09/30/24 release pioglitazone 30 mg tablet 30 mg PO DAILY Diabetes 08/25/21 09/30/24 potassium chloride 20 mEq 20 meq PO WEEKLY Supplement 08/25/21 09/30/24 tablet,extended release buspirone 15 mg tablet 15 mg PO DAILY Anxiety 07/14/22 09/30/24 dapagliflozin propanediol 10 mg 10 mg PO DAILY Diabetes 07/14/22 09/30/24 tablet (Farxiga) melatonin 10 mg tablet 10 mg PO HS PRN Sleep 07/14/22 09/30/24 cetirizine 10 mg tablet (Zyrtec) 10 mg PO DAILY PRN . 04/02/23 09/30/24 lactobacillus combination no.9 4 4,000 mmu cells PO DAILY 04/02/23 09/30/24 billion cell capsule (Adult 50 Plus Probiotic) furosemide 20 mg tablet 40 mg PO .COMPLEX fluid retention 04/12/23 09/30/24 duloxetine 60 mg capsule,delayed 120 mg PO DAILY Depression 09/10/24 09/30/24 release (Cymbalta) Previous Rx's ?Medication ?Instructions ?Recorded doxycycline hyclate 100 mg capsule 100 mg PO BID infection 14 days 09/10/24 #28 caps lidocaine 5 % topical patch 1 patch topical .Q12 pain 14 days 09/11/24 #30 ea colchicine 0.6 mg capsule See Rx Instructions PO .COMPLEX 30 09/24/24 days #30 caps indomethacin 50 mg capsule 50 mg PO TID pain 5 days #15 caps 09/24/24 ondansetron 4 mg disintegrating 4 mg PO Q8H PRN nausea and 09/26/24 tablet vomiting #30 tabs meloxicam 15 mg tablet 15 mg PO DAILY #3 tabs 10/15/24 Allergies Allergy/AdvReac Type Severity Reaction Status Date / Time clindamycin Allergy Severe Chest Pain Verified 09/10/24 16:09 [facility] Disclaimer: The information contained in this section may have been updated after the patient was seen, as this information can be updated by other users. Medical History (Updated 10/15/24 @ 14:32 by Hill Gunderson MD) Screening for gout Cellulitis of right ankle Right ankle pain History of breast cancer GERD (gastroesophageal reflux disease) YONNY (obstructive sleep apnea) Fibromyalgia Rheumatoid arthritis Hypertension Hyperlipidemia Diabetes mellitus, type 2 Surgical History H/O left mastectomy History of laparoscopic cholecystectomy History of total knee replacement History of mastectomy, total Family History Other Family history of diabetes mellitus type II Social History Smoking Status: Never smoker second hand exposure: No alcohol intake: never substance use type: denies use current occupational status: other Travel in the last 8 weeks?: None household members: spouse housing: house marital status: education level: high school service: No current occupational exposures/hazards: No caffeine: Yes do you feel safe at home: Yes victim of physical abuse: No victim of emotional abuse: No victim of sexual abuse: No would you like helpful sources: No Have you lived/traveled outside US in past 30 days?: No Contact w/someone who lives/traveled outside US past 30 days?: No Exposure to someone with infectious disease in past 14 days?: No Do you have a fever (greater than 100.4 F or 38 C)?: No Have you tested positive for COVID-19?: No Exposed to someone with COVID-19 in past 14 days?: No Do you have a sore throat?: No Do you have a cough?: No Do you have any weakness?: No Do you have any diarrhea?: No Are you experiencing any unusual bleeding?: No Do you have any muscle aches/pain?: No Do you have any abdominal pain?: No Are you experiencing loss of taste or smell?: No Other Medical History Have you received the Flu Vaccine for this season: No Have you received the Pneumonia Vaccine: No ROS Obtained: Yes Systems reviewed as appropriate & no additional complaints except as documented Physical Exam General General appearance: alert, in no apparent distress and obese Comment: Uncomfortable appearing Head Head exam: atraumatic Eye Eye exam: Present normal appearance ENT ENT exam: Present normal external ear exam Neck Neck exam: Present full ROM Chest Chest inspection: Present symmetric chest wall rise Respiratory Respiratory exam: Present normal lung sounds bilaterally; Absent respiratory distress Cardiovascular Cardiovascular exam: Present regular rate and normal rhythm Abdominal Exam Abdominal exam: Present soft; Absent tenderness or guarding Extremities Exam Extremities exam: Present normal inspection Back Exam Back exam: Present normal inspection and tenderness (mid lumbar tenderness without deformity or stepoff); Absent paraspinal tenderness Neurological Exam Neurological exam: Present alert, oriented X3 and other (Moving all extremities, flexion and extension function intact to both lower extremities. Positive straight leg raise on the right) Psychiatric Psychiatric exam: Present normal affect Skin Skin exam: Present warm and dry Medical Decision Making Medical Records Screening: Per USPSTF and CDC recommendations, given the prevalence of disease in our region, it is our hospital?s policy to screen for HIV and viral Hepatitis for all patients aged 18 and over and those with ongoing risk factors. Palomo Inquiry Pt receiving controlled substance: No Vital Signs: 10/15/24 09:05 10/15/24 09:15 10/15/24 09:45 Temperature 98.2 F Temperature Source Oral Pulse Rate 88 83 Pulse Rate [Left] 96 H Respiratory Rate 19 Blood Pressure Blood Pressure [Right Arm] 133/62 Blood Pressure Mean [Right Arm] 85 Blood Pressure Source [Right Arm] Automatic Cuff Blood Pressure Position [Right Arm] Supine 02 Sat by Pulse Oximetry 98 99 99 Oxygen Delivery Method Room Air Room Air Room Air 10/15/24 10:30 10/15/24 11:30 10/15/24 11:45 Temperature Temperature Source Pulse Rate 71 83 68 Pulse Rate [Left] Respiratory Rate Blood Pressure Blood Pressure [Right Arm] Blood Pressure Mean [Right Arm] Blood Pressure Source [Right Arm] Blood Pressure Position [Right Arm] 02 Sat by Pulse Oximetry 96 96 98 Oxygen Delivery Method Room Air Room Air Room Air 10/15/24 12:45 10/15/24 13:00 10/15/24 13:30 Temperature Temperature Source Pulse Rate 76 69 79 Pulse Rate [Left] Respiratory Rate Blood Pressure Blood Pressure [Right Arm] Blood Pressure Mean [Right Arm] Blood Pressure Source [Right Arm] Blood Pressure Position [Right Arm] 02 Sat by Pulse Oximetry 97 98 97 Oxygen Delivery Method Room Air Room Air Room Air 10/15/24 14:00 10/15/24 14:44 Temperature 98.2 F Temperature Source Pulse Rate 69 76 Pulse Rate [Left] Respiratory Rate 16 Blood Pressure 130/70 Blood Pressure [Right Arm] Blood Pressure Mean [Right Arm] Blood Pressure Source [Right Arm] Blood Pressure Position [Right Arm] 02 Sat by Pulse Oximetry 94 L Oxygen Delivery Method Room Air Lab Data Lab Results 10/15/24 09:26: WBC 6.3, RBC 3.77 L, Hgb 10.9 L, Hct 33.8 L, MCV 89.7, MCH 28.9, MCHC 32.2, RDW 16.9, Plt Count 328, MPV 9.1, Neut % (Auto) 68.5, Lymph % (Auto) 22.7, [place] % (Auto) 7.1, Eos % (Auto) 1.1, Baso % (Auto) 0.3, Neut # (Auto) 4.3, Lymph # (Auto) 1.4, [place] # (Auto) 0.5, Eos # (Auto) 0.1, Baso # (Auto) 0.0, ESR 32 H, Sodium 136, Potassium 3.9, Chloride 101, Carbon Dioxide 23, Anion Gap 15.9 H, BUN 23 H, Creatinine 1.10 H, Estimated Creat Clear 34, Estimated GFR 48 L, Est GFR ( Amer) 58 L, Glucose 208 H, Calcium 9.9, Total Bilirubin 0.6, AST 63 H, ALT 54, Alkaline Phosphatase 182 H, C-Reactive Protein 2.1, Total Protein 7.6, Albumin 4.1, Globulin 3.5 H, Albumin/Globulin Ratio 1.2, Lipase 99 10/15/24 11:05: Urine Color Yellow, Urine Appearance Clear, Urine pH 6.0, Ur Specific [place] 1.025, Urine Protein Negative, Urine Glucose (UA) 3+, Urine Ketones Negative, Urine Blood Negative, Urine Nitrate Negative, Urine Bilirubin Negative, Urine Urobilinogen 0.2, Ur Leukocyte Esterase Trace, Urine RBC None, Urine WBC 3-5, Ur Squamous Epith Cells None, Urine Bacteria Trace 10/15/24 09:26 10/15/24 09:26 Orders (Tests/Meds): ED MEDICATIONS Discontinued Medications Generic Name Dose Route Start Last Admin Trade Name Marilou PRN Reason Stop Dose Admin Hydromorphone HCl 0.5 mg 10/15/24 12:13 10/15/24 12:35 Hydromorphone 2mg/Ml Syringe IV 10/15/24 12:14 0.5 mg ONCE ONE Administration Ketorolac Tromethamine 30 mg 10/15/24 12:28 10/15/24 12:33 Ketorolac 30mg/Ml Vial IV 10/15/24 12:29 30 mg ONCE ONE Administration Lidocaine 1 each 10/15/24 12:14 10/15/24 12:38 Lidocaine 5% Transdermal Patch TD 10/15/24 12:15 1 each ONCE ONE Administration Morphine Sulfate 4 mg 10/15/24 09:15 10/15/24 09:25 Morphine 4mg/Ml Syringe IV 10/15/24 09:16 4 mg ONCE ONE Administration ORDERS Category Date Time Status CT lumbar spine wo con Stat Cat Scan 10/15/24 09:15 Completed CBC w/Auto Diff [Complete Blood Count Auto Diff] Stat Lab 10/15/24 09:26 Completed CMP [Comprehensive Metabolic Panel] Stat Lab 10/15/24 09:26 Completed CRP [C-Reactive Protein] Stat Lab 10/15/24 09:26 Completed ESR [Erythrocyte Sedimentation Rate] Stat Lab 10/15/24 09:26 Completed Lipase Stat Lab 10/15/24 09:26 Completed UA [Urinalysis and Microscopic] Stat Lab 10/15/24 11:05 Completed Medical Decision Narrative: Soraya Walls is a 74y female With lower back pain status post fall treatment, diabetes mellitus who presents to the emergency department for complaints of lower right-sided back pain that radiates down her right leg x 3 days. Patient states that she developed pain in her back that feels different than her chronic pain 3 days ago has had difficulty walking ever since due to significant pain. She states that the pain radiates down the back of her right leg to her knee area. She states that it is worse with certain movements. She denies any fevers. She denies any urinary retention or incontinence. She denies any numbness or tingling in her genital area. She denies any fecal incontinence or constipation. She denies any numbness or tingling down the legs. She denies any weakness of her extremities. She denies any recent trauma or falls. She states that she believes that she has had injections in the past from sciatica type pain but is not sure. She states that she was told by her pain management team that she does not think any additional pain medications at home as this may over sedate her so she is not taking anything additional. On arrival, she is hemodynamically stable with blood pressure 133/52, heart rate borderline elevated at 96 bpm, afebrile, oxygen saturation 98% SpO2. Physical exam, stated above, reveals uncomfortable female in no respiratory distress. She has midline lumbar spine tenderness without step-off or deformity. Sitting up causes severe pain. She has positive straight leg test on the right. She reports pain in her lower back with straight leg raise on the left as well, however not severe. She is otherwise neurovascularly intact with full range of motion of the right lower extremity. Differential diagnosis includes, but is not limited to: Sciatica, degenerative disc disease, disc herniation, fracture, no red flag symptoms to suggest cauda equina. Given tenderness in the mid spine with radicular type symptoms, will get CT imaging of the lumbar spine without contrast. Will also obtain basic hematologic labs and inflammatory studies. CT imaging was interpreted by me personally. No acute fracture or malalignment spine. Exam quality is limited by patient's body habitus, however it does appear to be a disc bulge at L2-L3 resulting in at least moderate central canal stenosis as well as central canal stenosis at L3-L4. On reassessment, patient reported continued pain. Will give 0.5 mg of IV Dilaudid and lidocaine patch as well as 30 mg IV Toradol. Patient states that she has been using lidocaine patches at home. On reassessment, patient states that her pain has improved slightly but is still fairly severe. She notes that when she sits is only time she gets some relief. Given her uncontrolled pain, I did offer admission to the patient, however she stated that she would like to try going home and manage her pain at home until she is able to follow-up with pain management on Sunday. Given pain management previous note stating that they want to avoid any additional sedating medications at home, will avoid sending additional opiate pain medication for patient to go home with. Will prescribe daily meloxicam over the next 3 days to help patient's symptoms. I also encouraged her to continue her lidocaine patches and Tylenol. Return precautions were given. All questions were answered. She demonstrated understanding and was in agreement this plan. She was then discharged from the emergency department in stable condition. Critical Care Critical Care Time Critical Care Time: No
[2024-10-15] MEDS: MORPHINE 4MG/ML SYRINGE 4 MG IV (09:25)
--- OUTSIDE RECORDS SUMMARY | 2024-10-15 09:28 | XMS_ITS | Encounter Summary ---
[facility] Address [address] [place] [address] Care Team Providers Care Air Moving Technician Name Role Phone Bruno Rendon MD Primary Care Provider [phone] Reason for Visit * Reason Comments Med Refill Encounter Details Date Type Department Care Team (Late st Contact Info) Description 09/15/2024 Refill [facility] [address] [place] [phone] Angelica Rodriguez MD [address] [place] [address] Med Refill Social History Tobacco Use Types [...] Visit [facility] [address] [place] [phone] Jeannette Broderick APRN [address] [place] [address] 03/05/2025 11:15 AM EST Office Visit [facility] [address] [phone] Nisa Larson PA [address] [id number] documented as of this encounter Visit Diagnoses Not on filedocumented in this encounter Care Teams Air Moving Technician Relationship Specialty Start Date End Date Bruno Rendon MD [address] [place] [address] PCP - General Family Medicine 02/17/22 documented as of this encounter
--- OUTSIDE RECORDS SUMMARY | 2024-10-15 09:28 | XMS_ITS | Encounter Summary ---
[facility] [address] [place] [address] Care Team Providers Care Responder Name Role Phone Bruno Rendon MD Primary Care Provider [phone] Encounter Details Date Type Department Care Team (Late Contact Info) Description 09/16/2024 Telephone [facility] [address] [place] [phone] Jeannette Broderick APRN [address] [facility] [place] [phone] Social History Tobacco Use Types Packs/Day Years [...] Description 11/04/2024 3:00 PM EDT Office Visit [facility] [address] [place] [phone] Jeannette Broderick APRN [address] [place] [address] 03/05/2025 11:15 AM EST Office Visit [facility] [address] [phone] Nisa Larson PA [address] [address] documented as of this encounter Visit Diagnoses Not on filedocumented in this encounter Care Teams Responder Relationship Specialty Start Date End Date Bruno Rendon MD [address] [place] [address] PCP - General Family Medicine 02/17/22 documented as of this encounter
--- OUTSIDE RECORDS SUMMARY | 2024-10-15 09:28 | XMS_ITS | Encounter Summary ---
Author Organization [facility] Address [address] [place] [address] Care Team Providers Care Reexaminer Name Role Phone Bruno Rendon MD Primary Care Provider [phone] Encounter Details Date Type Department Care Team [...] Description 11/04/2024 3:00 PM EDT Office Visit [facility] [address] [place] [phone] Jeannette Broderick APRN [address] [place] [address] 03/05/2025 11:15 AM EST Office Visit [facility] [address] [phone] Nisa Larson PA [address] [place] [address] documented as of this encounter Visit Diagnoses Not on filedocumented in this encounter Care Teams Reexaminer Relationship Specialty Start Date End Date Bruno Rendon MD [address] [id number] PCP - General Family Medicine 02/17/22 documented as of this encounter
--- OUTSIDE RECORDS SUMMARY | 2024-10-15 09:28 | XMS_ITS | Clinical Summary ---
Author Organization Healthcare Address [address] [place] [id number] Care Team Providers Care Plant Accountant Name Role Phone Bruno Rendon MD Primary Care Provider [phone] Immunizations Immunization Administration Dates Next Due Pneumococcal [...] or (1 - 1-dose 75+ series) 08/22/2023 [id number] Vaccine (5 - 2024- season) 2024 01/03/2022, 12/21/2020, 04/27/2020, Additional history exists [id number] [...] age to complete this topic Care Teams Plant Accountant Relationship Specialty Start Date End Date Bruno Rendon MD [address] [place] [address] PCP - General 06/18/20
--- OUTSIDE RECORDS SUMMARY | 2024-10-15 09:28 | XMS_ITS | Clinical Summary ---
Author Organization [facility] Address [address] [place] [address] Care Team Providers Care Cargo Worker Name Role Phone Bruno Rendon MD Primary Care Provider [phone] Allergies Active Allergy Reactions Criticality Noted Date [...] SUNDAY 30 tablet 5 024 2024 Discontinued Active Problems Problem Noted Date [...] Type Department Care Team Description 09/16/2024 Telephone [facility] [address] [place] [address] Jeannette Broderick APRN 09/15/[address] [place] [address] Angelica Rodriguez MD Med Refill 09/03/2024 Results Follow-Up [facility] [address] [place] [address] Nisa Larson PA 09/02/2024 9:45 AM EDT Office Visit [facility] [address] [place] [address] Nisa Larson PA Type 2 diabetes mellitus with hyperglycemia, without long-term current use of insulin (Primary Dx) 09/02/2024 Travel 08/26/2024 Refill [facility] [place] [address] Bailey Lua APRN Med Refill 08/12/2024 Refill [facility] [address] [place] [address] Nisa Larson PA 08/06/2024 Refill [facility] [address] [place] [address] Angelica Rodriguez MD Med Refill 07/29/2024 Refill [facility] [place] [address] Jeannette Broderick APRN Med Refill from Last [...] Description 11/04/2024 3:00 PM EDT Office Visit [facility] [address] [place] [address] Jeannette Broderick APRN [address] [place] [address] 03/05/2025 11:15 AM EST Office Visit [facility] [address] [phone] Nisa Larson PA [address] [facility] [address] [place] [address] Health Maintenance Due Date Last [...] 75+ series) 08/22/2023 COVID-19 Vaccine (5 - 2024-2 6 season) 2024 01/03/2022, 12/21/2020, 04/27/2020, Additional history exists INFLUENZA [...] Microalbumin/C reatinine Ratio 09/02/2024 3:00 PM EDT [facility] Comment:Unable to calculate Creatinine, Urine 91.2 mg/dL 09/02/2024 3:00 PM EDT [facility] Microalbumin, Urine <1.2 mg/dL 09/02/2024 3:00 PM EDT [facility] Urine Urine specimen obtained by clean catch procedure / Unknown Collection / Unknown 09/02/2024 10:34 AM EDT 09/02/2024 10:34 AM EDT us Nisa MALONEY URINE ORDERABLES Final Result Performing Organization Address City/[facility]/ZIP Co de Phone Number [facility]
[address] [place] [address], * (ABNORMAL) POC Glycosylated Hemoglobin (Hb A1C) (09/02/2024 10:01 AM EDT) Hemoglobin A1C 7.7(A) 4.5 - 5.7 % [facility] Lot Number [id number] [facility] Expiration Date 05/14/2026 [facility] Blood 09/02/2024 10:0 1 AM EDT us Nisa MALONEY POINT OF CARE TEST ORDERABLES F inal Result [facility]
[address] [place] [address], [place] [phone] * (ABNORMAL) POC Glucose, Blood (09/02/2024 10:00 AM EDT) Glucose 176(A) 70 - 130 mg/dL Lot Number [id number] Expiration Date 03/10/2025 Blood 09/02/2024 10:0 0 AM EDT Nisa MALONEY POINT OF CARE TEST ORDERABLES F inal Result * Colonoscopy (03/22/2017) Nikolas Shaw MD SURGICAL HISTORY PROCEDURE S Final Result from Last 3 Months or Most Recently Relevant to [place] [address] MEDICARE A & B Care Teams Cargo Worker Relationship Specialty Start Date End Date Bruno Rendon MD [facility] [place] [address] PCP - General Family Medicine 02/17/22
--- OUTSIDE RECORDS SUMMARY | 2024-10-15 09:28 | XMS_ITS | Encounter Summary ---
Author Organization [facility] Address [address] [place] [address] Care Team Providers Care Director Learning And Development Name Role Phone Bruno eRndon MD Primary Care Provider [phone] Reason for Visit * Reason Comments Med Refill Encounter Details Date Type Department Care Team (Late st Contact Info) Description 08/26/2024 Refill [facility] [address] [place] [address] Bailey Lua SPECIAL ASSEMBLIES SUPERVISOR [address] [place] [phone] Med Refill Social History Tobacco Use Types [...] Office Visit [facility] [address] [place] [address] Jeannette Broderick APRN [address] [facility] [place] [address] 03/05/2025 11:15 AM EST Office Visit [facility] [address] [address] Nisa Larson PA [address] [address] documented as of this encounter Visit Diagnoses Not on filedocumented in this encounter Care Teams Director Learning And Development Relationship Specialty Start Date End Date Bruno Rendon MD [address] [place] [id number] PCP - General Family Medicine 02/17/22 documented as of this encounter
--- OUTSIDE RECORDS SUMMARY | 2024-10-15 09:28 | XMS_ITS | Encounter Summary ---
Author Organization [facility] Address [address] [place] [id number] Care Team Providers Care Electronics Engineering Technician Name Role Phone Bruno Rendon MD Primary Care Provider [phone] Encounter Details Date Type Department Care Team (Late st Contact Info) Description 09/03/2024 Results Follow-Up [facility] [address] [phone] Nisa Larson DC [address] [facility] [address] [place], [place] [phone] Social History Tobacco Use Types Packs/Day Years [...] [facility] [address] [place] [address] Jeannette Broderick APRN [address] [place] [address] 03/05/2025 11:15 AM EST Office Visit [facility] [address] [address] Nisa Larson PA [address] [address] documented as of this encounter Visit Diagnoses Not on filedocumented in this encounter Care Teams Electronics Engineering Technician Relationship Specialty Start Date End Date Bruno Rendon MD [address] [place] [address] PCP - General Family Medicine 02/17/22 documented as of this encounter
[2024-10-15 09:33] LABS: Hematocrit 33.8 % (37.0-47.0); Hemoglobin 10.9 g/dL (12.2-16.2); Immature Granulocytes % 0.3 %; Mean Corpuscular HGB Conc 32.2 g/dL (31.8-35.4); Mean Corpuscular Hemoglobin 28.9 pg (27.0-31.2); Mean Corpuscular Volume 89.7 fl (81-99); Nucleated Red Blood Cells % 0 %; Platelet Count 328 K/mm3 (142-424); Red Blood Count 3.77 M/mm3 (4.20-5.40); Red Cell Distribution Width-SD 55.5 fL; White Blood Count 6.3 K/mm3 (4.8-10.8)
[2024-10-15 09:42] LABS: Alanine Aminotransferase 54 U/L (12-78); Albumin Level 4.1 g/dl (3.5-5.0); Albumin/Globulin Ratio 1.2 (1.1-1.8); Alkaline Phosphatase 182 U/L (38-126); Anion Gap 15.9 mEq/L (5-15); Aspartate Amino Transferase 63 U/L (14-36); Bilirubin,Total 0.6 mg/dl (0.2-1.3); Blood Urea Nitrogen 23 mg/dl (7-17); Calcium 9.9 mg/dl (8.4-10.2); Carbon Dioxide 23 mmol/L (22.0-30.0); Chloride 101 mmol/L (98-107); Creatinine Clearance Estimated 34 mL/min (50-200); Creatinine,Serum 1.10 mg/dl (0.52-1.04); Estimated Glomerular Filt Rate 48 ml/min (>60); GFR (African American) 58 ML/MIN (>60); Globulin 3.5 g/dL (1.3-3.2); Glucose 208 mg/dl (74-100); Lipase 99 U/L (23-300); Potassium 3.9 mmoL/L (3.5-5.1); Sodium 136 mmol/L (136-145); Total Protein,Serum 7.6 g/dl (6.3-8.2)
[2024-10-15 09:47] LABS: C-Reactive Protein 2.1 mg/L (0-4)
[2024-10-15 11:06] LABS: Microscopic, Urine URINE MICROSCOPIC (MICROSCOPIC)
[2024-10-15 11:10] LABS: Bilirubin,Urine Negative (Negative); Color,Urine YELLOW (Yellow); Glucose,Urine (UA) 3+ (Negative); Ketones,Urine Negative (Negative); Leukocyte Esterase,Urine TRACE (Negative); PH,Urine 6.0 (5.0-8.5); Protein,Urine Negative (Negative); Urobilinogen,Urine 0.2 EU/dl (0.2)
[2024-10-15 11:11] LABS: Specific Gravity, Urine 1.025 (1.005-1.030)
[2024-10-15 11:44] LABS: Bacteria,Urine Trace /lpf
[2024-10-15] MEDS: KETOROLAC 30MG/ML VIAL 30 MG IV (12:33)
[2024-10-15] MEDS: HYDROMORPHONE 2MG/ML SYRINGE 0.5 MG IV (12:35)
[2024-10-15] MEDS: LIDOCAINE 5% TRANSDERMAL PATCH 1 EACH TD (12:38)
== END 2024-10-15 14:54 | disposition home or self-care (01) ==
PROVIDERS: Emergency Provider Student in an Organized Health Care Education/Training Program; PCP Family Medicine
DX: M54.31 Sciatica, right side (principal); R26.2 Difficulty in walking, not elsewhere classified
CPT/HCPCS: 72131; 80053; 81001; 83690; 85025; 85651; 86140; 96374; 96375; 99284; 99285; J1171; J1885; J2270